=== PATIENT | female | born 1940 | race Caucasian/White ===

== ENCOUNTER → 2019-11-24 09:55 | Outpatient (BNVA) | payer MEDICARE, MEDICAID, SELFPAY | PROVIDERS: PCP Internal Medicine; Visit Provider Anesthesiology | DX: M19.012 Primary osteoarthritis, left shoulder (principal); M19.011 Primary osteoarthritis, right shoulder | CPT/HCPCS: 99213 ==

== ENCOUNTER 2019-12-27 05:30 | Outpatient (REF) | payer MEDICARE, MEDICAID, SELFPAY ==
--- NOTE | 2019-12-27 07:31 | FL_ITS ---
EXAMINATION: XR FLUOROSCOPY WITH IMAGES CLINICAL INFORMATION: Primary osteoarthritis of the left shoulder COMPARISON: 10/18/2019 TECHNIQUE: Fluoroscopy performed by Dr. Del Ruffin. Fluoroscopy time: 0.3 minutes DAP: 0.919 Gycm2 Images: 2 FINDINGS: Radiopaque needles are seen projecting over the glenoid as well as over the humeral neck. Degenerative changes are seen at the glenohumeral joint. FL/FL guidance in treatment room IMPRESSION: Fluoroscopic guidance for shoulder intervention. Please refer to procedural report for further information.
== END 2019-12-27 05:31 | disposition home or self-care (01) ==
LOC: HO.RADIR 05:30
PROVIDERS: Visit Provider Anesthesiology
DX: M19.011 Primary osteoarthritis, right shoulder (principal); M19.012 Primary osteoarthritis, left shoulder
CPT/HCPCS: 64417

== ENCOUNTER → 2020-01-04 12:37 | Outpatient (BNVA) | payer MEDICARE, MEDICAID, SELFPAY | PROVIDERS: PCP Internal Medicine; Visit Provider Nurse Practitioner Family | DX: M19.011 Primary osteoarthritis, right shoulder (principal); M19.012 Primary osteoarthritis, left shoulder; Z98.890 Other specified postprocedural states | CPT/HCPCS: Q3014 ==

== ENCOUNTER 2020-04-19 09:05 | Outpatient (REF) | payer MEDICARE, MEDICAID, SELFPAY ==
[2020-04-19 09:43] LABS: MANUAL DIFF FLAG NO
[2020-04-19 09:47] LABS: Basophils Percent Auto 0.5 % (0-2); Eosinophils Absolute Auto 0.1 X10*3/uL (0.0-0.4); Eosinophils Percent Auto 2.1 % (0-4); Hematocrit 37.3 % (37-47); Hemoglobin 12.1 g/dl (12.0-16.0); Imm Gran Abs Auto 0.02 X10*3/uL (0.00-0.03); Imm Gran Pct Auto 0.4 % (0.0-0.4); Lymphocytes Absolute Auto 1.4 X10*3/uL (1.2-4.9); Lymphocytes Percent Auto 25.2 % (20-40); Mean Corpuscular HGB Conc 32.4 g/dl (31.0-35.0); Mean Corpuscular Hemoglobin 29.9 pg (27.0-33.0); Mean Corpuscular Volume 92.1 fL (80-98); Mean Platelet Volume 12.2 fL (9.4-12.3); Monocytes Absolute Auto 0.5 X10*3/uL (0.1-1.2); Monocytes Percent Auto 8.9 % (2-11); Neutrophils Absolute Auto 3.5 X10*3/uL (2.0-8.3); Neutrophils Percent Auto 62.9 % (45-73); Platelet Count 222 X10*3/uL (160-400); Red Blood Count 4.05 X10*6/uL (4.20-5.50); Red Cell Distribution Width 12.9 % (11.0-16.0); White Blood Count 5.6 X10*3/uL (4.8-10.8)
[2020-04-19 10:13] LABS: Alanine Aminotransferase 17 U/L (0-31); Albumin Level 4.2 g/dL (3.5-5.0); Alkaline Phosphatase 68 U/L (39-117); Anion Gap 14 (12-20); Aspartate Amino Transferase 24 U/L (5-31); Bilirubin Total 0.9 mg/dL (0.0-1.0); Blood Urea Nitrogen 25 mg/dL (9-16); Calcium 9.7 mg/dL (8.4-10.2); Carbon Dioxide 24 mmol/L (22-29); Chloride 108 mmol/L (96-108); Cholesterol 148 mg/dL; Estimated Glomerular Filt Rate 46; Glucose Random 111 mg/dL (60-115); HDL Cholesterol 45 mg/dL; LDL Cholesterol Calculated 75 mg/dl; Potassium 4.9 mmol/L (3.3-5.1); Sodium 141 mmol/L (135-145); Total Protein 6.9 g/dL (6.5-8.0); Triglycerides 140 mg/dL
[2020-04-19 10:33] LABS: Free T4 (Free Thyroxine) 0.96 ng/dL (0.71-1.85); Thyroid Stimulating Hormone 1.03 uIU/mL (0.32-4.0)
== END 2020-04-19 09:06 | disposition home or self-care (01) ==
LOC: HO.LAB 09:05
PROVIDERS: PCP Internal Medicine; Visit Provider Internal Medicine
DX: E78.00 Pure hypercholesterolemia, unspecified (principal); K21.9 Gastro-esophageal reflux disease without esophagitis; I10 Essential (primary) hypertension
CPT/HCPCS: 36415; 80053; 80061; 84439; 84443; 85025

== ENCOUNTER 2020-06-08 09:00 | Outpatient (RCR) | payer MEDICARE, MEDICAID, SELFPAY ==
--- NOTE | 2020-05-18 09:31 | MHC.PT.EP ---
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 Pt CURRENTLY HAS A QUAD CANE AND USES THIS AD INCONSISTENTLY. 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 FUNCTIONALLY, Pt IS INDEP W TRANSFERS/ BED MOB, HER CURRENT FOOTWEAR IS TOO WIDE AND ALLOWS FOR INCR VALGUS AND PRONATION- SHE DEMON RECIP TECHN ASC STAIRS W RAIL AND CANE AND DESCENDS 1 STAIR AT A TIME W RAIL AND CANE. CURRENTLY, NO OBJECTIVE FINDINGS OF SENSORIMOTOR DEFICITS. Pt WOULD BENEFIT FROM PT TO ADDRESS THE ABOVE FINDINGS AND GUIDE Pt W REGAINING FUNCT INDEPENDENCE W REDUCED FEAR OF FALLING. Frequency and Duration: The patient will be seen 2x WK x 5 WKS Short Term Goals: Pt BERNABE IMPROVED TECHN W USE OF QUAD CANE ON LEVEL GROUND AND STAIRS IN 2 WKS Pt PRESENT AND MORE CONSISTENTLY DON HER TIE SHOES FOR IMPROVED STABILITY IN HER FEET AND ANKLES IN 2 WKS Pt DEMON FULL LEFT KNEE EXT IN 2 WKS Mcc Goals: Pt INDEP W HEP AND OBJECTIVE IMPROVED PELVIC SYMM/ REDUCED LLI IN 5 WKS Pt BERNABE IMPROVED ADL/ FUNCT MOB KAYLEY EVIDENT W IMPROVED DGI BY 10 POINTS (07/02 AT EVAL) IN 5 WKS Treatment Plan: Modalities to reduce pain, spasms and effusion. Manual therapy to restore motion and function. Therapeutic exercise to improve strength and flexibility. Neuromuscular re-education for posture and balance. Therapeutic activities to return to functional activities of daily living. Electronically signed by: Jeannie Cifuentes PT Please sign and return to therapist. Thank you for your referral.
--- NOTE | 2020-07-19 10:02 | MHC.PT.DC ---
[facility] [place] Office [place] Office [place] Office [address] Lila Larson [address] [phone] F: [phone] F: [phone] F: [phone] F: [phone] Physical Therapy Discharge Report Diagnosis: UNSTEADINESS ON HER FEET Date of Surgery: Date of Evaluation: 05/18/20 Date of Discharge: 07/19/20 Treatments to Date: 4 Cancellations to Date: 0 No Shows to Date: 0 Discharge Status: Improved Function Independent with HEP Patient Elected to Stop Discharge Summary: AT D/C Pt BETTYON IMPROVED GAIT AND HER FEAR OF FALLING HAS BEEN DECR AND Pt WAS PROGRESSING WITH STATIC AND DYN BALANCE TASKS- Pt PHONED AND D/C HERSELF, NOTING SHE TURNED IN HER BED AND FELT A POP IN HER KNEE/ CALF AND HAS HAD PAIN AND IMPAIRED FUNCT MOB SINCE, SHE NOTED SHE HAS HAD MEDICAL CONSULTS AND FEELS SHE IS BEST TO D/C PT AT THE CURRENT AT EVAL: 80 YO FEMALE REF TO PT FOR UNSTEADINESS/ FEAR OF FALLING- Pt HAS H/O HELGA TKR W MOST RECENT ON THE RIGHT 2 YRS AGO- SHE RESIDES ALONE IN A 1ST FLOOR APT AND 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 Pt CURRENTLY HAS A QUAD CANE AND USES THIS AD INCONSISTENTLY. 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 FUNCTIONALLY, Pt IS INDEP W TRANSFERS/ BED MOB, HER CURRENT FOOTWEAR IS TOO WIDE AND ALLOWS FOR INCR VALGUS AND PRONATION- SHE DEMON RECIP TECHN ASC STAIRS W RAIL AND CANE AND DESCENDS 1 STAIR AT A TIME W RAIL AND CANE. CURRENTLY, NO OBJECTIVE FINDINGS OF SENSORIMOTOR DEFICITS. Pt WOULD BENEFIT FROM PT TO ADDRESS THE ABOVE FINDINGS AND GUIDE Pt W REGAINING FUNCT INDEPENDENCE W REDUCED FEAR OF FALLING. Electronically signed by: Jeannie Cifuentes,PT Please sign and return to therapist. Thank you for your referral.
== END 2020-07-19 10:03 | disposition other institution (70) ==
LOC: HO.PTCHIC 09:00
PROVIDERS: PCP Internal Medicine; Visit Provider Internal Medicine
DX: R26.81 Unsteadiness on feet (principal)
CPT/HCPCS: 97110; 97112; 97116; 97163

== ENCOUNTER 2020-06-12 15:37 | Outpatient (REF) | payer MEDICARE, MEDICAID, SELFPAY ==
--- NOTE | ~2020-06-12 | US_ITS ---
EXAMINATION: US VENOUS ULTRASOUND WITH DOPPLER LOWER EXTREMITY, RIGHT CLINICAL INFORMATION: Pain COMPARISON: Previous exam November 2017 TECHNIQUE: Ultrasound of the deep veins is performed from the hip to the calf with compression sonography and color and pulse Doppler assessment. Spectral analysis with color-flow imaging is performed. FINDINGS: There is normal venous compression and respiratory variation and augmented flow. The visualized common femoral vein, superficial femoral vein, profunda femoral vein, popliteal vein, and the trifurcation region shows no evidence of deep venous thrombosis. There is no popliteal fossa cyst. US/US venous duplex LE RT IMPRESSION: No DVT demonstrated in the right lower extremity.
== END 2020-06-12 15:38 | disposition home or self-care (01) ==
LOC: HO.US 15:37
PROVIDERS: PCP Internal Medicine; Visit Provider Internal Medicine
DX: I82.401 Acute embolism and thrombosis of unspecified deep veins of right lower extremity (principal); M79.89 Other specified soft tissue disorders
CPT/HCPCS: 93971

== ENCOUNTER 2020-07-11 08:15 | Outpatient (REF) | payer MEDICARE, MEDICAID, SELFPAY ==
--- NOTE | ~2020-07-11 | XR_ITS ---
EXAMINATION: XR KNEES, STANDING AP XR KNEE, RIGHT CLINICAL INFORMATION: Right knee pain, M25.561. COMPARISON: Standing AP knees and right knee 10/13/2018 TECHNIQUE: Standing AP view of both knees is performed along with lateral view right knee. FINDINGS: There is been prior bilateral knee arthroplasty. The bilateral hardware is intact. There is no fracture or destructive process or osteolysis. Right knee shows small suprapatellar effusion. There is spurring at origin right patellar tendon and borderline spurring at insertion right quadriceps tendon. XR/XR knee standing BI IMPRESSION: 1. Prior bilateral knee arthroplasty. Hardware intact. No osteolysis. 2. Small right suprapatellar effusion. Spurring at origin right patellar tendon and borderline spurring insertion quadriceps tendon
--- NOTE | ~2020-07-11 | XR_ITS ---
EXAMINATION: XR KNEES, STANDING AP XR KNEE, RIGHT CLINICAL INFORMATION: Right knee pain, M25.561. COMPARISON: Standing AP knees and right knee 10/13/2018 TECHNIQUE: Standing AP view of both knees is performed along with lateral view right knee. FINDINGS: There is been prior bilateral knee arthroplasty. The bilateral hardware is intact. There is no fracture or destructive process or osteolysis. Right knee shows small suprapatellar effusion. There is spurring at origin right patellar tendon and borderline spurring at insertion right quadriceps tendon. XR/XR knee RT 2V IMPRESSION: 1. Prior bilateral knee arthroplasty. Hardware intact. No osteolysis. 2. Small right suprapatellar effusion. Spurring at origin right patellar tendon and borderline spurring insertion quadriceps tendon
== END 2020-07-11 08:16 | disposition home or self-care (01) ==
LOC: HO.HOSX 08:15
PROVIDERS: Visit Provider Orthopaedic Surgery
DX: M79.18 Myalgia, other site (principal); M25.561 Pain in right knee; M25.562 Pain in left knee; Z96.651 Presence of right artificial knee joint
CPT/HCPCS: 73560; 73565; 99212

== ENCOUNTER → 2020-08-02 09:17 | Outpatient (BNVA) | payer MEDICARE, MEDICAID, SELFPAY | PROVIDERS: Visit Provider Internal Medicine Cardiovascular Disease | DX: I25.10 Atherosclerotic heart disease of native coronary artery without angina pectoris (principal); R07.89 Other chest pain; I10 Essential (primary) hypertension | CPT/HCPCS: 93005; 99212 ==

== ENCOUNTER → 2020-08-15 09:04 | Outpatient (REF) | payer MEDICARE, MEDICAID, SELFPAY ==
--- NOTE | ~2020-08-15 | NM_ITS ---
Myocardial perfusion study Indication: Retrosternal chest pressure to evaluate for myocardial ischemia Technique: The patient was brought in for a Lexiscan perfusion study on 08/15/2020. Patient performed low-level exercise and was injected 0.4 mg of Lexiscan intravenously. Within a minute of injection, 30 mCi of sestamibi was given intravenously. Images were obtained using the SPECT gamma camera interlaced with the gating device. Images were obtained in supine position. Resting perfusion study was performed on 08/16/2020. Patient was administered 30 mCi of sestamibi intravenously at rest. Images were then obtained in supine position. Images obtained with and without CT attenuation. Total DLP 170 mGy-cm. Images were processed with the software and compared side to side in short axis, horizontal long axis and vertical long axis views. Findings: The stress perfusion study showed nonattenuated images show large area of moderate intensity reduced uptake in the inferolateral and just inferior wall of the LV myocardium. Remainder of the LV myocardium is normally perfused. Attenuation corrected images show mildly reduced uptake in the apex of the LV myocardium.. The gated study shows normal LV systolic function with calculated LVEF of 71%. LV cavity is normal in size. The gated study shows normal systolic wall thickening and contraction of segments. Resting study shows nonattenuated images show mildly reduced uptake in the basal inferolateral wall of the LV myocardium. Attenuation corrected images show mildly reduced uptake apex of the LV myocardium.. Gating at rest reveals normal systolic wall motion with ejection fraction at 72%. The findings are consistent with there is discrepant findings between nonattenuated attenuated corrected images. Attenuated corrected images appear to be over corrected. There is large area of moderate intensity inferolateral ischemia in the circumflex territory.. NM/NM memo perf SPECT rest & str Impression: 1. Myocardial perfusion imaging study shows complex territory ischemia, large territory of moderate to severely 2. Gated LVEF is 72% 3. Transient ischemic dilatation not present EKG is nondiagnostic for ischemia
--- NOTE | 2020-08-15 09:06 | CA_ITS ---
Acquisition Time: 2020-08-15 09:09:52 Total Exercise Time: 00:02:00 Test Indications: CHEST PAIN Medications: SEE MED LIST Protocol: LEXISCAN Max HR: 099 BPM 71% of Pred: 138 BPM Max BP: 136/074 mmHG Max Work Load: 1.0 METS Pharmacological stress test with Lexiscan injection, while sitting and kicking her legs, without anginal symptoms, with isolated PVCs, with normotensive response to injection, with nondiagnostic EKG for ischemia. In recovery she reported feeling nausea, weak and weird and was treated with Aminophylline 75mg IVP to reverse Lexiscan with resolution of symptoms. Nuclear images pending. Test reviewed with Dr Guerrero. Referred By: Keo Bush Overread By: YOLANDA LEE
== END ==
LOC: HO.CARD 09:04
PROVIDERS: Visit Provider Internal Medicine Cardiovascular Disease
DX: R07.89 Other chest pain (principal)
CPT/HCPCS: 78452; 93017; A9500; J0280; J2785

== ENCOUNTER → 2020-08-23 09:37 | Outpatient (BNVA) | payer MEDICARE, MEDICAID, SELFPAY | PROVIDERS: Referring Provider Internal Medicine; Visit Provider Internal Medicine Cardiovascular Disease | DX: I25.10 Atherosclerotic heart disease of native coronary artery without angina pectoris (principal); I10 Essential (primary) hypertension | CPT/HCPCS: 99212 ==

== ENCOUNTER 2020-08-25 10:19 | Emergency (ER) | payer MEDICARE, MEDICAID, SELFPAY ==
--- NOTE | ~2020-08-25 | US_ITS ---
EXAMINATION: US VENOUS ULTRASOUND WITH DOPPLER LOWER EXTREMITY, RIGHT CLINICAL INFORMATION: Pain and swelling COMPARISON: 06/12/2020 TECHNIQUE: Ultrasound of the deep veins is performed from the hip to the calf with compression sonography and color and pulse Doppler assessment. Spectral analysis with color-flow imaging is performed. FINDINGS: There is normal venous compression and respiratory variation and augmented flow. The visualized common femoral vein, superficial femoral vein, profunda femoral vein, popliteal vein, and the trifurcation region shows no evidence of deep venous thrombosis. There is no significant popliteal fossa cyst. If the patient's symptoms persist, followup ultrasound in 5 days 7 days might be of value to exclude proximal propagation from a non-visualized calf vein. US/US venous duplex LE RT IMPRESSION: No DVT demonstrated in the right lower extremity.
[2020-08-25 10:27] VITALS: BP 133/69; PULSE 67; RESP 16; TEMP 35.9; O2SAT 95; BMI 30.9
--- NOTE | 2020-08-25 10:35 | ED_ITS ---
HPI - Extremity Problem General Chief complaint: Extremity Problem Stated complaint: Right leg pain, Nauseous Time Seen by Provider: 08/25/20 10:32 Source: patient and old records reviewed Mode of arrival: ambulatory Limitations: no limitations History of Present Illness MD Complaint: extremity pain Onset (ago): week(s) (1) Pain Consistency: constant Location: right and lower extremity Quality: constant and other (throbbing) Radiation: none Relieving factors: nothing Exacerbating factors: walking and palpation Associated symptoms: denies other symptoms Context: other (hx of injury in that leg months ago at PT took some medications in the past that alleviates the pain and it went away) Related Data Home Medications Medication Instructions Recorded Confirmed aspirin 81 mg tablet,delayed 81 mg PO DAILY 11/24/19 08/23/20 release atorvastatin 20 mg tablet 20 mg PO DAILY 11/24/19 08/23/20 ascorbate calcium (vitamin C) 500 500 mg PO DAILY 02/01/20 08/23/20 mg tablet cholecalciferol (vitamin D3) 25 25 mcg PO DAILY 02/01/20 08/23/20 mcg (1,000 unit) capsule cyanocobalamin (vitamin B-12) 1,000 mcg PO DAILY 02/01/20 08/23/20 1,000 mcg capsule meclizine 25 mg tablet 25 mg PO DAILY 02/01/20 08/23/20 Previous Rx's Medication Instructions Recorded melatonin 5 mg capsule 5 mg PO .QD #14 cap 02/01/20 metoprolol succinate 50 mg 50 mg PO DAILY #90 tab 02/28/20 tablet,extended release 24 hr hydrochlorothiazide 12.5 mg tablet 12.5 mg PO QAM #90 cap 05/08/20 losartan 50 mg tablet 50 mg PO DAILY #90 cap 06/10/20 isosorbide mononitrate 30 mg 30 mg PO QAM 30 Days #30 tab 08/16/20 tablet,extended release 24 hr diazepam [Valium] 2 mg PO BID PRN #10 tab 08/25/20 Allergies Allergy/AdvReac Type Severity Reaction Status Date / Time rosuvastatin [Crestor] Allergy Unknown unknown Verified 08/25/20 10:27 famotidine [From PEPCID] AdvReac Severe NAUSEA Verified 08/25/20 10:27 oxycodone [From OXYCONTIN] AdvReac Intermediate NAUSEA & Verified 08/25/20 10:27 VOMITING FROM PERCOCET TOO tramadol AdvReac Intermediate could not Verified 08/25/20 10:27 concetrate Review of Systems Review of Systems: Constitutional : No Fever, No Chills ENT/Mouth : No Ear Pain, No Hoarseness, No sore throat Eyes: No Eye Pain, No Swelling, No Redness, No Foreign Body Cardiovascular : No Chest Pain, No SOB Respiratory : No Cough, No Dyspnea Gastrointestinal : No Nausea, No Vomiting, No Diarrhea, No abdominal Pain Genitourinary : No Dysuria, No Hematuria Musculoskeletal : no joint pain, pos Myalgias, No Joint Swelling Skin : No Skin lacerations, No rash Neuro : No Weakness, No Numbness, No Loss of Consciousness, No Dizziness, No Headache Psych : No Anxiety/Panic, No Depression Heme/Lymph: no easy bruising, no Lymphadenopathy Endocrine : No Polyuria, No Polydipsia All other systems reviewed and are negative PMFSH Past Medical History Attestation statement: The following information was validated with the patient. Medical History Anxiety and depression Carotid stenosis Chronic kidney disease (CKD) stage G3b/A1, moderately decreased glomerular filtration rate (GFR) between 30-44 mL/min/1.73 square meter and albuminuria creatinine ratio less than 30 mg/g Coronary artery disease Esophageal dysmotility GERD (gastroesophageal reflux disease) Hypercholesterolemia Hypertension Insomnia Leukopenia Lumbar degenerative disc disease Overweight (BMI 25.0-29.9) Peripheral neuropathy Peripheral vascular disease Pityriasis lichenoides chronica Primary osteoarthritis of both shoulders Spinal stenosis TIA (transient ischemic attack) Vitamin D deficiency Surgical History Basal cell carcinoma (BCC) H/O knee surgery History of appendectomy History of cataract surgery History of cholecystectomy History of tonsillectomy S/P JIMENEZ-BSO Status post phlebectomy Stented coronary artery Social History Social History Alcohol intake: current Alcohol intake frequency: holidays/special occasions only Alcohol type: hard liquor Patient Tobacco Use Status: Never used Tobacco Use of substances other than those prescribed or required for medical reasons: No Advance Directives: Yes Advance Directives Information Provided: Yes Advance Directives on File: No Physical Exam Vital Signs: Vital Signs: Last Vital Signs Temp 96.6 F L 08/25/20 10:27 Pulse 67 08/25/20 10:27 Resp 16 08/25/20 10:27 BP 133/69 08/25/20 10:27 Pulse Ox 95 08/25/20 10:27 Body Mass Index 30.9 Appearance: Alert. Oriented X3. No acute distress. Eyes: Pupils equal, round and reactive to light. ENT: Pharynx normal. Neck: Normal inspection. Neck supple. CVS: Normal heart rate and rhythm. Pulses normal. Respiratory: No respiratory distress. Breath sounds normal. Abdomen: Soft and nontender. Skin: Skin warm and dry. Normal skin color. Normal skin turgor. Extremities: No lower extremity edema. R calf ttp no engorgement of vessels, no swelling, compartments are soft and compressible 2+ PT and DP pulses, no skin changes Neuro: Oriented X 3. No motor deficit. No sensory deficit. Course Course Course Narrative: limited bedside US 11am - full compression of CFV and at junction with SFV as well as popliteal vein and posterior tibial/peroneal to mid calf no clot seen on exam feels better stable for DC MDM - Extremity (Nontraumatic) MDM Narrative Medical decision making narrative: 80 yo female with hx of HTN, HLD, CAD, R TKR remote, hx of DVT remote several years ago, no longer on AC therapy c/o R calf pain no swelling for 1 week worse overnight worse with movements - no CP/SOB, skin changes, has great pulses at this time no signs of ischemia, compartments are soft and compressible, theres no swelling remote hx of DVTs - we do not have US tech available will obtain limited DVT study in ED and ddimer for risk stratification - I suspect more MSK pain in nature, PO medications ordered for muscle cramp at this time Lab Data Result diagrams: 08/25/20 11:16 08/25/20 11:16 Labs: Lab Results 08/25/20 08/25/20 08/25/20 Range/Units 11:15 11:16 11:16 WBC 4.8 (4.8-10.8) X10*3/uL RBC 3.29 L (4.20-5.50) X10*6/uL Hgb 10.1 L (12.0-16.0) g/dl Hct 30.6 L (37-47) % MCV 93.0 (80-98) fL MCH 30.7 (27.0-33.0) pg MCHC 33.0 (31.0-35.0) g/dl RDW 12.7 (11.0-16.0) % Plt Count 182 (160-400) X10*3/uL MPV 12.4 H (9.4-12.3) fL Immature Gran % (Auto) 0.4 (0.0-0.4) % Neut % (Auto) 65.2 (45-73) % Lymph % (Auto) 22.2 (20-40) % Rolette % (Auto) 9.5 (2-11) % Eos % (Auto) 1.9 (0-4) % Baso % (Auto) 0.8 (0-2) % Lymph # (Auto) 1.1 L (1.2-4.9) X10*3/uL Rolette # (Auto) 0.5 (0.1-1.2) X10*3/uL Eos # (Auto) 0.1 (0.0-0.4) X10*3/uL Baso # (Auto) 0.0 (0.0-0.2) X10*3/uL Abs Immat Gran (auto) 0.02 (0.00-0.03) X10*3/uL Absolute Neuts (auto) 3.2 (2.0-8.3) X10*3/uL Absolute Nucleated RBC 0.000 (0.0-0.012) X10*3/uL Nucleated RBC % (auto) 0.0 (0.0-0.2) /100WBC D-Dimer 364 NG/ML Sodium 139 (135-145) mmol/L Potassium 4.2 (3.3-5.1) mmol/L Chloride 109 H (96-108) mmol/L Carbon Dioxide 22 (22-29) mmol/L Anion Gap 12 (12-20) BUN 36 H (9-16) mg/dL Creatinine 1.17 (0.5-1.4) mg/dL Estim Creat Clear Calc 38.3 Estimated GFR 44 Random Glucose 105 (60-115) mg/dL Calcium 8.9 D (8.4-10.2) mg/dL Magnesium 1.9 (1.6-2.6) mg/dL Discharge Plan Discharge Clinical Impression: Acute leg pain Qualifiers: Laterality: right Qualified Code(s): M79.604 - Pain in right leg Patient Disposition: Home, Self-Care Instructions: Leg Cramps (ED) Additional Instructions: return to ED for any worsening symptoms or concerns Prescriptions: New diazepam [Valium] 2 mg tablet 2 mg PO BID PRN (Reason: muscle spasm) Qty: 10 RF: 0 No Action metoprolol succinate 50 mg tablet extended release 24 hr 50 mg PO DAILY Qty: 90 RF: 2 hydrochlorothiazide 12.5 mg tablet 12.5 mg PO QAM Qty: 90 RF: 3 losartan 50 mg tablet 50 mg PO DAILY Qty: 90 RF: 3 isosorbide mononitrate 30 mg tablet extended release 24 hr 30 mg PO QAM 30 Days Qty: 30 RF: 0 meclizine 25 mg tablet 25 mg PO DAILY RF: 0 ascorbate calcium (vitamin C) 500 mg tablet 500 mg PO DAILY RF: 0 cholecalciferol (vitamin D3) 25 mcg (1,000 unit) capsule 25 mcg PO DAILY RF: 0 cyanocobalamin (vitamin B-12) 1,000 mcg capsule 1,000 mcg PO DAILY RF: 0 melatonin 5 mg capsule 5 mg PO .QD Qty: 14 RF: 0 atorvastatin 20 mg tablet 20 mg PO DAILY RF: 0 aspirin 81 mg tablet,delayed release (DR/EC) 81 mg PO DAILY RF: 0 Referrals: Po,Erika Armendariz MD [Primary Care Provider] - 2 days (Thursday if not better)
[2020-08-25] MEDS: diazePAM 5 MG TABLET PO (10:47)
[2020-08-25 11:21] LABS: MANUAL DIFF FLAG NO
[2020-08-25 11:29] LABS: Basophils Percent Auto 0.8 % (0-2); Eosinophils Absolute Auto 0.1 X10*3/uL (0.0-0.4); Eosinophils Percent Auto 1.9 % (0-4); Hematocrit 30.6 % (37-47); Hemoglobin 10.1 g/dl (12.0-16.0); Imm Gran Abs Auto 0.02 X10*3/uL (0.00-0.03); Imm Gran Pct Auto 0.4 % (0.0-0.4); Lymphocytes Absolute Auto 1.1 X10*3/uL (1.2-4.9); Lymphocytes Percent Auto 22.2 % (20-40); Mean Corpuscular Hemoglobin 30.7 pg (27.0-33.0); Mean Platelet Volume 12.4 fL (9.4-12.3); Monocytes Absolute Auto 0.5 X10*3/uL (0.1-1.2); Monocytes Percent Auto 9.5 % (2-11); Neutrophils Absolute Auto 3.2 X10*3/uL (2.0-8.3); Neutrophils Percent Auto 65.2 % (45-73); Platelet Count 182 X10*3/uL (160-400); Red Blood Count 3.29 X10*6/uL (4.20-5.50); Red Cell Distribution Width 12.7 % (11.0-16.0); White Blood Count 4.8 X10*3/uL (4.8-10.8)
[2020-08-25 11:49] LABS: D Dimer 364 NG/ML
[2020-08-25 12:01] LABS: Anion Gap 12 (12-20); Blood Urea Nitrogen 36 mg/dL (9-16); Calcium 8.9 mg/dL (8.4-10.2); Carbon Dioxide 22 mmol/L (22-29); Chloride 109 mmol/L (96-108); Creatinine Clr Calc Pharmacy 38.3; Estimated Glomerular Filt Rate 44; Glucose Random 105 mg/dL (60-115); Magnesium 1.9 mg/dL (1.6-2.6); Potassium 4.2 mmol/L (3.3-5.1); Sodium 139 mmol/L (135-145)
== END 2020-08-25 13:03 | disposition home or self-care (01) ==
PROVIDERS: Physician Assistant; Emergency Provider Emergency Medicine; PCP Internal Medicine
DX: M79.604 Pain in right leg (principal); I12.9 Hypertensive chronic kidney disease with stage 1 through stage 4 chronic kidney disease, or unspecified chronic kidney disease; N18.32 Chronic kidney disease, stage 3b; Z86.718 Personal history of other venous thrombosis and embolism; Z86.73 Personal history of transient ischemic attack (TIA), and cerebral infarction without residual deficits; Z79.82 Long term (current) use of aspirin; Z79.899 Other long term (current) drug therapy
CPT/HCPCS: 36415; 80048; 83735; 85025; 85379; 93971; 99284

== ENCOUNTER 2020-09-27 16:08 | Outpatient (REF) | payer MEDICARE, MEDICAID, SELFPAY ==
[2020-09-27 16:57] LABS: MANUAL DIFF FLAG NO
[2020-09-27 16:58] LABS: Basophils Percent Auto 0.6 % (0-2); Eosinophils Absolute Auto 0.1 X10*3/uL (0.0-0.4); Eosinophils Percent Auto 1.4 % (0-4); Hematocrit 35.8 % (37-47); Hemoglobin 11.7 g/dl (12.0-16.0); Imm Gran Abs Auto 0.01 X10*3/uL (0.00-0.03); Imm Gran Pct Auto 0.2 % (0.0-0.4); Immature Retic Fraction 5.3 % (3.0-15.9); Lymphocytes Absolute Auto 1.6 X10*3/uL (1.2-4.9); Lymphocytes Percent Auto 25.5 % (20-40); Mean Corpuscular HGB Conc 32.7 g/dl (31.0-35.0); Mean Corpuscular Hemoglobin 30.5 pg (27.0-33.0); Mean Corpuscular Volume 93.5 fL (80-98); Mean Platelet Volume 12.5 fL (9.4-12.3); Monocytes Absolute Auto 0.5 X10*3/uL (0.1-1.2); Monocytes Percent Auto 7.5 % (2-11); Neutrophils Absolute Auto 4.1 X10*3/uL (2.0-8.3); Neutrophils Percent Auto 64.8 % (45-73); Platelet Count 222 X10*3/uL (160-400); Red Blood Count 3.83 X10*6/uL (4.20-5.50); Red Cell Distribution Width 12.9 % (11.0-16.0); Retic HGB Equivalent 34.4 pg (30.0-35.0); Reticulocytes Absolute 0.036 X10*6/uL (0.026-0.095); White Blood Count 6.3 X10*3/uL (4.8-10.8)
[2020-09-27 17:42] LABS: Alanine Aminotransferase 16 U/L (0-31); Albumin Level 4.2 g/dL (3.5-5.0); Alkaline Phosphatase 64 U/L (39-117); Anion Gap 13 (12-20); Aspartate Amino Transferase 21 U/L (5-31); Bilirubin Total 0.6 mg/dL (0.0-1.0); Blood Urea Nitrogen 33 mg/dL (9-16); Calcium 9.7 mg/dL (8.4-10.2); Carbon Dioxide 24 mmol/L (22-29); Chloride 108 mmol/L (96-108); Estimated Glomerular Filt Rate 35; Glucose Random 101 mg/dL (60-115); Iron 108 mcg/dL (30-160); Percent Iron Saturation 32 % (15-50); Phosphorus 4.5 mg/dL (2.7-4.5); Potassium 4.9 mmol/L (3.3-5.1); Sodium 140 mmol/L (135-145); Total Iron Binding Capacity 338 mcg/dL (228-428); Total Protein 6.8 g/dL (6.5-8.0); Unsaturated Iron Binding 230 ug/dL
[2020-09-27 18:02] LABS: Ferritin 80 ng/mL (10-250)
[2020-09-27 18:14] LABS: Folate 11.5 ng/mL (> or = 4.0); Vitamin B12 577 pg/mL (200-900)
== END 2020-09-27 16:09 | disposition home or self-care (01) ==
LOC: HO.LAB 16:08
PROVIDERS: PCP Internal Medicine; Visit Provider Internal Medicine
DX: M62.838 Other muscle spasm (principal)
CPT/HCPCS: 36415; 80053; 82607; 82728; 82746; 83540; 83735; 84100; 85025; 85045

== ENCOUNTER 2020-10-04 09:50 | Outpatient (REF) | payer MEDICARE, MEDICAID, SELFPAY ==
[2020-10-04 11:40] LABS: Anion Gap 16 (12-20); Blood Urea Nitrogen 27 mg/dL (9-16); Carbon Dioxide 20 mmol/L (22-29); Chloride 110 mmol/L (96-108); Estimated Glomerular Filt Rate 40; Glucose Random 105 mg/dL (60-115); Potassium 4.6 mmol/L (3.3-5.1); Sodium 141 mmol/L (135-145)
== END 2020-10-04 09:51 | disposition home or self-care (01) ==
LOC: HO.LAB 09:50
PROVIDERS: PCP Internal Medicine; Visit Provider Internal Medicine
DX: I10 Essential (primary) hypertension (principal)
CPT/HCPCS: 36415; 80048

== ENCOUNTER → 2020-10-17 13:32 | Outpatient (BNVA) | payer MEDICARE, MEDICAID, SELFPAY | PROVIDERS: PCP Internal Medicine; Visit Provider Anesthesiology | DX: M19.011 Primary osteoarthritis, right shoulder (principal) | CPT/HCPCS: 99212 ==

== ENCOUNTER → 2020-10-22 10:32 | Outpatient (BNVA) | payer MEDICARE, MEDICAID, SELFPAY | PROVIDERS: PCP Internal Medicine; Referring Provider Internal Medicine; Visit Provider Internal Medicine Cardiovascular Disease | DX: I25.10 Atherosclerotic heart disease of native coronary artery without angina pectoris (principal); R07.89 Other chest pain | CPT/HCPCS: 99212 ==

== ENCOUNTER 2021-04-22 09:12 | Outpatient (REF) | payer MEDICARE, MEDICAID, SELFPAY ==
[2021-04-22 11:40] LABS: MANUAL DIFF FLAG NO
[2021-04-22 11:50] LABS: Basophils Percent Auto 0.5 % (0-2); Eosinophils Absolute Auto 0.1 X10*3/uL (0.0-0.4); Eosinophils Percent Auto 2.1 % (0-4); Hematocrit 36.2 % (37.0-47.0); Hemoglobin 11.7 g/dl (12.0-16.0); Imm Gran Abs Auto 0.02 X10*3/uL (0.00-0.03); Imm Gran Pct Auto 0.3 % (0.0-0.4); Immature Retic Fraction 10.2 % (3.0-15.9); Lymphocytes Absolute Auto 1.1 X10*3/uL (1.2-4.9); Lymphocytes Percent Auto 17.3 % (20-40); Mean Corpuscular HGB Conc 32.3 g/dl (31.0-35.0); Mean Corpuscular Hemoglobin 30.6 pg (27.0-33.0); Mean Corpuscular Volume 94.8 fL (80.0-98.0); Mean Platelet Volume 12.8 fL (9.4-12.3); Monocytes Absolute Auto 0.5 X10*3/uL (0.1-1.2); Monocytes Percent Auto 7.3 % (2-11); Neutrophils Absolute Auto 4.4 x10*3/uL (2.0-8.3); Neutrophils Percent Auto 72.5 % (45-73); Platelet Count 219 X10*3/uL (160-400); Red Blood Count 3.82 X10*6/uL (4.20-5.50); Red Cell Distribution Width 12.7 % (11.0-16.0); Retic HGB Equivalent 33.5 pg (30.0-35.0); Reticulocyte Percent 1.2 % (0.5-1.8); Reticulocytes Absolute 0.045 X10*6/uL (0.026-0.095); White Blood Count 6.1 X10*3/uL (4.8-10.8)
[2021-04-22 12:19] LABS: Alanine Aminotransferase 14 U/L (0-31); Alkaline Phosphatase 73 U/L (39-117); Anion Gap 12 (12-20); Aspartate Amino Transferase 22 U/L (5-31); Bilirubin Total 0.9 mg/dL (0.0-1.0); Blood Urea Nitrogen 26 mg/dL (9-16); Calcium 9.6 mg/dL (8.4-10.2); Carbon Dioxide 23 mmol/L (22-29); Chloride 108 mmol/L (96-108); Cholesterol 136 mg/dL; Estimated Glomerular Filt Rate 48; Glucose Random 107 mg/dL (60-115); HDL Cholesterol 41 mg/dL; Iron 111 mcg/dL (30-160); LDL Cholesterol Calculated 69 mg/dl; Potassium 4.4 mmol/L (3.3-5.1); Sodium 139 mmol/L (135-145); Total Protein 6.7 g/dL (6.5-8.0); Triglycerides 134 mg/dL
[2021-04-22 12:39] LABS: Ferritin 63 ng/mL (10-250); Free T4 (Free Thyroxine) 1.12 ng/dL (0.71-1.85); Thyroid Stimulating Hormone 1.36 uIU/mL (0.32-4.0)
[2021-04-22 12:46] LABS: Folate 16.4 ng/mL (> or = 4.0); Vitamin B12 630 pg/mL (200-900)
[2021-04-22 13:45] LABS: Estimated Average Glucose 111 mg/dL; Hemoglobin A1c % 5.5 %
[2021-04-22 13:52] LABS: Percent Iron Saturation 34 % (15-50); Total Iron Binding Capacity 328 mcg/dL (228-428); Unsaturated Iron Binding 217 ug/dL
== END 2021-04-22 09:13 | disposition home or self-care (01) ==
LOC: HO.HMGCLDS 09:12
PROVIDERS: Visit Provider Internal Medicine
DX: D64.9 Anemia, unspecified (principal); E78.00 Pure hypercholesterolemia, unspecified; I25.10 Atherosclerotic heart disease of native coronary artery without angina pectoris; I10 Essential (primary) hypertension
CPT/HCPCS: 36415; 80053; 80061; 82607; 82728; 82746; 83036; 83540; 84439; 84443; 85025; 85045

== ENCOUNTER → 2021-05-02 10:38 | Outpatient (BNVA) | payer MEDICARE, MEDICAID, SELFPAY | PROVIDERS: PCP Internal Medicine; Referring Provider Internal Medicine; Visit Provider Internal Medicine Cardiovascular Disease | DX: I25.10 Atherosclerotic heart disease of native coronary artery without angina pectoris (principal) | CPT/HCPCS: 93005; 99212 ==

== ENCOUNTER 2021-06-03 11:16 | Emergency (ER) | payer MEDICARE, MEDICAID, SELFPAY ==
--- NOTE | 2021-06-03 | ECG_ITS ---
Test Reason : CHEST PAIN Blood Pressure : / mmHG Vent. Rate : 065 BPM Atrial Rate : 065 BPM P-R Int : 160 ms QRS Dur : 088 ms QT Int : 406 ms P-R-T Axes : 050 001 015 degrees QTc Int : 422 ms Normal sinus rhythm Normal ECG When compared with ECG of 20-JUL-2018 07:21, No significant change was found Referred By: Generic ED Physician Electronically Signed By:NATALIA BETANCOURT
--- NOTE | ~2021-06-03 | XR_ITS ---
EXAMINATION: XR CHEST CLINICAL INFORMATION: Pain COMPARISON: Chest x-ray and CTA chest 09/03/2016 TECHNIQUE: Frontal view of the chest was obtained. FINDINGS: The cardiac silhouette is mildly enlarged. The lungs are hypoinflated. Subtle bibasilar linear opacities are most suggestive of atelectasis. There is no lobar consolidation. No pleural effusion or pneumothorax. Degenerative changes of the spine and shoulders. XR/XR chest 1V IMPRESSION: No acute pulmonary pathology.
[2021-06-03 11:34] VITALS: BP 134/69; PULSE 73; RESP 18; TEMP 36.8; O2SAT 95; BMI 29.9
--- NOTE | 2021-06-03 11:43 | ED_ITS ---
HPI - Chest Pain General Chief Complaint: Chest Pain Stated Complaint: chest pain Time Seen by Provider: 06/03/21 11:43 Source: patient Mode of arrival: ambulatory Limitations: no limitations History of Present Illness MD complaint: chest pain (shoulder pain radiates down into the chest) Pertinent past history: coronary artery disease Onset (ago): day(s) (3) Timing of current episode: constant Prior episodes: Yes Onset: during rest Pain location: other (states her shoulders hurt then it causes spasm in her chest) Pain radiation: other (from shoulders into chest) Severity: moderate Quality: aching Relieving factors: other (lidocaine patches do help, sometimes tylenol) Exacerbating factors: palpation and movement Context: other (this is not related to exertion, no nausea no dyspnea states her shoulders hurt and it is causing her chest to feel tight this is not a new complaint she describes it as a sharp painful spasm) Treatment prior to arrival: other (tylenol/ lidocaine patch) Related Data Home Medications Medication Instructions Recorded Confirmed aspirin 81 mg tablet,delayed 81 mg PO DAILY 11/24/19 05/02/21 release flaxseed oil 1,000 mg capsule 1,000 mg PO DAILY 04/30/21 05/02/21 multivitamin 1 tab PO DAILY 04/30/21 05/02/21 Previous Rx's Medication Instructions Recorded melatonin 5 mg capsule 5 mg PO .QD #14 cap 02/01/20 atorvastatin 20 mg tablet 20 mg PO DAILY 90 Days #90 tab 10/02/20 amlodipine 5 mg tablet 5 mg PO DAILY 90 Days #90 tab 10/19/20 metoprolol succinate 50 mg 50 mg PO DAILY #90 tab 11/10/20 tablet,extended release 24 hr nitroglycerin 0.4 mg sublingual 0.4 mg SUBLINGUAL Q5M PRN #20 tab 05/03/21 tablet losartan 50 mg tablet 50 mg PO DAILY #90 cap 05/31/21 diclofenac sodium 1 % topical gel 2 g TOPICAL QID #100 g 06/03/21 (Voltaren Arthritis Pain) Allergies Allergy/AdvReac Type Severity Reaction Status Date / Time asparagus Allergy Severe Hives Verified 06/03/21 11:33 rosuvastatin [Crestor] Allergy Unknown unknown Verified 06/03/21 11:33 famotidine [From PEPCID] AdvReac Severe NAUSEA Verified 06/03/21 11:33 oxycodone [From OXYCONTIN] AdvReac Intermediate NAUSEA & Verified 06/03/21 11:33 VOMITING FROM PERCOCET TOO tramadol AdvReac Intermediate could not Verified 06/03/21 11:33 concetrate chocolate cover cherries Allergy Severe Anaphylaxis Uncoded 06/03/21 11:33 Review of Systems Review of Systems: Constitutional : No Weight loss, No Fever, No Chills ENT/Mouth : No sore throat, No Rhinorrhea Eyes: No Eye Pain, No Swelling Cardiovascular : pos Chest Pain, no SOB, no Dyspnea on Exertion, No Orthopnea, No Edema, No Palpitations Respiratory : No Cough, No Sputum Gastrointestinal : no Nausea, No Vomiting, No Diarrhea, No abdominal Pain, No Hematochezia, No Melena Genitourinary : No Dysuria, No Urinary Frequency Musculoskeletal : pos joint pain, No Myalgias, No Joint Swelling Skin : No Skin Lesions, No rash Neuro : No Weakness, No Numbness, No Dizziness, No Headache Psych : No Anxiety/Panic, No Depression Heme/Lymph: No Bruising, No Lymphadenopathy Endocrine : No Polyuria, No Polydipsia All other systems reviewed and are negative [facility] Past Medical History Attestation statement: The following information was validated with the patient. 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 Father No problems noted. Social History Social History Housing: Apartment Alcohol intake: current Alcohol intake frequency: holidays/special occasions only Alcohol type: hard liquor Patient Tobacco Use Status: Never used Tobacco e-Cigarette/Vaping Use: Never Used Second Hand Smoke Exposure: No Advance Directives: Yes Advance Directives on File: Yes Advance Directives Date on File: 07/11/20 service: No Current occupational status: retired Physical Exam Vital Signs: Vital Signs: Last Vital Signs Temp 98.3 F 06/03/21 11:34 Pulse 62 06/03/21 12:30 Resp 13 06/03/21 12:30 BP 145/70 H 06/03/21 12:30 Pulse Ox 97 06/03/21 12:30 BMI result Body Mass Index 29.9 Appearance: Alert. Oriented X3. No acute distress. Eyes: Pupils equal, round and reactive to light. ENT: Pharynx normal. Neck: Normal inspection. Neck supple. CVS: Normal heart rate and rhythm. Pulses normal. Respiratory: No respiratory distress. Breath sounds normal. Abdomen: Soft and nontender. Skin: Skin warm and dry. Normal skin color. Normal skin turgor. Extremities: No lower extremity edema. No calf ttp bilateral shoulder ttp hurts to range shoulders - reproduces her pain Neuro: Oriented X 3. No motor deficit. No sensory deficit. Course Course Course Narrative: Cardiology noted from 05/02 Jaylin comes for follow-up.? Her main issue currently is bilateral shoulder discomfort which limits her activity.? However with exertion she denies any chest pain.? 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 This is very atypical and her pain is coming from her s houlders. She notes this is chronic. I suspect MSK pain at this time. Will obtain EKG, CXR, troponin x 1. Offered PO trial of morphine for comfort - has tolerated IV morphine in the past. Lab Data Result diagrams: 06/03/21 12:17 06/03/21 12:17 Labs: Lab Results 06/03/21 06/03/21 06/03/21 Range/Units 12:17 12:17 12:17 WBC 4.4 L (4.8-10.8) X10*3/uL RBC 3.48 L (4.20-5.50) X10*6/uL Hgb 10.7 L (12.0-16.0) g/dl Hct 32.3 L (37.0-47.0) % MCV 92.8 (80.0-98.0) fL MCH 30.7 (27.0-33.0) pg MCHC 33.1 (31.0-35.0) g/dl RDW 12.8 (11.0-16.0) % Plt Count 192 (160-400) X10*3/uL MPV 12.0 (9.4-12.3) fL Immature Gran % (Auto) 0.2 (0.0-0.4) % Neut % (Auto) 61.8 (45-73) % Lymph % (Auto) 25.2 (20-40) % [place] % (Auto) 9.8 (2-11) % Eos % (Auto) 2.3 (0-4) % Baso % (Auto) 0.7 (0-2) % Lymph # (Auto) 1.1 L (1.2-4.9) X10*3/uL [place] # (Auto) 0.4 (0.1-1.2) X10*3/uL Eos # (Auto) 0.1 (0.0-0.4) X10*3/uL Baso # (Auto) 0.0 (0.0-0.2) X10*3/uL Abs Immat Gran (auto) 0.01 (0.00-0.03) X10*3/uL Absolute Neuts (auto) 2.7 (2.0-8.3) x10*3/uL Absolute Nucleated RBC 0.000 (0.0-0.012) X10*3/uL Nucleated RBC % (auto) 0.0 (0.0-0.2) /100WBC Sodium 138 (135-145) mmol/L Potassium 4.8 (3.3-5.1) mmol/L Chloride 109 H (96-108) mmol/L Carbon Dioxide 24 (22-29) mmol/L Anion Gap 10 L (12-20) BUN 26 H (9-16) mg/dL Creatinine 1.05 (0.5-1.4) mg/dL Estim Creat Clear Calc 42.8 Estimated GFR 50 Random Glucose 102 (60-115) mg/dL Calcium 9.4 (8.4-10.2) mg/dL Magnesium 2.0 (1.6-2.6) mg/dL Total Bilirubin 0.7 (0.0-1.0) mg/dL Direct Bilirubin 0.2 (0.0-0.5) mg/dL AST 22 (5-31) U/L ALT 13 (0-31) U/L Alkaline Phosphatase 65 (39-117) U/L Troponin I High Sens 8.7 (<3.5-17.0) ng/L Total Protein 6.2 L (6.5-8.0) g/dL Albumin 3.7 (3.5-5.0) g/dL 06/03/21 Range/Units 14:09 WBC (4.8-10.8) X10*3/uL RBC (4.20-5.50) X10*6/uL Hgb (12.0-16.0) g/dl Hct (37.0-47.0) % MCV (80.0-98.0) fL MCH (27.0-33.0) pg MCHC (31.0-35.0) g/dl RDW (11.0-16.0) % Plt Count (160-400) X10*3/uL MPV (9.4-12.3) fL Immature Gran % (Auto) (0.0-0.4) % Neut % (Auto) (45-73) % Lymph % (Auto) (20-40) % [place] % (Auto) (2-11) % Eos % (Auto) (0-4) % Baso % (Auto) (0-2) % Lymph # (Auto) (1.2-4.9) X10*3/uL [place] # (Auto) (0.1-1.2) X10*3/uL Eos # (Auto) (0.0-0.4) X10*3/uL Baso # (Auto) (0.0-0.2) X10*3/uL Abs Immat Gran (auto) (0.00-0.03) X10*3/uL Absolute Neuts (auto) (2.0-8.3) x10*3/uL Absolute Nucleated RBC (0.0-0.012) X10*3/uL Nucleated RBC % (auto) (0.0-0.2) /100WBC Sodium (135-145) mmol/L Potassium (3.3-5.1) mmol/L Chloride (96-108) mmol/L Carbon Dioxide (22-29) mmol/L Anion Gap (12-20) BUN (9-16) mg/dL Creatinine (0.5-1.4) mg/dL Estim Creat Clear Calc Estimated GFR Random Glucose (60-115) mg/dL Calcium (8.4-10.2) mg/dL Magnesium (1.6-2.6) mg/dL Total Bilirubin (0.0-1.0) mg/dL Direct Bilirubin (0.0-0.5) mg/dL AST (5-31) U/L ALT (0-31) U/L Alkaline Phosphatase (39-117) U/L Troponin I High Sens 9.7 (<3.5-17.0) ng/L Total Protein (6.5-8.0) g/dL Albumin (3.5-5.0) g/dL ECG Data ECG #1: Attestation: I personally reviewed and interpreted this ECG as follows: ECG interpretation date: 06/03/21 ECG interpretation time: 11:44 Interpretation: Rate: 65 Rhythm: NSR [place]: normal Normal P waves. Normal LENNOX. Normal QRS complex. ST T wave : no BONNIE, normal qTC: normal prior studies: no acute ischemia The study has been interpreted contemporaneously by me. . Discharge Plan Discharge Clinical Impression: Chronic pain of both shoulders Patient Disposition: Home, Self-Care Instructions: Arthralgia (ED) Additional Instructions: return to ED for any worsening symptoms or concerns do not mix the gel with lidocaine patches two blood tests for heart were in normal range Prescriptions: New diclofenac sodium [Voltaren Arthritis Pain] 1 % gel 2 g topical QID Qty: 100 0RF Rx Instructions: apply to single elbow, wrist or hand; for hand includes palm/fingers/back of hand No Action atorvastatin 20 mg tablet 20 mg PO DAILY 90 Days Qty: 90 2RF amlodipine 5 mg tablet 5 mg PO DAILY 90 Days Qty: 90 3RF metoprolol succinate 50 mg tablet extended release 24 hr 50 mg PO DAILY Qty: 90 2RF nitroglycerin 0.4 mg tablet, sublingual 0.4 mg sublingual Q5M PRN (Reason: chest pain) Qty: 20 1RF Rx Instructions: do not exceed 3 doses per episode losartan 50 mg tablet 50 mg PO DAILY Qty: 90 3RF melatonin 5 mg capsule 5 mg PO .QD Qty: 14 0RF flaxseed oil 1,000 mg capsule 1,000 mg PO DAILY 0RF Rx Instructions: administer with a meal multivitamin Tablet 1 tab PO DAILY 0RF aspirin 81 mg tablet,delayed release (DR/EC) 81 mg PO DAILY 0RF Referrals: Po,Erika Armendariz MD [Primary Care Provider] - 2 days (if not better)
[2021-06-03 12:25] LABS: MANUAL DIFF FLAG NO
[2021-06-03] MEDS: Acetaminophen 325 MG TABLET PO (12:27)
[2021-06-03 12:30] VITALS: BP 145/70; PULSE 62; RESP 13; O2SAT 97
[2021-06-03 12:32] LABS: Basophils Percent Auto 0.7 % (0-2); Eosinophils Absolute Auto 0.1 X10*3/uL (0.0-0.4); Eosinophils Percent Auto 2.3 % (0-4); Hematocrit 32.3 % (37.0-47.0); Hemoglobin 10.7 g/dl (12.0-16.0); Imm Gran Abs Auto 0.01 X10*3/uL (0.00-0.03); Imm Gran Pct Auto 0.2 % (0.0-0.4); Lymphocytes Absolute Auto 1.1 X10*3/uL (1.2-4.9); Lymphocytes Percent Auto 25.2 % (20-40); Mean Corpuscular HGB Conc 33.1 g/dl (31.0-35.0); Mean Corpuscular Hemoglobin 30.7 pg (27.0-33.0); Mean Corpuscular Volume 92.8 fL (80.0-98.0); Monocytes Absolute Auto 0.4 X10*3/uL (0.1-1.2); Monocytes Percent Auto 9.8 % (2-11); Neutrophils Absolute Auto 2.7 x10*3/uL (2.0-8.3); Neutrophils Percent Auto 61.8 % (45-73); Platelet Count 192 X10*3/uL (160-400); Red Blood Count 3.48 X10*6/uL (4.20-5.50); Red Cell Distribution Width 12.8 % (11.0-16.0); White Blood Count 4.4 X10*3/uL (4.8-10.8)
--- NOTE | 2021-06-03 12:55 | PC.NURSE ---
Pt comes in with complaints of shoulder pain bilateral which radiates into her chest, this is a chronic complaints. Pt is A&Ox4, LCA, SB on montior, +pulses, no pain at this time. Medicated as per MAR orders. Will continue to monitor.
[2021-06-03 13:12] LABS: Alanine Aminotransferase 13 U/L (0-31); Albumin Level 3.7 g/dL (3.5-5.0); Alkaline Phosphatase 65 U/L (39-117); Anion Gap 10 (12-20); Aspartate Amino Transferase 22 U/L (5-31); Bilirubin Direct 0.2 mg/dL (0.0-0.5); Bilirubin Total 0.7 mg/dL (0.0-1.0); Blood Urea Nitrogen 26 mg/dL (9-16); Calcium 9.4 mg/dL (8.4-10.2); Carbon Dioxide 24 mmol/L (22-29); Chloride 109 mmol/L (96-108); Creatinine Clr Calc Pharmacy 42.8; Estimated Glomerular Filt Rate 50; Glucose Random 102 mg/dL (60-115); Potassium 4.8 mmol/L (3.3-5.1); Sodium 138 mmol/L (135-145); Total Protein 6.2 g/dL (6.5-8.0)
[2021-06-03 13:14] LABS: Troponin-I High Sensitivity 8.7 ng/L (<3.5-17.0)
[2021-06-03 14:35] LABS: Troponin-I High Sensitivity 9.7 ng/L (<3.5-17.0)
== END 2021-06-03 15:26 | disposition home or self-care (01) ==
PROVIDERS: Emergency Provider Emergency Medicine; PCP Internal Medicine
DX: M25.512 Pain in left shoulder (principal); M25.511 Pain in right shoulder; R07.89 Other chest pain; I25.10 Atherosclerotic heart disease of native coronary artery without angina pectoris; Z79.899 Other long term (current) drug therapy
CPT/HCPCS: 36415; 71045; 80048; 80076; 83735; 84484; 85025; 93005; 99283; 99285

== ENCOUNTER 2021-06-21 13:00 | Outpatient (RCR) | payer MEDICARE, MEDICAID, SELFPAY ==
--- NOTE | 2021-05-08 16:27 | MHC.PT.EP ---
[facility] [place] Office [place] Office [place] Office [address] Lila Larson [address] [phone] F: [phone] F: [phone] F: [phone] F: [phone] Physical Therapy Plan of Care Date of Evaluation: Date of Surgery: Diagnosis: Primary OA of R shoulder. Assessment: Pt is an 81 y/o female referred to PT for eval and treat of shoulder OA who presents with chronic B shoulder pain L >R resulting in difficulty and inability to reach high shelves and mid level shelves at times as well as dressing pullovers, lifting objects of weight like grocery bags, driving her car, and performing even light HH chores secondary to Dx of OA of the shoulders, significant crepitis with ROM, decreased B shoulder ROM and strength, sedentary lifestyle and pain. Pt is deemed an appropriate candidate to receive skilled PT in order to address her physical limitations to improve her functional ability. Frequency and Duration: The patient will be seen 2 x/ wk x 5 wks. Short Term Goals: initiate HEP. improve baseline pain to < 7/10; initial: 10/10 Electroneurodiagnostic Technologist Goals: I with HEP. Pt will be able to place objects on high shelf with managed Sx. Improve B shoulder flexion MMT to to at least 4/5 and painful; initial 4-/5 B. Pt will be able to lay on her side with < 3/10 pain; initial 7/10. Treatment Plan: Modalities to reduce pain, spasms and effusion. Manual therapy to restore motion and function. Therapeutic exercise to improve strength and flexibility. Neuromuscular re-education for posture and balance. Therapeutic activities to return to functional activities of daily living. Electronically signed by: Luisito Ochoa PT Please sign and return to therapist. Thank you for your referral.
--- NOTE | 2021-06-21 13:43 | MHC.PT.DC ---
[facility] [place] Office [place] [facility] [place] Office [address] [phone] F: [phone] F: [phone] F: [phone] F: [phone] Physical Therapy Discharge Report Diagnosis: Primary OA of R shoulder. Date of Surgery: Date of Evaluation: 05/08/21 Date of Discharge: 06/21/21 Treatments to Date: 9 Cancellations to Date: No Shows to Date: Discharge Status: Independent with HEP Recommend MD Follow-up Discharge Summary: Jaylin has been an active participant in her therapy with good motivation in the clinic though she persists with significant pain and decreased ROM as well as significant crepitis which is painful at times. She is I with a basic home program she is largely comfortable with. Jaylin's SPADI outcome measure has not improved since her eval. Pt is in agreement with DC to home program for gentle ROM and scapular strengthening. Electronically signed by: Luisito Ochoa PT. Please sign and return to therapist. Thank you for your referral.
== END 2021-06-21 13:44 | disposition home or self-care (01) ==
LOC: HO.PTCHIC 13:00
PROVIDERS: PCP Internal Medicine; Visit Provider Internal Medicine
DX: M19.011 Primary osteoarthritis, right shoulder (principal); M19.012 Primary osteoarthritis, left shoulder
CPT/HCPCS: 97110; 97140; 97150; 97162

== ENCOUNTER → 2021-11-05 10:29 | Outpatient (BNVA) | payer MEDICARE, MEDICAID, SELFPAY | PROVIDERS: PCP Internal Medicine; Referring Provider Internal Medicine; Visit Provider Internal Medicine Cardiovascular Disease | DX: I25.10 Atherosclerotic heart disease of native coronary artery without angina pectoris (principal) | CPT/HCPCS: 99212 ==

== ENCOUNTER 2021-12-16 10:44 | Outpatient (REF) | payer MEDICARE, MEDICAID, SELFPAY ==
[2021-12-16 11:00] LABS: MANUAL DIFF FLAG NO
[2021-12-16 11:35] LABS: Basophils Absolute Auto 0.1 X10*3/uL (0.0-0.2); Basophils Percent Auto 0.8 % (0-2); Eosinophils Absolute Auto 0.1 X10*3/uL (0.0-0.4); Eosinophils Percent Auto 2.1 % (0-4); Hematocrit 31.8 % (37.0-47.0); Hemoglobin 10.2 g/dl (12.0-16.0); Imm Gran Abs Auto 0.01 X10*3/uL (0.00-0.03); Imm Gran Pct Auto 0.2 % (0.0-0.4); Immature Retic Fraction 12.2 % (3.0-15.9); Lymphocytes Absolute Auto 1.4 X10*3/uL (1.2-4.9); Lymphocytes Percent Auto 22.4 % (20-40); Mean Corpuscular HGB Conc 32.1 g/dl (31.0-35.0); Mean Corpuscular Hemoglobin 30.5 pg (27.0-33.0); Mean Corpuscular Volume 95.2 fL (80.0-98.0); Mean Platelet Volume 12.4 fL (9.4-12.3); Monocytes Absolute Auto 0.4 X10*3/uL (0.1-1.2); Monocytes Percent Auto 6.9 % (2-11); Neutrophils Absolute Auto 4.1 x10*3/uL (2.0-8.3); Neutrophils Percent Auto 67.6 % (45-73); Platelet Count 205 X10*3/uL (160-400); Red Blood Count 3.34 X10*6/uL (4.20-5.50); Red Cell Distribution Width 13.2 % (11.0-16.0); Retic HGB Equivalent 36.4 pg (30.0-35.0); Reticulocyte Percent 1.6 % (0.5-1.8); Reticulocytes Absolute 0.052 X10*6/uL (0.026-0.095); White Blood Count 6.1 X10*3/uL (4.8-10.8)
[2021-12-16 11:42] LABS: Appearance Urine Clear; Color Urine Yellow; Glucose Urine UA Negative (Negative); Leukocyte Esterase Urine Moderate (2+) (Negative); Nitrite Urine Negative (Negative); UMIC TRIGGER UA YES; Urine Blood Negative (Negative); Urine Ketones Negative (Negative); Urine Protein Negative (Neg-Trace)
[2021-12-16 12:00] LABS: Bacteria Urine None Seen (None Seen); Hyaline Casts Urine 0-2 /LPF (0-2); RBC Urine 0-2 /HPF (0-2); WBC Urine 0-5 /HPF (0-5)
[2021-12-16 12:13] LABS: Iron 85 mcg/dL (30-160); Percent Iron Saturation 26 % (15-50); Total Iron Binding Capacity 330 mcg/dL (228-428); Unsaturated Iron Binding 245 ug/dL
[2021-12-16 12:38] LABS: Ferritin 98 ng/mL (10-250)
[2021-12-16 12:58] LABS: Folate > 20.0 ng/mL (> or = 4.0); Vitamin B12 500 pg/mL (200-900)
== END 2021-12-16 10:45 | disposition home or self-care (01) ==
LOC: HO.LAB 10:44
PROVIDERS: PCP Internal Medicine; Visit Provider Internal Medicine
DX: D64.9 Anemia, unspecified (principal)
CPT/HCPCS: 36415; 81001; 82607; 82728; 82746; 83540; 85025; 85045

== ENCOUNTER 2022-04-29 09:04 | Outpatient (REF) | payer MEDICARE, MEDICAID, SELFPAY ==
[2022-04-29 11:44] LABS: MANUAL DIFF FLAG NO
[2022-04-29 11:59] LABS: Basophils Percent Auto 0.9 % (0-2); Eosinophils Absolute Auto 0.1 X10*3/uL (0.0-0.4); Hemoglobin 10.6 g/dl (12.0-16.0); Imm Gran Abs Auto 0.01 X10*3/uL (0.00-0.03); Imm Gran Pct Auto 0.2 % (0.0-0.4); Immature Retic Fraction 14.3 % (3.0-15.9); Lymphocytes Absolute Auto 1.2 X10*3/uL (1.2-4.9); Lymphocytes Percent Auto 25.3 % (20-40); Mean Corpuscular HGB Conc 33.1 g/dl (31.0-35.0); Mean Corpuscular Hemoglobin 31.7 pg (27.0-33.0); Mean Corpuscular Volume 95.8 fL (80.0-98.0); Mean Platelet Volume 11.9 fL (9.4-12.3); Monocytes Absolute Auto 0.4 X10*3/uL (0.1-1.2); Monocytes Percent Auto 9.4 % (2-11); Neutrophils Absolute Auto 2.9 x10*3/uL (2.0-8.3); Neutrophils Percent Auto 61.2 % (45-73); Platelet Count 245 X10*3/uL (160-400); Red Blood Count 3.34 X10*6/uL (4.20-5.50); Red Cell Distribution Width 13.1 % (11.0-16.0); Retic HGB Equivalent 36.4 pg (30.0-35.0); Reticulocyte Percent 1.9 % (0.5-1.8); Reticulocytes Absolute 0.064 X10*6/uL (0.026-0.095); White Blood Count 4.7 X10*3/uL (4.8-10.8)
[2022-04-29 12:00] LABS: Estimated Average Glucose 111 mg/dL; Hemoglobin A1c % 5.5 %
[2022-04-29 12:37] LABS: Alanine Aminotransferase 15 U/L (0-31); Albumin Level 3.8 g/dL (3.5-5.0); Alkaline Phosphatase 65 U/L (39-117); Anion Gap 16 (12-20); Aspartate Amino Transferase 22 U/L (5-31); Blood Urea Nitrogen 26 mg/dL (9-16); Calcium 9.4 mg/dL (8.4-10.2); Carbon Dioxide 21 mmol/L (22-29); Chloride 109 mmol/L (96-108); Cholesterol 133 mg/dL; Estimated Glomerular Filt Rate 47; Glucose Random 107 mg/dL (60-115); HDL Cholesterol 38 mg/dL; LDL Cholesterol Calculated 73 mg/dl; Potassium 4.6 mmol/L (3.3-5.1); Sodium 141 mmol/L (135-145); Total Protein 6.5 g/dL (6.5-8.0); Triglycerides 114 mg/dL; Unsaturated Iron Binding 174 ug/dL
[2022-04-29 12:46] LABS: Ferritin 114 ng/mL (10-250); Folate 14.9 ng/mL (> or = 4.0); Free T4 (Free Thyroxine) 1.03 ng/dL (0.71-1.85); Thyroid Stimulating Hormone 1.38 uIU/mL (0.32-4.0); Vitamin B12 576 pg/mL (200-900); Vitamin D 25-OH Total 42.9 ng/mL (>30)
[2022-04-29 12:49] LABS: Iron 101 mcg/dL (30-160); Percent Iron Saturation 37 % (15-50); Total Iron Binding Capacity 275 mcg/dL (228-428)
== END 2022-04-29 09:05 | disposition home or self-care (01) ==
LOC: HO.HMGCLDS 09:04
PROVIDERS: PCP Internal Medicine; Visit Provider Internal Medicine
DX: E78.00 Pure hypercholesterolemia, unspecified (principal); D64.9 Anemia, unspecified; R73.01 Impaired fasting glucose; E55.9 Vitamin D deficiency, unspecified; M85.80 Other specified disorders of bone density and structure, unspecified site
CPT/HCPCS: 36415; 80053; 80061; 82306; 82607; 82728; 82746; 83036; 83540; 84439; 84443; 85025; 85045

== ENCOUNTER 2022-05-02 10:24 | Outpatient (REF) | payer MEDICARE, MEDICAID, SELFPAY ==
--- NOTE | ~2022-05-02 | XR_ITS ---
EXAMINATION: XR shoulder LT min 2V, XR shoulder RT min 2V CLINICAL INFORMATION: Reason for Exam M19.019 - Primary osteoarthritis, unspecified shoulder COMPARISON: 02/15/2019, 12/03/2018 TECHNIQUE: 3 views of the bilateral shoulders XR/XR shoulder LT min 2V FINDINGS/IMPRESSION: * Left shoulder: No acute fracture or dislocation redemonstration of elevation of the humeral head relative to the glenoid fossa likely reflecting underlying rotator cuff pathology. Extensive subchondral cystic changes and joint space narrowing with large osteophytosis, progressed from prior study in keeping with moderate osteoarthrosis. Mild acromioclavicular joint arthrosis. * Right shoulder: No acute fracture or dislocation. Elevation of the humeral head relative to glenoid fossa reflects rotator cuff pathology. Interval progression in joint space narrowing and subchondral cystic changes of the glenohumeral joint with large osteophytes in keeping with moderate osteoarthrosis. Moderate acromioclavicular arthrosis.
--- NOTE | ~2022-05-02 | XR_ITS ---
EXAMINATION: XR shoulder LT min 2V, XR shoulder RT min 2V CLINICAL INFORMATION: Reason for Exam M19.019 - Primary osteoarthritis, unspecified shoulder COMPARISON: 02/15/2019, 12/03/2018 TECHNIQUE: 3 views of the bilateral shoulders XR/XR shoulder RT min 2V FINDINGS/IMPRESSION: * Left shoulder: No acute fracture or dislocation redemonstration of elevation of the humeral head relative to the glenoid fossa likely reflecting underlying rotator cuff pathology. Extensive subchondral cystic changes and joint space narrowing with large osteophytosis, progressed from prior study in keeping with moderate osteoarthrosis. Mild acromioclavicular joint arthrosis. * Right shoulder: No acute fracture or dislocation. Elevation of the humeral head relative to glenoid fossa reflects rotator cuff pathology. Interval progression in joint space narrowing and subchondral cystic changes of the glenohumeral joint with large osteophytes in keeping with moderate osteoarthrosis. Moderate acromioclavicular arthrosis.
== END 2022-05-02 10:25 | disposition home or self-care (01) ==
LOC: HO.XRAY 10:24
PROVIDERS: PCP Internal Medicine; Visit Provider Internal Medicine
DX: M19.011 Primary osteoarthritis, right shoulder (principal); M19.012 Primary osteoarthritis, left shoulder
CPT/HCPCS: 73030

== ENCOUNTER → 2022-05-08 10:24 | Outpatient (BNVA) | payer MEDICARE, MEDICAID, SELFPAY | PROVIDERS: PCP Internal Medicine; Referring Provider Internal Medicine; Visit Provider Internal Medicine Cardiovascular Disease | DX: I25.10 Atherosclerotic heart disease of native coronary artery without angina pectoris (principal); I10 Essential (primary) hypertension; Z95.5 Presence of coronary angioplasty implant and graft | CPT/HCPCS: 93005; 99212 ==

== ENCOUNTER → 2022-05-09 10:32 | Outpatient (REF) | payer MEDICARE, MEDICAID, SELFPAY ==
--- NOTE | 2022-05-09 10:35 | CA_ITS ---
Transthoracic Echocardiogram Patient (Last, First, Middle): Jaylin Palma M Gender: Female Date of : 1940 Age: 82 Procedure Date: 05/09/2022 Procedure Type: Transthoracic Echocardiogram Location: OP Height: 165.1 cm Weight: 81.65 kg BSA: 1.89 m2 Heart Rate: bpm BP: 122 / 60 mmHg [employer]: Referring MD: Keo Bush MD Symptoms: I25.10 - Atherosclerotic heart disease of [place] coronary artery without... Study Quality: Fair ECG Rhythm: Sinus Conclusions: - The left ventricular systolic function is normal. The calculated ejection fraction is 64% by biplane method. - Evidence suggests grade II (moderate) diastolic dysfunction. - The left atrium is severely dilated. - No obvious valvular pathology seen on this study. Findings Left Ventricle Normal left ventricular cavity size. There is mildly increased left ventricular wall thickness. The left ventricular systolic function is normal. The calculated ejection fraction is 64% by biplane method. There is no evidence of regional wall motion abnormalities. E/E prime ratio is >15, consistent with elevated filling pressures. Evidence suggests grade II (moderate) diastolic dysfunction. LV peak GLS -17.6%. Right Ventricle Normal right ventricular cavity size and systolic function. Atria The left atrium is severely dilated. The right atrium is normal in size. Aortic Valve There is a normal trileaflet aortic valve. There is no aortic valve stenosis. There is no aortic valve regurgitation. Mitral Valve The mitral valve appears normal. There is mild mitral valve regurgitation. There is no mitral valve stenosis. Pulmonic Valve The pulmonic valve is likely normal. Tricuspid Valve There is mild tricuspid valve regurgitation. There is no evidence of pulmonary hypertension. Great Vessels The asc aorta is normal in size. Venous The inferior vena cava is normal in size and collapses greater than 50% with inspiration. Pericardium/Pleural There is no evidence of pericardial effusion. Prior Study Comparison Changes noted compared to prior study dated: 12/17/2016. Progression of diastolic dysfunction; increase in atrial size. Recommendations, Care & Conclusions No obvious valvular pathology seen on this study. Measurements 2D Linear Measurements IVSd: 1.25 0.6-0.9/0.6-1.0 cm LVIDd: 4.64 3.9-5.3/4.2-5.9 cm LVIDd Index: 2.46 2.4-3.2/2.2-3.1 cm/m2 LVIDs: 3.01 2.0-3.6 cm LVPWd: 1.25 0.7-1.1 cm Ao Root: 3.20 2.1-3.5 cm LA Diam: 4.20 2.7-3.8/3.0-4.0 cm LAIDs Index: 2.22 1.5-2.3 cm/m2 LV Mass: 274.66 67-162/88-224 g LV Mass Index: 145.32 43-95/49-115 g/m2 LVOT Diam: 2.00 3.0+(-)1.3 cm 2D Systolic Function EF 4C: 68.30 >55% EF 2C: 58.10 >55% EF BiP: 63.60 >55% Mitral Valve MV Pk E: 0.76 MV PK A: 0.80 MV Decel Time: 207.00 E/A: 0.90 E'Lateral: 8.05 E'Medial: 3.48 E/E' Med: 21.80 E/E' Lat: 9.40 PHT: 61.00 MVA PHT: 3.61 Decel Lares: 3.67 Aortic Valve AoV Pk Abdiaziz: 1.52 AoV Mn Abdiaziz: 0.89 AoV VTI: 0.32 AoV Pk Grad: 9.00 Aov Mn Grad: 4.00 LISA Cont.VTI: 1.88 LVOT LVOT Pk Abdiaziz: 0.84 LVOT Mn Abdiaziz: 0.49 LVOT VTI: 0.19 LVOT Pk Grad: 3.00 LVOT Mn Grad: 1.00 LVOT Diam: 2.00 LVOT Area: 3.14 Diastolic Function MV Pk E: 0.76 MV Pk A: 0.80 E/A: 0.90 E'Medial: 3.48 E/E' Med: 21.80 E' Laterial: 8.05 E/E' Lat: 9.40 Right Ventricle TAPSE (mm): 23.00 TVS' Abdiaziz: 17.00 Tricuspid Valve TR Pk Abdiaziz: 2.45 TR Pk Grad: 24.00 RA Press: 3.00 RVSP: 27.00 Great Vessels Aorta Ao Root-2D: 3.20 2.0-3.7 cm Ao Asc: 3.70 2.1-3.4 cm Pulmonary Valve PV Pk Abdiaziz: 1.08 Peak PV Grad: 5.00 Updated in Other Vendor System with Status of Final Jim Guerrero MD electronically signed on 05/10/2022 12:35:49 PM with status of Final
== END ==
LOC: HO.CARD 10:32
PROVIDERS: Visit Provider Internal Medicine Cardiovascular Disease
DX: I25.10 Atherosclerotic heart disease of native coronary artery without angina pectoris (principal)
CPT/HCPCS: 93306; 93356

== ENCOUNTER 2022-05-16 10:25 | Outpatient (REF) | payer MEDICARE, MEDICAID, SELFPAY ==
--- NOTE | ~2022-05-16 | MM_ITS ---
EXAMINATION: BONE DENSITOMETRY CLINICAL INDICATION: Osteoporosis. COMPARISON: Previous BD dated 08/25/2019 and baseline BD dated 08/26/2007. TECHNIQUE: Using a [employer] DXA System (software version: 13.1) manufactured by [employer], dual-energy x-ray absorptiometry was performed of the lumbar spine and left hip. The images are of good technical quality. Summary results are attached. FINDINGS: AP SPINE L1-L4: Current: BMD 1.175 g/cm2, Z-score 1.3, T-score 0.0, normal, 3.3% increase from previous, 0.9% increase from baseline (<5% change is not significant). Prior: BMD 1.137 g/cm2. Baseline: BMD 1.165 g/cm2. LEFT FEMUR, NECK: Current: BMD 0.916 g/cm2, Z-score 1.1, T-score -0.9, normal. Prior: BMD 0.889 g/cm2. Baseline: BMD 1.051 g/cm2. LEFT FEMUR, TOTAL: Current: BMD 0.842 g/cm2, Z-score 0.5, T-score -1.3, osteopenia, 1.9% increase from previous, 17.0% decrease from baseline (<5% change is not significant). Prior: BMD 0.826 g/cm2. Baseline: BMD 1.015 g/cm2. IDENTIFIED RISK FACTORS: Menopause, height loss, hysterectomy, bilateral oophorectomy, osteoporosis. HISTORY OF FRACTURE: None listed. MEDICATIONS: Multivitamin, vitamin D. MM/XR DEXA axial skeleton IMPRESSION: 1. DIAGNOSIS: Osteopenia based on the lowest T-score value of -1.3 in the total femur applying World Health Organization criteria. 2. 10-YEAR FRACTURE RISK PREDICTION, FRAX: Major osteoporotic fracture (clinical spine, forearm, hip or shoulder) 10.8%. Hip fracture 2.3%. 3. Treatment Recommendations: NOF guidelines recommend consideration for treatment in postmenopausal women and men age 50 and older presenting with the following: -A hip or vertebral (clinical or morphometric) fracture. -T-score less than or equal to -2.5 at the femoral neck or spine after appropriate evaluation to exclude secondary causes. -Low bone mass at the hip or spine and a 10-year fracture probability by FRAX of greater than or equal to 3% for hip fracture or greater than or equal to 20% for major osteoporotic fracture based on the [place] adapted WHO algorithm. 4. Other Recommendations: All treatment decisions require clinical judgment and consideration of individual patient factors, including patient preferences, comorbidities, previous drug use, risk factors not captured in the FRAX model (e.g. frailty, falls, vitamin D deficiency, increased bone turnover, interval significant decline in bone density) and possible under or overestimation of fracture risk by FRAX. Additional medical evaluation for secondary cause of low bone mineral density may be appropriate. FUTURE SCAN RECOMMENDATION: People with diagnosed cases of osteoporosis or at high risk for fracture should have regular bone mineral density tests. For patients eligible for Medicare, routine testing is allowed once every 2 years. The testing frequency can be increased to one year for patients who have rapidly progressing disease, those who are receiving or discontinuing medical therapy to restore bone mass, or have additional risk factors.
== END 2022-05-16 10:26 | disposition home or self-care (01) ==
LOC: HO.MAMMO 10:25
PROVIDERS: PCP Internal Medicine; Visit Provider Internal Medicine
DX: M81.0 Age-related osteoporosis without current pathological fracture (principal); M85.80 Other specified disorders of bone density and structure, unspecified site
CPT/HCPCS: 77080

== ENCOUNTER → 2022-05-19 10:18 | Outpatient (BNVA) | payer MEDICARE, MEDICAID, SELFPAY | PROVIDERS: PCP Internal Medicine; Visit Provider Orthopaedic Surgery | DX: M19.011 Primary osteoarthritis, right shoulder (principal); M19.012 Primary osteoarthritis, left shoulder | CPT/HCPCS: 20610; 99212; J1100 ==

== ENCOUNTER 2022-06-05 09:53 | Observation (INO) | payer MEDICARE, MEDICAID, SELFPAY ==
[2022-06-05] VITALS (8 sets, daily range): BP systolic 93–128; BP diastolic 48–65; PULSE 57–99; RESP 15–18; TEMP 36.6–37.7; O2SAT 95–98
--- NOTE | ~2022-06-05 | CT_ITS ---
EXAMINATION: CT PELVIS WITHOUT CONTRAST CLINICAL INFORMATION: Acute pelvic pain. COMPARISON: None available. TECHNIQUE: Noncontrast multidetector CT imaging examination of the pelvis is performed. Axial images and multiplanar reformatted images are reviewed. This CT examination was performed using dose optimization techniques as appropriate, variously including the following: *Automated exposure control *Adjustment of mA and/or kV according to patient size (this includes techniques or standardized protocols for targeted exams where dose is matched to indication/reason for exam; i.e. extremities or head) *Use of iterative reconstruction technique DLP: 471 mGy-cm FINDINGS: Bones are diffusely osteopenic. Severe facet osteoarthritis, grade 1 anterolisthesis and spinal canal stenosis at L3-L4 and L4-L5. There is partial osseous fusion between vertebral bodies at L5-S1. Small osteophytes and degenerative subarticular sclerosis at sacroiliac joints. Pelvic bones are intact and have normal alignment. At the degenerated pubic symphysis, there is subarticular sclerosis, subarticular cystic change and osteophytosis. No evidence of acetabular or proximal femoral injury. Mild osteoarthrosis of the hips. No hip joint effusion or pericapsular fluid collection. No iliopsoas or trochanteric bursitis. No dilated loops of bowel within the visualized lower abdomen and pelvis. Multiple diverticula of the colon without evidence of diverticulitis. No focal bowel wall thickening, mesenteric fat stranding or free air. Simple cysts of both kidneys are partially included in the [id number]. No renal imaging follow-up is recommended for simple cysts. Urinary bladder is unremarkable. Hysterectomy. No adnexal mass or pelvic free fluid. No lymphadenopathy. Atherosclerotic calcification of the abdominal aorta and iliac arteries without aneurysm. No hematoma. Nonspecific edema of subcutaneous tissues tissue of the perineum, including right labia majora. No evidence of any soft tissue gas or organized fluid collection on these noncontrast images. CT/CT pelvis wo IV con IMPRESSION: * No acute osseous injury in the pelvis or hips. * Nonspecific edema of subcutaneous tissues tissue of the perineum, including right labia majora. No soft tissue gas or organized fluid collection. Query if there is any clinical suspicion for cellulitis in the perineum. * Colonic diverticulosis without diverticulitis. * Severe facet osteoarthritis, grade 1 anterolisthesis and spinal canal stenosis at L3-L4 and L4-L5.
--- NOTE | 2022-06-05 10:41 | ED_ITS ---
HPI - General Adult General Chief complaint: Wound/Laceration Stated complaint: body pain Time Seen by Provider: 06/05/22 10:36 Source: patient Mode of arrival: ambulatory Limitations: no limitations History of Present Illness HPI narrative: 82-year-old female presents with pain in the pelvic/vaginal/rectal area. Symptoms started about 3-4 days ago. She felt like there was a boil. Ultimately what ever is there ruptured. She has had significant brownish discharge ever since. The pain is moderate to severe. Worse with movement and palpation. The pain does not radiate. Located in the above-mentioned area. Pain is described as sharp and burning in nature. She denies any chills but has had some subjective fevers and sweats. She denies any nausea vomiting. No urinary complaints. Related Data Home Medications Medication Instructions Recorded Confirmed aspirin 81 mg tablet,delayed 81 mg PO DAILY 11/24/19 05/08/22 release flaxseed oil 1,000 mg capsule 1,000 mg PO DAILY 04/30/21 05/08/22 multivitamin 1 tab PO DAILY 04/30/21 05/08/22 Previous Rx's Medication Instructions Recorded melatonin 5 mg capsule 5 mg PO .QD #14 caps 02/01/20 losartan 50 mg tablet 50 mg PO DAILY #90 caps 05/31/21 atorvastatin 20 mg tablet 20 mg PO DAILY 90 days #90 tabs 06/27/21 amlodipine 5 mg tablet 5 mg PO DAILY 90 days #90 tabs 09/23/21 Rollator #1 ea 02/06/22 Shower chair w/back rest #1 ea 02/06/22 metoprolol succinate 50 mg 50 mg PO DAILY #90 tabs 04/11/22 tablet,extended release 24 hr meclizine 12.5 mg tablet 12.5 mg PO TID PRN dizziness #30 05/02/22 tabs nitroglycerin 0.4 mg sublingual 0.4 mg sublingual Q5M PRN chest 05/02/22 tablet pain #20 tabs Allergies Allergy/AdvReac Type Severity Reaction Status Date / Time asparagus Allergy Severe Hives Verified 06/05/22 10:01 rosuvastatin [Crestor] Allergy Unknown unknown Verified 06/05/22 10:01 famotidine [From PEPCID] AdvReac Severe NAUSEA Verified 06/05/22 10:01 oxycodone [From OXYCONTIN] AdvReac Intermediate NAUSEA & Verified 06/05/22 10:01 VOMITING FROM PERCOCET TOO tramadol AdvReac Intermediate could not Verified 06/05/22 10:01 concetrate chocolate cover cherries Allergy Severe Anaphylaxis Uncoded 06/05/22 10:01 [facility] Past Medical History Medical History Angina pectoris Carotid stenosis Chronic kidney disease (CKD) stage G3b/A1, moderately decreased glomerular filtration rate (GFR) between 30-44 mL/min/1.73 square meter and albuminuria creatinine ratio less than 30 mg/g Coronary artery disease Esophageal dysmotility Gait instability GERD (gastroesophageal reflux disease) Hypercholesterolemia Hypertension Insomnia Leukopenia Lumbar degenerative disc disease Muscle spasm of right leg Obesity Overweight (BMI 25.0-29.9) Peripheral neuropathy Peripheral vascular disease 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 Father No problems noted. Social History Social History Housing: Apartment Alcohol intake: current Alcohol intake frequency: a few times a week Alcohol type: hard liquor Patient Tobacco Use Status: Never used Tobacco Smoked in Last 30 Days: No e-Cigarette/Vaping Use: Never Used Second Hand Smoke Exposure: No Use of substances other than those prescribed or required for medical reasons: No Advance Directives: Yes Advance Directives on File: Yes Advance Directives Date on File: 07/11/20 service: No Current occupational status: retired Cognitive needs: No Hearing needs: No Vision needs: No Physical Exam ED Vital Signs: Vital Signs - 24 hr 06/05/22 10:02 06/05/22 10:52 06/05/22 11:41 Temperature 99.4 F 99.8 F Pulse Rate 71 57 Respiratory Rate 15 18 16 Blood Pressure 128/65 113/52 L Pulse Oximetry 96 96 Oxygen Delivery Method Room Air Room Air 06/05/22 14:14 Temperature 99.0 F Pulse Rate 57 Respiratory Rate 17 Blood Pressure 102/48 L Pulse Oximetry 95 Oxygen Delivery Method Room Air BMI result Body Mass Index 30.0 GEN: Well developed, no acute distress, alert, oriented HEENT: Normocephalic, atraumatic, normal external ears, nose appears normal, no oropharyngeal edema or exudates Eyes: Normal to appearance Neck: Supple, no lymphadenopathy Respiratory: Talks in complete sentences, no respiratory distress, clear to auscultation bilaterally Cardiovascular: Regular rate and rhythm, no murmurs rubs or gallops Abdomen: Soft, nontender, nondistended, no guarding, no rebound : right labia indurated tender to palpation, no significant erythema Back: No CVA tenderness Extremities: No clubbing cyanosis or edema Neurologic: No focal neurologic deficits, cranial nerves 2-12 intact, strength is 5/5 bilaterally Skin: No rash Course Course Course Narrative: 82-year-old female presents with pelvic pain. Pain started over the last couple days. Pain is severe. Is constant worse with walking. Patient reports drainage from the area. Exam revealed an indurated right labia and perineal area. Patient is not diabetic. She has no white count, no fever but does have a slight left shift. She does have increasing renal insufficiency but not requiring dialysis. She is anemic which is slightly worse than usual. A CT scan was obtained revealing an inflammatory process in the pelvic area. I believe this represents a an acute infectious process. Blood cultures and a lactic acid are going to be drawn at this time. I will order Zosyn. Surgery has been contacted to do an evaluation and assist with management. Reevaluation(s) Reevaluation #1: patient is aware of all results and understands the reasoning for admission Time: 15:48 Medications Administered Generic Name Dose Route Start Last Admin Trade Name Freq PRN Reason Stop Dose Admin Sodium Chloride 1,000 mls @ 200 mls/hr 06/05/22 14:45 06/05/22 14:48 Ns IVCONT 06/05/22 19:44 200 mls/hr .Q5H TREY Administration Discontinued Medications Generic Name Dose Route Start Last Admin Trade Name Freq PRN Reason Stop Dose Admin Piperacillin Sod/Tazobactam 50 mls @ 100 mls/hr 06/05/22 14:13 06/05/22 14:40 Sod 3.375 gm/ Sodium Chloride IV 06/05/22 14:42 100 mls/hr ONCE ONE Administration Morphine Sulfate 4 mg 06/05/22 11:09 06/05/22 11:41 Morphine Sulfate 4 Mg/Ml Cartridge IVPUSH 06/05/22 11:10 4 mg ONCE ONE Administration Protocol Ondansetron HCl 4 mg 06/05/22 11:10 06/05/22 11:41 Ondansetron Hcl 4 Mg/2 Ml Vial IVPUSH 06/05/22 11:11 4 mg ONCE ONE Administration Medical Decision Making Medical Decision Making [facility] Narrative: 82-year-old female presents with pelvic pain. Examination revealed an indurated right labia and perineal area. There is no erythematous changes. This could be concerning for a minus changes or abscess that might require drainage. Will obtain a CT scan to further evaluate. Distally, will order routine laboratory analysis. Should any signs, symptoms or concerns about infection occur, we will start antibiotics. Will provide patient with analgesia as well. Differential Diagnosis Differential Diagnoses: The differential diagnosis associated with the presentation includes (Abscess, phlegmon, necrotizing fasciitis, Callie's gangrene) Pelvic infection Admission/Observation Consideration of admission/observation: Escalation of care including admission/observation considered Consult Healthcare Provider Management of the patient was discussed with: Hospitalist and Image Editor (Dr. Chan, surgery) Lab Data [facility] Lab Attestation statement: I reviewed the patient's lab results. 06/05/22 11:29 06/05/22 11:29 Labs: Lab Results 06/05/22 06/05/22 06/05/22 Range/Units 11:29 11:29 11:29 WBC 6.5 (4.8-10.8) X10*3/uL RBC 2.65 L D (4.20-5.50) X10*6/uL Hgb 8.4 L D (12.0-16.0) g/dl Hct 25.1 L D (37.0-47.0) % MCV 94.7 (80.0-98.0) fL MCH 31.7 (27.0-33.0) pg MCHC 33.5 (31.0-35.0) g/dl RDW 12.8 (11.0-16.0) % Plt Count 218 (160-400) X10*3/uL MPV 12.0 (9.4-12.3) fL Immature Gran % (Auto) 0.3 (0.0-0.4) % Neut % (Auto) 77.9 H (45-73) % Lymph % (Auto) 10.7 L (20-40) % [place] % (Auto) 9.7 (2-11) % Eos % (Auto) 1.1 (0-4) % Baso % (Auto) 0.3 (0-2) % Lymph # (Auto) 0.7 L (1.2-4.9) X10*3/uL [place] # (Auto) 0.6 (0.1-1.2) X10*3/uL Eos # (Auto) 0.1 (0.0-0.4) X10*3/uL Baso # (Auto) 0.0 (0.0-0.2) X10*3/uL Abs Immat Gran (auto) 0.02 (0.00-0.03) X10*3/uL Absolute Neuts (auto) 5.0 (2.0-8.3) x10*3/uL Absolute Nucleated RBC 0.000 (0.0-0.012) X10*3/uL Nucleated RBC % (auto) 0.0 (0.0-0.2) /100WBC Sodium 136 (135-145) mmol/L Potassium 4.2 (3.3-5.1) mmol/L Chloride 105 (96-108) mmol/L Carbon Dioxide 21 L (22-29) mmol/L Anion Gap 14 (12-20) BUN 41 H (9-16) mg/dL Creatinine 1.66 H (0.5-1.4) mg/dL Estim Creat Clear Calc 25.7 Estimated GFR 29 Random Glucose 109 (60-115) mg/dL Lactic Acid 1.1 (0.5-2.0) mmol/L Calcium 8.7 D (8.4-10.2) mg/dL 06/05/ Range/Units 14:27 WBC (4.8-10.8) X10*3/uL RBC (4.20-5.50) X10*6/uL Hgb (12.0-16.0) g/dl Hct (37.0-47.0) % MCV (80.0-98.0) fL MCH (27.0-33.0) pg MCHC (31.0-35.0) g/dl RDW (11.0-16.0) % Plt Count (160-400) X10*3/uL MPV (9.4-12.3) fL Immature Gran % (Auto) (0.0-0.4) % Neut % (Auto) (45-73) % Lymph % (Auto) (20-40) % [place] % (Auto) (2-11) % Eos % (Auto) (0-4) % Baso % (Auto) (0-2) % Lymph # (Auto) (1.2-4.9) X10*3/uL [place] # (Auto) (0.1-1.2) X10*3/uL Eos # (Auto) (0.0-0.4) X10*3/uL Baso # (Auto) (0.0-0.2) X10*3/uL Abs Immat Gran (auto) (0.00-0.03) X10*3/uL Absolute Neuts (auto) (2.0-8.3) x10*3/uL Absolute Nucleated RBC (0.0-0.012) X10*3/uL Nucleated RBC % (auto) (0.0-0.2) /100WBC Sodium (135-145) mmol/L Potassium (3.3-5.1) mmol/L Chloride (96-108) mmol/L Carbon Dioxide (22-29) mmol/L Anion Gap (12-20) BUN (9-16) mg/dL Creatinine (0.5-1.4) mg/dL Estim Creat Clear Calc Estimated GFR Random Glucose (60-115) mg/dL Lactic Acid 0.8 (0.5-2.0) mmol/L Calcium (8.4-10.2) mg/dL Independent Interpretation I performed an independent interpretation of an: CT Scan (Abscess versus early phlegmonous changes in the pelvic area) Radiology Impression Discussion of test interpretation with radiology: I have reviewed the radio logist's reading. ( CT/CT pelvis wo IV con IMPRESSION: * No acute osseous injury in the pelvis or hips. * Nonspecific edema of subcutaneous tissues tissue of the perineum, including right labia majora. No soft tissue gas or organized fluid collection. Query if there is any clinical suspicion for ce) Prescription Management I considered prescription management with: Pain Medication and Antibiotic Critical Care Time Critical Care Time Critical Care Time: Yes Total Critical Care Time: 37 Attestation: Critical care time the amount of approximately 37 minutes spent with bedside assessment, evaluation of medical data, consultation with other providers, documentation for potentially severe illness with significant morbidity. Discharge Plan Discharge Clinical Impression: Anemia, Acute on chronic renal insufficiency Patient Disposition: Admitted As Inpatient
[2022-06-05] MEDS: Morphine Sulfate 4 MG/ML CARTRIDGE IVPUSH (11:41)
[2022-06-05] MEDS: ondansetron HCL 4 MG/2 ML VIAL IVPUSH (11:41)
[2022-06-05 11:46] LABS: MANUAL DIFF FLAG NO
--- NOTE | 2022-06-05 11:47 | PC.NURSE ---
pt a&ox3, vss, reporting 10/10 lower pain/pelvic pain, 20G IV placed left ac, medicated per APR, pt resting quietly, pending CT scan. no new orders at this time.
[2022-06-05 11:54] LABS: Basophils Percent Auto 0.3 % (0-2); Eosinophils Absolute Auto 0.1 X10*3/uL (0.0-0.4); Eosinophils Percent Auto 1.1 % (0-4); Hematocrit 25.1 % (37.0-47.0); Hemoglobin 8.4 g/dl (12.0-16.0); Imm Gran Abs Auto 0.02 X10*3/uL (0.00-0.03); Imm Gran Pct Auto 0.3 % (0.0-0.4); Lymphocytes Absolute Auto 0.7 X10*3/uL (1.2-4.9); Lymphocytes Percent Auto 10.7 % (20-40); Mean Corpuscular HGB Conc 33.5 g/dl (31.0-35.0); Mean Corpuscular Hemoglobin 31.7 pg (27.0-33.0); Mean Corpuscular Volume 94.7 fL (80.0-98.0); Monocytes Absolute Auto 0.6 X10*3/uL (0.1-1.2); Monocytes Percent Auto 9.7 % (2-11); Neutrophils Percent Auto 77.9 % (45-73); Platelet Count 218 X10*3/uL (160-400); Red Blood Count 2.65 X10*6/uL (4.20-5.50); Red Cell Distribution Width 12.8 % (11.0-16.0); White Blood Count 6.5 X10*3/uL (4.8-10.8)
[2022-06-05 12:03] LABS: Lactic Acid 1.1 mmol/L (0.5-2.0)
[2022-06-05 12:04] LABS: Anion Gap 14 (12-20); Blood Urea Nitrogen 41 mg/dL (9-16); Calcium 8.7 mg/dL (8.4-10.2); Carbon Dioxide 21 mmol/L (22-29); Chloride 105 mmol/L (96-108); Creatinine Clr Calc Pharmacy 25.7; Estimated Glomerular Filt Rate 29; Glucose Random 109 mg/dL (60-115); Potassium 4.2 mmol/L (3.3-5.1); Sodium 136 mmol/L (135-145)
--- NOTE | 2022-06-05 12:16 | PC.NURSE ---
pt reports that the morphine made her feel good, but hasn't helped with her pain, reporting 9/10 pain, provider notified.
[2022-06-05] MEDS: Piperacillin Sodium/Tazobactam 3.375 GM in 0.9 % Sodium Chloride 50 ML IV (14:40)
[2022-06-05] MEDS: 0.9 % Sodium Chloride 1,000 ML 200 ML IVCONT (14:48)
[2022-06-05 14:49] LABS: Lactic Acid 0.8 mmol/L (0.5-2.0)
--- NOTE | 2022-06-05 14:52 | PC.NURSE ---
pt medicated per MAR, 1L NS running @ 200ml/hr.
--- NOTE | 2022-06-05 15:47 | P.HPHOSP_ITS ---
History of Present Illness Date of Service: 06/05/22 Attending physician on admission: Nicolas Jacobo Chief Complaint: right vaginal pain 82-year-old female patient with past medical history significant for hypertension, hypercholesterolemia, coronary artery disease, chronic kidney disease stage 3, peripheral vascular disease, presented to [facility] due to symptoms of right groin pain with radiation towards rectum ,symptoms started 3-4 days ago she felt unwell on Thursday feeling feverish, Thursday she felt that something popped open in the right groin and she notice drainage mostly bloody and brown colored with foul order, she continued to have drainage for 2 days with persistent pain decreased by mouth intake, with no nausea, no vomiting, no diarrhea no prior history of abscess or boils no history of diabetes mellitus denies trauma, denies headache, dizziness, in the emergency room patient noted to have low-grade fever of 99, normal WBC count , CT pelvis showed no acute osseous injury, nonspecific edema of subcutaneous tissue of the perineum including right labia majora no soft tissue gas or organized fluid collection noted, no diverticulitis, creatinine of 1.66, hematocrit of 25.1 with a baseline creatinine of 32 last checked on 04/29/2022, in the ER patient treated with IV fluids IV Zosyn and now being admitted to [facility] due to intractable pain acute on chronic kidney disease and abscess of right labia with persistent drainage. Review of Systems Review of Systems: General no headache ,no dizziness, + fever and chills. CVS no chest pain, no palpitation. Respiratory no cough, no sob. Gastrointestinal no nausea ,no vomiting, no abdominal pain No urgency no frequency skin no rash [facility] Medical History Angina pectoris Carotid stenosis Chronic kidney disease (CKD) stage G3b/A1, moderately decreased glomerular filtration rate (GFR) between 30-44 mL/min/1.73 square meter and albuminuria creatinine ratio less than 30 mg/g Coronary artery disease Esophageal dysmotility Gait instability GERD (gastroesophageal reflux disease) Hypercholesterolemia Hypertension Insomnia Leukopenia Lumbar degenerative disc disease Muscle spasm of right leg Obesity Overweight (BMI 25.0-29.9) Peripheral neuropathy Peripheral vascular disease 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 Father No problems noted. Surgical History Basal cell carcinoma (BCC) H/O knee surgery History of appendectomy History of cataract surgery History of cholecystectomy History of tonsillectomy S/P JIMENEZ-BSO Status post phlebectomy Stented coronary artery Social History Housing: Apartment Alcohol intake: current Alcohol intake frequency: a few times a week Alcohol type: hard liquor Patient Tobacco Use Status: Never used Tobacco Smoked in Last 30 Days: No e-Cigarette/Vaping Use: Never Used Second Hand Smoke Exposure: No Use of substances other than those prescribed or required for medical reasons: No Advance Directives: Yes Advance Directives on File: Yes Advance Directives Date on File: 07/11/20 service: No Current occupational status: retired Cognitive needs: No Hearing needs: No Vision needs: No Meds Allergies Allergy/AdvReac Type Severity Reaction Status Date / Time asparagus Allergy Severe Hives Verified 06/05/22 10:01 rosuvastatin [Crestor] Allergy Unknown unknown Verified 06/05/22 10:01 famotidine [From PEPCID] AdvReac Severe NAUSEA Verified 06/05/22 10:01 oxycodone [From OXYCONTIN] AdvReac Intermediate NAUSEA & Verified 06/05/22 10:01 VOMITING FROM PERCOCET TOO tramadol AdvReac Intermediate could not Verified 06/05/22 10:01 concetrate chocolate cover cherries Allergy Severe Anaphylaxis Uncoded 06/05/22 10:01 Active Medications: Current Medications Acetaminophen (Acetaminophen 325 Mg Tablet) 650 mg PO Q6H PRN PRN Reason: Fever Enoxaparin Sodium (Enoxaparin Sodium 40 Mg/0.4 Ml Syringe) 40 mg SUBCUT Q24H TREY Sodium Chloride (Ns) 1,000 mls @ 200 mls/hr IVCONT .Q5H TREY Stop: 06/05/22 19:44 Last Admin: 06/05/22 14:48 Dose: 200 mls/hr Dextrose/Sodium Chloride (D5ns) 1,000 mls @ 100 mls/hr IVCONT .Q10H TREY Piperacillin Sod/Tazobactam (Sod 3.375 gm/ Sodium Chloride) 50 mls @ 100 mls/hr IV Q8H [facility] Morphine Sulfate (Morphine Sulfate 4 Mg/Ml Cartridge) 3 mg IVPUSH Q4H PRN; Protocol PRN Reason: Pain, Severe (Pain Scale 7-10) Ondansetron HCl (Ondansetron Hcl 4 Mg/2 Ml Vial) 4 mg IVPUSH Q8H PRN PRN Reason: Nausea Oxycodone HCl (Oxycodone Hcl Immed Release 5 Mg Tablet) 5 mg PO Q6H PRN PRN Reason: Pain, Moderate (Pain Scale 4-6 Pharmacy Consult (Consult Rx Perform Med Rec) 1 each MISCELLANE ONCE PRN PRN Reason: Consult order Sodium Chloride (0.9 % Sodium Chloride Flush 3 Ml Syringe) 3 ml IVFLUSH QSHIFT [facility] Home Medications Medication Instructions Recorded Confirmed Last Taken Type aspirin 81 mg tablet,delayed 81 mg PO DAILY 11/24/19 06/05/22 Unknown History release flaxseed oil 1,000 mg capsule 1,000 mg PO DAILY 04/30/21 06/05/22 Unknown History Physical Exam Vital Signs and Narrative: Vital Signs: Last Vital Signs Temp 99.0 F 06/05/22 14:14 Pulse 57 06/05/22 14:14 Resp 17 06/05/22 14:14 BP 102/48 L 06/05/22 14:14 Pulse Ox 95 06/05/22 14:14 O2 Del Method Room Air 06/05/22 14:14 BMI result Body Mass Index 30.0 Const: Other: General awake alert x3, in no acute distress. Neck supple ,no JVD. CVS regular rate rhythm, Respiratory lungs clear to auscultation, no respiratory distress, no wheeze, no rhonchi. Gastrointestinal abdomen soft, nontender, bowel sounds audible, no guarding , no rigidity. Extremities no edema. Neuro nonfocal ,moving all 4 extremity, speech clear. Skin no rash/pallor psych appropriate affect pelvic examination right labia majora , induration, tenderness, mild hyperemia extending posteriorly ,with small opening with purulent drainage./ normal left labia Results Labs 06/05/22 11:29 06/05/22 11:29 Labs: Laboratory Results - last 24 hr 0406/05/22 06/05/22 11:29 11:29 11:29 MCV 94.7 MCH 31.7 MCHC 33.5 RDW 12.8 Plt Count 218 MPV 12.0 Immature Gran % (Auto) 0.3 Neut % (Auto) 77.9 H Lymph % (Auto) 10.7 L [place] % (Auto) 9.7 Eos % (Auto) 1.1 Baso % (Auto) 0.3 Lymph # (Auto) 0.7 L [place] # (Auto) 0.6 Eos # (Auto) 0.1 Baso # (Auto) 0.0 Abs Immat Gran (auto) 0.02 Absolute Neuts (auto) 5.0 Absolute Nucleated RBC 0.000 Nucleated RBC % (auto) 0.0 Anion Gap 14 Estim Creat Clear Calc 25.7 Estimated GFR 29 Random Glucose 109 Lactic Acid 1.1 Calcium 8.7 D 06/05/22 14:27 MCV MCH MCHC RDW Plt Count MPV Immature Gran % (Auto) Neut % (Auto) Lymph % (Auto) [place] % (Auto) Eos % (Auto) Baso % (Auto) Lymph # (Auto) [place] # (Auto) Eos # (Auto) Baso # (Auto) Abs Immat Gran (auto) Absolute Neuts (auto) Absolute Nucleated RBC Nucleated RBC % (auto) Anion Gap Estim Creat Clear Calc Estimated GFR Random Glucose Lactic Acid 0.8 Calcium Imaging Radiologist's Impressions: Impressions Pelvis CT 06/05/22 12:41 IMPRESSION: * No acute osseous injury in the pelvis or hips. * Nonspecific edema of subcutaneous tissues tissue of the perineum, including right labia majora. No soft tissue gas or organized fluid collection. Query if there is any clinical suspicion for cellulitis in the perineum. * Colonic diverticulosis without diverticulitis. * Severe facet osteoarthritis, grade 1 anterolisthesis and spinal canal stenosis at L3-L4 and L4-L5. Assessment and Plan (1) Acute on chronic renal insufficiency: Status: Acute (2) Acute abscess: Status: Acute Plan 82-year-old female with multiple medical problems including history of coronary artery disease, hypertension, hyperlipidemia, peripheral vascular disease presented to [facility] with acute onset of right vaginal discomfort and drainage noted to have right labial abscess will be admitted for pain management and possible surgical intervention. right labial abscess/ cellulitis noted to have purulent drainage, induration extending posteriorly question require further I&D will place on IV Zosyn started 06/05, follow blood cultures obtain surgical consult. intractable groin pain due to above will treat with IV morphine and oxycodone although patient has side effects to oxycodone with nausea, vomiting follow closely. acute on chronic kidney disease stage 3 pre renal with decreased by mouth intake treat with IV fluids, avoid nephrotoxins hold losartan, follow labs coronary artery disease will resume home home medications beta-blockers, aspirin, statins and nitro hypertension soft blood pressures on multiple antihypertensives, continue beta- blockers and Norvasc hold losartan follow blood pressure. code status full code DVT prophylaxis with Lovenox admitted under observation Time Spent With Patient Time: Total time managing care of this patient today ____ minutes. Quality Stroke Does the patient have a stroke diagnosis?: No VTE Prior VTE?: No VTE Risk Level:: Medical - moderate - high VTE Device Contraindication: Treatment Not Indicated VTE Drug Contraindication: N/A - Med Ordered
--- NOTE | 2022-06-05 15:55 | PHA.MEDREC ---
Pharmacy Consult ? Medication Reconciliation Pharmacy has completed the medication reconciliation. Patient had a list with her
--- NOTE | 2022-06-05 16:21 | PC.NURSE ---
pt given ham sandwich w tabby chanda, ok to eat pending surgical consult per Dr Jacobo.
--- NOTE | 2022-06-05 16:48 | PM.CNGS ---
History of Present Illness Consult details Consult date: 06/05/22 Narrative: 82-year-old female referred to me for a right labial abscess. The patient lives alone and says that starting 2 days ago, she has noticed this pain on the area of the right labia majora. He says that this drained spontaneously at that time with note of some thick brownish fluid consistent with pus. She says that there had been some swelling on this area with pain that seemed to radiate to the right perineum near the anus. She says that this had been periodically draining for the past 2 days. She thought that the pain would proved because of the spontaneous drainage but says she was brought to the ER this morning because of the persistent pain. She also had fallen at home yesterday and the paramedics and actually came to bring her to the ER as well but she had refused. She denies any head injury. She denies any GI complaints. Review of Systems Constitutional: Constitutional: Denies chills and Denies fever(s) Cardiovascular: Cardiovascular: Denies chest pain, Denies dyspnea and Reports dyspnea on exertion Respiratory: Respiratory: Denies cough, Denies dyspnea and Reports dyspnea on exertion Gastrointestinal: Gastrointestinal: Denies hematochezia and Denies change in bowel habits Genitourinary: Genitourinary: Denies hematuria Musculoskeletal: Musculoskeletal: Reports back pain, Reports arthralgias and Denies limited range of motion Neurologic: Denies focal weakness and Denies convulsions Psychiatric: Psychiatric: Denies depression and Denies mood swings [facility] Past Medical History Medical History (Updated 06/05/22 @ 16:59 by Chuck Chan MD) Abscess of right genital labia Angina pectoris Carotid stenosis Chronic kidney disease (CKD) stage G3b/A1, moderately decreased glomerular filtration rate (GFR) between 30-44 mL/min/1.73 square meter and albuminuria creatinine ratio less than 30 mg/g Coronary artery disease Esophageal dysmotility Gait instability GERD (gastroesophageal reflux disease) Hypercholesterolemia Hypertension Insomnia Leukopenia Lumbar degenerative disc disease Muscle spasm of right leg Obesity Overweight (BMI 25.0-29.9) Peripheral neuropathy Peripheral vascular disease 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 Father No problems noted. Surgical History Surgical History Basal cell carcinoma (BCC) H/O knee surgery History of appendectomy History of cataract surgery History of cholecystectomy History of tonsillectomy S/P JIMENEZ-BSO Status post phlebectomy Stented coronary artery Social History Social History Housing: Apartment Alcohol intake: current Alcohol intake frequency: a few times a week Alcohol type: hard liquor Patient Tobacco Use Status: Never used Tobacco e-Cigarette/Vaping Use: Never Used Second Hand Smoke Exposure: No Advance Directives Date on File: 07/11/20 service: No Current occupational status: retired Cognitive needs: No Hearing needs: No Vision needs: No Meds Allergies Allergy/AdvReac Type Severity Reaction Status Date / Time asparagus Allergy Severe Hives Verified 06/05/22 10:01 rosuvastatin [Crestor] Allergy Unknown unknown Verified 06/05/22 10:01 famotidine [From PEPCID] AdvReac Severe NAUSEA Verified 06/05/22 10:01 oxycodone [From OXYCONTIN] AdvReac Intermediate NAUSEA & Verified 06/05/22 10:01 VOMITING FROM PERCOCET TOO tramadol AdvReac Intermediate could not Verified 06/05/22 10:01 concetrate chocolate cover cherries Allergy Severe Anaphylaxis Uncoded 06/05/22 10:01 Active Medications: Current Medications Acetaminophen (Acetaminophen 325 Mg Tablet) 650 mg PO Q6H PRN PRN Reason: Fever Amlodipine Besylate (Amlodipine Besylate 5 Mg Tablet) 5 mg PO DAILY [facility]; Protocol Aspirin (Aspirin Enteric Coated 81 Mg Tablet.Dr) 81 mg PO DAILY [facility] Atorvastatin Calcium (Atorvastatin Calcium 20 Mg Tablet) 20 mg PO DAILY [facility] Enoxaparin Sodium (Enoxaparin Sodium 30 Mg/0.3 Ml Syringe) 30 mg SUBCUT Q24H [facility] Sodium Chloride (Ns) 1,000 mls @ 200 mls/hr IVCONT .Q5H [facility] Stop: 06/05/22 19:44 Last Admin: 06/05/22 14:48 Dose: 200 mls/hr Dextrose/Sodium Chloride (D5ns) 1,000 mls @ 100 mls/hr IVCONT .Q10H [facility] Piperacillin Sod/Tazobactam (Sod 2.25 gm/ Sodium Chloride) 50 mls @ 100 mls/hr IV Q6H [facility] Meclizine HCl (Meclizine Hcl 12.5 Mg Tablet) 12.5 mg PO TID PRN PRN Reason: dizziness Metoprolol Succinate (Metoprolol Succinate Er 50 Mg Tab.Er.24h) 50 mg PO DAILY [facility]; Protocol Morphine Sulfate (Morphine Sulfate 4 Mg/Ml Cartridge) 3 mg IVPUSH Q4H PRN; Protocol PRN Reason: Pain, Severe (Pain Scale 7-10) Nitroglycerin (Nitroglycerin 0.4 Mg Tab.Subl) 0.4 mg SUBLINGUAL Q5M PRN PRN Reason: chest pain Ondansetron HCl (Ondansetron Hcl 4 Mg/2 Ml Vial) 4 mg IVPUSH Q8H PRN PRN Reason: Nausea Oxycodone HCl (Oxycodone Hcl Immed Release 5 Mg Tablet) 5 mg PO Q6H PRN PRN Reason: Pain, Moderate (Pain Scale 4-6 Pharmacy Consult (Consult Rx Perform Med Rec) 1 each MISCELLANE ONCE PRN PRN Reason: Consult order Sodium Chloride (0.9 % Sodium Chloride Flush 3 Ml Syringe) 3 ml IVFLUSH QSHIFT [facility] Home Medications Medication Instructions Recorded Confirmed Last Taken Type aspirin 81 mg tablet,delayed 81 mg PO DAILY 11/24/19 06/05/22 Unknown History release flaxseed oil 1,000 mg capsule 1,000 mg PO DAILY 04/30/21 06/05/22 Unknown History Physical Exam Vital Signs: Vital Signs: Last Vital Signs Temp 99.0 F 06/05/22 14:14 Pulse 57 06/05/22 14:14 Resp 17 06/05/22 14:14 BP 102/48 L 06/05/22 14:14 Pulse Ox 95 06/05/22 14:14 O2 Del Method Room Air 06/05/22 14:14 BMI result Body Mass Index 30.0 Const: General: comfortable and no acute distress Orientation/consciousness: patient oriented x3 Neck: Neck: Yes no lymphadenopathy Resp: Auscultation: clear to auscultation bilaterally Cardio: Rhythm: regular rhythm GI: Palpation (GI): Soft to palpation, nontender and no guarding : Other: On the right labia majora is note of a spontaneously draining sinus, mild induration, that seems to extend to the perineal area on the right side towards the anus, no obvious fluctuance, no cellulitis; when squeeze, this sinus drains some purulent yellowish fluid Neuro: General: patient oriented x3 Results Labs 06/05/22 11:29 06/05/22 11:29 Labs: Abnormal lab results 06/05/22 06/05/22 Range/Units 11: 11:29 RBC 2.65 L D (4.20-5.50) X10*6/uL Hgb 8.4 L D (12.0-16.0) g/dl Hct 25.1 L D (37.0-47.0) % Neut % (Auto) 77.9 H (45-73) % Lymph % (Auto) 10.7 L (20-40) % Lymph # (Auto) 0.7 L (1.2-4.9) X10*3/uL Carbon Dioxide 21 L (22-29) mmol/L BUN 41 H (9-16) mg/dL Creatinine 1.66 H (0.5-1.4) mg/dL Short CBC 06/05/22 Range/Units 11: WBC 6.5 (4.8-10.8) X10*3/uL Hgb 8.4 L D (12.0-16.0) g/dl Hct 25.1 L D (37.0-47.0) % Plt Count 218 (160-400) X10*3/uL BMP 06/05/22 11:29 Sodium 136 Potassium 4.2 Chloride 105 Carbon Dioxide 21 L BUN 41 H Creatinine 1.66 H Calcium 8.7 D All other labs normal. Laboratory Results WBC 6.5 X10*3/uL (4.8-10.8) 06/05/22 11:29 RBC 2.65 X10*6/uL (4.20-5.50) L D 06/05/22 11:29 Hgb 8.4 g/dl (12.0-16.0) L D 06/05/22 11:29 Hct 25.1 % (37.0-47.0) L D 06/05/22 11:29 MCV 94.7 fL (80.0-98.0) 06/05/22 11:29 MCH 31.7 pg (27.0-33.0) 06/05/22 11: MCHC 33.5 g/dl (31.0-35.0) 06/05/22 11: RDW 12.8 % (11.0-16.0) 06/05/22 11: Plt Count 218 X10*3/uL (160-400) 06/05/22 11: MPV 12.0 fL (9.4-12.3) 06/05/22 11: Immature Gran % (Auto) 0.3 % (0.0-0.4) 06/05/22 11: Neut % (Auto) 77.9 % (45-73) H 06/05/22 11: Lymph % (Auto) 10.7 % (20-40) L 06/05/22 11: [place] % (Auto) 9.7 % (2-11) 06/05/22 11: Eos % (Auto) 1.1 % (0-4) 06/05/22 11: Baso % (Auto) 0.3 % (0-2) 06/05/22 11: Lymph # (Auto) 0.7 X10*3/uL (1.2-4.9) L 06/05/22 11: [place] # (Auto) 0.6 X10*3/uL (0.1-1.2) 06/05/22 11: Eos # (Auto) 0.1 X10*3/uL (0.0-0.4) 06/05/22 11: Baso # (Auto) 0.0 X10*3/uL (0.0-0.2) 06/05/22 11: Abs Immat Gran (auto) 0.02 X10*3/uL (0.00-0.03) 06/05/22 11: Absolute Neuts (auto) 5.0 x10*3/uL (2.0-8.3) 06/05/22 11: Absolute Nucleated RBC 0.000 X10*3/uL (0.0-0.012) 06/05/22 11: Nucleated RBC % (auto) 0.0 /100WBC (0.0-0.2) 06/05/22 11:29 Sodium 136 mmol/L (135-145) 06/05/22 11:29 Potassium 4.2 mmol/L (3.3-5.1) 06/05/22 11:29 Chloride 105 mmol/L (96-108) 06/05/22 11:29 Carbon Dioxide 21 mmol/L (22-29) L 06/05/22 11:29 Anion Gap 14 (12-20) 06/05/22 11:29 BUN 41 mg/dL (9-16) H 06/05/22 11:29 Creatinine 1.66 mg/dL (0.5-1.4) H 06/05/22 11:29 Estim Creat Clear Calc 25.7 06/05/22 11:29 Estimated GFR 29 06/05/22 11:29 Random Glucose 109 mg/dL (60-115) 06/05/22 11:29 Lactic Acid 0.8 mmol/L (0.5-2.0) 06/05/22 14:27 Calcium 8.7 mg/dL (8.4-10.2) D 06/05/22 11:[address] 06/05/22 12:41 IMPRESSION: * No acute osseous injury in the pelvis or hips. * Nonspecific edema of subcutaneous tissues tissue of the perineum, including right labia majora. No soft tissue gas or organized fluid collection. Query if there is any clinical suspicion for cellulitis in the perineum. * Colonic diverticulosis without diverticulitis. * Severe facet osteoarthritis, grade 1 anterolisthesis and spinal canal stenosis at L3-L4 and L4-L5. Assessment and Plan (1) Abscess of right genital labia: Status: Acute This is spontaneously draining already. There is no associated cellulitis. There is no obvious fluctuance. I have reviewed her CAT scan and there was no fluid collection seen in the area. There is note of some subcutaneous edema. I agree with antibiotic treatment for now. I told the patient that I will follow her while she is in the hospital. I will re-evaluate her tomorrow and see if she will from any I&D. She is hemodynamically stable. She understands the plan. Time Spent With Patient Time: Total time managing care of this patient today ____ minutes. Procedures Date of Service Date of Service: 06/05/22
[2022-06-05] MEDS: Dextrose 5 % and 0.9 % NaCl 1,000 ML 100 ML IVCONT (18:18)
[2022-06-05] MEDS: Acetaminophen 325 MG TABLET 650 MG PO (18:23)
[2022-06-05] MEDS: Enoxaparin Sodium 30 MG/0.3 ML SYRINGE SUBCUT (18:25)
[2022-06-05] MEDS: Morphine Sulfate 4 MG/ML CARTRIDGE 3 MG IVPUSH ×2 (18:27→23:19)
[2022-06-05 18:50] LABS: Appearance Urine Turbid; Color Urine Yellow; Glucose Urine UA Negative (Negative); Leukocyte Esterase Urine Large (3+) (Negative); Nitrite Urine Negative (Negative); UMIC TRIGGER UACC YES; Urine Blood Moderate (2+) (Negative); Urine Ketones Trace mg/dL (Negative); Urine Protein 30 (1+) mg/dL (Neg-Trace)
[2022-06-05 18:59] LABS: Bacteria Urine 2+ (None Seen); Hyaline Casts Urine 0-2 /LPF (0-2); RBC Urine >20 /HPF (0-2); Squamous Epithelial Cell Urine >20 /HPF (0-2); UACC Culture Trigger YES; WBC Urine >50 /HPF (0-5)
--- NOTE | 2022-06-05 20:47 | PC.NURSE ---
MINERVA Gilmore informed this RN that patient's blood pressure was low. This RN spencer texted MD Coleman at 2046, no answer at this time
--- NOTE | 2022-06-05 20:49 | MHC.EDTECH ---
THIS PCT ASSUMED CARE OF PT AT 1915 ,PT IN BED ,VITALS SIGN TAKEN I OFFER PT FOOD ,PT SAID SHE LIKE ONLY ICE ,FRESH ICE GIVEN ,TISSUE BOX AND SMALL GARBAGE BAG .
[2022-06-05] MEDS: 0.9 % Sodium Chloride 1,000 ML 999 ML IV ×2 (20:53→22:43)
[2022-06-05] MEDS: Piperacillin Sodium/Tazobactam 2.25 GM in 0.9 % Sodium Chloride 50 ML IV (20:53)
--- NOTE | 2022-06-05 22:28 | PC.NURSE ---
after one liter of normal saline, pts blood pressure remains low, MD Coleman aware, order for one more liter of fluids put in
[2022-06-06] VITALS (8 sets, daily range): BP systolic 103–129; BP diastolic 46–89; PULSE 80–90; RESP 16–20; TEMP 36.2–37.3; O2SAT 92–99
[2022-06-06] MEDS: Piperacillin Sodium/Tazobactam 2.25 GM in 0.9 % Sodium Chloride 50 ML IV ×2 (02:32→09:23)
[2022-06-06] MEDS: Dextrose 5 % and 0.9 % NaCl 1,000 ML 100 ML IVCONT ×2 (02:38→12:05)
--- NOTE | 2022-06-06 03:04 | PC.NURSE ---
pt resting comfortably on bed at this time, reporting that pain is slowly increasing again. this RN informed patient she could get her morphine at about 0320. Pt agreeable to plan
[2022-06-06] MEDS: Morphine Sulfate 4 MG/ML CARTRIDGE 3 MG IVPUSH ×2 (03:33→09:18)
--- NOTE | 2022-06-06 06:34 | PC.NURSE ---
pts blood pressure starting to trend down again,latest 104/47. [place] texted MD Coleman who stated it was okay. No new orders at this time, continue plan of care to admit to [facility] / [facility] still at this time
--- NOTE | 2022-06-06 08:20 | PM.PNGS ---
Subjective Subjective Date of Service: 06/06/22 Interval history: complains of cramping all over she says that the right labial area feels much better with less pain no fever Physical Exam Vital Signs: Vital Signs: Last Vital Signs Temp 98.2 F 06/06/22 07:04 Pulse 86 06/06/22 07:04 Resp 16 06/06/22 07:04 BP 104/46 L 06/06/22 07:04 Pulse Ox 94 06/06/22 07:04 O2 Del Method Room Air 06/06/22 07:04 BMI result Body Mass Index 30.0 Const: General: no acute distress Orientation/consciousness: patient oriented x3 Resp: Effort & Inspection: normal respiratory effort Cardio: Rate: regular rate GI: Palpation (GI): Soft to palpation, not firm and nontender : Other: right labia majora - swelling is much improved, cellulitis, perineal swelling also much improved, significant tenderness at this time Neuro: General: patient oriented x3 Objective Data Active Medications Acetaminophen (Acetaminophen 325 Mg Tablet) 650 mg PO Q6H PRN PRN Reason: Fever Last Admin: 06/05/22 18:23 Dose: 650 mg Documented By: CORINE Aspirin (Aspirin Enteric Coated 81 Mg Tablet.) 81 mg PO DAILY [facility] Atorvastatin Calcium (Atorvastatin Calcium 20 Mg Tablet) 20 mg PO DAILY [facility] Enoxaparin Sodium (Enoxaparin Sodium 30 Mg/0.3 Ml Syringe) 30 mg SUBCUT Q24H [facility] Last Admin: 06/05/22 18:25 Dose: 30 mg Documented By: CORINE Dextrose/Sodium Chloride (D5ns) 1,000 mls @ 100 mls/hr IVCONT .Q10H [facility] Last Admin: 06/06/22 02:38 Dose: 100 mls/hr Documented By: SILVER Piperacillin Sod/Tazobactam (Sod 2.25 gm/ Sodium Chloride) 50 mls @ 100 mls/hr IV Q6H [facility] Last Infusion: 06/06/22 03:02 Dose: 0 mls/hr Documented By: SILVER Meclizine HCl (Meclizine Hcl 12.5 Mg Tablet) 12.5 mg PO TID PRN PRN Reason: dizziness Metoprolol Succinate (Metoprolol Succinate Er 50 Mg Tab.Er.24h) 50 mg PO DAILY [facility]; Protocol Morphine Sulfate (Morphine Sulfate 4 Mg/Ml Cartridge) 3 mg IVPUSH Q4H PRN; Protocol PRN Reason: Pain, Severe (Pain Scale 7-10) Last Admin: 06/06/22 03:33 Dose: 3 mg Documented By: SILVER Nitroglycerin (Nitroglycerin 0.4 Mg Tab.Subl) 0.4 mg SUBLINGUAL Q5M PRN PRN Reason: chest pain Ondansetron HCl (Ondansetron Hcl 4 Mg/2 Ml Vial) 4 mg IVPUSH Q8H PRN PRN Reason: Nausea Oxycodone HCl (Oxycodone Hcl Immed Release 5 Mg Tablet) 5 mg PO Q6H PRN PRN Reason: Pain, Moderate (Pain Scale 4-6 Pharmacy Consult (Consult Rx Perform Med Rec) 1 each MISCELLANE ONCE PRN PRN Reason: Consult order Sodium Chloride (0.9 % Sodium Chloride Flush 3 Ml Syringe) 3 ml IVFLUSH QSHIFT [facility] Last Admin: 06/05/22 22:27 Dose: Not Given Documented By: SILVER Non-Admin Reason: IV Running Labs 06/05/22 11:29 06/05/22 11:29 Labs: Laboratory Results - last 24 hr 06/05/22 06/05/22 06/05/22 11:29 11:29 11:29 MCV 94.7 MCH 31.7 MCHC 33.5 RDW 12.8 Plt Count 218 MPV 12.0 Immature Gran % (Auto) 0.3 Neut % (Auto) 77.9 H Lymph % (Auto) 10.7 L [place] % (Auto) 9.7 Eos % (Auto) 1.1 Baso % (Auto) 0.3 Lymph # (Auto) 0.7 L [place] # (Auto) 0.6 Eos # (Auto) 0.1 Baso # (Auto) 0.0 Abs Immat Gran (auto) 0.02 Absolute Neuts (auto) 5.0 Absolute Nucleated RBC 0.000 Nucleated RBC % (auto) 0.0 Anion Gap 14 Estim Creat Clear Calc 25.7 Estimated GFR 29 Random Glucose 109 Lactic Acid 1.1 Calcium 8.7 D Urine Color Urine Appearance Urine pH Ur Specific [place] Urine Protein Urine Glucose (UA) Urine Ketones Urine Blood Urine Nitrite Ur Leukocyte Esterase Urine RBC Urine WBC Ur Squamous Epith Cells Urine Bacteria Hyaline Casts 06/05/22 06/05/22 14:27 18:24 MCV MCH MCHC RDW Plt Count MPV Immature Gran % (Auto) Neut % (Auto) Lymph % (Auto) [place] % (Auto) Eos % (Auto) Baso % (Auto) Lymph # (Auto) [place] # (Auto) Eos # (Auto) Baso # (Auto) Abs Immat Gran (auto) Absolute Neuts (auto) Absolute Nucleated RBC Nucleated RBC % (auto) Anion Gap Estim Creat Clear Calc Estimated GFR Random Glucose Lactic Acid 0.8 Calcium Urine Color Yellow Urine Appearance Turbid Urine pH 5.0 Ur Specific [place] 1.020 Urine Protein 30 (1+) H Urine Glucose (UA) Negative Urine Ketones Trace Urine Blood Moderate (2+) H Urine Nitrite Negative Ur Leukocyte Esterase Large (3+) H Urine RBC >20 H Urine WBC >50 H Ur Squamous Epith Cells >20 Urine Bacteria 2+ Hyaline Casts 0-2 Procedures Date of Service Date of Service: 06/06/22 Progress Note: A&P Assessment and plan (1) Abscess of right genital labia: Status: Acute Assessment and Plan: this had spontaneously drained no cellulitis no fluctuance no fever pain has improved significantly no I&D planned therefore continue antibiotics Time Spent With Patient Time: Total time managing care of this patient today ____ minutes. Quality Stroke Does the patient have a stroke diagnosis?: No VTE Prior VTE?: No VTE Risk Level:: Medical - moderate - high VTE Device Contraindication: Treatment Not Indicated VTE Drug Contraindication: N/A - Med Ordered
[2022-06-06] MEDS: Metoprolol Succinate ER 50 MG TAB.ER.24H PO (08:53)
[2022-06-06] MEDS: Atorvastatin Calcium 20 MG TABLET PO (08:53)
[2022-06-06] MEDS: Aspirin Enteric Coated 81 MG TABLET.DR PO (08:53)
[2022-06-06] MEDS: 0.9 % Sodium Chloride Flush 3 ML SYRINGE IVFLUSH ×2 (09:22→15:55)
--- NOTE | 2022-06-06 10:55 | PC.NURSE ---
Patient medicated for pain. Tearful at times. VSS, resting at present.
[2022-06-06 12:39] LABS: Hematocrit 26.6 % (37.0-47.0); Hemoglobin 8.7 g/dl (12.0-16.0)
[2022-06-06 12:55] LABS: Anion Gap 9 (12-20); Blood Urea Nitrogen 29 mg/dL (9-16); Calcium 7.9 mg/dL (8.4-10.2); Carbon Dioxide 21 mmol/L (22-29); Chloride 111 mmol/L (96-108); Creatinine Clr Calc Pharmacy 36.1; Estimated Glomerular Filt Rate 44; Glucose Random 108 mg/dL (60-115); Sodium 137 mmol/L (135-145)
--- NOTE | 2022-06-06 12:55 | MHC.CM.PN ---
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
--- NOTE | 2022-06-06 13:52 | P.DS_ITS ---
DS: Providers Provider Date of Service: 06/06/22 Date of admission: 06/05/22 15:37 Primary care physician: Erika Jordan MD Consults: 06/05/22 15:44 Consult to General Surgery Routine Consulting Provider: Chuck Chan Reason for consultation: rt labial abscess Has provider been notified: No DS: Diagnosis Discharge Diagnosis (1) Abscess of right genital labia: Status: Acute DS: Summary Hospital Course Hospital Course: History of presenting illness: Date of Service: 06/05/22 Attending physician on admission: Nicolas Jacobo Chief Complaint:? right vaginal pain ?82-year-old female patient with past medical history significant for hypertension, hypercholesterolemia, coronary artery disease, chronic kidney disease stage 3, peripheral vascular disease, presented to [facility] due to symptoms of right groin pain with radiation towards rectum ,symptoms started 3-4 days ago she felt unwell on Thursday feeling feverish, Thursday she felt that something popped open in the right groin and she notice drainage mostly bloody and brown colored with foul order, she continued to have drainage for 2 days? with persistent pain decreased by mouth intake, with no nausea, no vomiting, no diarrhea no prior history of abscess or boils no history of diabetes mellitus denies trauma, denies headache, dizziness, in the emergency room patient noted to have low-grade fever of 99, normal WBC count , CT pelvis showed no acute osseous injury, nonspecific edema of subcutaneous tissue of the perineum including right labia majora no soft tissue gas or organized fluid collection noted, no diverticulitis, creatinine of 1.66, hematocrit of 25.1 with a baseline creatinine of 32 last checked on 04/29/2022, in the ER patient treated with IV fluids IV Zosyn and now being admitted to [facility] due to intractable pain acute on chronic kidney disease and abscess of right labia with persistent drainage. Hospital course 82-year-old female with multiple medical problems including history of coronary artery disease, hypertension, hyperlipidemia, peripheral vascular disease presented to [facility] with acute onset of right vaginal discomfort and drainage noted to have right labial abscess and admitted for pain management and possible surgical intervention. ?right labial abscess/ cellulitis? , patient responded rapidly to IV antibiotic, was evaluated by General surgery, no further I&D required noted to have significant improvement in redness and pain therefore being discharged home on Augmentin twice daily for 5 more days recommend to rinse perineum with lukewarm water and use Tylenol for pain . ?intractable groin pain due to above improve significantly since abscess drained spontaneously recommend to use Tylenol . ?acute on chronic kidney disease stage 3 ? pre renal with decreased by mouth intake treated with IV fluids creatinine returned to baseline recommend to hold losartan since noted to have soft blood pressures . ?coronary artery disease continue home medications beta-blockers, aspirin, statins and nitro. ?hypertension soft blood pressures on multiple antihypertensives, continue beta- blockers and Norvasc hold losartan follow blood pressure. Time Spent with Patient Time attestation: Total time managing care of this patient today ____ minutes. Discharge coordination time: Greater than 30 minutes Quality: Safe Use of Opioids Does Pt have an Active Cancer Diagnosis on the Problem List?: No Quality: Stroke Does the patient have a stroke diagnosis?: No Physical Exam Vital Signs: Vital Signs: Last Vital Signs Temp 99.2 F 06/06/22 12:00 Pulse 80 06/06/22 12:00 Resp 20 06/06/22 12:00 BP 111/62 06/06/22 12:00 Pulse Ox 93 06/06/22 12:00 O2 Del Method Room Air 06/06/22 12:00 BMI result Body Mass Index 30.0 Const: Other: General ? awake al ert x3, in no acut e distress.? Neck supple ,no JVD. CV S? regular rate rh ythm, Respiratory lungs clear to aus cultation, no resp iratory distress, no wheeze, no rhon chi. Gastrointesti nal abdomen soft, nontender, bowel s ounds audible, no guarding , no rigi dity. Extremities no edema. Neuro no nfocal ,moving all 4 extremity, spee ch clear. Skin no rash/pallor psych appropriate affect pelvic examinatio n right labia sonal ra tenderness and redness significan tly improved, no f urther drainage no catracho DS: Data Data Completed and Pending Labs on day of discharge: Laboratory Results - last 24 hr 06/05/22 06/05/22 06/06/22 14:27 18:24 12:22 Hgb 8.7 L Hct 26.6 L Sodium Potassium Chloride Carbon Dioxide Anion Gap BUN Creatinine Estim Creat Clear Calc Estimated GFR Random Glucose Lactic Acid 0.8 Calcium Urine Color Yellow Urine Appearance Turbid Urine pH 5.0 Ur Specific [place] 1.020 Urine Protein 30 (1+) H Urine Glucose (UA) Negative Urine Ketones Trace Urine Blood Moderate (2+) H Urine Nitrite Negative Ur Leukocyte Esterase Large (3+) H Urine RBC >20 H Urine WBC >50 H Ur Squamous Epith Cells >20 Urine Bacteria 2+ Hyaline Casts 0-2 06/06/22 12:22 Hgb Hct Sodium 137 Potassium 4.0 Chloride 111 H Carbon Dioxide 21 L Anion Gap 9 L BUN 29 H Creatinine 1.18 Estim Creat Clear Calc 36.1 Estimated GFR 44 Random Glucose 108 Lactic Acid Calcium 7.9 L D Urine Color Urine Appearance Urine pH Ur Specific [place] Urine Protein Urine Glucose (UA) Urine Ketones Urine Blood Urine Nitrite Ur Leukocyte Esterase Urine RBC Urine WBC Ur Squamous Epith Cells Urine Bacteria Hyaline Casts Preliminary micro results at discharge 06/05/22 19:05 Urine Culture - Preliminary Urine clean catch - Urine reyes top No growth to date. Discharge Plan Discharge Anticipated Discharge Date/Time: 06/06/22 13:22 Patient Disposition: Home, Self-Care Discharge Diagnosis: Right labial abscess Referrals: Po,Erika Armendariz MD [Primary Care Provider] - 1 Week Discharge Medications: New amoxicillin-pot clavulanate [Augmentin] 500-125 mg tablet 1 tab PO BID Qty: 10 0RF Continued atorvastatin 20 mg tablet 20 mg PO DAILY 90 Days Qty: 90 2RF amlodipine 5 mg tablet 5 mg PO DAILY 90 Days Qty: 90 3RF (DME) Rollator See Rx Instructions .Route .MEDSUPPLY Qty: 1 0RF Rx Instructions: As directed ([facility] Shower chair w/back rest See Rx Instructions .Route .MEDSUPPLY Qty: 1 0RF Rx Instructions: As directed metoprolol succinate 50 mg tablet extended release 24 hr 50 mg PO DAILY Qty: 90 2RF flaxseed oil 1,000 mg capsule 1,000 mg PO DAILY Rx Instructions: administer with a meal meclizine 12.5 mg tablet 12.5 mg PO TID PRN (Reason: dizziness) Qty: 30 0RF nitroglycerin 0.4 mg tablet, sublingual 0.4 mg sublingual Q5M PRN (Reason: chest pain) Qty: 20 1RF Rx Instructions: do not exceed 3 doses per episode aspirin 81 mg tablet,delayed release (/EC) 81 mg PO DAILY Discontinued losartan 50 mg tablet 50 mg PO DAILY Qty: 90 3RF Discharge Orders: Discharge Order (Routine); Ordered 06/06/22 Ordered By: Nicolas Jacobo Diet: Low fat, low cholesterol Activity on Discharge: As tolerated Stand Alone Forms: Patient Portal Discharge page Care Plan Goals: Take Augmentin 1 tablet twice daily as prescribed, wash perineal area with lukewarm water , keep area clean and dry , take Tylenol for pain Soft blood pressures noted therefore hold losartan, and follow blood pressures Health Concerns: Follow-up with primary care physician monitor blood pressures Plan of Treatment: Outpatient follow-up with primary care physician Assessment: As above
--- NOTE | 2022-06-06 13:59 | MHC.CM.PN ---
IMM 06/06/22 Patient is [place] with resumption of [employer] [facility]. Family will provide transportation home.
[2022-06-06] MEDS: Amoxicillin/Potassium Clav 500 MG TABLET PO (14:33)
== END 2022-06-06 18:22 | disposition home or self-care (01) ==
LOC: HO.ED 14:37 → HO.EDOVER 15:45 → HO.S3 06-06 09:44
PROVIDERS: Admitting Provider Hospitalist; Emergency Provider Emergency Medicine; PCP Internal Medicine; Visit Provider Hospitalist
DX: N76.4 Abscess of vulva (principal); R10.2 Pelvic and perineal pain; I12.9 Hypertensive chronic kidney disease with stage 1 through stage 4 chronic kidney disease, or unspecified chronic kidney disease; N18.30 Chronic kidney disease, stage 3 unspecified; N17.9 Acute kidney failure, unspecified; D63.1 Anemia in chronic kidney disease; R06.00 Dyspnea, unspecified; E78.00 Pure hypercholesterolemia, unspecified; Z79.899 Other long term (current) drug therapy; Z79.02 Long term (current) use of antithrombotics/antiplatelets
CPT/HCPCS: 36415; 72192; 80048; 81001; 83605; 85014; 85018; 85025; 87040; 87086; 96361; 96365; 96366; 96367; 96372; 96375; 96376; 99221; 99285; J1650; J2270; J2405; J2543

== ENCOUNTER 2022-06-18 06:54 | Emergency (ER) | payer MEDICARE, MEDICAID, SELFPAY ==
--- NOTE | 2022-06-18 | ECG_ITS ---
Test Reason : dizziness Blood Pressure : / mmHG Vent. Rate : 086 BPM Atrial Rate : 000 BPM P-R Int : 000 ms QRS Dur : 090 ms QT Int : 394 ms P-R-T Axes : 000 040 -06 degrees QTc Int : 471 ms Atrial fibrillation Abnormal ECG When compared with ECG of 03-JUN-2021 11:35, Atrial fibrillation has replaced Sinus rhythm Referred By: Generic ED Physician Electronically Signed By:NATALIA BETANCOURT
[2022-06-18 06:59] VITALS: BP 151/71; PULSE 109; RESP 18; TEMP 36.6; O2SAT 97; BMI 30.7
--- NOTE | 2022-06-18 07:32 | ED_ITS ---
HPI - General Adult General Chief complaint: Dizziness Stated complaint: High Blood Pressure Time Seen by Provider: 06/18/22 07:32 Source: patient Mode of arrival: ambulatory Limitations: no limitations History of Present Illness HPI narrative: Patient is an 82 year old assigned female at with a history of HTN and recent hospitalization for a vaginal abscess presenting to the emergency department today with headache and elevated blood pressure. Patient states that her blood pressures have been high since she was discharged from here and told to hold her Losartan. Patient states that she is having associated headaches. Patient denies any dizziness, lightheadedness, abdominal pain, nausea, vomiting, fever, chills, blurry vision, double vision, loss of vision, chest pain, difficulty breathing, shortness of breath, back pain, night sweats, pain with urination, increased urinary frequency, increased urinary urgency, blood in her urine or stool, syncope or a near syncopal episode, recent trauma or falls, bowel incontinence, bladder incontinence, bowel retention, bladder retention, or any other complaints at this time. Onset (ago): day(s) Location: head Severity: mild Severity scale (1-10): 2 Quality: aching and dull Pain Consistency: constant Relieving factors: none Exacerbating factors: none Associated symptoms: denies other symptoms Treatments prior to arrival: none Related Data Home Medications Medication Instructions Recorded Confirmed flaxseed oil 1,000 mg capsule 1,000 mg PO DAILY 04/30/21 06/05/22 Previous Rx's Medication Instructions Recorded atorvastatin 20 mg tablet 20 mg PO DAILY 90 days #90 tabs 06/27/21 amlodipine 5 mg tablet 5 mg PO DAILY 90 days #90 tabs 09/23/21 Rollator #1 ea 02/06/22 Shower chair w/back rest #1 ea 02/06/22 metoprolol succinate 50 mg 50 mg PO DAILY #90 tabs 04/11/22 tablet,extended release 24 hr meclizine 12.5 mg tablet 12.5 mg PO TID PRN dizziness #30 05/02/22 tabs nitroglycerin 0.4 mg sublingual 0.4 mg sublingual Q5M PRN chest 05/02/22 tablet pain #20 tabs doxycycline hyclate 100 mg tablet 100 mg PO BID #14 tabs 06/13/22 apixaban 5 mg tablet (Eliquis) 5 mg PO BID #60 tabs 06/18/22 Allergies Allergy/AdvReac Type Severity Reaction Status Date / Time asparagus Allergy Severe Hives Verified 06/18/22 06:59 rosuvastatin [Crestor] Allergy Unknown unknown Verified 06/18/22 06:59 famotidine [From PEPCID] AdvReac Severe NAUSEA Verified 06/18/22 06:59 oxycodone [From OXYCONTIN] AdvReac Intermediate NAUSEA & Verified 06/18/22 06:59 VOMITING FROM PERCOCET TOO tramadol AdvReac Intermediate could not Verified 06/18/22 06:59 concetrate chocolate cover cherries Allergy Severe Anaphylaxis Uncoded 06/18/22 06:59 Review of Systems Constitutional: Constitutional: Reports no additional constitutional complaints, Denies chills, Denies fever(s), Reports headache(s) and Denies night sweats Eyes: Eyes: Reports no additional eye complaints, Denies blurry vision, Denies change in vision, Denies diplopia, Denies eye discharge, Denies loss of vision and Denies eye pain ENT: Denies dizziness and Reports headache(s) Cardiovascular: Cardiovascular: Reports no additional cardiovascular complaints, Denies chest pain, Denies lightheadedness, Denies Loss of Consciousness and Denies dyspnea Respiratory: Respiratory: Reports no additional respiratory complaints and Denies dyspnea Gastrointestinal: Gastrointestinal: Reports no additional gastrointestinal complaints, Denies abdominal pain, Denies melena, Denies hematochezia, Denies change in bowel habits and Denies change in stool character Genitourinary: Genitourinary: Denies hematuria, Denies urinary frequency, Denies dysuria, Denies urinary incontinence, Denies urinary hesitancy and Denies urinary urgency Musculoskeletal: Musculoskeletal: Reports no additional musculoskeletal complaints, Denies numbness and Denies tingling Neurologic: Denies dizziness, Reports headache(s), Denies loss of vision, Denies numbness and Denies tingling Psychiatric: Psychiatric: Reports no additional psychiatric complaints Endocrine: Endocrine: Reports no additional endocrine complaints Hematologic/Lymphatic: Hematologic/Lymphatic: Reports no additional hematologic/lymphatic complaints Allergic/Immunologic: Allergic/Immunologic: Reports no additional allergic/immunologic complaints PMFSH Past Medical History Attestation statement: The following information was validated with the patient. Source: old records reviewed and nursing notes reviewed Medical History Abscess of right genital labia Anemia Angina pectoris Carotid stenosis Chronic kidney disease (CKD) stage G3b/A1, moderately decreased glomerular filtration rate (GFR) between 30-44 mL/min/1.73 square meter and albuminuria creatinine ratio less than 30 mg/g Coronary artery disease Esophageal dysmotility Gait instability GERD (gastroesophageal reflux disease) Hypercholesterolemia Hypertension Insomnia Leukopenia Lumbar degenerative disc disease Muscle spasm of right leg Obesity Overweight (BMI 25.0-29.9) Peripheral neuropathy Peripheral vascular disease 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 Father No problems noted. Social History Social History Housing: Apartment Alcohol intake: current Alcohol intake frequency: holidays/special occasions only Alcohol type: hard liquor Patient Tobacco Use Status: Never used Tobacco e-Cigarette/Vaping Use: Never Used Second Hand Smoke Exposure: No Advance Directives Date on File: 07/11/20 service: No Current occupational status: retired Cognitive needs: No Hearing needs: No Vision needs: No Physical Exam ED Vital Signs: Vital Signs - 24 hr 06/18/22 06:59 06/18/22 08:46 06/18/22 10:00 Temperature 97.9 F 98.2 F 98.2 F Pulse Rate 109 H 84 88 Respiratory Rate 18 16 16 Blood Pressure 151/71 H 139/77 141/72 H Pulse Oximetry 97 96 97 Oxygen Delivery Method Room Air Room Air Room Air BMI result Body Mass Index 30.7 Const General: cooperative, no acute distress, alert and awake Nutritional Appearance: well nourished Orientation/consciousness: patient oriented x3 Limitations: no limitations HENMT Head: Yes normal to inspection and Yes atraumatic Ears: hearing grossly normal bilaterally and external ears normal General nose exam: Normal external nose present, no nasal discharge noted and no epistaxis Face and sinus: Yes normal facial exam, No abrasion and No laceration Mouth: Normal oral and palatal mucosa present, no drooling and no muffled voice Eyes General: appearance normal, both eyes and all related structures Periorbital: periorbital findings normal Eyelids: Yes eyelids normal Conjunctivae: conjunctivae normal Pupils: Equal, round and reactive pupils present EOM: EOMs intact bilaterally Neck Neck: Yes normal visual inspection, Yes full ROM and Yes no lymphadenopathy Chest Chest palpation & inspection: normal inspection of the chest Resp Effort & Inspection: normal respiratory effort and able to speak in complete sentences Auscultation: clear to auscultation bilaterally Cardio Rate: regular rate Rhythm: abnormal rhythm irregularly irregular GI Inspection: Yes normal to inspection Palpation (GI): Soft to palpation, not firm, nontender, no guarding and not rigid Neuro General: patient oriented x3 and moves all extremities Cranial nerves: Yes Equal, round and reactive pupils present Cognition (Neuro): normal cognition Motor exam (neuro): 5/5 motor strength present throughout Sensory Exam: Normal double simultaneous stimulation for sensation Coordination: plaizc-sh-sler test normal Extrem General: Yes normal to inspection, Yes full ROM and Yes capillary refill normal Psych Appearance: grossly normal Mental Status: mental status grossly normal Affect: normal affect Attitude: cooperative Thought process: Normal thought process present Thought content: Normal thought content present Insight: Good insight present (Psych) Medical Decision Making Medical Decision Making MDM Narrative: Patient is an 82 year old assigned female at with a history of HTN and recent medical admission for a vaginal abscess presenting to the emergency department today with a headache. Patient's physical exam was unremarkable. Patient's blood work was unremarkable. Patient's EKG showed atrial fibrillation which seems to be new for the patient. Patient's clinical presentation is consistent with hypertension with an incidental atrial fib finding. I spoke to the application support consultant electronics design engineer who recommended the patient be started on Eliquis, stop her aspirin, and follow up out patient. I explained my physical exam findings as well as all test results to the patient. I answered all questions asked by the patient. I stressed the importance of the patient taking her medication as prescribed, including resuming her previously prescribed Losartan and currently prescribed antibiotics. I stressed the importance of the patient following up with her primary care provider. I stressed the importance of the patient returning to the emergency department immediately if her symptoms were to worsen or if she were to develop any dizziness, shortness of breath, difficulty breathing, chest pain, blurry vision, loss of vision, nausea, vomiting, abdominal pain, fever, chills, back pain, or any other complaints. Patient verbalized agreement and understanding with this treatment plan and discharge. Differential Diagnosis Differential Diagnoses: The differential diagnosis associated with the presentation includes elevated blood pressure, atrial fibrillation Consult Healthcare Provider Management of the patient was discussed with: Ways Operator (spoke to the application support consultant as written in the MDM portion of this chart) Lab Data [facility] Lab Attestation statement: I reviewed the patient's lab results. 06/18/22 08:11 06/18/22 08:11 Labs: Lab Results 06/18/22 06/18/22 Range/Units 08:11 08:11 WBC 5.4 (4.8-10.8) X10*3/uL RBC 3.23 L D (4.20-5.50) X10*6/uL Hgb 10.0 L (12.0-16.0) g/dl Hct 31.0 L (37.0-47.0) % MCV 96.0 (80.0-98.0) fL MCH 31.0 (27.0-33.0) pg MCHC 32.3 (31.0-35.0) g/dl RDW 13.5 (11.0-16.0) % Plt Count 265 (160-400) X10*3/uL MPV 10.4 (9.4-12.3) fL Immature Gran % (Auto) 0.4 (0.0-0.4) % Neut % (Auto) 66.6 (45-73) % Lymph % (Auto) 21.3 (20-40) % [place] % (Auto) 9.2 (2-11) % Eos % (Auto) 1.9 (0-4) % Baso % (Auto) 0.6 (0-2) % Lymph # (Auto) 1.1 L (1.2-4.9) X10*3/uL [place] # (Auto) 0.5 (0.1-1.2) X10*3/uL Eos # (Auto) 0.1 (0.0-0.4) X10*3/uL Baso # (Auto) 0.0 (0.0-0.2) X10*3/uL Abs Immat Gran (auto) 0.02 (0.00-0.03) X10*3/uL Absolute Neuts (auto) 3.6 (2.0-8.3) x10*3/uL Absolute Nucleated RBC 0.000 (0.0-0.012) X10*3/uL Nucleated RBC % (auto) 0.0 (0.0-0.2) /100WBC Sodium 142 (135-145) mmol/L Potassium 4.3 (3.3-5.1) mmol/L Chloride 112 H (96-108) mmol/L Carbon Dioxide 24 (22-29) mmol/L Anion Gap 10 L (12-20) BUN 33 H (9-16) mg/dL Creatinine 1.07 (0.5-1.4) mg/dL Estim Creat Clear Calc 40.3 Estimated GFR 49 Random Glucose 102 (60-115) mg/dL Calcium 9.2 D (8.4-10.2) mg/dL Independent Interpretation I performed an independent interpretation of an: EKG Interpretation: Vent. Rate: 086 BPM ? ? Atrial Rate: 000 BPM P-R Int: 000 ms? QRS Dur: 090 ms QT Int: 394 ms ? ? ? P-R-T Axes: 000 040 -06 degrees QTc Int: 471 ms ? Atrial fibrillation Abnormal ECG When compared with ECG of 03-JUN-2021 11:35, Atrial fibrillation has replaced Sinus rhythm QT has lengthened DD/ [id number] Critical Care Time Critical Care Time Critical Care Time: Yes Total Critical Care Time: 30 Attestation: I spent 30 minutes of Critical Care Time with this patient. This does not include time spent on separately reported billable procedures. Discharge Plan Discharge Clinical Impression: Hypertension, Atrial fibrillation Patient Disposition: Home, Self-Care Instructions: A-fib (Atrial Fibrillation) (DC), Hypertension (ED), Blood Thinners (ED) Additional Instructions: STOP your Aspirin. Resume your previously prescribed losartan, begin your eliquis, and finish your antibiotics. Follow up with your primary care provider. Return to the emergency department immediately if your symptoms worsen or if you develop any dizziness, shortness of breath, difficulty breathing, chest pain, blurry vision, loss of vision, nausea, vomiting, abdominal pain, fever, chills, back pain, or any other complaints. Prescriptions: New Eliquis 5 mg tablet 5 mg PO BID Qty: 60 0RF Discontinued aspirin 81 mg tablet,delayed release (DR/EC) 81 mg PO DAILY No Action atorvastatin 20 mg tablet 20 mg PO DAILY 90 Days Qty: 90 2RF amlodipine 5 mg tablet 5 mg PO DAILY 90 Days Qty: 90 3RF (DME) Rollator See Rx Instructions .Route .MEDSUPPLY Qty: 1 0RF Rx Instructions: As directed (DME) Shower chair w/back rest See Rx Instructions .Route .MEDSUPPLY Qty: 1 0RF Rx Instructions: As directed metoprolol succinate 50 mg tablet extended release 24 hr 50 mg PO DAILY Qty: 90 2RF doxycycline hyclate 100 mg tablet 100 mg PO BID Qty: 14 0RF flaxseed oil 1,000 mg capsule 1,000 mg PO DAILY Rx Instructions: administer with a meal meclizine 12.5 mg tablet 12.5 mg PO TID PRN (Reason: dizziness) Qty: 30 0RF nitroglycerin 0.4 mg tablet, sublingual 0.4 mg sublingual Q5M PRN (Reason: chest pain) Qty: 20 1RF Rx Instructions: do not exceed 3 doses per episode Referrals: Erika Jordan MD [Primary Care Provider] - [facility] [place] [facility] [Provider Group] Interventions: ED Discharge Assessment Last Done: 06/18/22 10:34 Discharge Date/Time: 06/18/22 10:35 Print Language: Japanese
[2022-06-18 08:14] LABS: MANUAL DIFF FLAG NO
[2022-06-18 08:17] LABS: Basophils Percent Auto 0.6 % (0-2); Eosinophils Absolute Auto 0.1 X10*3/uL (0.0-0.4); Eosinophils Percent Auto 1.9 % (0-4); Imm Gran Abs Auto 0.02 X10*3/uL (0.00-0.03); Imm Gran Pct Auto 0.4 % (0.0-0.4); Lymphocytes Absolute Auto 1.1 X10*3/uL (1.2-4.9); Lymphocytes Percent Auto 21.3 % (20-40); Mean Corpuscular HGB Conc 32.3 g/dl (31.0-35.0); Mean Platelet Volume 10.4 fL (9.4-12.3); Monocytes Absolute Auto 0.5 X10*3/uL (0.1-1.2); Monocytes Percent Auto 9.2 % (2-11); Neutrophils Absolute Auto 3.6 x10*3/uL (2.0-8.3); Neutrophils Percent Auto 66.6 % (45-73); Platelet Count 265 X10*3/uL (160-400); Red Blood Count 3.23 X10*6/uL (4.20-5.50); Red Cell Distribution Width 13.5 % (11.0-16.0); White Blood Count 5.4 X10*3/uL (4.8-10.8)
[2022-06-18 08:35] LABS: Anion Gap 10 (12-20); Blood Urea Nitrogen 33 mg/dL (9-16); Calcium 9.2 mg/dL (8.4-10.2); Carbon Dioxide 24 mmol/L (22-29); Chloride 112 mmol/L (96-108); Creatinine Clr Calc Pharmacy 40.3; Estimated Glomerular Filt Rate 49; Glucose Random 102 mg/dL (60-115); Potassium 4.3 mmol/L (3.3-5.1); Sodium 142 mmol/L (135-145)
[2022-06-18 08:46] VITALS: BP 139/77; PULSE 84; RESP 16; TEMP 36.8; O2SAT 96
--- NOTE | 2022-06-18 08:48 | PC.NURSE ---
patient a&ox3, ekg performed, cardiac cath tech applied, vitals currently stable, pt stated her provider took her off one of her BP medications and since her BP has been elevated, pt stated she was lightheaded this morning, neuro intact- pt speaking in full sentences, labs drawn, pt currently complaining of headache she states she gets when her BP is elevated, will continue to monitor.
[2022-06-18 10:00] VITALS: BP 141/72; PULSE 88; RESP 16; TEMP 36.8; O2SAT 97
--- NOTE | 2022-06-18 10:33 | PC.NURSE ---
daughter called, tech dressing patient and pt will wait in wr for her arrival, pt understands she is now in afib- starting new medication/thinner this was also discussed with daughter, both are aware to follow up with her provider.
== END 2022-06-18 10:35 | disposition home or self-care (01) ==
PROVIDERS: Emergency Provider Emergency Medicine Emergency Medical Services; PCP Internal Medicine
DX: I10 Essential (primary) hypertension (principal); I48.91 Unspecified atrial fibrillation; E78.00 Pure hypercholesterolemia, unspecified; Z79.02 Long term (current) use of antithrombotics/antiplatelets; Z79.899 Other long term (current) drug therapy; Z79.01 Long term (current) use of anticoagulants
CPT/HCPCS: 36415; 80048; 85025; 93005; 99283; 99285

== ENCOUNTER 2022-07-02 09:16 | Inpatient (IN) | payer MEDICARE, MEDICAID, SELFPAY ==
[2022-07-02] VITALS (8 sets, daily range): BP systolic 94–141; BP diastolic 44–91; PULSE 82–103; RESP 14–20; TEMP 36.5–36.8; O2SAT 96–98; BMI 31.3
--- NOTE | ~2022-07-02 | XR_ITS ---
EXAMINATION: XR CHEST CLINICAL INFORMATION: SOB COMPARISON: None available. TECHNIQUE: 2 views of the chest were obtained. FINDINGS: No significant abnormality is noted involving the heart, lungs, mediastinum, bony thorax or soft tissues. XR/XR chest 2V IMPRESSION: Unremarkable chest examination.
--- NOTE | 2022-07-02 09:46 | ECG_ITS ---
Test Reason : SOB Blood Pressure : / mmHG Vent. Rate : 111 BPM Atrial Rate : 000 BPM P-R Int : 000 ms QRS Dur : 084 ms QT Int : 340 ms P-R-T Axes : 000 -01 015 degrees QTc Int : 462 ms Atrial fibrillation with rapid ventricular response Inferior infarct , age undetermined Possible Anterior infarct , age undetermined Abnormal ECG When compared with ECG of 18-JUN-2022 07:48, No significant change was found Referred By: Generic ED Physician Electronically Signed By:NATALIA BETANCOURT
[2022-07-02 10:29] LABS: MANUAL DIFF FLAG NO
[2022-07-02 10:31] LABS: Basophils Percent Auto 0.8 % (0-2); Eosinophils Absolute Auto 0.1 X10*3/uL (0.0-0.4); Hematocrit 31.2 % (37.0-47.0); Hemoglobin 10.2 g/dl (12.0-16.0); Imm Gran Abs Auto 0.02 X10*3/uL (0.00-0.03); Imm Gran Pct Auto 0.4 % (0.0-0.4); Lymphocytes Absolute Auto 1.3 X10*3/uL (1.2-4.9); Lymphocytes Percent Auto 25.6 % (20-40); Mean Corpuscular HGB Conc 32.7 g/dl (31.0-35.0); Mean Corpuscular Hemoglobin 31.4 pg (27.0-33.0); Mean Platelet Volume 12.2 fL (9.4-12.3); Monocytes Absolute Auto 0.7 X10*3/uL (0.1-1.2); Monocytes Percent Auto 12.8 % (2-11); Neutrophils Percent Auto 58.4 % (45-73); Platelet Count 151 X10*3/uL (160-400); Red Blood Count 3.25 X10*6/uL (4.20-5.50); Red Cell Distribution Width 14.3 % (11.0-16.0); White Blood Count 5.1 X10*3/uL (4.8-10.8)
--- NOTE | 2022-07-02 10:36 | ED.GENADULT ---
HPI - General Adult General Chief complaint: Upper Respiratory Symptoms Stated complaint: SOB Diff Breathing Time Seen by Provider: 07/02/22 10:35 Source: patient, family, RN notes reviewed and old records reviewed Mode of arrival: ambulatory Limitations: no limitations History of Present Illness HPI narrative: Patient is an 82-year-old female with history of newly diagnosed atrial fibrillation, high cholesterol, PVD, GERD, HTN, CAD presenting with dyspnea worse with exertion for the past several days. She also reports a cough which is occasionally productive of clear sputum. She denies any fevers. She does endorse some nausea but denies any abdominal pain, vomiting, diarrhea, or constipation. Patient states that she was grocery shopping the other day and was okay while in the store but became dyspneic walking to the car in the parking lot. She also reports difficulty carrying her groceries into her house. She denies any pain with deep inspiration. She denies any chest pain. She has not tried any [id number] medications for her symptoms. She denies any calf pain or lower extremity edema. MD complaint: Dyspnea Onset (ago): day(s) Location: chest Radiation: non-radiation Relieving factors: rest Exacerbating factors: movement Associated symptoms: nausea/vomiting Treatments prior to arrival: none Related Data Home Medications Medication Instructions Recorded Confirmed losartan 50 mg tablet 50 mg PO DAILY 07/02/22 07/02/22 multivitamin 1 tab PO DAILY 07/02/22 07/02/22 rivaroxaban 20 mg tablet (Xarelto) 20 mg PO DAILY@1700 07/02/22 07/02/22 Previous Rx's Medication Instructions Recorded atorvastatin 20 mg tablet 20 mg PO DAILY 90 days #90 tabs 06/27/21 amlodipine 5 mg tablet 5 mg PO DAILY 90 days #90 tabs 09/23/21 Rollator #1 ea 02/06/22 Shower chair w/back rest #1 ea 02/06/22 metoprolol succinate 50 mg 50 mg PO DAILY #90 tabs 04/11/22 tablet,extended release 24 hr meclizine 12.5 mg tablet 12.5 mg PO TID PRN dizziness #30 05/02/22 tabs nitroglycerin 0.4 mg sublingual 0.4 mg sublingual Q5M PRN chest 05/02/22 tablet pain #20 tabs Allergies Allergy/AdvReac Type Severity Reaction Status Date / Time asparagus Allergy Severe Hives Verified 07/02/22 09:44 rosuvastatin [Crestor] Allergy Unknown unknown Verified 07/02/22 09:44 famotidine [From PEPCID] AdvReac Severe NAUSEA Verified 07/02/22 09:44 oxycodone [From OXYCONTIN] AdvReac Intermediate NAUSEA & Verified 07/02/22 09:44 VOMITING FROM PERCOCET TOO tramadol AdvReac Intermediate could not Verified 07/02/22 09:44 concetrate chocolate cover cherries Allergy Severe Anaphylaxis Uncoded 07/02/22 09:44 Review of Systems Review of Systems: As per HPI. Yes all other systems are reviewed and are negative Constitutional: Constitutional: Reports as per HPI [facility] Past Medical History Medical History Abscess of right genital labia Anemia Angina pectoris Atrial fibrillation Carotid stenosis Chronic kidney disease (CKD) stage G3b/A1, moderately decreased glomerular filtration rate (GFR) between 30-44 mL/min/1.73 square meter and albuminuria creatinine ratio less than 30 mg/g Coronary artery disease Esophageal dysmotility Gait instability GERD (gastroesophageal reflux disease) Hypercholesterolemia Hypertension Insomnia Leukopenia Lumbar degenerative disc disease Muscle spasm of right leg Obesity Overweight (BMI 25.0-29.9) Peripheral neuropathy Peripheral vascular disease 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 Father No problems noted. Social History Social History Housing: Apartment Alcohol intake: current Alcohol intake frequency: does not drink Alcohol type: hard liquor Patient Tobacco Use Status: Never used Tobacco Smoked in Last 30 Days: No e-Cigarette/Vaping Use: Never Used Second Hand Smoke Exposure: No Use of substances other than those prescribed or required for medical reasons: No Advance Directives: No Advance Directives Information Provided: Yes Advance Directives Date on File: 07/11/20 service: No Current occupational status: retired Cognitive needs: Yes (walker ) Hearing needs: No Vision needs: No Physical Exam ED Vital Signs: Vital Signs - 24 hr 07/02/22 09:44 07/02/22 10:33 07/02/22 10:42 Temperature 98 F 98.2 F Pulse Rate 95 93 Respiratory Rate 18 14 Blood Pressure 141/91 H 110/75 Pulse Oximetry 96 98 97 Oxygen Delivery Method Room Air Room Air BMI result Body Mass Index 30.0 Const General: cooperative, healthy appearing and no acute distress Orientation/consciousness: oriented to person, oriented to place, oriented to time and patient oriented x3 Limitations: no limitations HENMT Head: Yes normocephalic and Yes atraumatic Ears: external ears normal General nose exam: Normal external nose present Face and sinus: Yes face symmetric Mouth: oropharynx normal and moist mucous membranes Throat: Yes uvula midline Eyes Pupils: Equal, round and reactive pupils present Neck Neck: Yes normal visual inspection and Yes supple Resp Effort & Inspection: normal respiratory effort, able to speak in complete sentences and Actively coughing Quality: productive Auscultation: clear to auscultation bilaterally Cardio Rate: tachycardic Rhythm: abnormal rhythm irregularly irregular Heart sounds: S1 normal heart sound present and S2 normal heart sound present Peripheral pulses: Peripheral pulses 2+ throughout GI Palpation (GI): Soft to palpation and nontender Auscultation: normoactive bowel sounds General: Yes no CVA tenderness Back/Spine/Pelvis Back: no CVA tenderness Skin General skin exam: elasticity normal and turgor normal Neuro General: oriented to person, oriented to place, oriented to time, patient oriented x3, moves all extremities, no focal motor deficits and CN's II-XI intact bilaterally Cranial nerves: Yes Equal, round and reactive pupils present Cognition (Neuro): normal cognition Extrem General: Yes full ROM, Yes no pedal edema and Yes no calf tenderness Psych Mental Status: mental status grossly normal Affect: normal affect Thought process: Normal thought process present Course Course Course Narrative: 11:50 Patient became dyspneic and heart rate increased to 140s with ambulation, maintained oxygen saturation at 98% on room air. Will order 5 mg IV Lopressor for rate control. 12:37 FINDINGS: No significant abnormality is noted involving the heart, lungs, mediastinum, bony thorax or soft tissues. XR/XR chest 2V IMPRESSION: Unremarkable chest examination. Patient still tachycardic despite metoprolol, will reach out to cardiology for recommendations 12:50 Dr. Guerrero recommends admission for medication adjustment. Repeat BP 132/69, will give one additional dose of Lopressor. [place] text sent to Dr. Yost for admission request. Medications Administered Generic Name Dose Route Start Last Admin Trade Name Freq PRN Reason Stop Dose Admin Diltiazem HCl 30 mg 07/02/22 13:45 07/02/22 14:05 Diltiazem Hcl 30 Mg Tablet PO Not Given QID TREY Protocol Discontinued Medications Generic Name Dose Route Start Last Admin Trade Name Freq PRN Reason Stop Dose Admin Metoprolol Tartrate 5 mg 07/02/22 11:50 07/02/22 13:13 Metoprolol Tartrate 5 Mg/5 Ml Vial IVPUSH 07/02/22 11:51 5 mg ONCE ONE Administration Metoprolol Tartrate 5 mg 07/02/22 12:52 07/02/22 13:02 Metoprolol Tartrate 5 Mg/5 Ml Vial IVPUSH 07/02/22 12:53 5 mg ONCE ONE Administration Ondansetron HCl 4 mg 07/02/22 11:19 07/02/22 13:02 Ondansetron Odt 4 Mg Tab.Rapdis TRANSLINGU 07/02/22 11:20 4 mg ONCE ONE Administration Medical Decision Making Medical Decision Making [facility] Narrative: Patient is an 82-year-old female with history of newly diagnosed atrial fibrillation, high cholesterol, PVD, GERD, HTN, CAD presenting with dyspnea worse with exertion for the past several days. On exam patient is awake, A+Ox3, in no acute distress, able to speak easily in full sentences, lungs CTA throughout, EKG shows afib with RVR. Feel that given reported history and physical exam findings patient's symptoms are likely secondary to her afib. Also concern for PNA, ACS, CHF exacerbation, pericardial effusion, metabolic abnormality. Presentation not consistent with PE (low risk [place]), pneumothorax. Plan: labs including troponin and BNP, CXR, Covid test Please refer to course for remaining clinical decision making. Differential Diagnosis Differential Diagnoses: The differential diagnosis associated with the presentation includes As above. Admission/Observation Consideration of admission/observation: Escalation of care including admission/observation considered Lab Data MDM Lab Attestation statement: I reviewed the patient's lab results. 07/02/22 10:25 07/02/22 10:25 Labs: Lab Results 07/02/22 07/02/22 07/02/22 Range/Units 10:24 10:24 10:24 WBC (4.8-10.8) X10*3/uL RBC (4.20-5.50) X10*6/uL Hgb (12.0-16.0) g/dl Hct (37.0-47.0) % MCV (80.0-98.0) fL MCH (27.0-33.0) pg MCHC (31.0-35.0) g/dl RDW (11.0-16.0) % Plt Count (160-400) X10*3/uL MPV (9.4-12.3) fL Immature Gran % (Auto) (0.0-0.4) % Neut % (Auto) (45-73) % Lymph % (Auto) (20-40) % [place] % (Auto) (2-11) % Eos % (Auto) (0-4) % Baso % (Auto) (0-2) % Lymph # (Auto) (1.2-4.9) X10*3/uL [place] # (Auto) (0.1-1.2) X10*3/uL Eos # (Auto) (0.0-0.4) X10*3/uL Baso # (Auto) (0.0-0.2) X10*3/uL Abs Immat Gran (auto) (0.00-0.03) X10*3/uL Absolute Neuts (auto) (2.0-8.3) x10*3/uL Absolute Nucleated RBC (0.0-0.012) X10*3/uL Nucleated RBC % (auto) (0.0-0.2) /100WBC PT (10.0-13.1) SEC INR (0.9-1.1) Sodium (135-145) mmol/L Potassium (3.3-5.1) mmol/L Chloride (96-108) mmol/L Carbon Dioxide (22-29) mmol/L Anion Gap (12-20) BUN (9-16) mg/dL Creatinine (0.5-1.4) mg/dL Estim Creat Clear Calc Estimated GFR Random Glucose (60-115) mg/dL Calcium (8.4-10.2) mg/dL Magnesium (1.6-2.6) mg/dL Troponin I High Sens 7.5 (<3.5-17.0) ng/L B-Natriuretic Peptide 198 H (<100) pg/mL TSH (0.32-4.0) uIU/mL COVID-19 (ISABEL) Negative (Negative) COVID-19 Clin Com See Note 07/02/22 07/02/22 07/02/22 Range/Units 10:25 10:25 10:25 WBC 5.1 (4.8-10.8) X10*3/uL RBC 3.25 L (4.20-5.50) X10*6/uL Hgb 10.2 L (12.0-16.0) g/dl Hct 31.2 L (37.0-47.0) % MCV 96.0 (80.0-98.0) fL MCH 31.4 (27.0-33.0) pg MCHC 32.7 (31.0-35.0) g/dl RDW 14.3 (11.0-16.0) % Plt Count 151 L D (160-400) X10*3/uL MPV 12.2 (9.4-12.3) fL Immature Gran % (Auto) 0.4 (0.0-0.4) % Neut % (Auto) 58.4 (45-73) % Lymph % (Auto) 25.6 (20-40) % [place] % (Auto) 12.8 H (2-11) % Eos % (Auto) 2.0 (0-4) % Baso % (Auto) 0.8 (0-2) % Lymph # (Auto) 1.3 (1.2-4.9) X10*3/uL [place] # (Auto) 0.7 (0.1-1.2) X10*3/uL Eos # (Auto) 0.1 (0.0-0.4) X10*3/uL Baso # (Auto) 0.0 (0.0-0.2) X10*3/uL Abs Immat Gran (auto) 0.02 (0.00-0.03) X10*3/uL Absolute Neuts (auto) 3.0 (2.0-8.3) x10*3/uL Absolute Nucleated RBC 0.000 (0.0-0.012) X10*3/uL Nucleated RBC % (auto) 0.0 (0.0-0.2) /100WBC PT 20.2 H (10.0-13.1) SEC INR 1.7 H (0.9-1.1) Sodium 140 (135-145) mmol/L Potassium 4.7 (3.3-5.1) mmol/L Chloride 109 H (96-108) mmol/L Carbon Dioxide 20 L (22-29) mmol/L Anion Gap 16 (12-20) BUN 28 H (9-16) mg/dL Creatinine 1.34 (0.5-1.4) mg/dL Estim Creat Clear Calc 31.8 Estimated GFR 38 Random Glucose 119 H (60-115) mg/dL Calcium 9.1 (8.4-10.2) mg/dL Magnesium 1.9 (1.6-2.6) mg/dL Troponin I High Sens (<3.5-17.0) ng/L B-Natriuretic Peptide (<100) pg/mL TSH 1.09 (0.32-4.0) uIU/mL COVID-19 (ISABEL) (Negative) COVID-19 Clin Com Independent Interpretation I performed an independent interpretation of an: EKG and Plain X-Ray Interpretation: EKG: Atrial fibrillation with RVR, rate 111bpm, normal QT interval, no evidence of STEMI; I independently reviewed the x-ray and agree with the radiologist's interpretation. Radiology Impression Discussion of test interpretation with radiology: I have reviewed the radiologist's reading. Radiologist Impression: FINDINGS: No significant abnormality is noted involving the heart, lungs, mediastinum, bony thorax or soft tissues. XR/XR chest 2V IMPRESSION: Unremarkable chest examination. Independent Historian Clinical information obtained from an independent historian. History obtained from or confirmed by: Other (children) External Record Review External record reviewed: Inpatient record, Office record and Outpatient record Critical Care Time Critical Care Time Critical Care Time: Yes Total Critical Care Time: 35 Attestation: I have personally provided critical care time exclusive of time spent on separately billable procedures. Time includes review of lab data, radiology results, discussion with consultants, and monitoring for potential decompensation. Intervention performed as documented. Discharge Plan Discharge Clinical Impression: Atrial fibrillation with RVR Patient Disposition: Admitted As Inpatient
[2022-07-02 10:40] LABS: INTERNATIONAL NORM RATIO 1.7 (0.9-1.1); Prothrombin Time 20.2 SEC (10.0-13.1)
[2022-07-02 10:46] LABS: COVID-19 Test Negative (Negative); IDNOW Serial# BCCEAD1C
[2022-07-02 10:55] LABS: B Type Natriuretic Peptide 198 pg/mL (<100)
[2022-07-02 10:57] LABS: Troponin-I High Sensitivity 7.5 ng/L (<3.5-17.0)
[2022-07-02 11:00] LABS: Anion Gap 16 (12-20); Blood Urea Nitrogen 28 mg/dL (9-16); Calcium 9.1 mg/dL (8.4-10.2); Carbon Dioxide 20 mmol/L (22-29); Chloride 109 mmol/L (96-108); Creatinine Clr Calc Pharmacy 31.8; Estimated Glomerular Filt Rate 38; Glucose Random 119 mg/dL (60-115); Potassium 4.7 mmol/L (3.3-5.1); Sodium 140 mmol/L (135-145)
[2022-07-02] MEDS: Ondansetron ODT 4 MG TAB.RAPDIS TRANSLINGU (13:02)
[2022-07-02] MEDS: Metoprolol Tartrate 5 MG/5 ML VIAL IVPUSH ×2 (13:02→13:13)
--- NOTE | 2022-07-02 13:45 | P.HPHOSP_ITS ---
History of Present Illness Date of Service: 07/02/22 Attending physician on admission: [facility] Chief Complaint: scott, weakness 82-year-old female patient with past medical history significant for hypertension, hypercholesterolemia, coronary artery disease, chronic kidney disease stage 3, peripheral vascular disease, and atrial fibrillation anticoagulated with xarelto presented to the ED for evaluation of dyspnea on exertion worse for the past several days which is limiting her normal activity. She feels this is due to the xarelto she was recently prescribed in place of eliquis. There has also been palpitations and mild nausea. No lightheadedness, sob at rest, orthopnea, PND, vomiting, or chest pain. No weight gain or edema. On arrival HR ranging 80-110. However, with ambulation tachycardic to 140. Given IV push metoprolol 5 mg x 2 with improvement in rate to 91, but soft blood pressures to 94/44. No leukocytosis. Stable normocytic anemia. Renal function normal, electrolytes without significant abnormality. BNP 198, trop 7.5. CXR unremarkable. EKG showing afib with rvr, rate 111 no BONNIE or depression. Review of Systems Review of Systems: General: No fevers, malaise, unintentional weight loss HEENT: No blurred vision, diplopia. No sore throat, nasal congestion, rhinorrhea , sinus pain, ear pain Cardiovascular: No chest pain, palpitations, or leg edema Respiratory: +scott, No orthopnea, PND, shortness of breath at rest, wheezing, cough GI: +nausea. No abdominal pain, vomiting, diarrhea, constipation, melena, hematochezia : No dysuria, hematuria, increased urinary frequency, decreased urinary output MSK: No myalgia, back pain Neuro: No headaches, weakness, paresthesias Skin: No rashes or lesions [facility] Medical History Abscess of right genital labia Anemia Angina pectoris Atrial fibrillation Carotid stenosis Chronic kidney disease (CKD) stage G3b/A1, moderately decreased glomerular filtration rate (GFR) between 30-44 mL/min/1.73 square meter and albuminuria creatinine ratio less than 30 mg/g Coronary artery disease Esophageal dysmotility Gait instability GERD (gastroesophageal reflux disease) Hypercholesterolemia Hypertension Insomnia Leukopenia Lumbar degenerative disc disease Muscle spasm of right leg Obesity Overweight (BMI 25.0-29.9) Peripheral neuropathy Peripheral vascular disease 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 Father No problems noted. Surgical History Basal cell carcinoma (BCC) H/O knee surgery History of appendectomy History of cataract surgery History of cholecystectomy History of tonsillectomy S/P JIMENEZ-BSO Status post phlebectomy Stented coronary artery Social History Household Members: None Housing: Apartment Do you presently have visiting nurse or other home services: Yes Alcohol intake: current Alcohol intake frequency: does not drink Alcohol type: hard liquor Patient Tobacco Use Status: Never used Tobacco Smoked in Last 30 Days: No e-Cigarette/Vaping Use: Never Used Second Hand Smoke Exposure: No Use of substances other than those prescribed or required for medical reasons: No Currently Displaying Signs/Symptoms of Drug Intoxication Withdrawal: No Advance Directives: No Advance Directives Information Provided: Yes Advance Directives Date on File: 07/11/20 Recently lost weight without trying: Yes How much weight loss: 2-13 pounds Eating poorly because of decreased appetite: Yes Nutrition screen score: 4 Patient : No service: No Current occupational status: retired Cognitive needs: Yes (walker ) Hearing needs: No Vision needs: No Meds Allergies Allergy/AdvReac Type Severity Reaction Status Date / Time asparagus Allergy Severe Hives Verified 07/02/22 09:44 rosuvastatin [Crestor] Allergy Unknown unknown Verified 07/02/22 09:44 famotidine [From PEPCID] AdvReac Severe NAUSEA Verified 07/02/22 09:44 oxycodone [From OXYCONTIN] AdvReac Intermediate NAUSEA & Verified 07/02/22 09:44 VOMITING FROM PERCOCET TOO tramadol AdvReac Intermediate could not Verified 07/02/22 09:44 concetrate chocolate cover cherries Allergy Severe Anaphylaxis Uncoded 07/02/22 09:44 Active Medications: Current Medications Acetaminophen (Acetaminophen 325 Mg Tablet) 650 mg PO Q6H PRN PRN Reason: Pain, Mild (Pain Scale 1-3) Diltiazem HCl (Diltiazem Hcl 30 Mg Tablet) 30 mg PO QID [facility]; Protocol Docusate Sodium (Docusate Sodium 100 Mg Capsule) 100 mg PO DAILY PRN PRN Reason: Constipation Ondansetron HCl (Ondansetron Hcl 4 Mg/2 Ml Vial) 4 mg IVPUSH Q8H PRN PRN Reason: Nausea and Vomiting Pharmacy Consult (Consult Rx Perform Med Rec) 1 each MISCELLANE ONCE PRN PRN Reason: Consult order Sodium Chloride (0.9 % Sodium Chloride Flush 3 Ml Syringe) 3 ml IVFLUSH QSHIFT [facility] Home Medications Medication Instructions Recorded Confirmed Last Taken Type losartan 50 mg tablet 50 mg PO DAILY 07/02/22 07/02/22 07/01/22 History multivitamin 1 tab PO DAILY 07/02/22 07/02/22 07/01/22 History rivaroxaban 20 mg tablet (Xarelto) 20 mg PO DAILY@1700 07/02/22 07/02/22 07/01/22 History Physical Exam Vital Signs and Narrative: Vital Signs: Last Vital Signs Temp 98.2 F 07/02/22 10:42 Pulse 93 07/02/22 10:42 Resp 14 07/02/22 10:42 BP 110/75 07/02/22 10:42 Pulse Ox 97 07/02/22 10:42 O2 Del Method Room Air 07/02/22 10:42 BMI result Body Mass Index 30.0 Constitutional - Awake and Alert, No apparent distress Eyes - PERRLA, EOMI Cardiovascular - S1S2, irregularly irregular, regular rate, No edema Respiratory - Normal lung expansion, Normal respiratory effort, No respiratory distress, CTA bilaterally Gastrointestinal - NT / ND; +BS; No rebound or guarding Extremities - no calf tenderness bilaterally, no swelling Skin - Warm/Dry Neurological - Alert & oriented x3, CN II-XII in tact, 5/5 strength BUE and BLE Psychological - Appropriate affect Results Labs 07/02/22 10:25 07/02/22 10:25 Labs: Laboratory Results - last 24 hr 07/02/22 07/02/22 07/02/22 10:24 10:24 10:24 MCV MCH MCHC RDW Plt Count MPV Immature Gran % (Auto) Neut % (Auto) Lymph % (Auto) Page % (Auto) Eos % (Auto) Baso % (Auto) Lymph # (Auto) Page # (Auto) Eos # (Auto) Baso # (Auto) Abs Immat Gran (auto) Absolute Neuts (auto) Absolute Nucleated RBC Nucleated RBC % (auto) PT INR Anion Gap Estim Creat Clear Calc Estimated GFR Random Glucose Calcium Troponin I High Sens 7.5 B-Natriuretic Peptide 198 H COVID-19 (ISABEL) Negative COVID-19 Clin Com See Note 07/02/22 07/02/22 07/02/22 10:25 10:25 10:25 MCV 96.0 MCH 31.4 MCHC 32.7 RDW 14.3 Plt Count 151 L D MPV 12.2 Immature Gran % (Auto) 0.4 Neut % (Auto) 58.4 Lymph % (Auto) 25.6 Page % (Auto) 12.8 H Eos % (Auto) 2.0 Baso % (Auto) 0.8 Lymph # (Auto) 1.3 Page # (Auto) 0.7 Eos # (Auto) 0.1 Baso # (Auto) 0.0 Abs Immat Gran (auto) 0.02 Absolute Neuts (auto) 3.0 Absolute Nucleated RBC 0.000 Nucleated RBC % (auto) 0.0 PT 20.2 H INR 1.7 H Anion Gap 16 Estim Creat Clear Calc 31.8 Estimated GFR 38 Random Glucose 119 H Calcium 9.1 Troponin I High Sens B-Natriuretic Peptide COVID-19 (ISABEL) COVID-19 Clin Com Imaging Radiologist's Impressions: Impressions Chest X-Ray 07/02/22 11:06 IMPRESSION: Unremarkable chest examination. Assessment and Plan (1) Atrial fibrillation with RVR: Status: Acute Plan 82-year-old female patient with past medical history significant for hypertension, hypercholesterolemia, coronary artery disease, chronic kidney disease stage 3, peripheral vascular disease, and atrial fibrillation anticoagulated with xarelto admitted for atrial fibrillation with RVR. #Persistent atrial fibrillation- with RVR -HR varying 90-110 after 2 pushes IV metoprolol 5mg -Initiate diltiazem 30mg QID. Continue toprol 50mg -Continue xarelto -Last echo 05/09- normal LV systolic function with grade 2 diastolic dysfunction and severe dilatation of the left atrium. EF 64%. -TSH and mag pending -Cardiac diet -appreciate cardiology input -monitor on telemetry #Grade 2 diastolic dysfunction -no evidence of acute chf exacerbation #HTN- bp soft -hold losartan and amlodipine, continue metoprolol #CAd -no anginal chest pain -continue xarelto, bb, statin #CKD stage 3 -renal function baseline DVT prophylaxis- on xaretlo DNR/DNI Pt requires inpt stay at least 2 midnights for management of afib with rvr requiring medication adjustment and close monitoring with expert consultation Time Spent With Patient Time: Total time managing care of this patient today ____ minutes. Quality Stroke Does the patient have a stroke diagnosis?: No VTE Prior VTE?: No VTE Risk Level:: Medical - moderate - high VTE Device Contraindication: Treatment Not Indicated VTE Drug Contraindication: N/A - Med Ordered
--- NOTE | 2022-07-02 13:57 | PHA.MEDREC ---
Pharmacy Consult ? Medication Reconciliation Pharmacy has completed the medication reconciliation. Pt able to confirm medications, noted she was recently switched to xarelto from eliquis because it made her feel awful
[2022-07-02 14:30] LABS: Magnesium 1.9 mg/dL (1.6-2.6)
[2022-07-02 14:45] LABS: Thyroid Stimulating Hormone 1.09 uIU/mL (0.32-4.0)
--- NOTE | 2022-07-02 15:37 | MHC.EDTECH ---
THIS PCT ASSUMED CARE OF PT AT 1500 ,VITALS SIGN TAKEN ,PT WAS WEAVER DOBBY LOOM INTO HOSPITAL ATTIRE ,PT WAS REPOSITION AND BOOSTED UP IN BED .
[2022-07-02] MEDS: Rivaroxaban 20 MG TABLET PO (17:54)
[2022-07-02] MEDS: dilTIAZem HCL 30 MG TABLET PO (20:09)
[2022-07-02] MEDS: Acetaminophen 325 MG TABLET 650 MG PO (20:09)
[2022-07-02] MEDS: 0.9 % Sodium Chloride Flush 3 ML SYRINGE IVFLUSH (20:10)
[2022-07-03] VITALS (7 sets, daily range): BP systolic 107–132; BP diastolic 50–65; PULSE 67–96; RESP 16–20; TEMP 36.4–36.8; O2SAT 94–98
[2022-07-03 06:09] LABS: Basophils Percent Auto 0.5 % (0-2); Eosinophils Absolute Auto 0.1 X10*3/uL (0.0-0.4); Eosinophils Percent Auto 3.6 % (0-4); Imm Gran Abs Auto 0.01 X10*3/uL (0.00-0.03); Imm Gran Pct Auto 0.3 % (0.0-0.4); Lymphocytes Absolute Auto 1.4 X10*3/uL (1.2-4.9); Lymphocytes Percent Auto 35.3 % (20-40); MANUAL DIFF FLAG SCAN; Mean Corpuscular HGB Conc 32.1 g/dl (31.0-35.0); Mean Corpuscular Hemoglobin 30.8 pg (27.0-33.0); Mean Corpuscular Volume 95.9 fL (80.0-98.0); Mean Platelet Volume 12.3 fL (9.4-12.3); Monocytes Absolute Auto 0.7 X10*3/uL (0.1-1.2); Monocytes Percent Auto 18.9 % (2-11); Neutrophils Absolute Auto 1.6 x10*3/uL (2.0-8.3); Neutrophils Percent Auto 41.4 % (45-73); Platelet Count 129 X10*3/uL (160-400); Red Blood Count 2.92 X10*6/uL (4.20-5.50); Red Cell Distribution Width 14.4 % (11.0-16.0); SCAN SMEAR FLAG 1; White Blood Count 3.9 X10*3/uL (4.8-10.8)
[2022-07-03 06:27] LABS: SLIDE REVIEW VERIFIED
[2022-07-03 06:44] LABS: Anion Gap 11 (12-20); Blood Urea Nitrogen 26 mg/dL (9-16); Calcium 8.6 mg/dL (8.4-10.2); Carbon Dioxide 22 mmol/L (22-29); Chloride 111 mmol/L (96-108); Creatinine Clr Calc Pharmacy 35.1; Estimated Glomerular Filt Rate 41; Glucose Random 99 mg/dL (60-115); Potassium 4.4 mmol/L (3.3-5.1); Sodium 140 mmol/L (135-145)
--- NOTE | 2022-07-03 08:22 | MHC.CM.PN ---
CM met with Patient at bedside and addressed IMM with her, providing her with the original and placing a copy on the chart. Patient lives alone in an apartment and she uses a walker to assist with mobility. Home /resume [facility] is the goal and CM has initiated and will follow for dc planning. Patient's HCP is her Daughter Kristie and PCP is Dr. Erika Jordan.
[2022-07-03] MEDS: Multivitamin TABLET 1 TAB PO (08:42)
[2022-07-03] MEDS: Acetaminophen 325 MG TABLET 650 MG PO ×2 (08:42→19:59)
[2022-07-03] MEDS: Atorvastatin Calcium 20 MG TABLET PO (08:42)
[2022-07-03] MEDS: Metoprolol Succinate ER 50 MG TAB.ER.24H PO (08:43)
[2022-07-03] MEDS: dilTIAZem HCL 30 MG TABLET PO (08:43)
[2022-07-03] MEDS: 0.9 % Sodium Chloride Flush 3 ML SYRINGE IVFLUSH ×3 (08:45→19:59)
--- NOTE | 2022-07-03 09:32 | P.PNIM_ITS ---
Subjective Subjective Date of Service: 07/03/22 Interval History: f/u on afib with rvr, scott HR remains uncontrolled, feels sob with activity Physical Exam Vital Signs: Vital Signs: Last Vital Signs Temp 97.6 F 07/03/22 07:13 Pulse 96 07/03/22 07:13 Resp 20 07/03/22 07:13 BP 132/65 07/03/22 07:13 Pulse Ox 94 07/03/22 07:13 O2 Del Method Room Air 07/03/22 07:13 BMI result Body Mass Index 31.3 Const: Other: General: AO X 3, no acute distress Resp: CTA bilateral CVS: S1,S2, joey iregu GI: +BS, NT, no distention Skin: No rash Neuro: motor grossly intact Psych: appropriate affect Objective Data Active Medications Acetaminophen (Acetaminophen 325 Mg Tablet) 650 mg PO Q6H PRN PRN Reason: Pain, Mild (Pain Scale 1-3) Last Admin: 07/03/22 08:42 Dose: 650 mg Documented By: RHONDA Atorvastatin Calcium (Atorvastatin Calcium 20 Mg Tablet) 20 mg PO DAILY [facility] Last Admin: 07/03/22 08:42 Dose: 20 mg Documented By: RHONDA Diltiazem HCl (Diltiazem Hcl 30 Mg Tablet) 30 mg PO QID [facility]; Protocol Last Admin: 07/03/22 08:43 Dose: 30 mg Documented By: RHONDA Docusate Sodium (Docusate Sodium 100 Mg Capsule) 100 mg PO DAILY PRN PRN Reason: Constipation Meclizine HCl (Meclizine Hcl 12.5 Mg Tablet) 12.5 mg PO TID PRN PRN Reason: dizziness Metoprolol Succinate (Metoprolol Succinate Er 50 Mg Tab.Er.24h) 50 mg PO DAILY [facility]; Protocol Last Admin: 07/03/22 08:43 Dose: 50 mg Documented By: RHONDA Multivitamins/Vitamin C (Multivitamin Tablet) 1 tab PO DAILY [facility] Last Admin: 07/03/22 08:42 Dose: 1 tab Documented By: RHONDA Nitroglycerin (Nitroglycerin 0.4 Mg Tab.Subl) 0.4 mg SUBLINGUAL Q5M PRN PRN Reason: chest pain Ondansetron HCl (Ondansetron Hcl 4 Mg/2 Ml Vial) 4 mg IVPUSH Q8H PRN PRN Reason: Nausea and Vomiting Pharmacy Consult (Consult Rx Perform Med Rec) 1 each MISCELLANE ONCE PRN PRN Reason: Consult order Rivaroxaban (Rivaroxaban 15 Mg Tablet) 15 mg PO DAILY@1700 [facility] Sodium Chloride (0.9 % Sodium Chloride Flush 3 Ml Syringe) 3 ml IVFLUSH QSHIFT [facility] Last Admin: 07/03/22 08:45 Dose: 3 ml Documented By: RHONDA Labs 07/03/22 05:38 07/03/22 05:38 Labs: Laboratory Results - last 24 hr 07/02/22 07/02/22 07/02/22 10:24 10:24 10:24 MCV MCH MCHC RDW Plt Count MPV Immature Gran % (Auto) Neut % (Auto) Lymph % (Auto) Door % (Auto) Eos % (Auto) Baso % (Auto) Lymph # (Auto) [place] # (Auto) Eos # (Auto) Baso # (Auto) Abs Immat Gran (auto) Absolute Neuts (auto) Absolute Nucleated RBC Nucleated RBC % (auto) Smear Tech's Comments PT INR Anion Gap Estim Creat Clear Calc Estimated GFR Random Glucose Calcium Magnesium Troponin I High Sens 7.5 B-Natriuretic Peptide 198 H TSH COVID-19 ([facility]) Negative COVID-19 Clin Com See Note 07/02/22 07/02/22 07/02/22 10:25 10:25 10:25 MCV 96.0 MCH 31.4 MCHC 32.7 RDW 14.3 Plt Count 151 L D MPV 12.2 Immature Gran % (Auto) 0.4 Neut % (Auto) 58.4 Lymph % (Auto) 25.6 Door % (Auto) 12.8 H Eos % (Auto) 2.0 Baso % (Auto) 0.8 Lymph # (Auto) 1.3 [place] # (Auto) 0.7 Eos # (Auto) 0.1 Baso # (Auto) 0.0 Abs Immat Gran (auto) 0.02 Absolute Neuts (auto) 3.0 Absolute Nucleated RBC 0.000 Nucleated RBC % (auto) 0.0 Smear Tech's Comments PT 20.2 H INR 1.7 H Anion Gap 16 Estim Creat Clear Calc 31.8 Estimated GFR 38 Random Glucose 119 H Calcium 9.1 Magnesium 1.9 Troponin I High Sens B-Natriuretic Peptide TSH 1.09 COVID-19 ([facility]) COVID-19 Clin Com 07/03/22 07/03/22 05:38 05:38 MCV 95.9 MCH 30.8 MCHC 32.1 RDW 14.4 Plt Count 129 L MPV 12.3 Immature Gran % (Auto) 0.3 Neut % (Auto) 41.4 L Lymph % (Auto) 35.3 Door % (Auto) 18.9 H Eos % (Auto) 3.6 Baso % (Auto) 0.5 Lymph # (Auto) 1.4 Door # (Auto) 0.7 Eos # (Auto) 0.1 Baso # (Auto) 0.0 Abs Immat Gran (auto) 0.01 Absolute Neuts (auto) 1.6 L Absolute Nucleated RBC 0.000 Nucleated RBC % (auto) 0.0 Smear Tech's Comments VERIFIED PT INR Anion Gap 11 L Estim Creat Clear Calc 35.1 Estimated GFR 41 Random Glucose 99 Calcium 8.6 Magnesium Troponin I High Sens B-Natriuretic Peptide TSH COVID-19 ([facility]) COVID-19 Clin Com Assessment and Plan (1) Atrial fibrillation with RVR: Status: Acute Plan 82-year-old female patient with past medical history significant for hypertension, hypercholesterolemia, coronary artery disease, chronic kidney disease stage 3, peripheral vascular disease, and atrial fibrillation anticoagu lated with xarelto admitted for atrial fibrillation with RVR. #Persistent atrial fibrillation- with RVR -rate not yet not well controlled -Increase diltiazem to 60mg QID. Continue toprol 50mg -Continue xarelto at 15 renally adjusted -Last echo 05/09- normal LV systolic function with grade 2 diastolic dysfunction and severe dilatation of the left atrium. EF 64%. -appreciate cardiology input -monitor on telemetry #Grade 2 diastolic dysfunction -no evidence of acute chf exacerbation #HTN- bp soft -hold losartan and amlodipine, continue metoprolol #CAd -no anginal chest pain -continue xarelto, bb, statin #CKD stage 3 -renal function baseline DVT prophylaxis- on xaretlo DNR/DNI Need for inapatient: management of afib with rvr requiring medication adjustment and close monitoring with expert consultation Time Spent With Patient Time: Total time managing care of this patient today ____ minutes. Quality Stroke Does the patient have a stroke diagnosis?: No VTE Prior VTE?: No VTE Risk Level:: Medical - moderate - high VTE Device Contraindication: Treatment Not Indicated VTE Drug Contraindication: N/A - Med Ordered
--- NOTE | 2022-07-03 10:37 | PM.CNCAR ---
History of Present Illness History of Present Illness Date of Service: 07/03/22 Chief complaint: AFIB W RVR Narrative: This is a cardiology consultation regarding atrial fibrillation with rapid rate. Patient generally sees Dr. Bush. Last appointment was in April of this year. It seems that she has a history of circumflex stenting. However, a subsequent stress test had apparently shown ischemia in that region but decision to treat medically based on lack of any angina. She states that recently started noticing some she shortness of breath type symptoms. Even walking short distances make her short of breath. She has also been diagnosed with atrial fibrillation which is a relatively new finding. She is on beta-blockers at home. Also on Xarelto. No other complaints like angina. She does feel some heart fluttering but not too much. When she presented to the emergency room yesterday, was in atrial fibrillation with slightly increased rate. Review of Systems Review of Systems: Yes all other systems are reviewed and are negative Constitutional: Constitutional: Reports as per HPI and Reports no additional constitutional complaints Eyes: Eyes: Reports as per HPI and Denies no additional eye complaints ENT: Denies system reviewed and no additional complaints, except as documented and Reports as per HPI Cardiovascular: Cardiovascular: Reports as per HPI, Reports no additional cardiovascular complaints, Denies acrocyanosis, Denies cool extremities, Denies chest pain, Denies leg edema, Denies lightheadedness, Reports palpitations and Reports dyspnea Respiratory: Respiratory: Reports as per HPI, Denies no additional respiratory complaints and Reports dyspnea Gastrointestinal: Gastrointestinal: Reports as per HPI and Denies no additional gastrointestinal complaints Genitourinary: Genitourinary: Reports as per HPI Musculoskeletal: Musculoskeletal: Reports no additional musculoskeletal complaints and Reports as per HPI Integumentary/Breasts: Skin/Breast: Reports system reviewed and no additional complaints, except as docu Neurologic: Reports system reviewed and no additional complaints, except as documented and Reports as per HPI Psychiatric: Psychiatric: Reports no additional psychiatric complaints and Reports as per HPI Endocrine: Endocrine: Reports no additional endocrine complaints, Reports as per HPI and Reports palpitations Hematologic/Lymphatic: Hematologic/Lymphatic: Reports no additional hematologic/lymphatic complaints and Reports as per HPI Allergic/Immunologic: Allergic/Immunologic: Reports no additional allergic/immunologic complaints and Reports as per HPI [facility] Past Medical History Medical History Abscess of right genital labia Anemia Angina pectoris Atrial fibrillation Carotid stenosis Chronic kidney disease (CKD) stage G3b/A1, moderately decreased glomerular filtration rate (GFR) between 30-44 mL/min/1.73 square meter and albuminuria creatinine ratio less than 30 mg/g Coronary artery disease Esophageal dysmotility Gait instability GERD (gastroesophageal reflux disease) Hypercholesterolemia Hypertension Insomnia Leukopenia Lumbar degenerative disc disease Muscle spasm of right leg Obesity Overweight (BMI 25.0-29.9) Peripheral neuropathy Peripheral vascular disease 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 Father No problems noted. Surgical History Surgical History Basal cell carcinoma (BCC) H/O knee surgery History of appendectomy History of cataract surgery History of cholecystectomy History of tonsillectomy S/P JIMENEZ-BSO Status post phlebectomy Stented coronary artery Social History Social History Household Members: None Housing: Apartment Do you presently have visiting nurse or other home services: Yes Alcohol intake: current Alcohol intake frequency: does not drink Alcohol type: hard liquor Patient Tobacco Use Status: Never used Tobacco Smoked in Last 30 Days: No e-Cigarette/Vaping Use: Never Used Second Hand Smoke Exposure: No Use of substances other than those prescribed or required for medical reasons: No Currently Displaying Signs/Symptoms of Drug Intoxication Withdrawal: No Advance Directives: No Advance Directives Information Provided: Yes Advance Directives Date on File: 07/11/20 Recently lost weight without trying: Yes How much weight loss: 2-13 pounds Eating poorly because of decreased appetite: Yes Nutrition screen score: 4 Patient : No service: No Current occupational status: retired Cognitive needs: Yes (walker ) Hearing needs: No Vision needs: No Meds Allergies Allergy/AdvReac Type Severity Reaction Status Date / Time asparagus Allergy Severe Hives Verified 07/02/22 09:44 rosuvastatin [Crestor] Allergy Unknown unknown Verified 07/02/22 09:44 famotidine [From PEPCID] AdvReac Severe NAUSEA Verified 07/02/22 09:44 oxycodone [From OXYCONTIN] AdvReac Intermediate NAUSEA & Verified 07/02/22 09:44 VOMITING FROM PERCOCET TOO tramadol AdvReac Intermediate could not Verified 07/02/22 09:44 concetrate chocolate cover cherries Allergy Severe Anaphylaxis Uncoded 07/02/22 09:44 Active Medications: Current Medications Acetaminophen (Acetaminophen 325 Mg Tablet) 650 mg PO Q6H PRN PRN Reason: Pain, Mild (Pain Scale 1-3) Last Admin: 07/03/22 08:42 Dose: 650 mg Atorvastatin Calcium (Atorvastatin Calcium 20 Mg Tablet) 20 mg PO DAILY [facility] Last Admin: 07/03/22 08:42 Dose: 20 mg Diltiazem HCl (Diltiazem Hcl 60 Mg Tablet) 60 mg PO QID [facility]; Protocol Docusate Sodium (Docusate Sodium 100 Mg Capsule) 100 mg PO DAILY PRN PRN Reason: Constipation Meclizine HCl (Meclizine Hcl 12.5 Mg Tablet) 12.5 mg PO TID PRN PRN Reason: dizziness Metoprolol Succinate (Metoprolol Succinate Er 50 Mg Tab.Er.24h) 50 mg PO DAILY [facility]; Protocol Last Admin: 07/03/22 08:43 Dose: 50 mg Multivitamins/Vitamin C (Multivitamin Tablet) 1 tab PO DAILY [facility] Last Admin: 07/03/22 08:42 Dose: 1 tab Nitroglycerin (Nitroglycerin 0.4 Mg Tab.Subl) 0.4 mg SUBLINGUAL Q5M PRN PRN Reason: chest pain Ondansetron HCl (Ondansetron Hcl 4 Mg/2 Ml Vial) 4 mg IVPUSH Q8H PRN PRN Reason: Nausea and Vomiting Pharmacy Consult (Consult Rx Perform Med Rec) 1 each MISCELLANE ONCE PRN PRN Reason: Consult order Rivaroxaban (Rivaroxaban 15 Mg Tablet) 15 mg PO DAILY@1700 [facility] Sodium Chloride (0.9 % Sodium Chloride Flush 3 Ml Syringe) 3 ml IVFLUSH QSHIFT [facility] Last Admin: 07/03/22 08:45 Dose: 3 ml Home Medications Medication Instructions Recorded Confirmed Last Taken Type losartan 50 mg tablet 50 mg PO DAILY 07/02/22 07/02/22 07/01/22 History multivitamin 1 tab PO DAILY 0507/02/22 07/01/22 History rivaroxaban 20 mg tablet (Xarelto) 20 mg PO DAILY@1700 07/02/22 07/02/22 07/01/22 History Physical Exam Vital Signs: Vital Signs: Last Vital Signs Temp 97.6 F 07/03/22 07:13 Pulse 96 07/03/22 07:13 Resp 20 07/03/22 07:13 BP 132/65 07/03/22 07:13 Pulse Ox 94 07/03/22 07:13 O2 Del Method Room Air 07/03/22 07:13 BMI result Body Mass Index 31.3 Const: General: comfortable and no acute distress Orientation/consciousness: patient oriented x3 HEENT: Other: Unremarkable Head: Yes normal to inspection Neck: Neck: Yes normal visual inspection Chest: Chest palpation & inspection: normal inspection of the chest Resp: Auscultation: clear to auscultation bilaterally Cardio: Palpation: normal PMI Heart sounds: S1 normal heart sound present, S2 normal heart sound present, no gallops, no murmurs and no rubs GI: Palpation (GI): Soft to palpation Back/Spine/Pelvis: Other: unremarkable Skin: General skin exam: no rashes or lesions noted Neuro: General: patient oriented x3 Extrem: General: Yes normal to inspection Psych: Mental Status: mental status grossly normal Objective Labs and Meds 07/03/22 05:38 07/03/22 05:38 Lab results: Laboratory Results - last 24 hr 07/02/22 07/02/22 07/02/22 10:24 10:24 10:24 WBC RBC Hgb Hct MCV MCH MCHC RDW Plt Count MPV Immature Gran % (Auto) Neut % (Auto) Lymph % (Auto) [place] % (Auto) Eos % (Auto) Baso % (Auto) Lymph # (Auto) [place] # (Auto) Eos # (Auto) Baso # (Auto) Abs Immat Gran (auto) Absolute Neuts (auto) Absolute Nucleated RBC Nucleated RBC % (auto) Smear Tech's Comments PT INR Sodium Potassium Chloride Carbon Dioxide Anion Gap BUN Creatinine Estim Creat Clear Calc Estimated GFR Random Glucose Calcium Magnesium Troponin I High Sens 7.5 B-Natriuretic Peptide 198 H TSH COVID-19 ([facility]) Negative COVID-19 Clin Com See Note 07/02/22 07/02/22 07/03/22 10:25 10:25 05:38 WBC 3.9 L RBC 2.92 L Hgb 9.0 L Hct 28.0 L MCV 95.9 MCH 30.8 MCHC 32.1 RDW 14.4 Plt Count 129 L MPV 12.3 Immature Gran % (Auto) 0.3 Neut % (Auto) 41.4 L Lymph % (Auto) 35.3 [place] % (Auto) 18.9 H Eos % (Auto) 3.6 Baso % (Auto) 0.5 Lymph # (Auto) 1.4 [place] # (Auto) 0.7 Eos # (Auto) 0.1 Baso # (Auto) 0.0 Abs Immat Gran (auto) 0.01 Absolute Neuts (auto) 1.6 L Absolute Nucleated RBC 0.000 Nucleated RBC % (auto) 0.0 Smear Tech's Comments VERIFIED PT 20.2 H INR 1.7 H Sodium 140 Potassium 4.7 Chloride 109 H Carbon Dioxide 20 L Anion Gap 16 BUN 28 H Creatinine 1.34 Estim Creat Clear Calc 31.8 Estimated GFR 38 Random Glucose 119 H Calcium 9.1 Magnesium 1.9 Troponin I High Sens B-Natriuretic Peptide TSH 1.09 COVID-19 ([facility]) COVID-19 [facility] Com 07/03/22 05:38 WBC RBC Hgb Hct MCV MCH MCHC RDW Plt Count MPV Immature Gran % (Auto) Neut % (Auto) Lymph % (Auto) [place] % (Auto) Eos % (Auto) Baso % (Auto) Lymph # (Auto) [place] # (Auto) Eos # (Auto) Baso # (Auto) Abs Immat Gran (auto) Absolute Neuts (auto) Absolute Nucleated RBC Nucleated RBC % (auto) Smear Tech's Comments PT INR Sodium 140 Potassium 4.4 Chloride 111 H Carbon Dioxide 22 Anion Gap 11 L BUN 26 H Creatinine 1.24 Estim Creat Clear Calc 35.1 Estimated GFR 41 Random Glucose 99 Calcium 8.6 Magnesium Troponin I High Sens B-Natriuretic Peptide TSH COVID-19 ([facility]) COVID-19 Clin Com ECG Interpretation: EKG with atrial fibrillation rate of 111/Min. Cannot exclude old anterior infarct but could be from body habitus. Cannot exclude old inferior infarct. Imaging Radiologist's impression: Impressions Chest X-Ray 07/02/22 11:06 IMPRESSION: Unremarkable chest examination. Assessment and Plan (1) Atrial fibrillation with RVR: Status: Acute (2) Coronary artery disease: Qualifiers: Coronary Disease-Associated Artery/Lesion type: [place] artery [place] vs. transplanted heart: [place] heart Associated angina: without angina Qualified Code(s): I25.10 - Atherosclerotic heart disease of [place] coronary artery without angina pectoris Status: Acute Plan High sensitive troponin 7.5. Cardiac BNP is 198. No previous values. Echocardiogram from April shows LVEF of 64%. Moderate diastolic dysfunction. Severely dilated left atrium. No significant valvular issues. Overall, history of coronary disease, diastolic dysfunction, recently diagnosed atrial fibrillation and slightly rapid rate. On telemetry heart rate is about 105-110/Min. Not too fast but more than ideal. She is on beta-blockers only at home. We can stop the amlodipine and started on some diltiazem. If this does not help, probably small dose of digoxin but she does have renal dysfunction as well. Otherwise, continue anticoagulation. If persistent symptoms and can be controlled, then could consider cardioversion but with last left atrial size would be difficult to maintain sinus. d/w . Time Spent With Patient Time: Total time managing care of this patient today 75 minutes. This includes time spent in review of chart, laboratory data, imaging studies, review of telemetry, counseling patient, discussion with hospitalist, RN, documentation, coordination of care. Procedures Date of Service Date of Service: 07/03/22
[2022-07-03] MEDS: dilTIAZem HCL 60 MG TABLET PO ×3 (13:39→19:59)
[2022-07-03] MEDS: Rivaroxaban 15 MG TABLET PO (17:07)
[2022-07-04 03:51] VITALS: BP 107/54; PULSE 76; RESP 18; TEMP 36.3; O2SAT 95
[2022-07-04 07:24] VITALS: BP 123/61; PULSE 72; RESP 20; TEMP 36.5; O2SAT 94
[2022-07-04] MEDS: Metoprolol Succinate ER 50 MG TAB.ER.24H PO (08:53)
[2022-07-04] MEDS: dilTIAZem HCL 60 MG TABLET PO (08:53)
[2022-07-04] MEDS: Docusate Sodium 100 MG CAPSULE PO (08:53)
[2022-07-04] MEDS: Atorvastatin Calcium 20 MG TABLET PO (08:53)
[2022-07-04] MEDS: Multivitamin TABLET 1 TAB PO (08:53)
[2022-07-04] MEDS: 0.9 % Sodium Chloride Flush 3 ML SYRINGE IVFLUSH (08:54)
--- NOTE | 2022-07-04 09:02 | P.PNIM_ITS ---
Subjective Subjective Date of Service: 07/04/22 Interval History: f/u on afib with rvr, scott HR remains uncontrolled, feels sob with activity Physical Exam Vital Signs: Vital Signs: Last Vital Signs Temp 97.7 F 07/04/22 07:24 Pulse 72 07/04/22 07:24 Resp 20 07/04/22 07:24 BP 123/61 07/04/22 07:24 Pulse Ox 94 07/04/22 07:24 O2 Del Method Room Air 07/04/22 07:24 BMI result Body Mass Index 31.3 Const: Other: General: AO X 3, no acute distress Resp: CTA bilateral CVS: S1,S2, ojey iregu GI: +BS, NT, no distention Skin: No rash Neuro: motor grossly intact Psych: appropriate affect Objective Data Active Medications Acetaminophen (Acetaminophen 325 Mg Tablet) 650 mg PO Q6H PRN PRN Reason: Pain, Mild (Pain Scale 1-3) Last Admin: 07/03/22 19:59 Dose: 650 mg Documented By: GABO Atorvastatin Calcium (Atorvastatin Calcium 20 Mg Tablet) 20 mg PO DAILY [facility] Last Admin: 07/03/22 08:42 Dose: 20 mg Documented By: RHONDA Docusate Sodium (Docusate Sodium 100 Mg Capsule) 100 mg PO DAILY PRN PRN Reason: Constipation Meclizine HCl (Meclizine Hcl 12.5 Mg Tablet) 12.5 mg PO TID PRN PRN Reason: dizziness Metoprolol Succinate (Metoprolol Succinate Er 50 Mg Tab.Er.24h) 50 mg PO DAILY [facility]; Protocol Last Admin: 07/03/22 08:43 Dose: 50 mg Documented By: RHONDA Multivitamins/Vitamin C (Multivitamin Tablet) 1 tab PO DAILY [facility] Last Admin: 07/03/22 08:42 Dose: 1 tab Documented By: RHONDA Nitroglycerin (Nitroglycerin 0.4 Mg Tab.Subl) 0.4 mg SUBLINGUAL Q5M PRN PRN Reason: chest pain Ondansetron HCl (Ondansetron Hcl 4 Mg/2 Ml Vial) 4 mg IVPUSH Q8H PRN PRN Reason: Nausea and Vomiting Pharmacy Consult (Consult Rx Perform Med Rec) 1 each MISCELLANE ONCE PRN PRN Reason: Consult order Rivaroxaban (Rivaroxaban 15 Mg Tablet) 15 mg PO DAILY@1700 [facility] Last Admin: 07/03/22 17:07 Dose: 15 mg Documented By: RHONDA Sodium Chloride (0.9 % Sodium Chloride Flush 3 Ml Syringe) 3 ml IVFLUSH QSHIFT [facility] Last Admin: 07/03/22 19:59 Dose: 3 ml Documented By: GABO Labs 07/03/22 05:38 07/03/22 05:38 Assessment and Plan (1) Atrial fibrillation with RVR: Status: Acute Plan 82-year-old female patient with past medical history significant for hypertension, hypercholesterolemia, coronary artery disease, chronic kidney disease stage 3, peripheral vascular disease, and atrial fibrillation anticoagul ated with xarelto admitted for atrial fibrillation with RVR. #Persistent atrial fibrillation- with RVR -rate is now controlled -Change cardizem to long acting dilt 240/daily, norvsasc stopped. Continue toprol 50mg -Continue xarelto at 15 renally adjusted -Last echo 05/09- normal LV systolic function with grade 2 diastolic dysfunction and severe dilatation of the left atrium. EF 64%. -management discussed with cardiology -monitor on telemetry #Grade 2 diastolic dysfunction -no evidence of acute chf exacerbation #HTN- -holding losartan and amlodipine, continue metoprolol. Resume Losartan at discharge #CAD -no anginal chest pain -continue xarelto, bb, statin #CKD stage 3 -renal function baseline DVT prophylaxis- on xaretlo DNR/DNI Need for inapatient: management of afib with rvr requiring medication adjustment and close monitoring with expert consultation PT eval for safe discharge Time Spent With Patient Time: Total time managing care of this patient today ____ minutes. Quality Stroke Does the patient have a stroke diagnosis?: No VTE Prior VTE?: No VTE Risk Level:: Medical - moderate - high VTE Device Contraindication: Treatment Not Indicated VTE Drug Contraindication: N/A - Med Ordered
--- NOTE | 2022-07-04 09:27 | P.PNCA_ITS ---
Subjective Subjective Date of Service: 07/04/22 Interval history: Seems to be generally doing okay. Has not done much in terms of moving. Review of Systems Review of Systems Yes all other systems are reviewed and are negative Constitutional: Reports as per HPI and Reports no additional constitutional complaints Eyes: Reports as per HPI and Denies no additional eye complaints Denies system reviewed and no additional complaints, except as documented and Reports as per HPI Cardiovascular: Reports as per HPI, Reports no additional cardiovascular compl aints, Denies acrocyanosis, Denies cool extremities, Denies chest pain, Denies leg edema, Denies lightheadedness, Denies palpitations and Denies dyspnea Respiratory: Reports as per HPI, Denies no additional respiratory complaints and Denies dyspnea Gastrointestinal: Reports as per HPI and Denies no additional gastrointestinal complaints Genitourinary: Reports as per HPI Musculoskeletal: Reports no additional musculoskeletal complaints and Reports as per HPI Skin/Breast: Reports system reviewed and no additional complaints, except as docu Reports system reviewed and no additional complaints, except as documented and Reports as per HPI Psychiatric: Reports no additional psychiatric complaints and Reports as per HPI Endocrine: Reports no additional endocrine complaints, Reports as per HPI and Denies palpitations Hematologic/Lymphatic: Reports no additional hematologic/lymphatic complaints and Reports as per HPI Allergic/Immunologic: Reports no additional allergic/immunologic complaints and Reports as per HPI Physical Exam Vital Signs: Last Vital Signs Temp 97.7 F 07/04/22 07:24 Pulse 72 07/04/22 07:24 Resp 20 07/04/22 07:24 BP 123/61 07/04/22 07:24 Pulse Ox 94 07/04/22 07:24 O2 Del Method Room Air 07/04/22 07:24 BMI result Body Mass Index 31.3 Const General: comfortable and no acute distress Orientation/consciousness: patient oriented x3 HEENT Other: Unremarkable Head: Yes normal to inspection Neck Neck: Yes normal visual inspection Chest Chest palpation & inspection: normal inspection of the chest Resp Auscultation: clear to auscultation bilaterally Cardio Palpation: normal PMI Heart sounds: S1 normal heart sound present, S2 normal heart sound present, no gallops, no murmurs and no rubs GI Palpation (GI): Soft to palpation Back/Spine/Pelvis Other: unremarkable Skin General skin exam: no rashes or lesions noted Neuro General: patient oriented x3 Extrem General: Yes normal to inspection Psych Mental Status: mental status grossly normal Objective Labs and Meds 07/03/22 05:38 07/03/22 05:38 Progress Note: A&P Assessment and plan (1) Atrial fibrillation with RVR: Status: Acute (2) Coronary artery disease: Status: Acute Plan High sensitive troponin 7.5. Cardiac BNP is 198. No previous values. Echocardiogram from April shows LVEF of 64%. Moderate diastolic dysfunction. Severely dilated left atrium. No significant valvular issues. Overall, history of coronary disease, diastolic dysfunction, recently diagnosed atrial fibrillation and slightly rapid rate; shortness of breath. On telemetry, in atrial fibrillation. Ventricular rate is about 70/Min. Seems well controlled. Currently on Toprol-XL 50 mg daily. She also got diltiazem 60 mg x 4 yesterday but I do not see it in the list today. This may be continued. Anticoagulation. Discharge planning. Follow-up in clinic. If she still feels short of breath even after good rate control, then can consider cardioversion but with significant left atrial enlargement, will be difficult to keep in sinus. d/w . Time Spent With Patient Time: Total time managing care of this patient today 45 minutes. This includes time spent in review of chart, laboratory data, imaging studies, review of telemetry, counseling patient, discussion with hospitalist, RN, documentation, coordination of care. Progress Note: Quality Stroke Does the patient have a stroke diagnosis?: No Procedures Date of Service Date of Service: 07/04/22
[2022-07-04 10:53] VITALS: BP 123/61; PULSE 72; O2SAT 94
[2022-07-04] MEDS: dilTIAZem HCL CD 180 MG CAP.ER.24H PO (10:57)
[2022-07-04 11:01] VITALS: BP 114/59; PULSE 78; RESP 20; TEMP 36.4; O2SAT 96
--- NOTE | 2022-07-04 11:14 | MHC.CM.PN ---
Patient has been medically cleared for dc to home today with [facility]. A referral was made to [facility], who is aware of today's dc. Last IMM addressed yesterday.
--- NOTE | 2022-07-04 11:15 | P.F2F_ITS ---
Service Date Service Date: 07/04/22 Encounter Date of encounter: 07/04/22 Reasons for Services Signs and symptoms assessed: Afib with RVR, shortness of breath with activity Reason for long-term: CV/CP assess and/or care and medication management Homebound: Leaving the home is medically contraindicated at this time without the asist of a device and/or another person due th the listed conditions above and below. Reason homebound: shortness of breath with minimal effort Homebound supporting statement: homebound due shortness of breath in context of afib and history of heart failure and worse with minimal activity and therefore needs the assistance of another person Certification: Based on the above findings, I certify that this patient is confined to the home and needs intermittent long-term care, physical therapy and/or speech therapy, or continues to need occupational therapy. The patient is under my care, and I have initiated the establishment of the plan of care. The patient will be followed by a physician who will periodically review the plan of care. Time Spent With Patient Time: Total time managing care of this patient today ____ minutes.
--- NOTE | 2022-07-23 11:10 | P.DS_ITS ---
DS: Providers Provider Date of Service: 07/04/22 Date of admission: 07/02/22 13:34 Primary care physician: Erika Jordan MD Consults: 07/02/22 13:38 Consult to Cardiology [place]ine Consulting [place] [facility] [place] [facility] Reason for consultation: afrib rvr DS: Diagnosis Discharge Diagnosis (1) Atrial fibrillation with RVR: Status: Resolved (2) Coronary artery disease: Status: Acute DS: Summary Hospital Course Hospital Course: Chief Complaint: scott, weakness 82-year-old female patient with past medical history significant for hypertension, hypercholesterolemia, coronary artery disease, chronic kidney disease stage 3, peripheral vascular disease, and atrial fibrillation anticoagulated with xarelto presented to the ED for evaluation of dyspnea on exertion worse for the past several days which is limiting her normal activity. She feels this is due to the xarelto she was recently prescribed in place of eliquis. There has also been palpitations and mild nausea. No lightheadedness, sob at rest, orthopnea, PND, vomiting, or chest pain. No weight gain or edema. On arrival HR ranging 80-110. However, with ambulation tachycardic to 140. Given IV push metoprolol 5 mg x 2 with improvement in rate to 91, but soft blood pressures to 94/44. No leukocytosis. Stable normocytic anemia. Renal function normal, electrolytes without significant abnormality. BNP 198, trop 7.5. CXR unremarkable. EKG showing afib with rvr, rate 111 no BONNIE or depression. Hospital course: He presented with shortness of breath, espicially with exertion and was found to be in AFIB with RVR, iititially required iv metoprolol for control and then was changed to oral cardizem which has been adjusted to 240 mg daily and norvasc stoped. To continue Toprolol as well at 50 mg daily. To continue Xarelto for anticoagulation. #Grade 2 diastolic dysfunction -no evidence of acute chf exacerbation #HTN- resume losartan and metoprolol. Norvasc stopped and replaced with cardizem as above #CAD -no anginal chest pain -continue xarelto, bb, statin #CKD stage 3 -renal function baseline Final diagnosies: Permanent AFIB with RVR chronic diastolic heart failure CAD HTN CKD 3 Time Spent with Patient Time attestation: Total time managing care of this patient today ____ minutes. Discharge coordination time: Greater than 30 minutes Quality: Safe Use of Opioids Does Pt have an Active Cancer Diagnosis on the Problem List?: No Quality: Stroke Does the patient have a stroke diagnosis?: No Physical Exam Vital Signs: Vital Signs: Last Vital Signs Temp 97.5 F 07/04/22 11:01 Pulse 78 07/04/22 11:01 Resp 20 07/04/22 11:01 BP 114/59 L 07/04/22 11:01 Pulse Ox 96 07/04/22 11:01 O2 Del Method Room Air 07/04/22 11:01 BMI result Body Mass Index 31.3 Discharge Plan Discharge Anticipated Discharge Date/Time: 07/04/22 10:33 Patient Disposition: Home Health Service Discharge Diagnosis: AFIB with RVR Referrals: Darlyn LANGFORD [Outside] - 1 Week Po,Erika Armendariz MD [Primary Care Provider] - 1 Week Discharge Medications: Continued atorvastatin 20 mg tablet 20 mg PO DAILY 90 Days Qty: 90 2RF (DME) Rollator See Rx Instructions .Route .MEDSUPPLY Qty: 1 0RF Rx Instructions: As directed (DME) Shower chair w/back rest See Rx Instructions .Route .MEDSUPPLY Qty: 1 0RF Rx Instructions: As directed multivitamin Tablet 1 tab PO DAILY meclizine 12.5 mg tablet 12.5 mg PO TID PRN (Reason: dizziness) Qty: 30 0RF nitroglycerin 0.4 mg tablet, sublingual 0.4 mg sublingual Q5M PRN (Reason: chest pain) Qty: 20 1RF Rx Instructions: do not exceed 3 doses per episode Discontinued amlodipine 5 mg tablet 5 mg PO DAILY 90 Days Qty: 90 3RF losartan 50 mg tablet 50 mg PO DAILY Xarelto 20 mg tablet 20 mg PO DAILY@1700 Rx Instructions: must administer with evening meal No Action Xarelto 20 mg tablet 20 mg PO QPM metoprolol succinate 50 mg tablet extended release 24 hr 50 mg PO BID 90 Days Qty: 180 1RF Discharge Orders: Discharge Order (Routine); Ordered 07/04/22 Ordered By: Minh Kenney Diet: Advance to usual diet Activity on Discharge: As tolerated Stand Alone Forms: Patient Portal Discharge page Care Plan Goals: Better control of atrial fibrilation Health Concerns: Atrial fibrilation with rapid ventricular response Plan of Treatment: Stop taking Norvasc and instead take cardizem 240 mg once daily continue taking Xarelto, the dose has been changed from 20 mg to 15 mg daily based on Stop taking Losartan due to you blood pressure being on the low side continue taking metoprolol as before Follow up with your heart doctor in a week to 10 days and follow up with your heart doctor, the office will make arragement for you Visiting nurse will come and check up on you at home and review your medications and vitals Assessment: See above Discharge Date/Time: 07/04/22 14:13
== END 2022-07-04 14:13 | disposition home health service (06) | DRG 309 ==
LOC: HO.ED 13:33 → HO.EDOVER 13:41 → HO.IMC 17:14
PROVIDERS: Admitting Provider Physician Assistant; Emergency Provider Emergency Medicine Emergency Medical Services; PCP Internal Medicine; Visit Provider Internal Medicine
DX: I48.19 Other persistent atrial fibrillation (principal); I13.0 Hypertensive heart and chronic kidney disease with heart failure and stage 1 through stage 4 chronic kidney disease, or unspecified chronic kidney disease; I50.32 Chronic diastolic (congestive) heart failure; Z66 Do not resuscitate; N18.30 Chronic kidney disease, stage 3 unspecified; I25.10 Atherosclerotic heart disease of native coronary artery without angina pectoris; Z20.822 Contact with and (suspected) exposure to COVID-19; E78.00 Pure hypercholesterolemia, unspecified; Z95.1 Presence of aortocoronary bypass graft; Z79.899 Other long term (current) drug therapy
CPT/HCPCS: 36415; 71046; 80048; 83735; 83880; 84443; 84484; 85025; 85610; 87635; 93005; 97162; 99285

== ENCOUNTER → 2022-07-15 14:13 | Outpatient (BNVA) | payer MEDICARE, MEDICAID, SELFPAY | PROVIDERS: PCP Internal Medicine; Referring Provider Internal Medicine; Visit Provider Nurse Practitioner Family | DX: I48.91 Unspecified atrial fibrillation (principal); I25.10 Atherosclerotic heart disease of native coronary artery without angina pectoris; I10 Essential (primary) hypertension | CPT/HCPCS: 93005; 99212 ==

== ENCOUNTER 2022-07-18 11:08 | Outpatient (REF) | payer MEDICARE, MEDICAID, SELFPAY ==
[2022-07-18 13:45] LABS: MANUAL DIFF FLAG NO
[2022-07-18 13:55] LABS: Basophils Percent Auto 0.7 % (0-2); Eosinophils Absolute Auto 0.1 X10*3/uL (0.0-0.4); Eosinophils Percent Auto 1.7 % (0-4); Hemoglobin 10.7 g/dl (12.0-16.0); Imm Gran Abs Auto 0.03 X10*3/uL (0.00-0.03); Imm Gran Pct Auto 0.5 % (0.0-0.4); Immature Retic Fraction 14.6 % (3.0-15.9); Lymphocytes Absolute Auto 1.6 X10*3/uL (1.2-4.9); Lymphocytes Percent Auto 27.5 % (20-40); Mean Corpuscular HGB Conc 32.4 g/dl (31.0-35.0); Mean Corpuscular Hemoglobin 31.3 pg (27.0-33.0); Mean Corpuscular Volume 96.5 fL (80.0-98.0); Mean Platelet Volume 12.2 fL (9.4-12.3); Monocytes Absolute Auto 0.4 X10*3/uL (0.1-1.2); Monocytes Percent Auto 7.2 % (2-11); Neutrophils Absolute Auto 3.7 x10*3/uL (2.0-8.3); Neutrophils Percent Auto 62.4 % (45-73); Platelet Count 296 X10*3/uL (160-400); Red Blood Count 3.42 X10*6/uL (4.20-5.50); Red Cell Distribution Width 14.6 % (11.0-16.0); Retic HGB Equivalent 35.3 pg (30.0-35.0); Reticulocyte Percent 2.5 % (0.5-1.8); Reticulocytes Absolute 0.085 X10*6/uL (0.026-0.095); White Blood Count 5.9 X10*3/uL (4.8-10.8)
[2022-07-18 14:48] LABS: Alanine Aminotransferase 11 U/L (0-31); Albumin Level 3.8 g/dL (3.5-5.0); Alkaline Phosphatase 68 U/L (39-117); Anion Gap 15 (12-20); Aspartate Amino Transferase 21 U/L (5-31); Bilirubin Total 1.1 mg/dL (0.0-1.0); Blood Urea Nitrogen 22 mg/dL (9-16); Calcium 9.5 mg/dL (8.4-10.2); Carbon Dioxide 21 mmol/L (22-29); Chloride 109 mmol/L (96-108); Estimated Glomerular Filt Rate 49; Glucose Random 109 mg/dL (60-115); Iron 70 mcg/dL (30-160); Magnesium 1.9 mg/dL (1.6-2.6); Percent Iron Saturation 25 % (15-50); Potassium 4.6 mmol/L (3.3-5.1); Sodium 140 mmol/L (135-145); Total Iron Binding Capacity 275 mcg/dL (228-428); Total Protein 6.6 g/dL (6.5-8.0); Unsaturated Iron Binding 205 ug/dL
[2022-07-18 15:18] LABS: Ferritin 121 ng/mL (10-250); Folate 13.7 ng/mL (> or = 4.0); Thyroid Stimulating Hormone 0.97 uIU/mL (0.32-4.0); Vitamin B12 610 pg/mL (200-900)
== END 2022-07-18 11:09 | disposition home or self-care (01) ==
LOC: HO.HMGCLDS 11:08
PROVIDERS: PCP Internal Medicine; Visit Provider Internal Medicine
DX: I48.91 Unspecified atrial fibrillation (principal)
CPT/HCPCS: 36415; 80053; 82607; 82728; 82746; 83540; 83735; 84443; 85025; 85045

== ENCOUNTER 2022-07-23 11:27 | Day surgery (SDC) | payer MEDICARE, MEDICAID, SELFPAY ==
[2022-07-21 14:37] VITALS: BMI 30.9
--- NOTE | 2022-07-22 09:03 | P.CONAN_ITS ---
Documented by User: Mara Staley NP 07/22/22 09:06 HPI - Anesthesia Eval Consult details Narrative: 82yo F for Cardioversion Xarelto for afib PMFSH Active Problems Active Problems: All Active Problems (Updated 07/15/22 @ 16:59 by Lynn Salgado, REGIONAL AGRONOMIST-C) Medicare annual wellness visit, initial (Acute) Constipation (Acute) History of total right knee replacement (TKR) (Acute) Obesity (BMI 30-39.9) (Acute) Generalized anxiety disorder (Acute) Bilateral hand numbness (Acute) Impaired fasting blood sugar (Acute) Encounter for subsequent annual wellness visit (AWV) in Medicare patient (Acute) Glenohumeral arthritis (Acute) Osteopenia (Acute) Bilateral shoulder pain (Acute) Osteoarthritis of shoulders, bilateral (Acute) Coronary artery disease (Acute) Atrial fibrillation (Acute) Hypercholesterolemia (Acute) Peripheral vascular disease (Acute) Lumbar degenerative disc disease (Acute) GERD (gastroesophageal reflux disease) (Acute) Hypertension (Acute) Primary osteoarthritis of both shoulders (Acute) Past Medical History Medical History (Updated 07/15/22 @ 16:59 by Lynn Salgado, REGIONAL AGRONOMIST-C) Abscess of right genital labia Anemia Angina pectoris Atrial fibrillation Carotid stenosis Chronic kidney disease (CKD) stage G3b/A1, moderately decreased glomerular filtration rate (GFR) between 30-44 mL/min/1.73 square meter and albuminuria creatinine ratio less than 30 mg/g Coronary artery disease Esophageal dysmotility Gait instability GERD (gastroesophageal reflux disease) Hypercholesterolemia Hypertension Insomnia Leukopenia Lumbar degenerative disc disease Muscle spasm of right leg Obesity Overweight (BMI 25.0-29.9) Peripheral neuropathy Peripheral vascular disease 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 Father No problems noted. Surgical History Surgical History (Updated 07/21/22 @ 14:35 by Isis Tilley RN) Basal cell carcinoma (BCC) H/O colonoscopy History of appendectomy History of cataract surgery History of cholecystectomy History of esophagogastroduodenoscopy (EGD) History of tonsillectomy Hx of arthroscopic knee surgery Hx of total knee arthroplasty S/P JIMENEZ-BSO Status post phlebectomy Stented coronary artery Social History Social History Household Members: None Housing: Apartment Do you presently have visiting nurse or other home services: Yes Alcohol intake: current Alcohol intake frequency: does not drink Alcohol type: hard liquor Patient Tobacco Use Status: Never used Tobacco e-Cigarette/Vaping Use: Never Used Second Hand Smoke Exposure: No Use of substances other than those prescribed or required for medical reasons: No Are you DNR?: No Advance Directives: No Advance Directives Information Provided: Yes Advance Directives Date on File: 07/11/20 service: No Current occupational status: retired Cognitive needs: Yes (walker ) Hearing needs: No Vision needs: No Meds Allergies Allergy/AdvReac Type Severity Reaction Status Date / Time asparagus Allergy Severe Hives Verified 07/15/22 14:41 rosuvastatin [Crestor] Allergy Unknown unknown Verified 07/15/22 14:41 famotidine [From PEPCID] AdvReac Severe NAUSEA Verified 07/15/22 14:41 oxycodone [From OXYCONTIN] AdvReac Intermediate NAUSEA & Verified 07/15/22 14:41 VOMITING FROM PERCOCET TOO tramadol AdvReac Intermediate could not Verified 07/15/22 14:41 concetrate chocolate cover cherries Allergy Severe Anaphylaxis Uncoded 07/15/22 14:41 Home Medications Medication Instructions Recorded Confirmed Last Taken Type multivitamin 1 tab PO DAILY 07/02/22 07/21/22 07/01/22 History rivaroxaban 20 mg tablet (Xarelto) 20 mg PO QPM 07/15/22 07/15/22 07/22/22 History Exam Exam Date and Time: July 22, 2022 09 Height,Weight and Vital Signs: Height 5 ft 4 in Weight 81.647 kg Pertinent Lab Results Pertinent Lab Results: Laboratory Tests 07/18/22 07/18/22 11:13 11:13 WBC 5.9 Hgb 10.7 L Hct 33.0 L Plt Count 296 D Sodium 140 Potassium 4.6 Chloride 109 H Carbon Dioxide 21 L BUN 22 H Creatinine 1.06 Narrative Narrative: EKG 07/2022 atrial fibrillation, no acute ST or T-wave abnormalities, rate 98, QTC 446 millisecond ECHO 04/2022 Conclusions: - The left ventricular systolic function is normal.? The ? calculated ejection fraction is 64% by biplane method. ? - Evidence suggests grade II (moderate) diastolic dysfunction. ? - The left atrium is severely dilated. ? - No obvious valvular pathology seen on this study.? ? ? Assessment and Plan Assessment Anesthesia Assessment: Chart Reviewed Documented by User: Jaz Collins MD 07/23/22 13:32 PMF Past Medical History Medical History (Updated 07/15/22 @ 16:59 by Lynn Salgado, REGIONAL AGRONOMIST-C) Abscess of right genital labia Anemia Angina pectoris Atrial fibrillation Carotid stenosis Chronic kidney disease (CKD) stage G3b/A1, moderately decreased glomerular filtration rate (GFR) between 30-44 mL/min/1.73 square meter and albuminuria creatinine ratio less than 30 mg/g Coronary artery disease Esophageal dysmotility Gait instability GERD (gastroesophageal reflux disease) Hypercholesterolemia Hypertension Insomnia Leukopenia Lumbar degenerative disc disease Muscle spasm of right leg Obesity Overweight (BMI 25.0-29.9) Peripheral neuropathy Peripheral vascular disease 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 Father No problems noted. Family history of problems with anesthesia: No Surgical History Surgical History (Updated 07/21/22 @ 14:35 by Isis Tilley RN) Basal cell carcinoma (BCC) H/O colonoscopy History of appendectomy History of cataract surgery History of cholecystectomy History of esophagogastroduodenoscopy (EGD) History of tonsillectomy Hx of arthroscopic knee surgery Hx of total knee arthroplasty S/P JIMENEZ-BSO Status post phlebectomy Stented coronary artery History of Problems with Anesthesia: No Social History Social History Household Members: None Housing: Apartment Do you presently have visiting nurse or other home services: Yes Alcohol intake: current Alcohol intake frequency: does not drink Alcohol type: hard liquor Patient Tobacco Use Status: Never used Tobacco e-Cigarette/Vaping Use: Never Used Second Hand Smoke Exposure: No Use of substances other than those prescribed or required for medical reasons: No Are you DNR?: No Advance Directives: No Advance Directives Information Provided: Yes Advance Directives Date on File: 07/11/20 service: No Current occupational status: retired Cognitive needs: Yes (walker ) Hearing needs: No Vision needs: No Meds Allergies Allergy/AdvReac Type Severity Reaction Status Date / Time asparagus Allergy Severe Hives Verified 07/15/22 14:41 rosuvastatin [Crestor] Allergy Unknown unknown Verified 07/15/22 14:41 famotidine [From PEPCID] AdvReac Severe NAUSEA Verified 07/15/22 14:41 oxycodone [From OXYCONTIN] AdvReac Intermediate NAUSEA & Verified 07/15/22 14:41 VOMITING FROM PERCOCET TOO tramadol AdvReac Intermediate could not Verified 07/15/22 14:41 concetrate chocolate cover cherries Allergy Severe Anaphylaxis Uncoded 07/15/22 14:41 Home Medications Medication Instructions Recorded Confirmed Last Taken Type multivitamin 1 tab PO DAILY 07/02/22 07/21/22 07/01/22 History rivaroxaban 20 mg tablet (Xarelto) 20 mg PO QPM 07/15/22 07/15/22 07/22/22 History Exam Airway Mallampati Class: II TM Dist: >3cm Neck ROM: Full Heart: rrr Lungs: cta Assessment and Plan Assessment Anesthesia Assessment: Anesthesia Plan Discussed and Chart Reviewed Final Anesthetic Review Family History of Problems with Anesthesia: No History of Problems with Anesthesia: No NPO: Yes ASA Class: III Final Preanesthetic Review: No Changes in Pt Med Stat, Meds/Allgs Chart Reviewed and Consent Obtained/Reviewed Patient Risk: Low Procedure Risk: Low Anesthetic Plan Anesthetic Plan: MAC: Disposition: Standard PACU
[2022-07-23 12:22] VITALS: BP 136/75; PULSE 97; RESP 20; TEMP 36.3; O2SAT 98
[2022-07-23] MEDS: Lactated Ringers 1,000 ML 50 ML IVCONT (12:43)
--- NOTE | 2022-07-23 13:09 | MHC.SHP ---
Pre-Procedural Eval Section A Date of Service: 07/23/22 The patient is an INPATIENT: No Changes since office visit: Yes Changes in Medication and Yes Patient answered all questions; No Cold of Flu in the past 2 weeks and No New Medical Problems The History & Physical has been completed within 30 days and I have reviewed it.: Yes Section B Chief Complaint: afib Allergies: Allergies Allergy/AdvReac Type Severity Reaction Status Date / Time asparagus Allergy Severe Hives Verified 07/15/22 14:41 rosuvastatin [Crestor] Allergy Unknown unknown Verified 07/15/22 14:41 famotidine [From PEPCID] AdvReac Severe NAUSEA Verified 07/15/22 14:41 oxycodone [From OXYCONTIN] AdvReac Intermediate NAUSEA & Verified 07/15/22 14:41 VOMITING FROM PERCOCET TOO tramadol AdvReac Intermediate could not Verified 07/15/22 14:41 concetrate chocolate cover cherries Allergy Severe Anaphylaxis Uncoded 07/15/22 14:41 Plan I have reviewed the history and physical and performed a pertinent physical examination on my patient. No changes have occurred unless specified. Time Spent With Patient Time: Total time managing care of this patient today ____ minutes.
--- NOTE | 2022-07-23 13:48 | ECG_ITS ---
Test Reason : post op Blood Pressure : / mmHG Vent. Rate : 061 BPM Atrial Rate : 061 BPM P-R Int : 152 ms QRS Dur : 084 ms QT Int : 426 ms P-R-T Axes : 050 022 022 degrees QTc Int : 428 ms Sinus rhythm with Premature supraventricular complexes Otherwise normal ECG When compared with ECG of 02-JUL-2022 10:06, Sinus rhythm has replaced Atrial fibrillation Vent. rate has decreased BY 50 BPM Referred By: Keo Bush Electronically Signed By:KEO BUSH MD
--- NOTE | 2022-07-23 13:48 | HO.CARDIVERS ---
Cardioversion Procedure Note Cardioversion Date of Procedure: Today Ordering Provider: Lynn Salgado Performing Provider: Myself Indication for Procedure: Persistent symptomatic atrial fibrillation Pre-Op Diagnosis: Same Post-Op Diagnosis: Sinus rhythm Performed with Transesophageal Echo: No History: See the last office note Consent: Verbal and Written consent was obtained from the patient before starting and after confirming oral anticoagulation use. The patient was made aware of the risk of synchronized cardioversion including benefits and alternatives Procedure: After consent obtained, cardioversion pads were attached in AP configuration and the patient was sedated by the anesthesia team. Once adequate sedation achieved, patient was delivered 200 joules of biphasic synchronized energy in anteroposterior configuration. Complications: None Impression: Successful conversion to sinus rhythm Recommendations: 1. 12 lead EKG 2. Continue metoprolol and Xarelto 3. Follow up in the office after Holter monitor
[2022-07-23 13:50] VITALS: BP 110/60; PULSE 56; TEMP 36.7; O2SAT 98
[2022-07-23 14:05] VITALS: BP 126/69; PULSE 59; RESP 18; TEMP 36.1; O2SAT 97
== END 2022-07-23 14:39 | disposition home or self-care (01) ==
PROVIDERS: PCP Internal Medicine; Visit Provider Internal Medicine Cardiovascular Disease
PROC: 5A2204Z Restoration of Cardiac Rhythm, Single (ICD-10-PCS; principal; 2022-07-23 13:30)
DX: I48.19 Other persistent atrial fibrillation (principal); I12.9 Hypertensive chronic kidney disease with stage 1 through stage 4 chronic kidney disease, or unspecified chronic kidney disease; N18.32 Chronic kidney disease, stage 3b; E78.00 Pure hypercholesterolemia, unspecified; I25.10 Atherosclerotic heart disease of native coronary artery without angina pectoris; R73.01 Impaired fasting glucose; Z79.01 Long term (current) use of anticoagulants; Z79.899 Other long term (current) drug therapy; Z88.8 Allergy status to other drugs, medicaments and biological substances
CPT/HCPCS: 92960; 93005; J2370

== ENCOUNTER → 2022-08-01 08:13 | Outpatient (REF) | payer MEDICARE, MEDICAID, SELFPAY ==
--- NOTE | 2022-08-01 08:24 | HM_ITS ---
* Total monitoring time 3 days. * Underlying rhythm is sinus with an average rate of 55/Min. Range 41 to 103/Min. * Rare supraventricular ectopy with the low burden. Brief runs noted. Could be atrial fibrillation runs. * Rare ventricular ectopy. Low burden. * No significant pauses or AV blocks. * No patient markers or events in diary. MTDD
== END ==
LOC: HO.CARD 08:13
PROVIDERS: PCP Internal Medicine; Visit Provider Internal Medicine Cardiovascular Disease
DX: I48.91 Unspecified atrial fibrillation (principal)
CPT/HCPCS: 93242

== ENCOUNTER 2022-09-09 08:59 | Outpatient (AMB) | payer MEDICARE, MEDICAID, SELFPAY ==
[2022-09-09 09:20] VITALS: BP 152/74; PULSE 72; BMI 31.0
--- NOTE | 2022-09-09 09:20 | MHC.OFFVIS ---
Intake Vital Signs 09/09/22 09:20 Height 5 ft 4 in Weight 180 lb 12.465 oz BMI 31.0 BP 152/74 H Pulse 72 Pulse Source Pulse Oximeter Intake Visit Reasons: Follow up post cardioversion and holter monitor Intake Note: follow up post cardioversion and holter monitor Grievance Coordinator Required: No Allergies asparagus Allergy (Severe, Verified 09/09/22 09:25) Hives rosuvastatin [Crestor] Allergy (Unknown, Verified 09/09/22 09:25) unknown famotidine [From PEPCID] Adverse Reaction (Severe, Verified 09/09/22 09:25) NAUSEA oxycodone [From OXYCONTIN] Adverse Reaction (Intermediate, Verified 09/09/22 09:25) NAUSEA & VOMITING FROM PERCOCET TOO tramadol Adverse Reaction (Intermediate, Verified 09/09/22 09:25) could not concetrate chocolate cover cherries Allergy (Severe, Uncoded 08/06/22 10:03) Anaphylaxis Medication List - Last Reconciled 09/09/22 by ERIKA BurroughsC atorvastatin 20 mg PO DAILY 90 days lisinopril 5 mg PO DAILY meclizine 12.5 mg PO TID PRN metoprolol succinate ER 50 mg PO BID 90 days multivitamin 1 tab PO DAILY nitroglycerin 0.4 mg sublingual Q5M PRN rivaroxaban (Xarelto) 15 mg PO DAILY [Rollator As directed] [Shower chair w/back rest As directed] HPI Follow up post cardioversion and holter monitor HPI Details Jaylin is an 82-year-old female with past medical history of hypertension, hyperlipidemia, coronary artery disease with circumflex stent, new or atrial fibrillation and underwent scheduled cardioversion on 07/23/2022 and now presents for follow-up. . Today she reports that she has not been feeling heart palpitations. She describes having an episode of chest, shoulder, arm discomfort yesterday after lifting a heavy box of soda. She describes having severe shoulder arthritis. She has nitroglycerin but did not feel that she needed it. She has no chest discomfort today. She does not typically get chest discomfort at rest or with activity. She has chronic shoulder and arm discomfort. No shortness of breath, dizziness, presyncope, syncope, PND, orthopnea or edema. She has issues with nausea, no vomiting which she feels is from her orthopedic pain. Taking meds as directed. No bleeding issues reported. [facility] Medical History Abscess of right genital labia Anemia Angina pectoris Atrial fibrillation Carotid stenosis Chronic kidney disease (CKD) stage G3b/A1, moderately decreased glomerular filtration rate (GFR) between 30-44 mL/min/1.73 square meter and albuminuria creatinine ratio less than 30 mg/g Coronary artery disease Esophageal dysmotility Gait instability GERD (gastroesophageal reflux disease) Hypercholesterolemia Hypertension Insomnia Leukopenia Lumbar degenerative disc disease Muscle spasm of right leg Obesity Overweight (BMI 25.0-29.9) Peripheral neuropathy Peripheral vascular disease 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 Father No problems noted. Social History Household Members: None Housing: Apartment Do you presently have visiting nurse or other home services: Yes Alcohol intake: current Alcohol intake frequency: does not drink Alcohol type: hard liquor Patient Tobacco Use Status: Never used Tobacco e-Cigarette/Vaping Use: Never Used Second Hand Smoke Exposure: No Advance Directives Date on File: 07/11/20 service: No Current occupational status: retired Cognitive needs: Yes (walker ) Hearing needs: No Vision needs: No Review of Systems Const Details: Bilateral shoulder and arm arthritis All systems reviewed & are unremarkable except as noted in HPI and below ENT Reports dizziness Card Reports chest pain (Yesterday in her arms and shoulders and chest after lifting box), Denies chest pain at rest, Denies chest pain with activity, Denies rapid heart rate, Denies pedal edema, Denies edema, Denies leg edema, Denies lightheadedness, Denies palpitations, Denies dyspnea, Denies dyspnea on exertion and Denies orthopnea Resp Denies cough, Denies dyspnea and Denies dyspnea on exertion GI Denies hematochezia and Denies change in stool character Musc Denies abnormal gait, Reports limited range of motion, Reports muscle cramps, Denies muscle weakness, Denies numbness, Denies radiating pain into limb, Denies stiffness and Denies tingling Neuro Denies abnormal gait, Reports dizziness, Denies numbness and Denies tingling Endo Denies palpitations Physical Exam Vital Signs: Last Vital Signs Pulse 72 09/09/22 09:20 BMI result Body Mass Index 31.0 Const General: cooperative, healthy appearing, comfortable and no acute distress Orientation/consciousness: patient oriented x3 Neck Neck: Yes normal visual inspection Resp Effort & Inspection: normal respiratory effort Auscultation: clear to auscultation bilaterally, no crackles, no rales, no rhonchi and no wheezes Cardio Jugular venous distension: no JVD Rate: regular rate Rhythm: regular rhythm Heart sounds: S1 normal heart sound present, S2 normal heart sound present, no murmurs and no rubs Neuro General: patient oriented x3 Extrem General: Yes normal to inspection Psych Appearance: grossly normal Mental Status: mental status grossly normal Speech and movement: Normal speech and movement present Assessment & Plan Assessment & Plan (1) Atrial fibrillation: Comment: Cardioversion July 2022 Code(s): I48.91 - Unspecified atrial fibrillation Plan: New onset atrial fibrillation noted at ER visit on 06/18/2022. Symptom of shortness of breath and blood pressure elevated that day. EKG confirmed AFib, heart rate 86. She was started on Xarelto at that time. She had been on metoprolol XL 50 mg daily which was continued. She then had recurrent ER visit on 07/02/2022 with shortness of breath with walking. Heart rate up to the 140s and was treated with IV Lopressor. She was started on diltiazem in addition to her metoprolol for heart rate control. An echocardiogram done 05/09/2022 shows EF 64%, grade 2 diastolic dysfunction, left atrium severely dilated. On follow-up visit she reported nausea, vomiting, dizziness after starting diltiazem. It was discontinued and metoprolol dose was increased. She was set up for a cardioversion which she underwent on 07/23/2022 with successful conversion back to sinus rhythm. Holter monitor done 08/01/2022 for 3 days shows sinus rhythm with average heart rate 55, heart rate range 41 to 103, low burden of SVT, no AFib. Pulse is very regular on examination today. No concern for AFib at present. Continue Xarelto uninterrupted. Is did to call if she has recurrent issues with heart palpitations, shortness of breath. Cardiology follow-up 3 months, sooner if needed (2) Coronary artery disease: Comment: [place] in 1981, stent placement 2012 Code(s): I25.10 - Atherosclerotic heart disease of [place] coronary artery without angina pectoris Qualifiers: Coronary Disease-Associated Artery/Lesion type: [place] artery [place] vs. transplanted heart: [place] heart Associated angina: without angina Qualified Code(s): I25.10 - Atherosclerotic heart disease of [place] coronary artery without angina pectoris Plan: History of CAD, remote left circumflex stent. She reports having an episode yesterday where she lifted a box of sodas and developed pain across her chest shoulders and arms. She describes having severe arthritis in her shoulders and does not typically do lifting. She normally does not get any chest discomfort. She has no discomfort today. She does light physical activity normally. She does have nitroglycerin available but tells me that it is outdated. Will send a refill. Spent time reviewing signs and symptoms of angina. If she has any recurrent chest discomfort then will likely need a stress test for further evaluation. She is not interested in having a stress test at this time as she believes that her discomfort was directly related to the lifting only and not her heart. Will continue med management for stable CAD. She is no longer on aspirin as she is on Xarelto. Continue atorvastatin and metoprolol. (3) Hypertension: Code(s): I10 - Essential (primary) hypertension Plan: Blood pressure mildly elevated today. She tells me that she has had medication adjustments recently and her blood pressure has been more elevated. She is missing 1 of her medications as she threw it out and is not able to get a refill from the pharmacy for a few more weeks. She is temporarily on lisinopril. Her blood pressure is being followed closely by her PCP. She has follow-up with him in the near future. Will allow her to continue on current med management, follow with PCP. [place] blood pressure goal less than 130/85. Medications: Discontinued rivaroxaban must administer with evening meal 20 mg PO DAILY 30 tabs 3RF I48.91 - Unspecified atrial fibrillation Coding Level of Care Code Est Pt Level 4 (30970) Diagnoses Atrial fibrillation I48.91 Coronary artery disease I25.10 Coronary Disease-Associated Artery/Lesion type: [place] artery [place] vs. transplanted heart: [place] heart Associated angina: without angina Hypertension I10 Time Spent (min) 26 Comment Chart review, documentation, interview, assessment
== END 2022-09-09 09:53 | disposition home or self-care (01) ==
PROVIDERS: PCP Internal Medicine; Visit Provider Nurse Practitioner Family
DX: I48.91 Unspecified atrial fibrillation (principal); I25.10 Atherosclerotic heart disease of native coronary artery without angina pectoris; I10 Essential (primary) hypertension
CPT/HCPCS: 99214

== ENCOUNTER → 2022-09-09 08:59 | Outpatient (BNVA) | payer MEDICARE, MEDICAID, SELFPAY | PROVIDERS: PCP Internal Medicine; Visit Provider Nurse Practitioner Family | DX: I48.91 Unspecified atrial fibrillation (principal); I25.10 Atherosclerotic heart disease of native coronary artery without angina pectoris; I10 Essential (primary) hypertension | CPT/HCPCS: 99212 ==

== ENCOUNTER 2022-10-20 13:01 | Outpatient (AMB) | payer MEDICARE, MEDICAID, SELFPAY ==
[2022-10-20 13:03] VITALS: BP 162/92; PULSE 72; O2SAT 97; BMI 31.4
--- NOTE | 2022-10-20 13:03 | A.OFFPC_ITS ---
Vital Signs 10/20/22 13:03 Height 5 ft 4 in Weight 183 lb BMI 31.4 BP 162/92 H Blood Pressure Location Lt brachial Position Sitting Pulse 72 Pulse Source Pulse Oximeter Pulse Oximetry (%) 97 Oxygen Delivery Method Room Air Intake Visit Reasons: Hypertension Allergies asparagus Allergy (Severe, Verified 10/20/22 13:04) Hives rosuvastatin [Crestor] Allergy (Unknown, Verified 10/20/22 13:04) unknown famotidine [From PEPCID] Adverse Reaction (Severe, Verified 10/20/22 13:04) NAUSEA oxycodone [From OXYCONTIN] Adverse Reaction (Intermediate, Verified 10/20/22 13:04) NAUSEA & VOMITING FROM PERCOCET TOO tramadol Adverse Reaction (Intermediate, Verified 10/20/22 13:04) could not concetrate chocolate cover cherries Allergy (Severe, Uncoded 10/20/22 13:04) Anaphylaxis Medication List - Last Reconciled 10/20/22 by Erika Jordan MD atorvastatin 20 mg PO DAILY 90 days lidocaine 4% (Salonpas (lidocaine)) 1 patch topical BID PRN lisinopril 10 mg PO DAILY meclizine 12.5 mg PO TID PRN metoprolol succinate ER 50 mg PO BID 90 days multivitamin 1 tab PO DAILY nitroglycerin 0.4 mg sublingual Q5M PRN rivaroxaban (Xarelto) 15 mg PO DAILY [Rollator As directed] [Shower chair w/back rest As directed] Tobacco use date assessed: 06/23/22 Fall risk assessment: No Falls in past year Last assessed Fall Risk: 10/20/22 Dental Screening Dental Screen Date: 10/20/22 Did you have a dental visit in the last 12 months?: No Did you have a dental problem in the last 6 months where you did not have access to dental care?: No Was dental information given to patient?: No HPI Hypertension HPI Details 82-year-old obese female with atrial fib rillation(cardioversion July 2022) hypercholesterolemia coronary artery disease impaired glucose tolerance gel as anxiety disorder hypertension last seen in July 2022 patient is here for follow-up. Patient has followed up with Cardiology September 2022 continue anticoagulation.complains of bilateral shoulder pain - xray shwing OA - has seen ortho and advised surgery but patient decline. BP high but states pain the problem with tramadol as well as narcotics. [facility] Medical History Abscess of right genital labia Anemia Angina pectoris Atrial fibrillation Carotid stenosis Chronic kidney disease (CKD) stage G3b/A1, moderately decreased glomerular filtration rate (GFR) between 30-44 mL/min/1.73 square meter and albuminuria creatinine ratio less than 30 mg/g Coronary artery disease Esophageal dysmotility Gait instability GERD (gastroesophageal reflux disease) Hypercholesterolemia Hypertension Insomnia Leukopenia Lumbar degenerative disc disease Muscle spasm of right leg Obesity Overweight (BMI 25.0-29.9) Peripheral neuropathy Peripheral vascular disease 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 Father No problems noted. Social History Household Members: None Housing: Apartment Do you presently have visiting nurse or other home services: Yes Alcohol intake: current Alcohol intake frequency: does not drink Alcohol type: hard liquor Patient Tobacco Use Status: Never used Tobacco e-Cigarette/Vaping Use: Never Used Second Hand Smoke Exposure: No Advance Directives Date on File: 07/11/20 service: No Current occupational status: retired Cognitive needs: Yes (walker ) Hearing needs: No Vision needs: No Questionnaire PHQ-9 Over the last 2 weeks, how often have you been bothered by any of the following problems? 1. Little interest or pleasure in doing things: not at all 2. Feeling down, depressed, or hopeless: not at all 3. Trouble falling or staying asleep, or sleeping too much: not at all 4. Feeling tired or having little energy: not at all 5. Poor appetite or overeating: not at all 6. Feeling bad about yourself - or that you are a failure or have let yourself or your family down: not at all 7. Trouble concentrating on things, such as reading the newspaper or watching television: not at all 8. Moving or speaking so slowly that other people could have noticed. Or the opposite - being so fidgety or restless that you have been moving around a lot more than usual: not at all 9. Thoughts that you would be better off or of hurting yourself in some way: not at all Total score: 0 Depression Screening Interpretation: Negative Source: Developed by Drs. Reinier Bernard, Kelly Wiggins, Sy Adames and colleagues, with an educational jody from [employer]. Thrive Questionnaire Date Thrive assessed: 08/06/22 AUDIT C Alcohol Use Questionnaire (AUDIT-C) 1. How often do you have a drink containing alcohol?: Monthly or less Total Score: 1 JEANMARIE-7 AMB Questionnaire JEANMARIE-7 Date JEANMARIE - 7 assessed: 06/23/22 Source: Developed by Drs. Reinier Bernard, Kelly Wiggins, Sy Adames and colleagues, with an educational jody from [employer]. Physical exam (Primary Care) Vital Signs: Last Vital Signs Pulse 72 10/20/22 13:03 BP 162/92 H 10/20/22 13:03 Pulse Ox 97 10/20/22 13:03 Oxygen Delivery Method Room Air 10/20/22 13:03 BMI result Body Mass Index 31.4 Tobacco/Smoking Status: Tobacco use Status Tobacco use date assessed 06/23/22 10/20/22 13:15 Patient Tobacco Use Status Never used Tobacco 10/20/22 13:15 e-Cigarette/Vaping Use Never Used 10/20/22 13:15 PHQ-9: PHQ-9 Score PHQ-9: Total score 0 10/20/22 13:15 Depression Screening Interpretation: Negative Thrive Assessment: Date of Thrive Assessment Date Thrive assessed 08/06/22 10/20/22 13:15 Const General: alert; No acute distress Eyes Conjunctivae: conjunctivae normal Resp Auscultation: clear to auscultation bilaterally Cardio Rate: regular rate Rhythm: regular rhythm GI Inspection: Yes normal to inspection Extrem General: Yes normal to inspection and No edema Assessment and Plan Assessment & Plan (1) Obesity (BMI 30-39.9): Code(s): E66.9 - Obesity, unspecified Plan: Diet and exercise (2) Coronary artery disease: Comment: [place] in 1981, stent placement 2012 Code(s): I25.10 - Atherosclerotic heart disease of [place] coronary artery without angina pectoris Qualifiers: Coronary Disease-Associated Artery/Lesion type: [place] artery [place] vs. transplanted heart: [place] heart Associated angina: without angina Qualified Code(s): I25.10 - Atherosclerotic heart disease of [place] coronary artery without angina pectoris Plan: Control the cholesterol, weight, blood pressure (3) Atrial fibrillation: Comment: Cardioversion July 2022 Code(s): I48.91 - Unspecified atrial fibrillation Plan: After cardioversion, Holter has been normal sinus. Continue with anticoagulation (4) Hypercholesterolemia: Code(s): E78.00 - Pure hypercholesterolemia, unspecified Plan: Avoid fried foods, chicken skin, eggs, butter margarine, pastries and meat. Be it pork or beef they have a lot of cholesterol LDL goal of less than 70 and triglyceride of less than 150. Patient is on atorvastatin 20 mg once a day last blood work was April 2022 (5) Hypertension: Code(s): I10 - Essential (primary) hypertension Plan: Continue with blood pressure medication. Decrease salt intake and exercise patient on lisinopril 5 mg once a day metoprolol 50 mg twice a day (6) GERD (gastroesophageal reflux disease): Code(s): K21.9 - Gastro-esophageal reflux disease without esophagitis Plan: Avoid the foods that causes that usually spicy foods, tomato products, juices, coffee, soda and foods that your sensitive to. After eating do not lie down, allow 3-4 hours before in lie down. And keep the head of bed above 30 degrees to avoid the acid from going up. (7) Bilateral shoulder pain: Comment: April 2022 Left shoulder: No acute fracture or dislocation redemonstration of elevation of the humeral head relative to the glenoid fossa likely reflecting underlying rotator cuff pathology. Extensive subchondral cystic changes and joint space narrowing with large osteophytosis, progressed from prior study in keeping with moderate osteoarthrosis. Mild acromioclavicular joint arthrosis. * Right shoulder: No acute fracture or dislocation. Elevation of the humeral head relative to glenoid fossa reflects rotator cuff pathology. Interval progression in joint space narrowing and subchondral cystic changes of the glenohumeral joint with large osteophytes in keeping with moderate osteoarthrosis. Moderate acromioclavicular arthrosis. Code(s): M25.511 - Pain in right shoulder; M25.512 - Pain in left shoulder Medications: New lidocaine 4% (Salonpas (lidocaine)) 1 patch topical BID PRN 60 ea 0RF pain M19.011 - Primary osteoarthritis, right shoulder, M19.012 - Primary osteoarthritis, left shoulder Changed From lisinopril 5 mg PO DAILY 30 tabs 2RF I10 - Essential (primary) hypertension To lisinopril 10 mg PO DAILY 90 tabs 2RF I10 - Essential (primary) hypertension Refilled meclizine 12.5 mg PO TID PRN 30 tabs 0RF dizziness Coding Level of Care Code Est Pt Level 4 (03562) Diagnoses Obesity (BMI 30-39.9) E66.9 Coronary artery disease involving [place] coronary artery of [place] heart without angina pectoris I25.10 Coronary Disease-Associated Artery/Lesion type: [place] artery [place] vs. transplanted heart: [place] heart Associated angina: without angina Atrial fibrillation I48.91 Hypercholesterolemia E78.00 Essential hypertension I10 GERD (gastroesophageal reflux disease) K21.9 Bilateral shoulder pain M25.511; M25.512
== END 2022-10-20 13:40 | disposition home or self-care (01) ==
PROVIDERS: PCP Internal Medicine; Visit Provider Internal Medicine
DX: I48.91 Unspecified atrial fibrillation (principal); I10 Essential (primary) hypertension; K21.9 Gastro-esophageal reflux disease without esophagitis; Z68.31 Body mass index [BMI] 31.0-31.9, adult; E66.9 Obesity, unspecified; E78.00 Pure hypercholesterolemia, unspecified; I25.10 Atherosclerotic heart disease of native coronary artery without angina pectoris; M25.511 Pain in right shoulder; M25.512 Pain in left shoulder
CPT/HCPCS: 99214

== ENCOUNTER 2022-12-16 12:28 | Outpatient (AMB) | payer MEDICARE, MEDICAID, SELFPAY ==
--- NOTE | 2022-12-16 12:40 | A.OFFVIS_ITS ---
Intake Vital Signs 12/16/22 12:43 Height 5 ft 4 in Weight 183 lb BMI 31.4 BP 164/78 H Blood Pressure Location Lt brachial Position Sitting Pulse 58 Intake Visit Reasons: 3 mth f/up Intake Note: 3 month follow up [place] Required: No Accompanied by: Self / Same As Patient Allergies asparagus Allergy (Severe, Verified 12/16/22 12:43) Hives rosuvastatin [Crestor] Allergy (Unknown, Verified 12/16/22 12:43) unknown famotidine [From PEPCID] Adverse Reaction (Severe, Verified 12/16/22 12:43) NAUSEA oxycodone [From OXYCONTIN] Adverse Reaction (Intermediate, Verified 12/16/22 12:43) NAUSEA & VOMITING FROM PERCOCET TOO tramadol Adverse Reaction (Intermediate, Verified 12/16/22 12:43) could not concetrate chocolate cover cherries Allergy (Severe, Uncoded 12/16/22 12:43) Anaphylaxis Medication List - Last Reconciled 12/16/22 by Keo Bush MD atorvastatin 20 mg PO DAILY 90 days lidocaine 4% (Salonpas (lidocaine)) 1 patch topical BID PRN lisinopril 10 mg PO DAILY meclizine 12.5 mg PO TID PRN metoprolol succinate ER 50 mg PO BID 90 days multivitamin 1 tab PO DAILY nitroglycerin 0.4 mg sublingual Q5M PRN rivaroxaban (Xarelto) 15 mg PO DAILY [Rollator As directed] [Shower chair w/back rest As directed] HPI HPI Comments History of Present Illness Details Jaylin comes for follow-up. She complains of fatigue. She denies any prolonged palpitations irregular heartbeat. No heart failure symptoms. She says she is almost constant pain due to her shoulder issues. Her blood pressure also has remained elevated. She is very confused about her medications. Her written medication list does not correlated with the pharmacy list. We updated list in the chart. She does eat salt with food. She denies any exertional chest pain. No lightheadedness, syncope. [facility] Medical History (Updated 12/16/22 @ 13:03 by Keo Bush MD) Atrial fibrillation Abscess of right genital labia Obesity Anemia Muscle spasm of right leg Angina pectoris Overweight (BMI 25.0-29.9) Right leg swelling Gait instability Vitamin D deficiency TIA (transient ischemic attack) Chronic kidney disease (CKD) stage G3b/A1, moderately decreased glomerular filtration rate (GFR) between 30-44 mL/min/1.73 square meter and albuminuria creatinine ratio less than 30 mg/g Spinal stenosis Leukopenia Hypercholesterolemia Insomnia Peripheral vascular disease Peripheral neuropathy Esophageal dysmotility Carotid stenosis Pityriasis lichenoides chronica Lumbar degenerative disc disease GERD (gastroesophageal reflux disease) Hypertension Coronary artery disease Primary osteoarthritis of both shoulders Surgical History History of esophagogastroduodenoscopy (EGD) H/O colonoscopy Hx of total knee arthroplasty Hx of arthroscopic knee surgery Stented coronary artery Status post phlebectomy History of cataract surgery Basal cell carcinoma (BCC) History of tonsillectomy S/P JIMENEZ-BSO History of appendectomy History of cholecystectomy Family History Mother No problems noted. Father No problems noted. Social History Household Members: None Housing: Apartment Do you presently have visiting nurse or other home services: Yes Alcohol intake: current Alcohol intake frequency: does not drink Alcohol type: hard liquor Patient Tobacco Use Status: Never used Tobacco e-Cigarette/Vaping Use: Never Used Second Hand Smoke Exposure: No Advance Directives Date on File: 07/11/20 service: No Current occupational status: retired Cognitive needs: Yes (walker ) Hearing needs: No Vision needs: No Review of Systems Const Denies weakness ENT Denies dizziness Card Denies chest pain, Denies chest pain with activity, Denies syncope, Denies rapid heart rate, Denies pedal edema, Denies edema, Denies leg edema, Denies lightheadedness, Denies palpitations, Denies dyspnea, Denies dyspnea on exertion and Denies orthopnea Resp Denies cough, Denies dyspnea and Denies dyspnea on exertion GI Denies hematochezia and Denies change in stool character Musc Denies abnormal gait, Denies muscle cramps, Denies muscle weakness, Denies numbness, Denies radiating pain into limb and Denies tingling Neuro Denies abnormal gait, Denies dizziness, Denies syncope, Denies numbness, Denies tingling and Denies weakness Endo Denies palpitations Physical Exam Vital Signs: Last Vital Signs Pulse 58 12/16/22 12:43 BP 164/78 H 12/16/22 12:43 BMI result Body Mass Index 31.4 Const General: cooperative, healthy appearing, comfortable and no acute distress Orientation/consciousness: patient oriented x3 Neck Neck: Yes normal visual inspection Resp Effort & Inspection: normal respiratory effort Auscultation: clear to auscultation bilaterally, no crackles, no rales, no rhonchi and no wheezes Cardio Jugular venous distension: no JVD Rate: regular rate Rhythm: regular rhythm Heart sounds: S1 normal heart sound present, S2 normal heart sound present, no murmurs and no rubs Neuro General: patient oriented x3 Extrem General: Yes normal to inspection Psych Appearance: grossly normal Mental Status: mental status grossly normal Speech and movement: Normal speech and movement present Assessment & Plan Assessment & Plan (1) Paroxysmal atrial fibrillation: Code(s): I48.0 - Paroxysmal atrial fibrillation Plan: Symptomatic paroxysmal atrial fibrillation status post cardioversion in July. She has significant left atrial enlargement which makes her prone to get recurrent atrial fibrillation. Although she has had no recurrence. No need for antiarrhythmic drug therapy at this point time. Avoidance of stimulants was discussed continue metoprolol therapy. Continue full oral anticoagulation, currently on Xarelto 20 mg daily. Quarterly renal function test should be performed. Will check CBC given her symptoms of fatigue. (2) Coronary artery disease: Comment: [place] in 1981, stent placement 2012 Code(s): I25.10 - Atherosclerotic heart disease of [place] coronary artery without angina pectoris Qualifiers: Coronary Disease-Associated Artery/Lesion type: [place] artery [place] vs. transplanted heart: [place] heart Associated angina: without angina Qualified Code(s): I25.10 - Atherosclerotic heart disease of [place] coronary artery without angina pectoris Plan: CAD status post circumflex stent placement. Continue medical therapy. Currently on full oral anticoagulation Xarelto and with therefore avoid aspirin therapy. Blood pressure is not optimized, see below. Continue statin therapy with target goal LDL closer to 60 mg/dL. Advised to call with any new anginal sounding chest discomfort. (3) Hypertension: Code(s): I10 - Essential (primary) hypertension Plan: Hypertension which is currently not well optimized will discontinue lisinopril and start on losartan 50 mg b.i.d.. Advised to monitor blood pressure at home and maintain a log. Goal blood pressure less than 140/80. Low-salt diet was discussed. Stress mitigation strategies were discussed. Will follow up in the clinic in 6 months time, sooner p.r.n.. Thank you for allowing me to partake in her care Orders: Orders Complete Blood Count no Diff Today I48.91 - Unspecified atrial fibrillation Basic Metabolic Panel Today I48.91 - Unspecified atrial fibrillation Medications: New losartan 50 mg PO BID 60 tabs 5RF Discontinued lisinopril Discontinued Reason: Doctor's Order 10 mg PO DAILY 90 tabs 2RF I10 - Essential (primary) hypertension Coding Level of Care Code Est Pt Level 4 (28728) Diagnoses Paroxysmal atrial fibrillation I48.0 Coronary artery disease involving [place] coronary artery of [place] heart without angina pectoris I25.10 Coronary Disease-Associated Artery/Lesion type: [place] artery [place] vs. transplanted heart: [place] heart Associated angina: without angina Essential hypertension I10
[2022-12-16 12:43] VITALS: BP 164/78; PULSE 58; BMI 31.4
== END 2022-12-16 13:01 | disposition home or self-care (01) ==
PROVIDERS: PCP Internal Medicine; Visit Provider Internal Medicine Cardiovascular Disease
DX: I48.0 Paroxysmal atrial fibrillation (principal); I25.10 Atherosclerotic heart disease of native coronary artery without angina pectoris; I10 Essential (primary) hypertension
CPT/HCPCS: 99214

== ENCOUNTER 2022-12-16 12:28 | Outpatient (REF) | payer MEDICARE, MEDICAID, SELFPAY ==
[2022-12-16 13:55] LABS: Hematocrit 29.3 % (37.0-47.0); Hemoglobin 9.6 g/dl (12.0-16.0); Mean Corpuscular HGB Conc 32.8 g/dl (31.0-35.0); Mean Corpuscular Hemoglobin 31.4 pg (27.0-33.0); Mean Corpuscular Volume 95.8 fL (80.0-98.0); Mean Platelet Volume 11.7 fL (9.4-12.3); Platelet Count 184 X10*3/uL (160-400); Red Blood Count 3.06 X10*6/uL (4.20-5.50); Red Cell Distribution Width 13.2 % (11.0-16.0); White Blood Count 5.8 X10*3/uL (4.8-10.8)
[2022-12-16 14:30] LABS: Anion Gap 12 (12-20); Blood Urea Nitrogen 26 mg/dL (9-16); Calcium 9.4 mg/dL (8.4-10.2); Carbon Dioxide 24 mmol/L (22-29); Chloride 110 mmol/L (96-108); Estimated Glomerular Filt Rate 44; Glucose Random 100 mg/dL (60-115); Potassium 5.2 mmol/L (3.3-5.1); Sodium 141 mmol/L (135-145)
== END 2022-12-16 12:29 | disposition home or self-care (01) ==
LOC: HO.LAB 12:28
PROVIDERS: PCP Internal Medicine; Visit Provider Internal Medicine Cardiovascular Disease
DX: I48.91 Unspecified atrial fibrillation (principal); I25.10 Atherosclerotic heart disease of native coronary artery without angina pectoris; I10 Essential (primary) hypertension; Z79.899 Other long term (current) drug therapy
CPT/HCPCS: 36415; 80048; 85027; 99212

== ENCOUNTER 2022-12-23 11:37 | Outpatient (REF) | payer MEDICARE, MEDICAID, SELFPAY ==
[2022-12-23 14:12] LABS: Anion Gap 12 (12-20); Blood Urea Nitrogen 29 mg/dL (9-16); Calcium 9.3 mg/dL (8.4-10.2); Carbon Dioxide 24 mmol/L (22-29); Chloride 106 mmol/L (96-108); Estimated Glomerular Filt Rate 45; Glucose Random 110 mg/dL (60-115); Potassium 4.8 mmol/L (3.3-5.1); Sodium 137 mmol/L (135-145)
== END 2022-12-23 11:38 | disposition home or self-care (01) ==
LOC: HO.HMGCLDS 11:37
PROVIDERS: PCP Internal Medicine; Visit Provider Internal Medicine Cardiovascular Disease
DX: I25.10 Atherosclerotic heart disease of native coronary artery without angina pectoris (principal)
CPT/HCPCS: 36415; 80048

== ENCOUNTER 2023-02-11 09:31 | Outpatient (AMB) | payer MEDICARE, MEDICAID, SELFPAY ==
[2023-02-11 09:34] VITALS: BP 128/70; PULSE 67; O2SAT 98; BMI 31.4
--- NOTE | 2023-02-11 09:34 | MHC.PC.OV ---
Vital Signs 02/11/23 09:34 Height 5 ft 4 in Weight 183 lb BMI 31.4 BP 128/70 Blood Pressure Location Lt brachial Position Sitting Pulse 67 Pulse Source Pulse Oximeter Pulse Oximetry (%) 98 Oxygen Delivery Method Room Air Intake Visit Reasons: 3 month f/u Allergies asparagus Allergy (Severe, Verified 02/11/23 09:35) Hives rosuvastatin [Crestor] Allergy (Unknown, Verified 02/11/23 09:35) unknown famotidine [From PEPCID] Adverse Reaction (Severe, Verified 02/11/23 09:35) NAUSEA oxycodone [From OXYCONTIN] Adverse Reaction (Intermediate, Verified 02/11/23 09:35) NAUSEA & VOMITING FROM PERCOCET TOO tramadol Adverse Reaction (Intermediate, Verified 02/11/23 09:35) could not concetrate chocolate cover cherries Allergy (Severe, Uncoded 02/11/23 09:35) Anaphylaxis Medication List - Last Reconciled 02/11/23 by Erika Jordan MD atorvastatin 20 mg PO DAILY 90 days lidocaine 4% (Salonpas (lidocaine)) 1 patch topical BID PRN losartan 50 mg PO BID meclizine 12.5 mg PO TID PRN metoprolol succinate ER 50 mg PO BID multivitamin 1 tab PO DAILY nitroglycerin 0.4 mg sublingual Q5M PRN rivaroxaban (Xarelto) 15 mg PO DAILY [Rollator As directed] [Shower chair w/back rest As directed] Tobacco use date assessed: 02/11/23 Fall risk assessment: No Falls in past year Last assessed Fall Risk: 02/11/23 HPI 3 month f/u HPI Details 82-year-old obese female with coronary artery disease atrial fibrillation hypercholesterolemia hypertension GERD last seen in October 2022. Patient is here for follow-up. Review of the notes has followed up with Cardiology December atrial fibrillation status post conversion July has significant left atrial enlargement on anticoagulation with Xarelto quarterly renal function test. Target LDL 60 mg/dL discontinued lisinopril and started on losartan 50 mg twice a day. Blood work December showing anemia [facility] Medical History (Updated 02/11/23 @ 10:11 by Erika Jordan MD) Anemia Atrial fibrillation Abscess of right genital labia Obesity Muscle spasm of right leg Angina pectoris Overweight (BMI 25.0-29.9) Right leg swelling Gait instability Vitamin D deficiency TIA (transient ischemic attack) Chronic kidney disease (CKD) stage G3b/A1, moderately decreased glomerular filtration rate (GFR) between 30-44 mL/min/1.73 square meter and albuminuria creatinine ratio less than 30 mg/g Spinal stenosis Leukopenia Hypercholesterolemia Insomnia Peripheral vascular disease Peripheral neuropathy Esophageal dysmotility Carotid stenosis Pityriasis lichenoides chronica Lumbar degenerative disc disease GERD (gastroesophageal reflux disease) Hypertension Coronary artery disease Primary osteoarthritis of both shoulders Surgical History History of esophagogastroduodenoscopy (EGD) H/O colonoscopy Hx of total knee arthroplasty Hx of arthroscopic knee surgery Stented coronary artery Status post phlebectomy History of cataract surgery Basal cell carcinoma (BCC) History of tonsillectomy S/P JIMENEZ-BSO History of appendectomy History of cholecystectomy Family History Mother No problems noted. Father No problems noted. Social History Household Members: None Housing: Apartment Do you presently have visiting nurse or other home services: Yes Alcohol intake: current Alcohol intake frequency: does not drink Alcohol type: hard liquor Patient Tobacco Use Status: Never used Tobacco e-Cigarette/Vaping Use: Never Used Second Hand Smoke Exposure: No Advance Directives Date on File: 07/11/20 service: No Current occupational status: retired Cognitive needs: Yes (walker ) Hearing needs: No Vision needs: No Questionnaire PHQ-9 Over the last 2 weeks, how often have you been bothered by any of the following problems? 1. Little interest or pleasure in doing things: not at all 2. Feeling down, depressed, or hopeless: not at all 3. Trouble falling or staying asleep, or sleeping too much: not at all 4. Feeling tired or having little energy: not at all 5. Poor appetite or overeating: not at all 6. Feeling bad about yourself - or that you are a failure or have let yourself or your family down: not at all 7. Trouble concentrating on things, such as reading the newspaper or watching television: not at all 8. Moving or speaking so slowly that other people could have noticed. Or the opposite - being so fidgety or restless that you have been moving around a lot more than usual: not at all 9. Thoughts that you would be better off or of hurting yourself in some way: not at all Total score: 0 Depression Screening Interpretation: Negative Depression Screening Done: Yes Source: Developed by Drs. Reinier Bernard, Kelly Wiggins, Sy Adames and colleagues, with an educational jody from [employer]. Thrive Questionnaire Date Thrive assessed: 08/06/22 I am a: Patient What is your living situation today?: I have a steady place to live Within the past 12 months, did the food you bought not last and you didn't have the money to get more?: Never true Within the past 12 months, did you worry whether your food would run out before you got money to buy more?: Never true Do you have trouble paying for medicines?: No Do you have trouble getting transportation to medical appointments?: No Do you have trouble paying your heating and electricity bill?: No Do you have trouble taking care of your child, family member or friend?: No Do you have trouble with day-to-day activities such as bathing, preparing meals, shopping, managing finances, etc.?: No Are you currently unemployed and looking for a job?: No Are you interested in more education?: No AUDIT C Alcohol Use Questionnaire (AUDIT-C) 1. How often do you have a drink containing alcohol?: Monthly or less 3. How often do you have six or more drinks on one occasion?: Never Total Score: 1 JEANMARIE-7 AMB Questionnaire JEANMARIE-7 Date JEANMARIE - 7 assessed: 02/11/23 Feeling nervous, anxious, or on edge: 0 = Not at all Not being able to stop or control worryin = Not at all Worrying too much about different things: 0 = Not at all Trouble relaxin = Not at all Being so restless that it is hard to sit still: 0 = Not at all Becoming easily annoyed or irritable: 0 = Not at all Feeling afraid as if something awful might happen: 0 = Not at all Total JAENMARIE-7 score (0-4 normal; 5-9 mild; 10-14 moderate; 15-21 severe): 0 Source: Developed by Drs. Reinier Bernard, Kelly Wiggins, Sy Adames and colleagues, with an educational jody from [employer]. Physical exam (Primary Care) Vital Signs: Last Vital Signs Pulse 67 02/11/23 09:34 BP 128/70 02/11/23 09:34 Pulse Ox 98 02/11/23 09:34 Oxygen Delivery Method Room Air 02/11/23 09:34 BMI result Body Mass Index 31.4 Tobacco/Smoking Status: Tobacco use Status Tobacco use date assessed 02/11/23 02/11/23 09:36 Patient Tobacco Use Status Never used Tobacco 02/11/23 09:36 e-Cigarette/Vaping Use Never Used 02/11/23 09:36 PHQ-9: PHQ-9 Score PHQ-9: Total score 0 02/11/23 09:36 Depression Screening Interpretation: Negative Thrive Assessment: Date of Thrive Assessment Date Thrive assessed 08/06/22 02/11/23 09:36 Const General: alert; No acute distress Eyes Conjunctivae: conjunctivae normal Resp Auscultation: clear to auscultation bilaterally Cardio Rate: regular rate Rhythm: regular rhythm GI Inspection: Yes normal to inspection Extrem General: Yes normal to inspection and No edema Assessment and Plan Assessment & Plan (1) Paroxysmal atrial fibrillation: Code(s): I48.0 - Paroxysmal atrial fibrillation Plan: Continue with anticoagulation with Xarelto and quarterly renal function test (2) Coronary artery disease: Comment: [place] in 1981, stent placement 2012 Code(s): I25.10 - Atherosclerotic heart disease of [place] coronary artery without angina pectoris Qualifiers: Coronary Disease-Associated Artery/Lesion type: [place] artery [place] vs. transplanted heart: [place] heart Associated angina: without angina Qualified Code(s): I25.10 - Atherosclerotic heart disease of [place] coronary artery without angina pectoris Plan: Control the cholesterol, weight, blood pressure, continue with anticoagulation (3) Hypercholesterolemia: Code(s): E78.00 - Pure hypercholesterolemia, unspecified Plan: Avoid fried foods, chicken skin, eggs, butter margarine, pastries and meat. Be it pork or beef they have a lot of cholesterol LDL goal of less than 60 and triglyceride of less than 150 patient on atorvastatin 20 mg once a day (4) Hypertension: Code(s): I10 - Essential (primary) hypertension Plan: Continue with blood pressure medication. Decrease salt intake and exercise . Cardiology changed to losartan 50 mg twice a day metoprolol 50 mg twice a day (5) GERD (gastroesophageal reflux disease): Code(s): K21.9 - Gastro-esophageal reflux disease without esophagitis Plan: Avoid the foods that causes that usually spicy foods, tomato products, juices, coffee, soda and foods that your sensitive to. After eating do not lie down, allow 3-4 hours before in lie down. And keep the head of bed above 30 degrees to avoid the acid from going up. (6) Primary osteoarthritis of both shoulders: Comment: X-ray 2019 severe arthritis Code(s): M19.011 - Primary osteoarthritis, right shoulder; M19.012 - Primary osteoarthritis, left shoulder Plan: Keep active (7) Generalized anxiety disorder: Code(s): F41.1 - Generalized anxiety disorder (8) Anemia: Code(s): D64.9 - Anemia, unspecified Orders: Orders Free T4 (Free Thyroxine) Today I10 - Essential (primary) hypertension Thyroid Stimulating Hormone Today I10 - Essential (primary) hypertension Ferritin Today I10 - Essential (primary) hypertension IRON PROFILE Today D64.9 - Anemia, unspecified Reticulocyte Count Today D64.9 - Anemia, unspecified Complete Blood Count Auto Diff Today I10 - Essential (primary) hypertension Comprehensive Met. Panel Today I10 - Essential (primary) hypertension Vitamin B12 and Folate Today E78.00 - Pure hypercholesterolemia, unspecified Vitamin D 25-OH Total Today E78.00 - Pure hypercholesterolemia, unspecified Hemoglobin A1c Today R73.01 - Impaired fasting glucose Referrals Orthopedics Referral M19.011 - Primary osteoarthritis, right shoulder, M19.012 - Primary osteoarthritis, left shoulder Medications: Refilled meclizine 12.5 mg PO TID PRN 30 tabs 0RF dizziness D64.9 - Anemia, unspecified Coding Level of Care Code Est Pt Level 4 (84084) Diagnoses Paroxysmal atrial fibrillation I48.0 Coronary artery disease involving [place] coronary artery of [place] heart without angina pectoris I25.10 Coronary Disease-Associated Artery/Lesion type: [place] artery [place] vs. transplanted heart: [place] heart Associated angina: without angina Hypercholesterolemia E78.00 Essential hypertension I10 GERD (gastroesophageal reflux disease) K21.9 Primary osteoarthritis of both shoulders M19.011; M19.012 Generalized anxiety disorder F41.1 Anemia D64.9
== END 2023-02-11 10:22 | disposition home or self-care (01) ==
PROVIDERS: PCP Internal Medicine; Visit Provider Internal Medicine
DX: I48.0 Paroxysmal atrial fibrillation (principal); I25.10 Atherosclerotic heart disease of native coronary artery without angina pectoris; E78.00 Pure hypercholesterolemia, unspecified; I10 Essential (primary) hypertension; K21.9 Gastro-esophageal reflux disease without esophagitis; M19.011 Primary osteoarthritis, right shoulder; M19.012 Primary osteoarthritis, left shoulder; F41.1 Generalized anxiety disorder; D64.9 Anemia, unspecified
CPT/HCPCS: 99214

== ENCOUNTER 2023-02-23 14:27 | Emergency (ER) | payer MEDICARE, MEDICAID, SELFPAY ==
--- NOTE | ~2023-02-23 | CT_ITS ---
EXAMINATION: CT HEAD WITHOUT CONTRAST CT CERVICAL SPINE WITHOUT CONTRAST CLINICAL INFORMATION: Fall. COMPARISON: Brain MRI from 03/27/2018. TECHNIQUE: Contiguous axial imaging was performed from the skull base to vertex without intravenous administration of contrast. Contiguous axial imaging was performed from the upper chest through the skull base without intravenous administration of contrast. Coronal and sagittal reformats were obtained at the acquisition workstation. This CT examination was performed using dose optimization techniques as appropriate, variously including the following: *Automated exposure control. *Adjustment of mA and/or kV according to patient size (this includes techniques or standardized protocols for targeted exams where dose is matched to indication/reason for exam; i.e. extremities or head). *Use of iterative reconstruction technique. DLP: 1004 mGy-cm FINDINGS: Head: There is no evidence of acute intracranial hemorrhage or edematous territorial infarction. Chronic lacunar infarct in the right thalamus. No new loss of reyes-white matter differentiation. A few foci of hypoattenuation in the periventricular and deep white matter are consistent with mild microangiopathy. Proportional prominence of the ventricles and sulcal spaces without evidence of obstructive hydrocephalus. Moderate expansion of the sella turcica with flattening of the pituitary gland. No abnormal mass effect or midline shift. No extra-axial fluid collections. Small to moderate subgaleal hematoma along the right posterior vertex, measuring up to 0.6 cm in depth. No associated acute osseous abnormalities. Mild mucosal thickening of the paranasal sinuses. The mastoid air cells and middle ear cavities are clear. Moderate degenerative arthropathy of the temporomandibular joints. Cervical Spine: The atlantooccipital and atlantoaxial articulations remain well aligned. Moderate degenerative arthropathy of the atlantodental articulation. Straightening of the normal cervical lordosis. Mild degenerative retrolisthesis of C5 on C6. Otherwise, there is anatomic alignment of the vertebral bodies and posterior elements. No evidence of acute fracture or subluxation. The vertebral body heights are maintained. Advanced degenerative disc disease at C5-C6. Moderate degenerative disc disease at C3-C4. Facet and uncovertebral joint arthropathy leads to osseous encroachment on the neural foramina from C3-C6. There is no prevertebral soft tissue swelling. Mildly heterogeneous thyroid gland. There is a 2.2 cm hypoattenuating nodule in the right thyroid lobe. The remaining cervical soft tissues are within normal limits. The lung apices demonstrate no abnormalities. CT/CT cervical spine wo IV con IMPRESSION: 1. No evidence of acute intracranial hemorrhage or edematous territorial infarction. Mild underlying microangiopathy and generalized cerebral volume loss. 2. No evidence of acute fracture or traumatic subluxation of the cervical spine. Moderate multilevel degenerative spondyloarthropathy of the cervical spine. 3. Small to moderate right posterior scalp hematoma. No associated osseous abnormalities. 4. There is a 2.2 cm nodule in the right thyroid lobe. Recommend further characterization with thyroid ultrasound.
--- NOTE | ~2023-02-23 | XR_ITS ---
EXAMINATION: XR CHEST CLINICAL INFORMATION: Cough COMPARISON: Previous chest x-ray June 2022 TECHNIQUE: Frontal view of the chest was obtained. FINDINGS: The cardiac silhouette is slightly enlarged but stable. The lungs are clear. No pleural effusion or pneumothorax. Degenerative changes of the shoulders and thoracic spine. XR/XR chest 1V IMPRESSION: No evidence for acute disease in the chest.
[2023-02-23 14:42] VITALS: BP 122/70; PULSE 61; O2SAT 95
[2023-02-23 14:48] VITALS: BP 154/66; PULSE 73; RESP 18; TEMP 37.7; O2SAT 97; BMI 30.6
--- NOTE | 2023-02-23 16:15 | ECG_ITS ---
Test Reason : FALL Blood Pressure : / mmHG Vent. Rate : 073 BPM Atrial Rate : 073 BPM P-R Int : 158 ms QRS Dur : 090 ms QT Int : 392 ms P-R-T Axes : 052 044 021 degrees QTc Int : 431 ms Normal sinus rhythm Normal ECG When compared with ECG of 23-JUL-2022 13:53, No significant changes seen Referred By: Collins Almazan Electronically Signed By:NATALIA BETANCOURT
--- NOTE | 2023-02-23 16:24 | ED.GENADULT ---
HPI - General Adult General Chief complaint: Fall Stated complaint: FALL W/HS +THINNERS Time Seen by Provider: 02/23/23 16:05 Source: patient, RN notes reviewed and old records reviewed Mode of arrival: EMS Limitations: other (Hard C-collar) History of Present Illness HPI narrative: 82-year-old female with past medical history significant for atrial fibrillation on Xarelto, hyperlipidemia, hypertension, osteopenia, coronary artery disease, GERD presents for evaluation after a fall Patient reports a nonsyncopal fall between 10-11 this morning. She states that she was reaching in her Fridge when she fell over onto her right side She believes that she struck her head but denies any loss of consciousness She complains of neck pain and pain to her right arm Patient reports her life Alert did not work and ?I was on the ground for least an hour. ? Patient was brought to the ER shortly before 3:00 p.m. Related Data Home Medications Medication Instructions Recorded Confirmed multivitamin 1 tab PO DAILY 07/02/22 02/23/23 melatonin 5 mg tablet 5 mg PO BEDTIME PRN Sleep 02/23/23 02/23/23 Previous Rx's Medication Instructions Recorded Rollator #1 ea 02/06/22 Shower chair w/back rest #1 ea 02/06/22 nitroglycerin 0.4 mg sublingual 0.4 mg sublingual Q5M PRN chest 05/02/22 tablet pain #20 tabs rivaroxaban 15 mg tablet (Xarelto) 15 mg PO DAILY #90 tabs 07/29/22 atorvastatin 20 mg tablet 20 mg PO DAILY 90 days #90 tabs 08/25/22 lidocaine 4 % topical patch 1 patch topical BID PRN pain #60 ea 10/20/22 (Salonpas (lidocaine)) losartan 50 mg tablet 50 mg PO BID #60 tabs 12/16/22 metoprolol succinate 50 mg 50 mg PO BID #180 tabs 02/03/23 tablet,extended release 24 hr Allergies Allergy/AdvReac Type Severity Reaction Status Date / Time asparagus Allergy Severe Hives Verified 02/11/23 09:35 rosuvastatin [Crestor] Allergy Unknown unknown Verified 02/11/23 09:35 famotidine [From PEPCID] AdvReac Severe NAUSEA Verified 02/11/23 09:35 oxycodone [From OXYCONTIN] AdvReac Intermediate NAUSEA & Verified 02/11/23 09:35 VOMITING FROM PERCOCET TOO tramadol AdvReac Intermediate could not Verified 02/11/23 09:35 concetrate chocolate cover cherries Allergy Severe Anaphylaxis Uncoded 02/11/23 09:35 Review of Systems Constitutional: Constitutional: Denies body ache(s), Denies chills, Denies fever(s) and Reports headache(s) Eyes: Eyes: Denies blurry vision ENT: Reports headache(s), Reports neck pain and Denies sore throat Cardiovascular: Cardiovascular: Denies chest pain and Denies dyspnea Respiratory: Respiratory: Reports cough and Denies dyspnea Gastrointestinal: Gastrointestinal: Denies abdominal pain, Reports diarrhea, Denies nausea and Denies vomiting Musculoskeletal: Musculoskeletal: Reports arthralgias (Right side of the body) and Reports neck pain Integumentary/Breasts: Skin/Breast: Denies rash Neurologic: Reports headache(s) PMFSH Past Medical History Onset Date is defined in the Problem List Problems that require an onset date and time if occurred within 24 hrs of arrival to the ED Aortic Dissection and Rupture; Neurologic impairment; Cardiopulmonary Arrest; Endotracheal Intubation; Insertion or Replacement of Mechanical Circulatory Assist Device Medical History (Updated 02/23/23 @ 19:19 by Collins Almazan) Anemia Atrial fibrillation Abscess of right genital labia Obesity Muscle spasm of right leg Angina pectoris Overweight (BMI 25.0-29.9) Right leg swelling Gait instability Vitamin D deficiency TIA (transient ischemic attack) Chronic kidney disease (CKD) stage G3b/A1, moderately decreased glomerular filtration rate (GFR) between 30-44 mL/min/1.73 square meter and albuminuria creatinine ratio less than 30 mg/g Spinal stenosis Leukopenia Hypercholesterolemia Insomnia Peripheral vascular disease Peripheral neuropathy Esophageal dysmotility Carotid stenosis Pityriasis lichenoides chronica Lumbar degenerative disc disease GERD (gastroesophageal reflux disease) Hypertension Coronary artery disease Primary osteoarthritis of both shoulders Surgical History History of esophagogastroduodenoscopy (EGD) H/O colonoscopy Hx of total knee arthroplasty Hx of arthroscopic knee surgery Stented coronary artery Status post phlebectomy History of cataract surgery Basal cell carcinoma (BCC) History of tonsillectomy S/P [id number] History of appendectomy History of cholecystectomy Family History Family History Mother No problems noted. Father No problems noted. Social History Social History Household Members: None Housing: Apartment Do you presently have visiting nurse or other home services: Yes Alcohol intake: never Patient Tobacco Use Status: Never used Tobacco e-Cigarette/Vaping Use: Never Used Second Hand Smoke Exposure: No Advance Directives Date on File: 07/11/20 service: No Current occupational status: retired Cognitive needs: Yes (walker ) Hearing needs: No Vision needs: No Physical Exam ED Vital Signs: Vital Signs - 24 hr 02/23/23 14:48 02/23/23 20:11 02/23/23 23:41 Temperature 100 F 99.9 F 98.9 F Pulse Rate 73 71 70 Respiratory Rate 18 18 16 Blood Pressure 154/66 H 119/42 L 125/45 L Pulse Oximetry 97 97 96 Oxygen Delivery Method Room Air Room Air Room Air 02/24/23 02:20 02/24/23 05:52 02/24/23 08:14 Temperature 98.7 F 98.3 F Pulse Rate 62 60 62 Respiratory Rate 16 16 16 Blood Pressure 143/38 H 126/64 125/64 Pulse Oximetry 96 95 95 Oxygen Delivery Method Room Air Room Air Room Air 02/24/23 08:28 02/24/23 09:19 Temperature Pulse Rate 66 66 Respiratory Rate 16 Blood Pressure 139/71 139/71 Pulse Oximetry Oxygen Delivery Method BMI result Body Mass Index 30.6 Const General: healthy appearing, comfortable, no acute distress, alert and awake Nutritional Appearance: well nourished Orientation/consciousness: patient oriented x3 HENMT Head: Yes normocephalic and Yes atraumatic Eyes Eyelids: Yes eyelids normal Conjunctivae: conjunctivae normal Sclerae: sclerae normal Corneas: corneas normal Pupils: Equal, round and reactive pupils present EOM: EOMs intact bilaterally Resp Effort & Inspection: normal respiratory effort, able to speak in complete sentences and not labored GI Inspection: No distended Palpation (GI): Soft to palpation, not firm, nontender, no guarding and not rigid Back/Spine/Pelvis Cervical Spine: collar present Skin General skin exam: elasticity normal Neuro General: patient oriented x3 Cranial nerves: Yes Equal, round and reactive pupils present and Yes Bilaterally intact EOM present Cognition (Neuro): normal cognition Extrem Other: Moving all extremities well without any obvious deformities Course Reevaluation(s) Reevaluation #1: Patient's workup is largely unremarkable, she ruled out for rhabdomyolysis or CPK was within normal limits. She did test positive for COVID-19. Given that she fell and lives alone was unable to get herself up, she will be a case management hold overnight to be seen by physical therapy and consideration for sniff placement. I feel it is too risky is discharge patient back home at this time Time: 19:18 Reevaluation #2: Patient was seen by case management and discussed with the family. Tentative plan for home physical therapy services per patient and her daughter. The patient will slowly to see Physical therapy to see if she qualifies for these recommendations. Time: 23:28 Reevaluation #3: 02/24/2023 0945 -- Physician observation continues. Patient being followed by case management. 02/24/2023 1350 -- Patient cleared for discharge home with VNA. Medications Administered Generic Name Dose Route Start Last Admin Trade Name Freq PRN Reason Stop Dose Admin Atorvastatin Calcium 20 mg 02/24/23 09:00 02/24/23 09:16 Atorvastatin Calcium 20 Mg Tablet PO 20 mg DAILY TREY Administration Losartan Potassium 50 mg 02/24/23 09:00 02/24/23 09:16 Losartan Potassium 50 Mg Tablet PO 50 mg BID TREY Administration Protocol Metoprolol Succinate 50 mg 02/24/23 09:00 02/24/23 09:17 Metoprolol Succinate Er 50 Mg Tab.Er.24h PO 50 mg BID TREY Administration Protocol Multivitamins/Vitamin C 1 tab 02/24/23 09:00 02/24/23 09:16 Multivitamin Tablet PO 1 tab DAILY TREY Administration Rivaroxaban 15 mg 02/24/23 09:00 02/24/23 10:11 Rivaroxaban 15 Mg Tablet PO 15 mg DAILY TREY Administration Discontinued Medications Generic Name Dose Route Start Last Admin Trade Name Freq PRN Reason Stop Dose Admin Melatonin 6 mg 02/23/23 20:41 02/23/23 21:38 Melatonin 3 Mg Tablet PO 02/23/23 20:42 6 mg ONCE ONE Administration Medical Decision Making Medical Decision Making MDM Narrative: 82-year-old female with history of atrial fibrillation on Xarelto presents for evaluation after a fall. She believes she struck her head and was on the ground for at least 1 hour. Given this we will check basic labs and CPK. We had a CT scan of the brain as she reports her head and is on anticoagulation. Will get a cervical spine CT as remains in a hard collar. Patient has no obvious injuries on exam. Workup pending Differential Diagnosis Differential Diagnoses: The differential diagnosis associated with the presentation includes Mechanical fall Concussion Contusion Intracranial hemorrhage Cervical fracture Rhabdomyolysis Lab Data 02/23/23 17:08 02/23/23 17:08 Labs: Lab Results 02/23/23 02/23/23 Range/Units 17:08 17:09 WBC 4.6 L (4.8-10.8) X10*3/uL RBC 2.48 L (4.20-5.50) X10*6/uL Hgb 7.8 L (12.0-16.0) g/dl Hct 23.8 L (37.0-47.0) % MCV 96.0 (80.0-98.0) fL MCH 31.5 (27.0-33.0) pg MCHC 32.8 (31.0-35.0) g/dl RDW 15.1 (11.0-16.0) % Plt Count 108 L D (160-400) X10*3/uL MPV 11.2 (9.4-12.3) fL Immature Gran % (Auto) 0.2 (0.0-0.4) % Neut % (Auto) 75.2 H (45-73) % Lymph % (Auto) 13.5 L (20-40) % Dickens % (Auto) 10.7 (2-11) % Eos % (Auto) 0.0 (0-4) % Baso % (Auto) 0.4 (0-2) % Lymph # (Auto) 0.6 L (1.2-4.9) X10*3/uL Dickens # (Auto) 0.5 (0.1-1.2) X10*3/uL Eos # (Auto) 0.0 (0.0-0.4) X10*3/uL Baso # (Auto) 0.0 (0.0-0.2) X10*3/uL Abs Immat Gran (auto) 0.01 (0.00-0.03) X10*3/uL Absolute Neuts (auto) 3.5 (2.0-8.3) x10*3/uL Absolute Nucleated RBC 0.000 (0.0-0.012) X10*3/uL Nucleated RBC % (auto) 0.0 (0.0-0.2) /100WBC Sodium 138 (135-145) mmol/L Potassium 4.6 (3.3-5.1) mmol/L Chloride 108 (96-108) mmol/L Carbon Dioxide 20 L (22-29) mmol/L Anion Gap 15 (12-20) BUN 23 H (9-16) mg/dL Creatinine 1.37 (0.5-1.4) mg/dL Estim Creat Clear Calc 31.4 Estimated GFR 37 Random Glucose 112 (60-115) mg/dL Calcium 9.0 (8.4-10.2) mg/dL Total Creatine Kinase 129 (26-140) U/L COVID-19 (ISABEL) Positive A (Negative) COVID-19 Clin Com See Note Influenza Type A (JAIRON) Negative (Negative) Influenza Type B (JAIRON) Negative (Negative) Influenza A & B Note See Note Discharge Plan Discharge Clinical Impression: Accident due to mechanical fall without injury, COVID-19 Patient Disposition: Home, Self-Care Instructions: COVID-19 (Coronavirus Disease 2019) (ED) Additional Instructions: You tested positive for COVID-19 The rest of your workup is largely reassuring and unremarkable This may have led to increased weakness resulting in your fall You have several medication reactions with Paxlovid antiviral treatment and therefore this was not prescribed It is recommended that you go home with home physical therapy services Return for any new or worsening symptoms Prescriptions: No Action (DME) Rollator See Rx Instructions .Route .MEDSUPPLY Qty: 1 0RF Rx Instructions: As directed (DME) Shower chair w/back rest See Rx Instructions .Route .MEDSUPPLY Qty: 1 0RF Rx Instructions: As directed Xarelto 15 mg tablet 15 mg PO DAILY Qty: 90 3RF Rx Instructions: must administer with evening meal atorvastatin 20 mg tablet 20 mg PO DAILY 90 Days Qty: 90 2RF metoprolol succinate 50 mg tablet extended release 24 hr 50 mg PO BID Qty: 180 3RF multivitamin Tablet 1 tab PO DAILY melatonin 5 mg Tablet 5 mg PO BEDTIME PRN (Reason: Sleep) nitroglycerin 0.4 mg tablet, sublingual 0.4 mg sublingual Q5M PRN (Reason: chest pain) Qty: 20 1RF Rx Instructions: do not exceed 3 doses per episode lidocaine [Salonpas (lidocaine)] 4 % adhesive patch,medicated 1 patch topical BID PRN (Reason: pain) Qty: 60 0RF losartan 50 mg tablet 50 mg PO BID Qty: 60 5RF Referrals: Darlyn GRANDEA [Outside]
[2023-02-23 17:18] LABS: MANUAL DIFF FLAG NO
[2023-02-23 17:19] LABS: Basophils Percent Auto 0.4 % (0-2); Hematocrit 23.8 % (37.0-47.0); Hemoglobin 7.8 g/dl (12.0-16.0); Imm Gran Abs Auto 0.01 X10*3/uL (0.00-0.03); Imm Gran Pct Auto 0.2 % (0.0-0.4); Lymphocytes Absolute Auto 0.6 X10*3/uL (1.2-4.9); Lymphocytes Percent Auto 13.5 % (20-40); Mean Corpuscular HGB Conc 32.8 g/dl (31.0-35.0); Mean Corpuscular Hemoglobin 31.5 pg (27.0-33.0); Mean Platelet Volume 11.2 fL (9.4-12.3); Monocytes Absolute Auto 0.5 X10*3/uL (0.1-1.2); Monocytes Percent Auto 10.7 % (2-11); Neutrophils Absolute Auto 3.5 x10*3/uL (2.0-8.3); Neutrophils Percent Auto 75.2 % (45-73); Platelet Count 108 X10*3/uL (160-400); Red Blood Count 2.48 X10*6/uL (4.20-5.50); Red Cell Distribution Width 15.1 % (11.0-16.0); White Blood Count 4.6 X10*3/uL (4.8-10.8)
[2023-02-23 17:29] LABS: COVID-19 Test Positive (Negative); IDNOW Serial# 08D9AD1C
[2023-02-23 17:34] LABS: Anion Gap 15 (12-20); Blood Urea Nitrogen 23 mg/dL (9-16); Carbon Dioxide 20 mmol/L (22-29); Chloride 108 mmol/L (96-108); Creatinine Clr Calc Pharmacy 31.4; Estimated Glomerular Filt Rate 37; Glucose Random 112 mg/dL (60-115); Potassium 4.6 mmol/L (3.3-5.1); Sodium 138 mmol/L (135-145)
[2023-02-23 17:52] LABS: IDNOW Serial# 9DB6401D; Influenza A Negative (Negative); Influenza B2 Negative (Negative)
[2023-02-23 20:11] VITALS: BP 119/42; PULSE 71; RESP 18; TEMP 37.7; O2SAT 97
--- NOTE | 2023-02-23 20:46 | MHC.CM.ED ---
Addendum entered by Mansi Alberts 02/23/23 20:52: Pt had [facility] after last admission. Original Note: CM met with patient at the request of Roman SMITH. Pt is A&O x3. Lives alone in elderly housing. Still drives. Uses a walker and a cane. Active with [facility]. 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 Gets christian brown bad monthly. HCP/daughter Kristie Palma ([phone]). HCP not on file. Was hospitalized in June of last year for a-fib and was discharged with [facility]. Pt took a fall backwards today while reaching into her refrigerator. C/O body aches. Work up essentially negative. PT pending. Pt would rather have [facility], and not go to [facility]. Pt has Medicare/Medicaid, so would only qualify for assisted care. No referrals placed at this time pending PT evaluation. CM will follow for discharge planning.
--- NOTE | 2023-02-23 21:13 | PHA.MEDREC ---
Pharmacy Consult ? Medication Reconciliation Pharmacy has completed the medication reconciliation. Confirmed medication with patient. Pt had a written medication list that matched up to pharmacy claim history. Kiah Steiner CPhT
[2023-02-23] MEDS: Melatonin 3 MG TABLET 6 MG PO (21:38)
[2023-02-23 23:41] VITALS: BP 125/45; PULSE 70; RESP 16; TEMP 37.2; O2SAT 96
--- NOTE | 2023-02-23 23:51 | PC.NURSE ---
This RN took over pt care @ 2340 Pt resting in bed comfortably, no signs of distress. Plan of care ongoing.
[2023-02-24 02:20] VITALS: BP 143/38; PULSE 62; RESP 16; TEMP 37.1; O2SAT 96
--- NOTE | 2023-02-24 04:39 | PC.NURSE ---
Original purewick placed by tech came out of place and pt urinated in bed, unable to collect sample. Pt advised UA required. New purewick placed. Plan of care ongoing.
--- NOTE | 2023-02-24 04:41 | MHC.EDTECH ---
placed purewick at 7pm patient toss and turned in the bed and move the purewick that was put on her and wasn't able to get the urine
[2023-02-24 05:52] VITALS: BP 126/64; PULSE 60; RESP 16; TEMP 36.8; O2SAT 95
--- NOTE | 2023-02-24 06:37 | PC.NURSE ---
This RN spoke with pt regarding urine. Pt states I don't have to go Plan of care ongoing.
[2023-02-24 08:14] VITALS: BP 125/64; PULSE 62; RESP 16; O2SAT 95
[2023-02-24 08:28] VITALS: BP 139/71; PULSE 66
[2023-02-24] MEDS: Atorvastatin Calcium 20 MG TABLET PO (09:16)
[2023-02-24] MEDS: Multivitamin TABLET 1 TAB PO (09:16)
[2023-02-24] MEDS: Losartan Potassium 50 MG TABLET PO (09:16)
[2023-02-24] MEDS: Metoprolol Succinate ER 50 MG TAB.ER.24H PO (09:17)
[2023-02-24 09:19] VITALS: BP 139/71; PULSE 66; RESP 16
[2023-02-24] MEDS: Rivaroxaban 15 MG TABLET PO (10:11)
--- NOTE | 2023-02-24 10:19 | PC.NURSE ---
assumed care of pt at 0700. pt a&o x4, pleasant, calm, and cooperative. pt reporting 10/10 pain all over . pt medicated per apr and met with PT this AM. pt back in bed, watching tv. pt sts she did not eat much of breakfast due to not feeling so well. call conklin within pt reach. plan of care ongoing.
--- NOTE | 2023-02-24 11:38 | PC.NURSE ---
Assumed care of patient at 1100, patient resting comfortably on stretcher, offers no complaints to this RN, provided with warm blanket. respirations even and unlabored, skin pwd, no apparent distress
--- NOTE | 2023-02-24 14:01 | MHC.CM.ED ---
Patient remains in ER. Physical therapy eval completed. Home with services is recommended. Referral made to [facility] because patient has been active with them in the past. Met with patient in regards to discharge planning. Patient agreeable to going home with [facility]NA. Patient was hoping to d/c home tomorrow 02/25 due to the weather. T/W explained that would not be feasible. Patient agreeable to going home with [facility] via BLS. Spoke with patient's daughter, Kristie, via telephone at [phone]. Kristie agreeable to d/c plan. Kristie asked about treatment for Covid. T/W explained Covid was incidental finding and patient is not exhibiting any Covid symptoms at this time, so medication would not be appropriate at this time. Devin MILTON booked for 430pm. Patient, Wanda Flowers RN and Trina SMITH aware. Continue to monitor for d/c needs.
[2023-02-24 14:17] VITALS: PULSE 62; RESP 16; O2SAT 97
--- NOTE | 2023-02-24 14:20 | PC.NURSE ---
Pt ate 50% of lunch, ambulated up to commode with minimal assistance from this RN. Offers no complaints, RR even and unlabored, aware of plan of care for d/c at 1630
== END 2023-02-24 17:50 | disposition home or self-care (01) ==
PROVIDERS: Physician Assistant; Emergency Provider Emergency Medicine; PCP Internal Medicine
DX: S09.90XA Unspecified injury of head, initial encounter (principal); U07.1 COVID-19; R51.9 Headache, unspecified; M54.2 Cervicalgia; R05.9 Cough, unspecified; W01.10XA Fall on same level from slipping, tripping and stumbling with subsequent striking against unspecified object, initial encounter; Y93.9 Activity, unspecified; Y92.000 Kitchen of unspecified non-institutional (private) residence as the place of occurrence of the external cause; Y99.9 Unspecified external cause status; Z79.899 Other long term (current) drug therapy
CPT/HCPCS: 70450; 71045; 72125; 80048; 82550; 85025; 87502; 87635; 93005; 97161; 99285

== ENCOUNTER → 2023-02-23 16:15 | Outpatient (BNV) | payer MEDICARE, MEDICAID, SELFPAY | PROVIDERS: Emergency Provider Emergency Medicine; PCP Internal Medicine; Visit Provider Internal Medicine | DX: R51.9 Headache, unspecified (principal); W19.XXXA Unspecified fall, initial encounter | CPT/HCPCS: 93010 ==

== ENCOUNTER 2023-03-18 08:44 | Outpatient (AMB) | payer MEDICARE, MEDICAID, SELFPAY ==
--- NOTE | 2023-03-18 08:48 | MHC.PC.OV ---
Vital Signs 03/18/23 08:52 Height 5 ft 4 in Weight 81.193 kg BMI 30.7 BP 138/80 Blood Pressure Location Lt brachial Position Sitting Pulse 78 Pulse Source Pulse Oximeter Pulse Oximetry (%) 98 Oxygen Delivery Method Room Air Intake Visit Reasons: C - Fall, COVID + Intake Note: Patient here HDF from [facility] for fall, covid Plant Reliability Engineer Required: No Accompanied by: Self / Same As Patient Allergies asparagus Allergy (Severe, Verified 03/18/23 08:54) Hives rosuvastatin [Crestor] Allergy (Unknown, Verified 03/18/23 08:54) unknown famotidine [From PEPCID] Adverse Reaction (Severe, Verified 03/18/23 08:54) NAUSEA oxycodone [From OXYCONTIN] Adverse Reaction (Intermediate, Verified 03/18/23 08:54) NAUSEA & VOMITING FROM PERCOCET TOO tramadol Adverse Reaction (Intermediate, Verified 03/18/23 08:54) could not concetrate chocolate cover cherries Allergy (Severe, Uncoded 02/11/23 09:35) Anaphylaxis Medication List - Last Reconciled 03/18/23 by LUIS Bo atorvastatin 20 mg PO DAILY 90 days losartan 50 mg PO BID meclizine 12.5 mg PO TID melatonin 5 mg PO BEDTIME PRN metoprolol succinate ER 50 mg PO BID multivitamin 1 tab PO DAILY nitroglycerin 0.4 mg sublingual Q5M PRN rivaroxaban (Xarelto) 15 mg PO DAILY [Rollator As directed] [Shower chair w/back rest As directed] Tobacco use date assessed: 02/11/23 Fall risk assessment: 1 Fall in past year Last assessed Fall Risk: 03/18/23 Dental Screening Dental Screen Date: 03/18/23 Did you have a dental visit in the last 12 months?: Yes Did you have a dental problem in the last 6 months where you did not have access to dental care?: No Was dental information given to patient?: Patient has dentist HPI HPI Comments History of Present Illness Details 82-year-old female with history of hyperlipidemia, atrial fibrillation anticoagulated with Xarelto, hypertension, osteopenia, coronary artery disease presents to the office for post ER follow-up. She presented to [facility] ED on 02/23 after sustaining a nonsyncopal fall that morning. She had been reaching into her Fridge when she fell onto her right side. She did strike her head but without any loss of consciousness. She was complaining of pain in the right-side of the neck radiating to the right arm. Her Life Alert button did not work and she was on the ground for at least an hour and was brought to the ED via EMS. She denies any lightheadedness but states she had lost her balance. No shortness of breath, chest pain, palpitations, vision changes. She states she has experienced lightheaded in the past related to caffeine but switch to decaf coffee without further issue. While in the ED, head CT negative for any acute intracranial abnormality. Cervical spine CT negative for any osseous abnormality including acute fracture, subluxation, or dislocation. Urinalysis unremarkable. She did test positive for COVID-19 with normal CPK. She was asymptomatic as far as her COVID-19. She boarded in the ED with case management after observation was discharged home with physical therapy through [facility]. She states that she has been doing well with rehabilitation through PT/OT and has also had a nurse in the house and will be discharging Thursday from their service. Denies any further falls, lightheadedness. She does ambulate with a walker at all times. Her Life Alert button has been replaced. She also has a design draftsman at home as well as her brother who checks in on her on a daily basis. She does feel safe at home. [facility] Medical History Anemia Atrial fibrillation Abscess of right genital labia Obesity Muscle spasm of right leg Angina pectoris Overweight (BMI 25.0-29.9) Right leg swelling Gait instability Vitamin D deficiency TIA (transient ischemic attack) Chronic kidney disease (CKD) stage G3b/A1, moderately decreased glomerular filtration rate (GFR) between 30-44 mL/min/1.73 square meter and albuminuria creatinine ratio less than 30 mg/g Spinal stenosis Leukopenia Hypercholesterolemia Insomnia Peripheral vascular disease Peripheral neuropathy Esophageal dysmotility Carotid stenosis Pityriasis lichenoides chronica Lumbar degenerative disc disease GERD (gastroesophageal reflux disease) Hypertension Coronary artery disease Primary osteoarthritis of both shoulders Surgical History History of esophagogastroduodenoscopy (EGD) H/O colonoscopy Hx of total knee arthroplasty Hx of arthroscopic knee surgery Stented coronary artery Status post phlebectomy History of cataract surgery Basal cell carcinoma (BCC) History of tonsillectomy S/P JIMENEZ-BSO History of appendectomy History of cholecystectomy Family History Mother No problems noted. Father No problems noted. Social History Household Members: None Housing: Apartment Do you presently have visiting nurse or other home services: Yes Alcohol intake: never Patient Tobacco Use Status: Never used Tobacco e-Cigarette/Vaping Use: Never Used Second Hand Smoke Exposure: No Advance Directives Date on File: 07/11/20 service: No Current occupational status: retired Cognitive needs: Yes (walker ) Hearing needs: No Vision needs: No Questionnaire PHQ-9 Over the last 2 weeks, how often have you been bothered by any of the following problems? 1. Little interest or pleasure in doing things: not at all 2. Feeling down, depressed, or hopeless: several days 3. Trouble falling or staying asleep, or sleeping too much: several days 4. Feeling tired or having little energy: several days 5. Poor appetite or overeating: not at all 6. Feeling bad about yourself - or that you are a failure or have let yourself or your family down: not at all 7. Trouble concentrating on things, such as reading the newspaper or watching television: not at all 8. Moving or speaking so slowly that other people could have noticed. Or the opposite - being so fidgety or restless that you have been moving around a lot more than usual: not at all 9. Thoughts that you would be better off or of hurting yourself in some way: not at all Total score: 3 Source: Developed by Drs. Reinier Bernard, Kelly Wiggins, Sy Adames and colleagues, with an educational jody from [employer]. Thrive Questionnaire Date Thrive assessed: 03/18/23 I am a: Patient What is your living situation today?: I have a steady place to live Within the past 12 months, did the food you bought not last and you didn't have the money to get more?: Never true Within the past 12 months, did you worry whether your food would run out before you got money to buy more?: Never true Do you have trouble paying for medicines?: No Do you have trouble getting transportation to medical appointments?: No Do you have trouble paying your heating and electricity bill?: No Do you have trouble taking care of your child, family member or friend?: No Do you have trouble with day-to-day activities such as bathing, preparing meals, shopping, managing finances, etc.?: No Are you currently unemployed and looking for a job?: No Are you interested in more education?: No Please select the resources that you would like help with: None Currently or been in a relationship where the following occur: no concerns reported THRIVE Score: 0 AUDIT C Alcohol Use Questionnaire (AUDIT-C) 1. How often do you have a drink containing alcohol?: Never Total Score: 0 JEANMARIE-7 AMB Questionnaire JEANMARIE-7 Date JEANMARIE - 7 assessed: 03/18/23 Feeling nervous, anxious, or on edge: 1 = Several days Not being able to stop or control worryin = Not at all Worrying too much about different things: 0 = Not at all Trouble relaxin = Not at all Being so restless that it is hard to sit still: 0 = Not at all Becoming easily annoyed or irritable: 0 = Not at all Feeling afraid as if something awful might happen: 0 = Not at all Total JEANMARIE-7 score (0-4 normal; 5-9 mild; 10-14 moderate; 15-21 severe): 1 Source: Developed by Drs. Reinier Bernard, Kelly Wiggins, Sy Adames and colleagues, with an educational jody from [employer]. Review of Systems Const All systems reviewed & are unremarkable except as noted in HPI and below Physical exam (Primary Care) Vital Signs: Last Vital Signs Pulse 78 03/18/23 08:52 BP 138/80 03/18/23 08:52 Pulse Ox 98 03/18/23 08:52 Oxygen Delivery Method Room Air 03/18/23 08:52 BMI result Body Mass Index 30.7 Tobacco/Smoking Status: Tobacco use Status Tobacco use date assessed 02/11/23 03/18/23 08:50 Patient Tobacco Use Status Never used Tobacco 03/18/23 08:50 e-Cigarette/Vaping Use Never Used 03/18/23 08:50 PHQ-9: PHQ-9 Score PHQ-9: Total score 3 03/18/23 09:12 Thrive Assessment: Date of Thrive Assessment Date Thrive assessed 03/18/23 03/18/23 08:59 Currently or been in a relationship where the following occur: no concerns reported Const Other: Constitutional - Awake and Alert, No apparent distress Eyes - PERRLA, EOMI Cardiovascular - S1S2, RRR, No edema Respiratory - Normal lung expansion, Normal respiratory effort, No respiratory distress, CTA bilaterally Extremities - no calf tenderness bilaterally, no swelling Skin - Warm/Dry Neurological - Alert & oriented x3, CN II-XII in tact Psychological - Appropriate affect Assessment and Plan Assessment & Plan (1) COVID-19: Code(s): U07.1 - COVID-19 Plan: Remains asymptomatic. Pt denies any prodrome leading up to fall, likely mechanical rather than related to COVID-19. Ambulating well with walker without any recurrent falls. COntinue with strict walker usage and continue working with PT/OT. Utilize lifealert for any future falls. FOllow up with pcp (2) Anemia: Code(s): D64.9 - Anemia, unspecified Plan: Has chronic normocytic anemia. Less likely to be related to fall, but should recheck cbc given AC status. CBC Orders: Orders Complete Blood Count Auto Diff 03/18/23 D64.9 - Anemia, unspecified Coding Level of Care Code Est Pt Level 4 (75599) Diagnoses COVID-19 U07.1 Anemia D64.9
[2023-03-18 08:52] VITALS: BP 138/80; PULSE 78; O2SAT 98; BMI 30.7
== END 2023-03-18 09:31 | disposition home or self-care (01) ==
PROVIDERS: PCP Internal Medicine; Visit Provider Physician Assistant
DX: U07.1 COVID-19 (principal); D64.9 Anemia, unspecified
CPT/HCPCS: 99214

== ENCOUNTER 2023-04-17 12:49 | Outpatient (REF) | payer MEDICARE, MEDICAID, SELFPAY ==
[2023-04-17 17:04] LABS: MANUAL DIFF FLAG NO
[2023-04-17 17:08] LABS: Basophils Absolute Auto 0.1 X10*3/uL (0.0-0.2); Eosinophils Absolute Auto 0.2 X10*3/uL (0.0-0.4); Eosinophils Percent Auto 2.7 % (0-4); Hematocrit 34.4 % (37.0-47.0); Hemoglobin 11.3 g/dl (12.0-16.0); Imm Gran Abs Auto 0.02 X10*3/uL (0.00-0.03); Imm Gran Pct Auto 0.3 % (0.0-0.4); Immature Retic Fraction 8.8 % (3.0-15.9); Lymphocytes Absolute Auto 1.9 X10*3/uL (1.2-4.9); Lymphocytes Percent Auto 29.8 % (20-40); Mean Corpuscular HGB Conc 32.8 g/dl (31.0-35.0); Mean Corpuscular Hemoglobin 31.8 pg (27.0-33.0); Mean Corpuscular Volume 96.9 fL (80.0-98.0); Mean Platelet Volume 12.8 fL (9.4-12.3); Monocytes Absolute Auto 0.5 X10*3/uL (0.1-1.2); Monocytes Percent Auto 7.5 % (2-11); Neutrophils Absolute Auto 3.7 x10*3/uL (2.0-8.3); Neutrophils Percent Auto 58.7 % (45-73); Platelet Count 245 X10*3/uL (160-400); Red Blood Count 3.55 X10*6/uL (4.20-5.50); Red Cell Distribution Width 13.4 % (11.0-16.0); Retic HGB Equivalent 33.5 pg (30.0-35.0); Reticulocyte Percent 1.4 % (0.5-1.8); Reticulocytes Absolute 0.049 X10*6/uL (0.026-0.095); White Blood Count 6.3 X10*3/uL (4.8-10.8)
[2023-04-17 17:28] LABS: Alanine Aminotransferase 12 U/L (0-31); Albumin Level 4.1 g/dL (3.5-5.0); Alkaline Phosphatase 73 U/L (39-117); Anion Gap 13 (12-20); Aspartate Amino Transferase 22 U/L (5-31); Blood Urea Nitrogen 28 mg/dL (9-16); Calcium 9.9 mg/dL (8.4-10.2); Carbon Dioxide 20 mmol/L (22-29); Chloride 110 mmol/L (96-108); Estimated Glomerular Filt Rate 41; Glucose Random 108 mg/dL (60-115); Iron 72 mcg/dL (30-160); Percent Iron Saturation 24 % (15-50); Potassium 5.1 mmol/L (3.3-5.1); Sodium 138 mmol/L (135-145); Total Iron Binding Capacity 297 mcg/dL (228-428); Total Protein 7.5 g/dL (6.5-8.0); Unsaturated Iron Binding 225 ug/dL
[2023-04-17 17:38] LABS: Estimated Average Glucose 97 mg/dL
[2023-04-17 17:44] LABS: Ferritin 86 ng/mL (10-250); Free T4 (Free Thyroxine) 1.04 ng/dL (0.71-1.85); Thyroid Stimulating Hormone 1.64 uIU/mL (0.32-4.0); Vitamin D 25-OH Total 26.6 ng/mL (>30)
[2023-04-17 17:57] LABS: Folate 7.1 ng/mL (> or = 4.0); Vitamin B12 421 pg/mL (200-900)
== END 2023-04-17 12:50 | disposition home or self-care (01) ==
LOC: HO.HMGCLDS 12:49
PROVIDERS: PCP Internal Medicine; Referring Provider Physician Assistant; Visit Provider Internal Medicine
DX: I10 Essential (primary) hypertension (principal); D64.9 Anemia, unspecified; E78.00 Pure hypercholesterolemia, unspecified; R73.01 Impaired fasting glucose
CPT/HCPCS: 36415; 80053; 82306; 82607; 82728; 82746; 83036; 83540; 84439; 84443; 85025; 85045

== ENCOUNTER 2023-05-07 12:02 | Outpatient (AMB) | payer MEDICARE, MEDICAID, SELFPAY ==
[2023-05-07 12:33] VITALS: BP 142/86; PULSE 88; O2SAT 98; BMI 31.1
--- NOTE | 2023-05-07 12:33 | MHC.PC.OV ---
Vital Signs 05/07/23 12:33 Height 5 ft 4 in Weight 181 lb BMI 31.1 BP 142/86 H Blood Pressure Location Lt brachial Position Sitting Pulse 88 Pulse Source Pulse Oximeter Pulse Oximetry (%) 98 Oxygen Delivery Method Room Air Intake Visit Reasons: Boil draining Quality Assurance Coach Required: No Allergies asparagus Allergy (Severe, Verified 05/07/23 12:37) Hives rosuvastatin [Crestor] Allergy (Unknown, Verified 05/07/23 12:37) unknown famotidine [From PEPCID] Adverse Reaction (Severe, Verified 05/07/23 12:37) NAUSEA oxycodone [From OXYCONTIN] Adverse Reaction (Intermediate, Verified 05/07/23 12:37) NAUSEA & VOMITING FROM PERCOCET TOO tramadol Adverse Reaction (Intermediate, Verified 05/07/23 12:37) could not concetrate chocolate cover cherries Allergy (Severe, Uncoded 05/07/23 12:37) Anaphylaxis Medication List - Last Reconciled 05/07/23 by Erika Jordan, amoxicillin-pot clavulanate 875-125 mg 1 tab PO BID atorvastatin 20 mg PO DAILY 90 days clotrimazole 1% 1 appl topical BID 4 weeks Lactobacillus rhamnosus GG (Culturelle) 1 cap PO BID losartan 50 mg PO BID meclizine 12.5 mg PO TID melatonin 5 mg PO BEDTIME PRN metoprolol succinate ER 50 mg PO BID multivitamin 1 tab PO DAILY nitroglycerin 0.4 mg sublingual Q5M PRN rivaroxaban (Xarelto) 15 mg PO DAILY [Rollator As directed] [Shower chair w/back rest As directed] Tobacco use date assessed: 05/07/23 Fall risk assessment: 1 Fall in past year Last assessed Fall Risk: 05/07/23 Dental Screening Dental Screen Date: 05/07/23 HPI Boil draining HPI Details 83-year-old obese female with atrial fibrillation coronary artery disease hypertension hypercholesterolemia GERD and generalized anxiety disorder last seen in February 2023. Patient is here for follow-up. Review of the notes was seen by the nurse practitioner in March had a fall in February 23 no loss of consciousness complains of pain on the right side of the neck radiating to right arm noted positive for COVID-19 had physical therapy. Patient called yesterday having a boil. [facility] Medical History Anemia Atrial fibrillation Abscess of right genital labia Obesity Muscle spasm of right leg Angina pectoris Overweight (BMI 25.0-29.9) Right leg swelling Gait instability Vitamin D deficiency TIA (transient ischemic attack) Chronic kidney disease (CKD) stage G3b/A1, moderately decreased glomerular filtration rate (GFR) between 30-44 mL/min/1.73 square meter and albuminuria creatinine ratio less than 30 mg/g Spinal stenosis Leukopenia Hypercholesterolemia Insomnia Peripheral vascular disease Peripheral neuropathy Esophageal dysmotility Carotid stenosis Pityriasis lichenoides chronica Lumbar degenerative disc disease GERD (gastroesophageal reflux disease) Hypertension Coronary artery disease Primary osteoarthritis of both shoulders Surgical History History of esophagogastroduodenoscopy (EGD) H/O colonoscopy Hx of total knee arthroplasty Hx of arthroscopic knee surgery Stented coronary artery Status post phlebectomy History of cataract surgery Basal cell carcinoma (BCC) History of tonsillectomy S/P JIMENEZ-BSO History of appendectomy History of cholecystectomy Family History Mother No problems noted. Father No problems noted. Social History Household Members: None Housing: Apartment Do you presently have visiting nurse or other home services: Yes Alcohol intake: never Patient Tobacco Use Status: Never used Tobacco e-Cigarette/Vaping Use: Never Used Second Hand Smoke Exposure: No Advance Directives Date on File: 07/11/20 service: No Current occupational status: retired Cognitive needs: Yes (walker ) Hearing needs: No Vision needs: No Questionnaire Thrive Questionnaire Date Thrive assessed: 03/18/23 AUDIT C Alcohol Use Questionnaire (AUDIT-C) 1. How often do you have a drink containing alcohol?: Never Total Score: 0 JEANMARIE-7 AMB Questionnaire JEANMARIE-7 Date JEANMARIE - 7 assessed: 03/18/23 Source: Developed by Drs. Reinier Bernard, Kelly Wiggins, Sy Adames and colleagues, with an educational jody from [employer]. Physical exam (Primary Care) Vital Signs: Oxygen Delivery Method Room Air 05/07/23 12:33 BMI result Body Mass Index 31.1 Tobacco/Smoking Status: Tobacco use Status Tobacco use date assessed 05/07/23 05/07/23 12:39 Patient Tobacco Use Status Never used Tobacco 05/07/23 12:39 e-Cigarette/Vaping Use Never Used 05/07/23 12:39 Thrive Assessment: Date of Thrive Assessment Date Thrive assessed 03/18/23 05/07/23 12:39 Other: Vaginal exam with the medical program specialist Roberta shows right labia majora with 5 mm opening with discharge Assessment and Plan Assessment & Plan (1) Anemia: Code(s): D64.9 - Anemia, unspecified (2) Paroxysmal atrial fibrillation: Code(s): I48.0 - Paroxysmal atrial fibrillation (3) Abscess of vagina: Code(s): N76.0 - Acute vaginitis Plan: antibiotic sent , will refer to gynecology (4) Tinea cruris: Code(s): B35.6 - Tinea cruris (5) Hypertension: Code(s): I10 - Essential (primary) hypertension Orders: Referrals PROCESS MECHANIC Referral N76.0 - Acute vaginitis Medications: New amoxicillin-pot clavulanate 875-125 mg 1 tab PO BID 14 tabs 0RF N76.0 - Acute vaginitis clotrimazole 1% 1 appl topical BID 4 weeks 45 grams 0RF B35.6 - Tinea cruris Lactobacillus rhamnosus GG (Culturelle) 1 cap PO BID 20 caps 0RF N76.0 - Acute vaginitis Refilled losartan 50 mg PO BID 180 tabs 3RF I10 - Essential (primary) hypertension Coding Level of Care Code Est Pt Level 4 (99791) Diagnoses Anemia D64.9 Paroxysmal atrial fibrillation I48.0 Abscess of vagina N76.0 Tinea cruris B35.6 Essential hypertension I10
== END 2023-05-07 15:02 | disposition home or self-care (01) ==
PROVIDERS: PCP Internal Medicine; Visit Provider Internal Medicine
DX: D64.9 Anemia, unspecified (principal); I48.0 Paroxysmal atrial fibrillation; N76.0 Acute vaginitis; B35.6 Tinea cruris; I10 Essential (primary) hypertension
CPT/HCPCS: 99214

== ENCOUNTER 2023-05-18 15:12 | Outpatient (AMB) | payer MEDICARE, MEDICAID, SELFPAY ==
[2023-05-18 15:19] VITALS: BP 130/78; BMI 30.9
--- NOTE | 2023-05-18 15:19 | MHC.OFFVIS ---
Intake Vital Signs 05/18/23 15:19 Height 5 ft 4 in Weight 180 lb BMI 30.9 BP 130/78 Intake Visit Reasons: acute vaginitis Territory Sales Manager Medical Required: No Information Interpreted: non-clinical & clinical Storage Manager: Storage Manager Present (Cheryl) Allergies asparagus Allergy (Severe, Verified 05/18/23 15:21) Hives rosuvastatin [Crestor] Allergy (Unknown, Verified 05/18/23 15:21) unknown famotidine [From PEPCID] Adverse Reaction (Severe, Verified 05/18/23 15:21) NAUSEA oxycodone [From OXYCONTIN] Adverse Reaction (Intermediate, Verified 05/18/23 15:21) NAUSEA & VOMITING FROM PERCOCET TOO tramadol Adverse Reaction (Intermediate, Verified 05/18/23 15:21) could not concetrate chocolate cover cherries Allergy (Severe, Uncoded 05/18/23 15:21) Anaphylaxis Is last menstrual period known: No Post menopausal: Yes Patient : No HPI HPI Comments History of Present Illness Details Presenting with few days' history of vulvar lump that drained since then feeling better with no other complaints PFSH Medical History Anemia Atrial fibrillation Abscess of right genital labia Obesity Muscle spasm of right leg Angina pectoris Overweight (BMI 25.0-29.9) Right leg swelling Gait instability Vitamin D deficiency TIA (transient ischemic attack) Chronic kidney disease (CKD) stage G3b/A1, moderately decreased glomerular filtration rate (GFR) between 30-44 mL/min/1.73 square meter and albuminuria creatinine ratio less than 30 mg/g Spinal stenosis Leukopenia Hypercholesterolemia Insomnia Peripheral vascular disease Peripheral neuropathy Esophageal dysmotility Carotid stenosis Pityriasis lichenoides chronica Lumbar degenerative disc disease GERD (gastroesophageal reflux disease) Hypertension Coronary artery disease Primary osteoarthritis of both shoulders Surgical History History of esophagogastroduodenoscopy (EGD) H/O colonoscopy Hx of total knee arthroplasty Hx of arthroscopic knee surgery Stented coronary artery Status post phlebectomy History of cataract surgery Basal cell carcinoma (BCC) History of tonsillectomy S/P JIMENEZ-BSO History of appendectomy History of cholecystectomy Family History Mother No problems noted. Father No problems noted. Social History Household Members: None Housing: Apartment Do you presently have visiting nurse or other home services: Yes Alcohol intake: never Patient Tobacco Use Status: Never used Tobacco e-Cigarette/Vaping Use: Never Used Second Hand Smoke Exposure: No Advance Directives Date on File: 07/11/20 Patient : No service: No Current occupational status: retired Cognitive needs: Yes (walker ) Hearing needs: No Vision needs: No Female Reproductive History Menstrual Age of Menarche: 7 control method: none Total pregnancies: 1 Full term: 1 Number of Living Children: 1 Date of last pap smear: 09/24/01 (negative) History of abnormal pap smear: No Date of Mammogram: 01/18/13 Date of last Bone Density Screenin05/16/22 Review of Systems Const All systems reviewed & are unremarkable except as noted in HPI and below Physical Exam Vital Signs: Last Vital Signs BP 130/78 05/18/23 15:19 BMI result Body Mass Index 30.9 General: Yes no CVA tenderness External Female Exam: normal external appearance, normal appearance of the urethra and other (Bilateral 2 sebaceous cysts) Speculum Exam - Vagina: normal appearance of the vagina, no lesions and no masses Speculum Exam - Cervix: Cervix absent Bimanual exam- vagina & uterus: uterus absent Back/Spine/Pelvis Back: no CVA tenderness Assessment & Plan Assessment & Plan (1) Sebaceous cyst: Code(s): L72.3 - Sebaceous cyst Plan: Discussed with the patient the finding on pelvic exam showing no evidence of abscess, or lumps, only bilateral small sebaceous cysts with no evidence of infection, no indication for intervention. In all questions answered, the patient verbalized understanding Coding Level of Care Code Est Pt Level 3 (44132) Diagnoses Sebaceous cyst L72.3
== END 2023-05-18 15:49 | disposition home or self-care (01) ==
LOC: HO.HWS 15:12
PROVIDERS: PCP Internal Medicine; Visit Provider Obstetrics & Gynecology
DX: L72.3 Sebaceous cyst (principal)
CPT/HCPCS: 99213

== ENCOUNTER → 2023-05-18 15:12 | Outpatient (BNVA) | payer MEDICARE, MEDICAID, SELFPAY | PROVIDERS: PCP Internal Medicine; Visit Provider Obstetrics & Gynecology | DX: L72.3 Sebaceous cyst (principal) | CPT/HCPCS: 99212 ==

== ENCOUNTER 2023-05-21 09:45 | Outpatient (AMB) | payer MEDICARE, MEDICAID, SELFPAY ==
[2023-05-21 09:53] VITALS: BP 138/80; PULSE 73; O2SAT 97; BMI 30.7
--- NOTE | 2023-05-21 09:53 | MHC.PC.OV ---
Vital Signs 05/21/23 09:53 Height 5 ft 4 in Weight 179 lb BMI 30.7 BP 138/80 Blood Pressure Location Lt brachial Position Sitting Pulse 73 Pulse Source Pulse Oximeter Pulse Oximetry (%) 97 Oxygen Delivery Method Room Air Intake Visit Reasons: shoulder pain , CAD Allergies asparagus Allergy (Severe, Verified 05/21/23 09:53) Hives rosuvastatin [Crestor] Allergy (Unknown, Verified 05/21/23 09:53) unknown famotidine [From PEPCID] Adverse Reaction (Severe, Verified 05/21/23 09:53) NAUSEA oxycodone [From OXYCONTIN] Adverse Reaction (Intermediate, Verified 05/21/23 09:53) NAUSEA & VOMITING FROM PERCOCET TOO tramadol Adverse Reaction (Intermediate, Verified 05/21/23 09:53) could not concetrate chocolate cover cherries Allergy (Severe, Uncoded 05/21/23 09:53) Anaphylaxis Tobacco use date assessed: 05/07/23 Fall risk assessment: 1 Fall in past year Last assessed Fall Risk: 05/21/23 Dental Screening Dental Screen Date: 05/21/23 Did you have a dental visit in the last 12 months?: Yes Did you have a dental problem in the last 6 months where you did not have access to dental care?: No Was dental information given to patient?: Patient has dentist HPI shoulder pain , CAD HPI Details 83-year-old obese female with anemia atrial fibrillation hypertension GERD lumbar degenerative disc disease hypercholesterolemia coronary artery disease generalized anxiety disorder coming in for follow-up. Last seen in 05/07/2023 having vaginal infection. Patient was referred to gynecology and an antibiotic was prescribed. Patient did see the gynecology and only have seen sebaceous cyst which were not enlarged and so no procedures was done. April blood work showing anemia for the last cholesterol was tested in April 2022. The surprised as I examined the patient having irregular rate the blood work and discussed that I think she has atrial fibrillation still patient does have a follow-up with cardiology next month. [facility] Medical History (Updated 05/21/23 @ 10:07 by Erika Jordan MD) Medicare annual wellness visit, initial Abscess of vagina Anemia Atrial fibrillation Abscess of right genital labia Obesity Muscle spasm of right leg Angina pectoris Overweight (BMI 25.0-29.9) Right leg swelling Gait instability Vitamin D deficiency TIA (transient ischemic attack) Chronic kidney disease (CKD) stage G3b/A1, moderately decreased glomerular filtration rate (GFR) between 30-44 mL/min/1.73 square meter and albuminuria creatinine ratio less than 30 mg/g Spinal stenosis Leukopenia Hypercholesterolemia Insomnia Peripheral vascular disease Peripheral neuropathy Esophageal dysmotility Carotid stenosis Pityriasis lichenoides chronica Lumbar degenerative disc disease GERD (gastroesophageal reflux disease) Hypertension Coronary artery disease Primary osteoarthritis of both shoulders Surgical History History of esophagogastroduodenoscopy (EGD) H/O colonoscopy Hx of total knee arthroplasty Hx of arthroscopic knee surgery Stented coronary artery Status post phlebectomy History of cataract surgery Basal cell carcinoma (BCC) History of tonsillectomy S/P JIMENEZ-BSO History of appendectomy History of cholecystectomy Family History Mother No problems noted. Father No problems noted. Social History Household Members: None Housing: Apartment Do you presently have visiting nurse or other home services: Yes Alcohol intake: never Patient Tobacco Use Status: Never used Tobacco e-Cigarette/Vaping Use: Never Used Second Hand Smoke Exposure: No Advance Directives Date on File: 07/11/20 service: No Current occupational status: retired Cognitive needs: Yes (walker ) Hearing needs: No Vision needs: No Female Reproductive History Menstrual Age of Menarche: 7 Questionnaire Thrive Questionnaire Date Thrive assessed: 05/21/23 I am a: Patient What is your living situation today?: I have a steady place to live Within the past 12 months, did the food you bought not last and you didn't have the money to get more?: Never true Within the past 12 months, did you worry whether your food would run out before you got money to buy more?: Never true Do you have trouble paying for medicines?: No Do you have trouble getting transportation to medical appointments?: No Do you have trouble paying your heating and electricity bill?: No Do you have trouble taking care of your child, family member or friend?: No Do you have trouble with day-to-day activities such as bathing, preparing meals, shopping, managing finances, etc.?: No Are you currently unemployed and looking for a job?: No Are you interested in more education?: No Currently or been in a relationship where the following occur: no concerns reported THRIVE Score: 0 AUDIT C Alcohol Use Questionnaire (AUDIT-C) 1. How often do you have a drink containing alcohol?: Never Total Score: 0 JEANMARIE-7 AMB Questionnaire JEANMARIE-7 Date JEANMARIE - 7 assessed: 05/21/23 Feeling nervous, anxious, or on edge: 0 = Not at all Not being able to stop or control worryin = Not at all Worrying too much about different things: 0 = Not at all Trouble relaxin = Not at all Being so restless that it is hard to sit still: 0 = Not at all Becoming easily annoyed or irritable: 0 = Not at all Feeling afraid as if something awful might happen: 0 = Not at all Total JEANMARIE-7 score (0-4 normal; 5-9 mild; 10-14 moderate; 15-21 severe): 0 Source: Developed by Drs. Reinier Bernard, Kelly Wiggins, Sy Adames and colleagues, with an educational jody from [employer]. Physical exam (Primary Care) Vital Signs: Last Vital Signs Pulse 73 05/21/23 09:53 BP 138/80 05/21/23 09:53 Pulse Ox 97 05/21/23 09:53 Oxygen Delivery Method Room Air 05/21/23 09:53 BMI result Body Mass Index 30.7 Tobacco/Smoking Status: Tobacco use Status Tobacco use date assessed 05/07/23 05/21/23 09:54 Patient Tobacco Use Status Never used Tobacco 05/21/23 09:54 e-Cigarette/Vaping Use Never Used 05/21/23 09:54 Thrive Assessment: Date of Thrive Assessment Date Thrive assessed 05/21/23 05/21/23 09:54 Currently or been in a relationship where the following occur: no concerns reported Const General: alert; No acute distress Eyes Conjunctivae: conjunctivae normal Resp Auscultation: clear to auscultation bilaterally Cardio Rate: regular rate Rhythm: regular rhythm GI Inspection: Yes normal to inspection Extrem General: Yes normal to inspection and No edema Assessment and Plan Assessment & Plan (1) Sebaceous cyst: Comment: Vaginal April 2023 Code(s): L72.3 - Sebaceous cyst Plan: Patient has seen Gynecology and conservative management (2) Anemia: Code(s): D64.9 - Anemia, unspecified Plan: Blood work April 2023 and improving (3) Paroxysmal atrial fibrillation: Code(s): I48.0 - Paroxysmal atrial fibrillation Plan: Continue with anticoagulation with Xarelto (4) Obesity (BMI 30-39.9): Code(s): E66.9 - Obesity, unspecified Plan: Diet and exercise (5) Coronary artery disease: Comment: [place] in 1981, stent placement 2012 Code(s): I25.10 - Atherosclerotic heart disease of [place] coronary artery without angina pectoris Qualifiers: Coronary Disease-Associated Artery/Lesion type: [place] artery [place] vs. transplanted heart: [place] heart Associated angina: without angina Qualified Code(s): I25.10 - Atherosclerotic heart disease of [place] coronary artery without angina pectoris Plan: Control the cholesterol, weight, blood pressure (6) Hypercholesterolemia: Code(s): E78.00 - Pure hypercholesterolemia, unspecified Plan: Avoid fried foods, chicken skin, eggs, butter margarine, pastries and meat. Be it pork or beef they have a lot of cholesterol will request for new blood work presently on atorvastatin 20 mg once a day (7) Hypertension: Code(s): I10 - Essential (primary) hypertension Plan: Continue with blood pressure medication. Decrease salt intake and exercise on losartan 50 mg twice a day metoprolol 50 mg twice a day (8) GERD (gastroesophageal reflux disease): Code(s): K21.9 - Gastro-esophageal reflux disease without esophagitis Plan: Avoid the foods that causes that usually spicy foods, tomato products, juices, coffee, soda and foods that your sensitive to. After eating do not lie down, allow 3-4 hours before in lie down. And keep the head of bed above 30 degrees to avoid the acid from going up. (9) Impaired fasting blood sugar: Code(s): R73.01 - Impaired fasting glucose Plan: Decrease the amount of carbohydrate intake, pasta, bread, rice and potatoes are all sugar and that is aside from all the sweet stuff, remember that fruits are good but they are Sweet also. (10) Generalized anxiety disorder: Code(s): F41.1 - Generalized anxiety disorder Plan: Stable Orders: Orders Comprehensive Met. Panel Today R73.01 - Impaired fasting glucose Complete Blood Count Auto Diff Today E78.00 - Pure hypercholesterolemia, unspecified Thyroid Stimulating Hormone Today E78.00 - Pure hypercholesterolemia, unspecified Ferritin Today E78.00 - Pure hypercholesterolemia, unspecified IRON PROFILE Today E78.00 - Pure hypercholesterolemia, unspecified Reticulocyte Count Today E78.00 - Pure hypercholesterolemia, unspecified Hemoglobin A1c Today R73.01 - Impaired fasting glucose Lipid Panel Today E78.00 - Pure hypercholesterolemia, unspecified Free T4 (Free Thyroxine) Today E78.00 - Pure hypercholesterolemia, unspecified Vitamin B12 and Folate Today E78.00 - Pure hypercholesterolemia, unspecified Vitamin D 25-OH Total Today E78.00 - Pure hypercholesterolemia, unspecified B Type Natriuretic Peptide Today I48.0 - Paroxysmal atrial fibrillation Coding Level of Care Code Est Pt Level 4 (98223) Diagnoses Sebaceous cyst L72.3 Anemia D64.9 Paroxysmal atrial fibrillation I48.0 Obesity (BMI 30-39.9) E66.9 Coronary artery disease involving [place] coronary artery of [place] heart without angina pectoris I25.10 Coronary Disease-Associated Artery/Lesion type: [place] artery [place] vs. transplanted heart: [place] heart Associated angina: without angina Hypercholesterolemia E78.00 Essential hypertension I10 GERD (gastroesophageal reflux disease) K21.9 Impaired fasting blood sugar R73.01 Generalized anxiety disorder F41.1
== END 2023-05-21 10:24 | disposition home or self-care (01) ==
PROVIDERS: PCP Internal Medicine; Visit Provider Internal Medicine
DX: I48.0 Paroxysmal atrial fibrillation (principal); D64.9 Anemia, unspecified; L72.3 Sebaceous cyst; I25.10 Atherosclerotic heart disease of native coronary artery without angina pectoris; E78.00 Pure hypercholesterolemia, unspecified; I10 Essential (primary) hypertension; K21.9 Gastro-esophageal reflux disease without esophagitis; R73.01 Impaired fasting glucose; F41.1 Generalized anxiety disorder
CPT/HCPCS: 99214

== ENCOUNTER → 2023-05-29 09:32 | Outpatient (REF) | payer MEDICARE, MEDICAID, SELFPAY ==
--- NOTE | 2023-05-29 09:35 | HM_ITS ---
Conclusion: 1. Patient was monitored for total period of 5 days and 21 hours 2. Baseline was atrial fibrillation with average heart of 91 beats per minute, borderline controlled. 3. No significant pauses noted 4. Frequent PVCs noted with total burden of 7.7% with no significant ventricular tachyarrhythmias 5. No patient reported events MTDD
== END ==
LOC: HO.CARD 09:32
PROVIDERS: PCP Internal Medicine; Visit Provider Internal Medicine Cardiovascular Disease
DX: I48.0 Paroxysmal atrial fibrillation (principal)
CPT/HCPCS: 93242

== ENCOUNTER → 2023-05-29 09:35 | Outpatient (BNV) | payer MEDICARE, MEDICAID, SELFPAY | PROVIDERS: PCP Internal Medicine; Visit Provider Internal Medicine Cardiovascular Disease | DX: I48.91 Unspecified atrial fibrillation (principal); I49.1 Atrial premature depolarization | CPT/HCPCS: 93244 ==

== ENCOUNTER 2023-06-18 10:47 | Outpatient (AMB) | payer MEDICARE, MEDICAID, SELFPAY ==
[2023-06-18 11:18] VITALS: BP 110/58; PULSE 101; BMI 28.4
--- NOTE | 2023-06-18 11:18 | MHC.OFFVIS ---
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: No Allergies asparagus Allergy (Severe, Verified 05/21/23 09:53) Hives rosuvastatin [Crestor] Allergy (Unknown, Verified 05/21/23 09:53) unknown famotidine [From PEPCID] Adverse Reaction (Severe, Verified 05/21/23 09:53) NAUSEA oxycodone [From OXYCONTIN] Adverse Reaction (Intermediate, Verified 05/21/23 09:53) NAUSEA & VOMITING FROM PERCOCET TOO tramadol Adverse Reaction (Intermediate, Verified 05/21/23 09:53) could not concetrate chocolate cover cherries Allergy (Severe, Uncoded 05/21/23 09:53) Anaphylaxis Medication List - Last Reconciled 06/18/23 by Keo Bush MD atorvastatin 20 mg PO DAILY 90 days Lactobacillus rhamnosus GG (Culturelle) 1 cap PO BID losartan 50 mg PO BID meclizine 12.5 mg PO TID melatonin 5 mg PO BEDTIME PRN metoprolol succinate ER 50 mg PO BID multivitamin 1 tab PO DAILY nitroglycerin 0.4 mg sublingual Q5M PRN rivaroxaban (Xarelto) 15 mg PO DAILY [Rollator As directed] [Shower chair w/back rest As directed] HPI Comments Details: Jaylin comes for an urgent follow-up visit as she has been getting more and more short of breath and was noted to have irregular heartbeat that your office visit recently. Patient says over the last many months she initially started getting short of breath thought this was due to her age. Subsequently her shortness of breath is got a lot worse. She only can walk few steps and gets short of breath. She is very disappointed about this. She denies any clear orthopnea, PND or significant leg edema. Denies any chest pain. Denies any palpitations. Holter monitor shows persistent atrial fibrillation with heart rate of about 91 beats per minute borderline controlled with frequent PVCs. She has been taking all her medications. Has been taking oral anticoagulation religiously. Denies any lightheadedness, syncope. Denies any exertional chest pain. [facility] Medical History Medicare annual wellness visit, initial Abscess of vagina Anemia Atrial fibrillation Abscess of right genital labia Obesity Muscle spasm of right leg Angina pectoris Overweight (BMI 25.0-29.9) Right leg swelling Gait instability Vitamin D deficiency TIA (transient ischemic attack) Chronic kidney disease (CKD) stage G3b/A1, moderately decreased glomerular filtration rate (GFR) between 30-44 mL/min/1.73 square meter and albuminuria creatinine ratio less than 30 mg/g Spinal stenosis Leukopenia Hypercholesterolemia Insomnia Peripheral vascular disease Peripheral neuropathy Esophageal dysmotility Carotid stenosis Pityriasis lichenoides chronica Lumbar degenerative disc disease GERD (gastroesophageal reflux disease) Hypertension Coronary artery disease Primary osteoarthritis of both shoulders Surgical History History of esophagogastroduodenoscopy (EGD) H/O colonoscopy Hx of total knee arthroplasty Hx of arthroscopic knee surgery Stented coronary artery Status post phlebectomy History of cataract surgery Basal cell carcinoma (BCC) History of tonsillectomy S/P JIMENEZ-BSO History of appendectomy History of cholecystectomy Family History Mother No problems noted. Father No problems noted. Social History Household Members: None Housing: Apartment Do you presently have visiting nurse or other home services: Yes Alcohol intake: never Patient Tobacco Use Status: Never used Tobacco e-Cigarette/Vaping Use: Never Used Second Hand Smoke Exposure: No Advance Directives Date on File: 07/11/20 service: No Current occupational status: retired Cognitive needs: Yes (walker ) Hearing needs: No Vision needs: No Female Reproductive History Menstrual Age of Menarche: 7 Review of Systems Const Denies chills, Denies fatigue, Denies fever(s), Denies frequent falls, Denies weakness, Denies weight gain and Denies weight loss ENT Denies dizziness Card Denies chest pain, Denies leg edema, Denies lightheadedness, Denies palpitations, Denies dyspnea, Denies dyspnea on exertion, Denies orthopnea and Denies other (loss of consciousness) Resp Denies cough, Denies dyspnea and Denies dyspnea on exertion GI Denies hematochezia and Denies change in stool character Musc Denies abnormal gait, Denies muscle weakness, Denies numbness, Denies radiating pain into limb and Denies tingling Neuro Denies abnormal gait, Denies dizziness, Denies frequent falls, Denies numbness, Denies tingling and Denies weakness Endo Denies fatigue and Denies palpitations Physical Exam Vital Signs: Last Vital Signs Pulse 101 H 06/18/23 11:18 BP 110/58 L 06/18/23 11:18 BMI result Body Mass Index 28.4 Const General: cooperative, healthy appearing, comfortable and no acute distress Orientation/consciousness: patient oriented x3 Neck Neck: Yes normal visual inspection Resp Effort & Inspection: normal respiratory effort Auscultation: clear to auscultation bilaterally, no crackles, no rales, no rhonchi and no wheezes Cardio Jugular venous distension: no JVD Rhythm: abnormal rhythm irregularly irregular Heart sounds: S1 normal heart sound present, S2 normal heart sound present, no murmurs and no rubs Neuro General: patient oriented x3 Extrem General: Yes normal to inspection Psych Appearance: grossly normal Mental Status: mental status grossly normal Speech and movement: Normal speech and movement present Assessment & Plan Assessment & Plan (1) Persistent atrial fibrillation: Code(s): I48.19 - Other persistent atrial fibrillation Category: Medical Plan: Patient with persistent atrial fibrillation with adequate rate control and despite that she is having significant symptoms of heart failure. Clinically does appear to be in heart failure. Will check BNP to see if she would benefit from diuretic therapy. For now I think she needs rhythm control approach as she has done well with rhythm control approach in the past. She has significant left atrial enlargement and will require antiarrhythmic drug support. This was discussed with her. Will start on amiodarone loading 400 mg b.i.d. for 2 weeks followed by 200 mg daily and reduce metoprolol to 25 mg b.i.d.. Advised her to start this therapy today. Will schedule her for cardioversion in 2 weeks time. Discussed the need, benefits, alternatives 2nd opinion to cardioversion. She understands agrees. Continue uninterrupted Xarelto therapy. Advise check for chest x-ray, TSH, liver panel as well as BNP today. She understands and agrees. (2) Coronary artery disease: Comment: [place] in 1982, stent placement 2012 Code(s): I25.10 - Atherosclerotic heart disease of [place] coronary artery without angina pectoris Category: Medical Qualifiers: Coronary Disease-Associated Artery/Lesion type: [place] artery [place] vs. transplanted heart: [place] heart Associated angina: without angina Qualified Code(s): I25.10 - Atherosclerotic heart disease of [place] coronary artery without angina pectoris Plan: CAD with remote stenting to the circumflex artery with no current symptoms suggestive of angina. Advised to continue aggressive medical therapy. Currently on full oral anticoagulation therefore avoid aspirin therapy. Continue statin therapy target goal LDL less than 70 mg/dL. Blood pressure is currently well optimized. Will follow up in the clinic in 6 weeks time, sooner p.r.n.. Thank you for allowing me to partake in her care Orders: Orders Basic Metabolic Panel Today I48.19 - Other persistent atrial fibrillation B Type Natriuretic Peptide Today I48.19 - Other persistent atrial fibrillation TSH reflex Free T4 Today I48.19 - Other persistent atrial fibrillation XR chest 2V Today I48.19 - Other persistent atrial fibrillation Liver Panel Today I48.19 - Other persistent atrial fibrillation Medications: New amiodarone 400 mg PO BID 14 days 28 tabs 0RF Changed From metoprolol succinate ER 50 mg PO BID 180 tabs 3RF I10 - Essential (primary) hypertension To metoprolol succinate ER 25 mg (1/2 x 50 mg) PO BID 180 tabs 3RF I10 - Essential (primary) hypertension Refilled losartan 50 mg PO BID 60 tabs 5RF I10 - Essential (primary) hypertension Coding Level of Care Code Est Pt Level 4 (71251) Diagnoses Persistent atrial fibrillation I48.19 Coronary artery disease involving [place] coronary artery of [place] heart without angina pectoris I25.10 Coronary Disease-Associated Artery/Lesion type: [place] artery [place] vs. transplanted heart: [place] heart Associated angina: without angina
== END 2023-06-18 11:40 | disposition home or self-care (01) ==
PROVIDERS: PCP Internal Medicine; Visit Provider Internal Medicine Cardiovascular Disease
DX: I48.19 Other persistent atrial fibrillation (principal); I25.10 Atherosclerotic heart disease of native coronary artery without angina pectoris
CPT/HCPCS: 93010; 99214

== ENCOUNTER 2023-06-18 10:47 | Outpatient (REF) | payer MEDICARE, MEDICAID, SELFPAY ==
--- NOTE | ~2023-06-18 | XR_ITS ---
EXAMINATION: XR chest 2V CLINICAL INFORMATION: Reason for Exam I48.19 - Other persistent atrial fibrillation COMPARISON: Chest radiograph 02/23/2023 TECHNIQUE: 2 views of the chest FINDINGS: Clear lungs. No pneumothorax or pleural effusion. Unchanged cardiomediastinal silhouette. XR/XR chest 2V Impression: No acute cardiopulmonary findings.
[2023-06-18 12:15] LABS: MANUAL DIFF FLAG NO
[2023-06-18 12:49] LABS: Basophils Percent Auto 0.6 % (0-2); Eosinophils Absolute Auto 0.1 X10*3/uL (0.0-0.4); Eosinophils Percent Auto 0.9 % (0-4); Hematocrit 30.3 % (37.0-47.0); Hemoglobin 10.1 g/dl (12.0-16.0); Imm Gran Abs Auto 0.02 X10*3/uL (0.00-0.03); Imm Gran Pct Auto 0.3 % (0.0-0.4); Immature Retic Fraction 10.9 % (3.0-15.9); Lymphocytes Absolute Auto 2.5 X10*3/uL (1.2-4.9); Lymphocytes Percent Auto 39.8 % (20-40); Mean Corpuscular HGB Conc 33.3 g/dl (31.0-35.0); Mean Corpuscular Hemoglobin 30.9 pg (27.0-33.0); Mean Corpuscular Volume 92.7 fL (80.0-98.0); Mean Platelet Volume 11.8 fL (9.4-12.3); Monocytes Absolute Auto 0.4 X10*3/uL (0.1-1.2); Monocytes Percent Auto 5.5 % (2-11); Neutrophils Absolute Auto 3.4 x10*3/uL (2.0-8.3); Neutrophils Percent Auto 52.9 % (45-73); Platelet Count 197 X10*3/uL (160-400); Red Blood Count 3.27 X10*6/uL (4.20-5.50); Retic HGB Equivalent 34.2 pg (30.0-35.0); Reticulocyte Percent 2.2 % (0.5-1.8); Reticulocytes Absolute 0.072 X10*6/uL (0.026-0.095); White Blood Count 6.4 X10*3/uL (4.8-10.8)
[2023-06-18 13:23] LABS: B Type Natriuretic Peptide 552 pg/mL (<100)
[2023-06-18 13:30] LABS: Alanine Aminotransferase 12 U/L (0-31); Albumin Level 3.8 g/dL (3.5-5.0); Alkaline Phosphatase 81 U/L (39-117); Anion Gap 15 (12-20); Aspartate Amino Transferase 19 U/L (5-31); Bilirubin Direct 0.5 mg/dL (0.0-0.5); Bilirubin Total 1.4 mg/dL (0.0-1.0); Blood Urea Nitrogen 28 mg/dL (9-16); Calcium 9.6 mg/dL (8.4-10.2); Carbon Dioxide 18 mmol/L (22-29); Chloride 110 mmol/L (96-108); Cholesterol 113 mg/dL (<200); Estimated Glomerular Filt Rate 46; Glucose Random 105 mg/dL (60-115); HDL Cholesterol 26 mg/dL (>40); Iron 68 mcg/dL (30-160); LDL Cholesterol Calculated 54 mg/dL (<100); Percent Iron Saturation 23 % (15-50); Potassium 5.5 mmol/L (3.3-5.1); Sodium 137 mmol/L (135-145); Total Iron Binding Capacity 294 mcg/dL (228-428); Total Protein 7.5 g/dL (6.5-8.0); Triglycerides 168 mg/dL (<150); Unsaturated Iron Binding 226 ug/dL
[2023-06-18 13:40] LABS: Estimated Average Glucose 117 mg/dL; Hemoglobin A1c % 5.7 % (<6.0)
[2023-06-18 13:49] LABS: Ferritin 235 ng/mL (10-250); Free T4 (Free Thyroxine) 1.03 ng/dL (0.71-1.85); Thyroid Stimulating Hormone 1.38 uIU/mL (0.32-4.0); Vitamin D 25-OH Total 35.3 ng/mL (>30)
[2023-06-18 14:03] LABS: TSH reflex Free T4 1.44 uIU/mL (0.32-4.0)
[2023-06-18 14:15] LABS: Vitamin B12 554 pg/mL (200-900)
== END 2023-06-18 10:48 | disposition home or self-care (01) ==
LOC: HO.LAB 10:47
PROVIDERS: PCP Internal Medicine; Visit Provider Internal Medicine Cardiovascular Disease
DX: I48.0 Paroxysmal atrial fibrillation (principal); R73.01 Impaired fasting glucose; E78.00 Pure hypercholesterolemia, unspecified; I25.10 Atherosclerotic heart disease of native coronary artery without angina pectoris
CPT/HCPCS: 36415; 71046; 80053; 80061; 82248; 82306; 82607; 82728; 82746; 83036; 83540; 83880; 84439; 84443; 85025; 85045; 93005; 99212

== ENCOUNTER 2023-06-30 10:09 | Outpatient (REF) | payer MEDICARE, MEDICAID, SELFPAY ==
[2023-06-30 13:57] LABS: Anion Gap 19 (12-20); Blood Urea Nitrogen 44 mg/dL (9-16); Calcium 9.6 mg/dL (8.4-10.2); Carbon Dioxide 20 mmol/L (22-29); Chloride 107 mmol/L (96-108); Estimated Glomerular Filt Rate 24; Glucose Random 123 mg/dL (60-115); Potassium 4.5 mmol/L (3.3-5.1); Sodium 141 mmol/L (135-145)
[2023-06-30 14:14] LABS: B Type Natriuretic Peptide 458 pg/mL (<100)
== END 2023-06-30 10:10 | disposition home or self-care (01) ==
LOC: HO.HMGCLDS 10:09
PROVIDERS: PCP Internal Medicine; Visit Provider Internal Medicine Cardiovascular Disease
DX: I48.19 Other persistent atrial fibrillation (principal)
CPT/HCPCS: 36415; 80048; 83880

== ENCOUNTER 2023-07-01 11:44 | Day surgery (SDC) | payer MEDICARE, MEDICAID, SELFPAY ==
[2023-06-29 13:45] VITALS: BMI 28.3
--- NOTE | 2023-06-29 15:11 | HO.ANESPROP2 ---
Documented by User: Mara Staley NP 06/29/23 15:13 HPI - Anesthesia Eval Consult details Narrative: 83yo F for Cardioversion Xarelto for afib PMFSH Active Problems Active Problems: All Active Problems Persistent atrial fibrillation (Acute) Sebaceous cyst (Acute) Tinea cruris (Acute) COVID-19 (Acute) Paroxysmal atrial fibrillation (Acute) Osteoarthritis of shoulders, bilateral (Acute) Bilateral shoulder pain (Acute) Osteopenia (Acute) Glenohumeral arthritis (Acute) Encounter for subsequent annual wellness visit (AWV) in Medicare patient (Acute) Impaired fasting blood sugar (Acute) Bilateral hand numbness (Acute) Generalized anxiety disorder (Acute) Obesity (BMI 30-39.9) (Acute) History of total right knee replacement (TKR) (Acute) Constipation (Acute) Anemia (Acute) Coronary artery disease (Acute) Hypercholesterolemia (Acute) Peripheral vascular disease (Acute) Lumbar degenerative disc disease (Acute) GERD (gastroesophageal reflux disease) (Acute) Hypertension (Acute) Primary osteoarthritis of both shoulders (Acute) Past Medical History Medical History History of cardioversion Abscess of vagina Atrial fibrillation Abscess of right genital labia Obesity Anemia Muscle spasm of right leg Angina pectoris Medicare annual wellness visit, initial Overweight (BMI 25.0-29.9) Right leg swelling Gait instability Vitamin D deficiency TIA (transient ischemic attack) Chronic kidney disease (CKD) stage G3b/A1, moderately decreased glomerular filtration rate (GFR) between 30-44 mL/min/1.73 square meter and albuminuria creatinine ratio less than 30 mg/g Spinal stenosis Leukopenia Hypercholesterolemia Insomnia Peripheral vascular disease Peripheral neuropathy Esophageal dysmotility Carotid stenosis Pityriasis lichenoides chronica Lumbar degenerative disc disease GERD (gastroesophageal reflux disease) Hypertension Coronary artery disease Primary osteoarthritis of both shoulders Family History Family History Mother No problems noted. Father No problems noted. Family history of problems with anesthesia: No Surgical History Surgical History History of esophagogastroduodenoscopy (EGD) H/O colonoscopy Hx of total knee arthroplasty Hx of arthroscopic knee surgery Stented coronary artery Status post phlebectomy History of cataract surgery Basal cell carcinoma (BCC) History of tonsillectomy S/P JIMENEZ-BSO History of appendectomy History of cholecystectomy History of Problems with Anesthesia: No Social History Social History Household Members: None Housing: Apartment Do you presently have visiting nurse or other home services: Yes Alcohol intake: never Patient Tobacco Use Status: Never used Tobacco e-Cigarette/Vaping Use: Never Used Second Hand Smoke Exposure: No Advance Directives: No Advance Directives Information Provided: Yes Advance Directives Date on File: 07/11/20 service: No Current occupational status: retired Cognitive needs: Yes (walker ) Hearing needs: No Vision needs: No Meds Allergies Allergy/AdvReac Type Severity Reaction Status Date / Time asparagus Allergy Severe Hives Verified 07/01/23 12:54 rosuvastatin [Crestor] Allergy Unknown unknown Verified 07/01/23 12:54 famotidine [From PEPCID] AdvReac Severe NAUSEA Verified 07/01/23 12:54 oxycodone [From OXYCONTIN] AdvReac Intermediate NAUSEA & Verified 07/01/23 12:54 VOMITING FROM PERCOCET TOO tramadol AdvReac Intermediate could not Verified 07/01/23 12:54 concetrate chocolate cover cherries Allergy Severe Anaphylaxis Uncoded 07/01/23 12:54 Home Medications ?Medication ?Instructions ?Recorded ?Confirmed ?Last Taken ?Type multivitamin 1 tab PO DAILY 07/02/22 07/01/23 07/01/23 11:00 History melatonin 5 mg tablet 5 mg PO BEDTIME PRN Sleep 02/23/23 07/01/23 02/22/23 History Exam Height,Weight and Vital Signs: Height 5 ft 4 in Weight 74.843 kg Pertinent Lab Results Pertinent Lab Results: Laboratory Tests 06/18/23 12:13 WBC 6.4 Hgb 10.1 L Hct 30.3 L Plt Count 197 Assessment and Plan Assessment Anesthesia Assessment: Chart Reviewed Final Anesthetic Review Family History of Problems with Anesthesia: No History of Problems with Anesthesia: No Documented by User: Maya Ericskon MD 07/01/23 13:11 [facility] Past Medical History Medical History History of cardioversion Abscess of vagina Atrial fibrillation Abscess of right genital labia Obesity Anemia Muscle spasm of right leg Angina pectoris Medicare annual wellness visit, initial Overweight (BMI 25.0-29.9) Right leg swelling Gait instability Vitamin D deficiency TIA (transient ischemic attack) Chronic kidney disease (CKD) stage G3b/A1, moderately decreased glomerular filtration rate (GFR) between 30-44 mL/min/1.73 square meter and albuminuria creatinine ratio less than 30 mg/g Spinal stenosis Leukopenia Hypercholesterolemia Insomnia Peripheral vascular disease Peripheral neuropathy Esophageal dysmotility Carotid stenosis Pityriasis lichenoides chronica Lumbar degenerative disc disease GERD (gastroesophageal reflux disease) Hypertension Coronary artery disease Primary osteoarthritis of both shoulders Family History Family History Mother No problems noted. Father No problems noted. Surgical History Surgical History History of esophagogastroduodenoscopy (EGD) H/O colonoscopy Hx of total knee arthroplasty Hx of arthroscopic knee surgery Stented coronary artery Status post phlebectomy History of cataract surgery Basal cell carcinoma (BCC) History of tonsillectomy S/P JIMENEZ-BSO History of appendectomy History of cholecystectomy History of Problems with Anesthesia: No Social History Social History Household Members: None Housing: Apartment Do you presently have visiting nurse or other home services: Yes Alcohol intake: never Patient Tobacco Use Status: Never used Tobacco e-Cigarette/Vaping Use: Never Used Second Hand Smoke Exposure: No Advance Directives: No Advance Directives Information Provided: Yes Advance Directives Date on File: 07/11/20 service: No Current occupational status: retired Cognitive needs: Yes (walker ) Hearing needs: No Vision needs: No Meds Allergies Allergy/AdvReac Type Severity Reaction Status Date / Time asparagus Allergy Severe Hives Verified 07/01/23 12:54 rosuvastatin [Crestor] Allergy Unknown unknown Verified 07/01/23 12:54 famotidine [From PEPCID] AdvReac Severe NAUSEA Verified 07/01/23 12:54 oxycodone [From OXYCONTIN] AdvReac Intermediate NAUSEA & Verified 07/01/23 12:54 VOMITING FROM PERCOCET TOO tramadol AdvReac Intermediate could not Verified 07/01/23 12:54 concetrate chocolate cover cherries Allergy Severe Anaphylaxis Uncoded 07/01/23 12:54 Home Medications ?Medication ?Instructions ?Recorded ?Confirmed ?Last Taken ?Type multivitamin 1 tab PO DAILY 07/02/22 07/01/23 07/01/23 11:00 History melatonin 5 mg tablet 5 mg PO BEDTIME PRN Sleep 02/23/23 07/01/23 02/22/23 History Exam Airway Mallampati Class: II TM Dist: >3cm Neck ROM: Full Partial: Upper Heart: irreg Lungs: cta Assessment and Plan Assessment Anesthesia Assessment: Anesthesia Plan Discussed Final Anesthetic Review History of Problems with Anesthesia: No NPO: Yes ASA Class: III Final Preanesthetic Review: No Changes in Pt Med Stat, Meds/Allgs Chart Reviewed and Consent Obtained/Reviewed Patient Risk: Intermediate Procedure Risk: Intermediate Anesthetic Plan Anesthetic Plan: MAC: Disposition: Standard PACU
[2023-07-01] VITALS (8 sets, daily range): BP systolic 101–134; BP diastolic 18–63; PULSE 42–67; RESP 16–20; TEMP 36.2–37.1; O2SAT 95–100; BMI 28.7
--- NOTE | 2023-07-01 13:41 | ECG_ITS ---
Test Reason : cardioversion Blood Pressure : / mmHG Vent. Rate : 045 BPM Atrial Rate : 045 BPM P-R Int : 190 ms QRS Dur : 102 ms QT Int : 668 ms P-R-T Axes : 026 002 036 degrees QTc Int : 577 ms Sinus bradycardia Inferior infarct , age undetermined Abnormal ECG When compared with ECG of 23-FEB-2023 16:41, Vent. rate has decreased BY 28 BPM Nonspecific T wave abnormality now evident in Lateral leads QT has lengthened Referred By: Keo Bush Electronically Signed By:KEO BUSH MD
--- NOTE | 2023-07-01 13:41 | MHC.SHP ---
Pre-Procedural Eval Section A - 24 Hr Update-Section A only Date of Service: 07/01/23 The patient is an INPATIENT: No Changes since office visit: Yes New Medical Problems, Yes Changes in Medication and Yes Patient answered all questions; No Cold of Flu in the past 2 weeks The patient has been examined within 24 hours of the surgical procedure. The History & Physical has been completed within 30 days and I have reviewed it.: Yes Section B - Complete if H&P > 30 days Chief Complaint: Unspecified atrial fibrillation Allergies: Allergies Allergy/AdvReac Type Severity Reaction Status Date / Time asparagus Allergy Severe Hives Verified 07/01/23 12:54 rosuvastatin [Crestor] Allergy Unknown unknown Verified 07/01/23 12:54 famotidine [From PEPCID] AdvReac Severe NAUSEA Verified 07/01/23 12:54 oxycodone [From OXYCONTIN] AdvReac Intermediate NAUSEA & Verified 07/01/23 12:54 VOMITING FROM PERCOCET TOO tramadol AdvReac Intermediate could not Verified 07/01/23 12:54 concetrate chocolate cover cherries Allergy Severe Anaphylaxis Uncoded 07/01/23 12:54 Plan I have reviewed the history and physical and performed a pertinent physical examination on my patient. No changes have occurred unless specified. Time Spent With Patient Time: Total time managing care of this patient today ____ minutes.
[2023-07-01 13:48] LABS: Anion Gap 16 (12-20); Carbon Dioxide 21 mmol/L (22-29); Chloride 107 mmol/L (96-108); Potassium 4.5 mmol/L (3.3-5.1); Sodium 139 mmol/L (135-145)
--- NOTE | 2023-07-01 15:53 | HO.CARDIVERS ---
Cardioversion Procedure Note Cardioversion Date of Procedure: 07/01/2023 Ordering Provider: Dr. Bush Performing Provider: Dr. Bush Indication for Procedure: Symptomatic atrial fibrillation with heart failure syndrome Pre-Op Diagnosis: Same Performed with Transesophageal Echo: No History: See my office note Consent: Verbal and Written consent was obtained from the patient before starting and after confirming amiodarone and Xarelto use. The patient was made aware of the risk of synchronized cardioversion including benefits and alternatives Procedure: After consent obtained, cardioversion pads were attached in anteroposterior configuration and the patient was sedated by the anesthesia team. Once adequate sedation achieved, patient was delivered 200 joules of biphasic synchronized energy in anteroposterior configuration Complications: None Impression: Successful conversion to sinus rhythm Recommendations: 1. 12 lead EKG 2. Switch amiodarone to 200 mg daily 3. Continue Xarelto 4. Follow-up BMP and BNP in 2 days 5. Follow up in the office after Holter monitor
== END 2023-07-01 15:40 | disposition home or self-care (01) ==
PROVIDERS: Nurse Practitioner; PCP Internal Medicine; Visit Provider Internal Medicine Cardiovascular Disease
PROC: 5A2204Z Restoration of Cardiac Rhythm, Single (ICD-10-PCS; principal; 2023-07-01 14:10)
DX: I48.19 Other persistent atrial fibrillation (principal); I48.0 Paroxysmal atrial fibrillation; R06.02 Shortness of breath; I12.9 Hypertensive chronic kidney disease with stage 1 through stage 4 chronic kidney disease, or unspecified chronic kidney disease; N18.30 Chronic kidney disease, stage 3 unspecified; E78.00 Pure hypercholesterolemia, unspecified; K21.9 Gastro-esophageal reflux disease without esophagitis; D64.9 Anemia, unspecified; F41.1 Generalized anxiety disorder; Z79.02 Long term (current) use of antithrombotics/antiplatelets; I25.10 Atherosclerotic heart disease of native coronary artery without angina pectoris; Z90.49 Acquired absence of other specified parts of digestive tract; Z86.73 Personal history of transient ischemic attack (TIA), and cerebral infarction without residual deficits; Z79.01 Long term (current) use of anticoagulants; Z79.899 Other long term (current) drug therapy
CPT/HCPCS: 36415; 80051; 92960; 93005; J2704

== ENCOUNTER → 2023-07-01 11:44 | Outpatient (BNV) | payer MEDICARE, MEDICAID, SELFPAY | PROVIDERS: PCP Internal Medicine; Visit Provider Internal Medicine Cardiovascular Disease | DX: R00.1 Bradycardia, unspecified (principal); I45.81 Long QT syndrome | CPT/HCPCS: 92960; 93010 ==

== ENCOUNTER 2023-07-03 10:05 | Outpatient (REF) | payer MEDICARE, MEDICAID, SELFPAY ==
[2023-07-03 13:35] LABS: Anion Gap 15 (12-20); Blood Urea Nitrogen 45 mg/dL (9-16); Calcium 9.3 mg/dL (8.4-10.2); Carbon Dioxide 22 mmol/L (22-29); Chloride 107 mmol/L (96-108); Estimated Glomerular Filt Rate 20; Glucose Random 89 mg/dL (60-115); Potassium 4.9 mmol/L (3.3-5.1); Sodium 139 mmol/L (135-145)
[2023-07-03 13:42] LABS: B Type Natriuretic Peptide 569 pg/mL (<100)
== END 2023-07-03 10:06 | disposition home or self-care (01) ==
LOC: HO.HMGCLDS 10:05
PROVIDERS: PCP Internal Medicine; Visit Provider Internal Medicine Cardiovascular Disease
DX: I48.0 Paroxysmal atrial fibrillation (principal)
CPT/HCPCS: 36415; 80048; 83880

== ENCOUNTER 2023-09-08 14:51 | Outpatient (REF) | payer MEDICARE, MEDICAID, SELFPAY ==
[2023-09-08 15:44] LABS: MANUAL DIFF FLAG NO
[2023-09-08 17:41] LABS: Basophils Percent Auto 0.7 % (0-2); Eosinophils Absolute Auto 0.1 X10*3/uL (0.0-0.4); Eosinophils Percent Auto 2.3 % (0-4); Hematocrit 30.3 % (37.0-47.0); Hemoglobin 10.2 g/dl (12.0-16.0); Imm Gran Abs Auto 0.02 X10*3/uL (0.00-0.03); Imm Gran Pct Auto 0.4 % (0.0-0.4); Lymphocytes Absolute Auto 1.5 X10*3/uL (1.2-4.9); Lymphocytes Percent Auto 26.7 % (20-40); Mean Corpuscular HGB Conc 33.7 g/dl (31.0-35.0); Mean Corpuscular Hemoglobin 31.6 pg (27.0-33.0); Mean Corpuscular Volume 93.8 fL (80.0-98.0); Mean Platelet Volume 12.6 fL (9.4-12.3); Monocytes Absolute Auto 0.4 X10*3/uL (0.1-1.2); Monocytes Percent Auto 7.7 % (2-11); Neutrophils Absolute Auto 3.5 x10*3/uL (2.0-8.3); Neutrophils Percent Auto 62.2 % (45-73); Platelet Count 199 X10*3/uL (160-400); Red Blood Count 3.23 X10*6/uL (4.20-5.50); White Blood Count 5.7 X10*3/uL (4.8-10.8)
[2023-09-08 18:11] LABS: Anion Gap 15 (12-20); Blood Urea Nitrogen 45 mg/dL (9-16); Calcium 9.7 mg/dL (8.4-10.2); Carbon Dioxide 21 mmol/L (22-29); Chloride 108 mmol/L (96-108); Estimated Glomerular Filt Rate 21; Glucose Random 102 mg/dL (60-115); Potassium 5.4 mmol/L (3.3-5.1); Sodium 139 mmol/L (135-145)
[2023-09-08 18:15] LABS: B Type Natriuretic Peptide 402 pg/mL (<100)
== END 2023-09-08 14:52 | disposition home or self-care (01) ==
LOC: HO.LAB 14:51
PROVIDERS: Physician Assistant; PCP Internal Medicine; Visit Provider Internal Medicine Cardiovascular Disease
DX: D64.9 Anemia, unspecified (principal); I50.30 Unspecified diastolic (congestive) heart failure; I48.0 Paroxysmal atrial fibrillation; I25.10 Atherosclerotic heart disease of native coronary artery without angina pectoris
CPT/HCPCS: 36415; 80048; 83880; 85025; 93005; 99212

== ENCOUNTER 2023-09-08 14:51 | Outpatient (AMB) | payer MEDICARE, MEDICAID, SELFPAY ==
[2023-09-08 14:54] VITALS: BP 120/70; PULSE 51; BMI 26.9
--- NOTE | 2023-09-08 14:54 | MHC.OFFVIS ---
Vital Signs 09/08/23 14:54 Height 5 ft 4 in Weight 156 lb 8.451 oz BMI 26.9 BP 120/70 Blood Pressure Location Lt brachial Position Sitting Pulse 51 Intake Visit Reasons: 8 wk f/ip pt r/s Intake Note: 8 week follow-up with ekg c/o weakness Cae Engineer Required: No Allergies asparagus Allergy (Severe, Verified 07/01/23 12:54) Hives rosuvastatin [Crestor] Allergy (Unknown, Verified 07/01/23 12:54) unknown famotidine [From PEPCID] Adverse Reaction (Severe, Verified 07/01/23 12:54) NAUSEA oxycodone [From OXYCONTIN] Adverse Reaction (Intermediate, Verified 07/01/23 12:54) NAUSEA & VOMITING FROM PERCOCET TOO tramadol Adverse Reaction (Intermediate, Verified 07/01/23 12:54) could not concetrate chocolate cover cherries Allergy (Severe, Uncoded 07/01/23 12:54) Anaphylaxis Medication List - Last Reconciled 09/08/23 by Keo Bush MD amiodarone 200 mg PO DAILY atorvastatin 20 mg PO DAILY 90 days furosemide (Lasix) 20 mg PO DAILY Lactobacillus rhamnosus GG (Culturelle) 1 cap PO BID losartan 50 mg PO BID meclizine 12.5 mg PO TID melatonin 5 mg PO BEDTIME PRN metoprolol succinate ER 25 mg (1/2 x 50 mg) PO BID multivitamin 1 tab PO DAILY nitroglycerin 0.4 mg sublingual Q5M PRN rivaroxaban (Xarelto) 15 mg PO DAILY [Rollator As directed] [Shower chair w/back rest As directed] HPI Comments Details: Jaylin comes for follow-up. Since cardioversion she says she has been doing extremely well. Symptoms have improved significantly. She does not have much leg edema. She is taking all her medications. No prolonged palpitation irregular heartbeat. No orthopnea, PND. No bleeding issues or neurologic events. Comes for follow-up after cardioversion. [facility] Medical History Persistent atrial fibrillation (HFpEF) heart failure with preserved ejection fraction History of cardioversion Abscess of vagina Atrial fibrillation Abscess of right genital labia Obesity Anemia Muscle spasm of right leg Angina pectoris Medicare annual wellness visit, initial Overweight (BMI 25.0-29.9) Right leg swelling Gait instability Vitamin D deficiency TIA (transient ischemic attack) Chronic kidney disease (CKD) stage G3b/A1, moderately decreased glomerular filtration rate (GFR) between 30-44 mL/min/1.73 square meter and albuminuria creatinine ratio less than 30 mg/g Spinal stenosis Leukopenia Hypercholesterolemia Insomnia Peripheral vascular disease Peripheral neuropathy Esophageal dysmotility Carotid stenosis Pityriasis lichenoides chronica Lumbar degenerative disc disease GERD (gastroesophageal reflux disease) Hypertension Coronary artery disease Primary osteoarthritis of both shoulders Surgical History History of esophagogastroduodenoscopy (EGD) H/O colonoscopy Hx of total knee arthroplasty Hx of arthroscopic knee surgery Stented coronary artery Status post phlebectomy History of cataract surgery Basal cell carcinoma (BCC) History of tonsillectomy S/P JIMENEZ-BSO History of appendectomy History of cholecystectomy Family History Mother No problems noted. Father No problems noted. Social History Household Members: None Housing: Apartment Do you presently have visiting nurse or other home services: Yes Alcohol intake: never Patient Tobacco Use Status: Never used Tobacco e-Cigarette/Vaping Use: Never Used Second Hand Smoke Exposure: No Advance Directives Date on File: 07/11/20 service: No Current occupational status: retired Cognitive needs: Yes (walker ) Hearing needs: No Vision needs: No Female Reproductive History Menstrual Age of Menarche: 7 Review of Systems Const Denies chills, Denies fatigue, Denies fever(s), Denies frequent falls, Denies weakness, Denies weight gain and Denies weight loss ENT Denies dizziness Card Denies chest pain, Denies leg edema, Denies lightheadedness, Denies palpitations, Denies dyspnea, Denies dyspnea on exertion, Denies orthopnea and Denies other (loss of consciousness) Resp Denies cough, Denies dyspnea and Denies dyspnea on exertion GI Denies hematochezia and Denies change in stool character Musc Denies abnormal gait, Denies muscle weakness, Denies numbness, Denies radiating pain into limb and Denies tingling Neuro Denies abnormal gait, Denies dizziness, Denies frequent falls, Denies numbness, Denies tingling and Denies weakness Endo Denies fatigue and Denies palpitations Physical Exam Vital Signs: Last Vital Signs Pulse 51 09/08/23 14:54 BP 120/70 09/08/23 14:54 BMI result Body Mass Index 26.9 Const General: cooperative, healthy appearing, comfortable and no acute distress Orientation/consciousness: patient oriented x3 Neck Neck: Yes normal visual inspection Resp Effort & Inspection: normal respiratory effort Auscultation: clear to auscultation bilaterally, no crackles, no rales, no rhonchi and no wheezes Cardio Jugular venous distension: no JVD Rate: regular rate Rhythm: regular rhythm Heart sounds: S1 normal heart sound present, S2 normal heart sound present, no murmurs and no rubs Neuro General: patient oriented x3 and no focal motor deficits Extrem General: Yes normal to inspection and Yes no clubbing, cyanosis or edema Psych Appearance: grossly normal Mental Status: mental status grossly normal Speech and movement: Normal speech and movement present Office Procedures EKG Details: EKG shows sinus bradycardia 51 beats per minute with normal EKG [id number], Complete Assessment & Plan Assessment & Plan (1) (HFpEF) heart failure with preserved ejection fraction: Code(s): I50.30 - Unspecified diastolic (congestive) heart failure Category: Medical Plan: Patient with heart failure syndrome related to persistent atrial fibrillation which has now improved significantly. Currently not having any signs of heart failure. Advised to continue pursue aggressively rhythm control approach. Continue amiodarone therapy, see below. Clinically fluid status improved significantly. Follow-up BMP and BNP. Will reduce Lasix to 20 mg 3 times a week. Advised to call me in 2 weeks time to see if she has any further symptoms and/or signs of congestive heart failure at which point we can then switch her Lasix to p.r.n. basis. Continue aggressive blood pressure control. Signs and symptoms of heart failure as well as management of heart failure was discussed in details. She understands and agrees. (2) Paroxysmal atrial fibrillation: Code(s): I48.0 - Paroxysmal atrial fibrillation Category: Medical Plan: Paroxysmal atrial fibrillation with maintaining rhythm on amiodarone therapy. Has done extremely well with rhythm control approach and continue rhythm control approach. Continue avoid stimulants. Continue amiodarone therapy. Continue full oral anticoagulation, currently on renally adjusted dose of Xarelto. Will follow up renal function and see if we need to adjust his Xarelto dose. (3) Coronary artery disease: Comment: [place] in 1982, stent placement 2012 Code(s): I25.10 - Atherosclerotic heart disease of [place] coronary artery without angina pectoris Category: Medical Qualifiers: Associated angina: without angina Coronary Disease-Associated Artery/Lesion type: [place] artery [place] vs. transplanted heart: [place] heart Qualified Code(s): I25.10 - Atherosclerotic heart disease of [place] coronary artery without angina pectoris Plan: CAD without any symptoms of angina. Continue aggressive medical therapy. Continue metoprolol low-dose. Currently on full oral anticoagulation with Xarelto and will therefore avoid aspirin therapy to reduce bleeding risk. Continue statin therapy with target goal LDL less than 70 mg/dL. Blood pressure is currently well optimized. Continue current therapy. Will follow up in the clinic in 3 months time, sooner p.r.n.. Thank you for allowing me to partake in the care Orders: Orders Basic Metabolic Panel Today I50.30 - Unspecified diastolic (congestive) heart failure B Type Natriuretic Peptide Today I50.30 - Unspecified diastolic (congestive) heart failure Medications: Changed From furosemide (Lasix) 20 mg PO DAILY 30 tabs 5RF To furosemide (Lasix) 20 mg PO .three times a week 30 tabs 5RF Refilled amiodarone 200 mg PO DAILY 90 tabs 3RF Coding Level of Care Code Est Pt Level 4 (43889) Diagnoses (HFpEF) heart failure with preserved ejection fraction I50.30 Paroxysmal atrial fibrillation I48.0 Coronary artery disease involving [place] coronary artery of [place] heart without angina pectoris I25.10 Associated angina: without angina Coronary Disease-Associated Artery/Lesion type: [place] artery [place] vs. transplanted heart: [place] heart CPT Codes EKG - CPT: 55375-[id number], Complete ([id number])
== END 2023-09-08 15:17 | disposition home or self-care (01) ==
PROVIDERS: PCP Internal Medicine; Visit Provider Internal Medicine Cardiovascular Disease
DX: I50.30 Unspecified diastolic (congestive) heart failure (principal); I48.0 Paroxysmal atrial fibrillation; I25.10 Atherosclerotic heart disease of native coronary artery without angina pectoris
CPT/HCPCS: 93010; 99214

== ENCOUNTER 2023-09-26 09:08 | Outpatient (REF) | payer MEDICARE, MEDICAID, SELFPAY ==
[2023-09-26 11:04] LABS: MANUAL DIFF FLAG NO
[2023-09-26 11:13] LABS: Basophils Percent Auto 0.8 % (0-2); Eosinophils Absolute Auto 0.1 X10*3/uL (0.0-0.4); Eosinophils Percent Auto 1.9 % (0-4); Hematocrit 32.4 % (37.0-47.0); Hemoglobin 10.6 g/dl (12.0-16.0); Imm Gran Abs Auto 0.02 X10*3/uL (0.00-0.03); Imm Gran Pct Auto 0.4 % (0.0-0.4); Lymphocytes Absolute Auto 1.4 X10*3/uL (1.2-4.9); Lymphocytes Percent Auto 26.9 % (20-40); Mean Corpuscular HGB Conc 32.7 g/dl (31.0-35.0); Mean Corpuscular Hemoglobin 30.6 pg (27.0-33.0); Mean Corpuscular Volume 93.6 fL (80.0-98.0); Mean Platelet Volume 12.4 fL (9.4-12.3); Monocytes Absolute Auto 0.5 X10*3/uL (0.1-1.2); Monocytes Percent Auto 8.6 % (2-11); Neutrophils Absolute Auto 3.2 x10*3/uL (2.0-8.3); Neutrophils Percent Auto 61.4 % (45-73); Platelet Count 206 X10*3/uL (160-400); Red Blood Count 3.46 X10*6/uL (4.20-5.50); Red Cell Distribution Width 13.5 % (11.0-16.0); White Blood Count 5.3 X10*3/uL (4.8-10.8)
[2023-09-26 11:33] LABS: Cholesterol 123 mg/dL (<200); HDL Cholesterol 35 mg/dL (>40); LDL Cholesterol Calculated 66 mg/dL (<100); Magnesium 2.1 mg/dL (1.6-2.6); Triglycerides 111 mg/dL (<150)
[2023-09-26 11:41] LABS: B Type Natriuretic Peptide 308 pg/mL (<100)
[2023-09-26 11:42] LABS: Free T4 (Free Thyroxine) 1.05 ng/dL (0.71-1.85); Thyroid Stimulating Hormone 2.37 uIU/mL (0.32-4.0)
[2023-09-26 11:58] LABS: Vitamin B12 435 pg/mL (200-900)
== END 2023-09-26 09:09 | disposition home or self-care (01) ==
LOC: HO.HMGCLDS 09:08
PROVIDERS: PCP Internal Medicine; Visit Provider Internal Medicine
DX: E78.00 Pure hypercholesterolemia, unspecified (principal); I50.30 Unspecified diastolic (congestive) heart failure
CPT/HCPCS: 36415; 80061; 82607; 82746; 83735; 83880; 84439; 84443; 85025

== ENCOUNTER 2023-10-02 09:33 | Outpatient (AMB) | payer MEDICARE, MEDICAID, SELFPAY ==
[2023-10-02 09:50] VITALS: BP 124/60; PULSE 51; O2SAT 97; BMI 29.9
--- NOTE | 2023-10-02 09:50 | MHC.PC.OV ---
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 Accompanied by: Self / Same As Patient Allergies asparagus Allergy (Severe, Verified 10/02/23 09:51) Hives rosuvastatin [Crestor] Allergy (Unknown, Verified 10/02/23 09:51) unknown famotidine [From PEPCID] Adverse Reaction (Severe, Verified 10/02/23 09:51) NAUSEA oxycodone [From OXYCONTIN] Adverse Reaction (Intermediate, Verified 10/02/23 09:51) NAUSEA & VOMITING FROM PERCOCET TOO tramadol Adverse Reaction (Intermediate, Verified 10/02/23 09:51) could not concetrate chocolate cover cherries Allergy (Severe, Uncoded 10/02/23 09:51) Anaphylaxis Medication List - Last Reconciled 10/02/23 by Erika Jordan MD amiodarone 200 mg PO DAILY atorvastatin 20 mg PO DAILY 90 days furosemide (Lasix) 20 mg PO .three times a week Lactobacillus rhamnosus GG (Culturelle) 1 cap PO BID losartan 50 mg PO BID meclizine 12.5 mg PO TID melatonin 5 mg PO BEDTIME PRN metoprolol succinate ER 25 mg (1/2 x 50 mg) PO BID multivitamin 1 tab PO DAILY nitroglycerin 0.4 mg sublingual Q5M PRN rivaroxaban (Xarelto) 15 mg PO DAILY [Rollator As directed] [Shower chair w/back rest As directed] Tobacco use date assessed: 10/02/23 Fall risk assessment: 1 Fall in past year Last assessed Fall Risk: 10/02/23 Dental Screening Dental Screen Date: 10/02/23 Did you have a dental visit in the last 12 months?: Yes Did you have a dental problem in the last 6 months where you did not have access to dental care?: No Was dental information given to patient?: Patient has dentist HPI shaylee LOONEY fib HPI Details 83-year-old overweight female(18 lb weight gain) with atrial fibrillation coronary artery disease hypercholesterolemia hypertension GERD impaired glucose tolerance and generalized anxiety disorder last seen in May 2023. Patient is up-to-date with bone density. Review of the notes has seen Cardiology in September 07 had cardioversion on amiodarone Lasix decreased to 20 mg 3 times a week aggressive blood pressure management. [facility] Medical History Persistent atrial fibrillation (HFpEF) heart failure with preserved ejection fraction History of cardioversion Abscess of vagina Atrial fibrillation Abscess of right genital labia Obesity Anemia Muscle spasm of right leg Angina pectoris Medicare annual wellness visit, initial Overweight (BMI 25.0-29.9) Right leg swelling Gait instability Vitamin D deficiency TIA (transient ischemic attack) Chronic kidney disease (CKD) stage G3b/A1, moderately decreased glomerular filtration rate (GFR) between 30-44 mL/min/1.73 square meter and albuminuria creatinine ratio less than 30 mg/g Spinal stenosis Leukopenia Hypercholesterolemia Insomnia Peripheral vascular disease Peripheral neuropathy Esophageal dysmotility Carotid stenosis Pityriasis lichenoides chronica Lumbar degenerative disc disease GERD (gastroesophageal reflux disease) Hypertension Coronary artery disease Primary osteoarthritis of both shoulders Surgical History History of esophagogastroduodenoscopy (EGD) H/O colonoscopy Hx of total knee arthroplasty Hx of arthroscopic knee surgery Stented coronary artery Status post phlebectomy History of cataract surgery Basal cell carcinoma (BCC) History of tonsillectomy S/P JIMENEZ-BSO History of appendectomy History of cholecystectomy Family History Mother No problems noted. Father No problems noted. Social History Household Members: None Housing: Apartment Do you presently have visiting nurse or other home services: Yes Alcohol intake: never Patient Tobacco Use Status: Never used Tobacco e-Cigarette/Vaping Use: Never Used Second Hand Smoke Exposure: No Advance Directives Date on File: 07/11/20 service: No Current occupational status: retired Cognitive needs: Yes (walker ) Hearing needs: No Vision needs: No Female Reproductive History Menstrual Age of Menarche: 7 Questionnaire PHQ-9 Over the last 2 weeks, how often have you been bothered by any of the following problems? 1. Little interest or pleasure in doing things: not at all 2. Feeling down, depressed, or hopeless: several days 3. Trouble falling or staying asleep, or sleeping too much: several days 4. Feeling tired or having little energy: several days 5. Poor appetite or overeating: not at all 6. Feeling bad about yourself - or that you are a failure or have let yourself or your family down: not at all 7. Trouble concentrating on things, such as reading the newspaper or watching television: not at all 8. Moving or speaking so slowly that other people could have noticed. Or the opposite - being so fidgety or restless that you have been moving around a lot more than usual: not at all 9. Thoughts that you would be better off or of hurting yourself in some way: not at all Total score: 3 Source: Developed by Drs. Reinier Bernard, Kelly Wiggins, Sy Adames and colleagues, with an educational jody from [employer]. Thrive Questionnaire Date Thrive assessed: 10/02/23 I am a: Patient What is your living situation today?: I have a steady place to live Within the past 12 months, did the food you bought not last and you didn't have the money to get more?: Never true Within the past 12 months, did you worry whether your food would run out before you got money to buy more?: Never true Do you have trouble paying for medicines?: No Do you have trouble getting transportation to medical appointments?: No Do you have trouble paying your heating and electricity bill?: No Do you have trouble taking care of your child, family member or friend?: No Do you have trouble with day-to-day activities such as bathing, preparing meals, shopping, managing finances, etc.?: No Are you currently unemployed and looking for a job?: No Are you interested in more education?: No Please select the resources that you would like help with: None Currently or been in a relationship where the following occur: No concerns reported THRIVE Score: 0 AUDIT C Alcohol Use Questionnaire (AUDIT-C) 1. How often do you have a drink containing alcohol?: Never Total Score: 0 JEANMARIE-7 AMB Questionnaire JEANMARIE-7 Date JEANMARIE - 7 assessed: 10/02/23 Feeling nervous, anxious, or on edge: 0 = Not at all Not being able to stop or control worryin = Not at all Worrying too much about different things: 0 = Not at all Trouble relaxin = Not at all Being so restless that it is hard to sit still: 0 = Not at all Becoming easily annoyed or irritable: 0 = Not at all Feeling afraid as if something awful might happen: 0 = Not at all Total JEANMARIE-7 score (0-4 normal; 5-9 mild; 10-14 moderate; 15-21 severe): 0 Source: Developed by Drs. Reinier Bernard, Kelly Wiggins, Sy Adames and colleagues, with an educational jody from [employer]. Physical exam (Primary Care) Vital Signs: Last Vital Signs Pulse 51 10/02/23 09:50 BP 124/60 10/02/23 09:50 Pulse Ox 97 10/02/23 09:50 Oxygen Delivery Method Room Air 10/02/23 09:50 BMI result Body Mass Index 29.9 Tobacco/Smoking Status: Tobacco use Status Tobacco use date assessed 10/02/23 10/02/23 09:52 Patient Tobacco Use Status Never used Tobacco 10/02/23 09:52 e-Cigarette/Vaping Use Never Used 10/02/23 09:52 PHQ-9: PHQ-9 Score PHQ-9: Total score 3 10/02/23 09:52 Thrive Assessment: Date of Thrive Assessment Date Thrive assessed 10/02/23 10/02/23 09:52 Currently or been in a relationship where the following occur: No concerns reported Const General: alert; No acute distress Eyes Conjunctivae: conjunctivae normal Resp Auscultation: clear to auscultation bilaterally Cardio Rate: regular rate Rhythm: regular rhythm GI Inspection: Yes normal to inspection Extrem General: Yes normal to inspection and No edema Assessment and Plan Assessment & Plan (1) (HFpEF) heart failure with preserved ejection fraction: Code(s): I50.30 - Unspecified diastolic (congestive) heart failure Plan: Continue with diuretics and weigh daily and record on beta blockers metoprolol, losartan. (2) Paroxysmal atrial fibrillation: Comment: Status post cardioversion June 2023 Code(s): I48.0 - Paroxysmal atrial fibrillation Plan: Continue with amiodarone and Xarelto anticoagulation (3) Coronary artery disease: Comment: [place] in 1981, stent placement 2012 Code(s): I25.10 - Atherosclerotic heart disease of mohegan coronary artery without angina pectoris Qualifiers: Coronary Disease-Associated Artery/Lesion type: [place] artery [place] vs. transplanted heart: mohegan heart Associated angina: without angina Qualified Code(s): I25.10 - Atherosclerotic heart disease of mo[place] coronary artery without angina pectoris Plan: Control the cholesterol, weight, blood pressure, on anticoagulation (4) Hypercholesterolemia: Code(s): E78.00 - Pure hypercholesterolemia, unspecified Plan: Avoid fried foods, chicken skin, eggs, butter margarine, pastries and meat. Be it pork or beef they have a lot of cholesterol on atorvastatin 20 mg once a day LDL goal of less than 70 and triglyceride of less than 150 (5) Hypertension: Code(s): I10 - Essential (primary) hypertension Plan: Continue with blood pressure medication. Decrease salt intake and exercise on furosemide, losartan 50 mg twice a day metoprolol 25 mg twice a day (6) GERD (gastroesophageal reflux disease): Code(s): K21.9 - Gastro-esophageal reflux disease without esophagitis Plan: Avoid the foods that causes that usually spicy foods, tomato products, juices, coffee, soda and foods that your sensitive to. After eating do not lie down, allow 3-4 hours before in lie down. And keep the head of bed above 30 degrees to avoid the acid from going up. (7) CKD (chronic kidney disease): Code(s): N18.9 - Chronic kidney disease, unspecified Plan: Noted Elevated creatinine started in June. Advised to get Nephrology involved and will do an ultrasound of the kidneys. Orders: Referrals Nephrology Referral N18.9 - Chronic kidney disease, unspecified Coding Level of Care Code Est Pt Level 4 (72968) Complex EM visit Add On G2211 Diagnoses (HFpEF) heart failure with preserved ejection fraction I50.30 Paroxysmal atrial fibrillation I48.0 Coronary artery disease involving mohegan coronary artery of mo[place] heart without angina pectoris I25.10 Coronary Disease-Associated Artery/Lesion type: [place] artery [place] vs. transplanted heart: mohegan heart Associated angina: without angina Hypercholesterolemia E78.00 Essential hypertension I10 GERD (gastroesophageal reflux disease) K21.9 CKD (chronic kidney disease) N18.9
== END 2023-10-02 10:26 | disposition home or self-care (01) ==
PROVIDERS: PCP Internal Medicine; Visit Provider Internal Medicine
DX: I50.30 Unspecified diastolic (congestive) heart failure (principal); I48.0 Paroxysmal atrial fibrillation; I25.10 Atherosclerotic heart disease of native coronary artery without angina pectoris; E78.00 Pure hypercholesterolemia, unspecified; I12.9 Hypertensive chronic kidney disease with stage 1 through stage 4 chronic kidney disease, or unspecified chronic kidney disease; K21.9 Gastro-esophageal reflux disease without esophagitis; N18.9 Chronic kidney disease, unspecified
CPT/HCPCS: 99214; G2211

== ENCOUNTER 2023-10-09 09:03 | Outpatient (AMB) | payer MEDICARE, MEDICAID, SELFPAY ==
[2023-10-09 09:25] VITALS: BP 120/74; PULSE 49; BMI 30.7
--- NOTE | 2023-10-09 09:25 | HO.NEPHOV ---
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: No Allergies asparagus Allergy (Severe, Verified 10/02/23 09:51) Hives rosuvastatin [Crestor] Allergy (Unknown, Verified 10/02/23 09:51) unknown famotidine [From PEPCID] Adverse Reaction (Severe, Verified 10/02/23 09:51) NAUSEA oxycodone [From OXYCONTIN] Adverse Reaction (Intermediate, Verified 10/02/23 09:51) NAUSEA & VOMITING FROM PERCOCET TOO tramadol Adverse Reaction (Intermediate, Verified 10/02/23 09:51) could not concetrate chocolate cover cherries Allergy (Severe, Uncoded 10/02/23 09:51) Anaphylaxis Medication List - Last Reconciled 10/09/23 by Fausto Vogel MD amiodarone 200 mg PO DAILY atorvastatin 20 mg PO DAILY 90 days furosemide (Lasix) 20 mg PO .three times a week Lactobacillus rhamnosus GG (Culturelle) 1 cap PO BID losartan 50 mg PO BID meclizine 12.5 mg PO TID melatonin 5 mg PO BEDTIME PRN metoprolol succinate ER 50 mg PO BID multivitamin 1 tab PO DAILY nitroglycerin 0.4 mg sublingual Q5M PRN rivaroxaban (Xarelto) 15 mg PO DAILY [Rollator As directed] [Shower chair w/back rest As directed] HPI Comments Details: Jaylin is a pleasant woman with a history of longstanding hypertension and atrial fibrillation. Blood pressure was difficult to control on losartan was increased from 50 mg q.d. up to 50 mg b.i.d.. Baseline creatinine was around 1.2-1.2 mg/dL. In 06/29/2023 creatinine jumped up to 2.0 and since remained high. She had a cardioversion on 06/30 but Cr up on 06/29 LAsix decreased 2 weeks ago Repeat labs are not available. Today she has no shortness of breath. No nausea vomiting. She has fatigue. No urinary symptoms no hematuria. No edema no rash [facility] Medical History Persistent atrial fibrillation (HFpEF) heart failure with preserved ejection fraction History of cardioversion Abscess of vagina Atrial fibrillation Abscess of right genital labia Obesity Anemia Muscle spasm of right leg Angina pectoris Medicare annual wellness visit, initial Overweight (BMI 25.0-29.9) Right leg swelling Gait instability Vitamin D deficiency TIA (transient ischemic attack) Chronic kidney disease (CKD) stage G3b/A1, moderately decreased glomerular filtration rate (GFR) between 30-44 mL/min/1.73 square meter and albuminuria creatinine ratio less than 30 mg/g Spinal stenosis Leukopenia Hypercholesterolemia Insomnia Peripheral vascular disease Peripheral neuropathy Esophageal dysmotility Carotid stenosis Pityriasis lichenoides chronica Lumbar degenerative disc disease GERD (gastroesophageal reflux disease) Hypertension Coronary artery disease Primary osteoarthritis of both shoulders Surgical History History of esophagogastroduodenoscopy (EGD) H/O colonoscopy Hx of total knee arthroplasty Hx of arthroscopic knee surgery Stented coronary artery Status post phlebectomy History of cataract surgery Basal cell carcinoma (BCC) History of tonsillectomy S/P JIMENEZ-BSO History of appendectomy History of cholecystectomy Family History Mother No problems noted. Father No problems noted. Social History Household Members: None Housing: Apartment Do you presently have visiting nurse or other home services: Yes Alcohol intake: never Patient Tobacco Use Status: Never used Tobacco e-Cigarette/Vaping Use: Never Used Second Hand Smoke Exposure: No Advance Directives Date on File: 07/11/20 service: No Current occupational status: retired Cognitive needs: Yes (walker ) Hearing needs: No Vision needs: No Female Reproductive History Menstrual Age of Menarche: 7 Physical Exam Vital Signs: Last Vital Signs Pulse 49 L 10/09/23 09:25 BP 120/74 10/09/23 09:25 BMI result Body Mass Index 30.7 Const General: comfortable; No acute distress Orientation/consciousness: patient oriented x3 Eyes General: appearance normal, both eyes and all related structures Visual Broderick: normal visual broderick by confrontation Neck Neck: Yes supple and Yes no JVD Resp Effort & Inspection: normal respiratory effort and respiratory effort not decreased Auscultation: rhonchi Cardio Palpation: no palpable S3 and no palpable S4 Heart sounds: no rubs GI Inspection: Yes normal to inspection Palpation (GI): Soft to palpation Percussion: Yes normal to percussion Auscultation: normal bowel sounds General: Yes no CVA tenderness Back/Spine/Pelvis Back: no CVA tenderness Skin General skin exam: no petechiae and no purpura Neuro General: patient oriented x3 and no focal motor deficits Extrem General: No clubbing and No edema Results Reviewed Nephrology Results: Hgb 10.5 g/dl (12.0-16.0) L 10/09/23 WBC 6.7 X10*3/uL (4.8-10.8) 10/09/23 Plt Count 211 X10*3/uL (160-400) 10/09/23 Sodium 139 mmol/L (135-145) 09/08/23 Potassium 5.4 mmol/L (3.3-5.1) H 09/08/23 Chloride 108 mmol/L (96-108) 09/08/23 Carbon Dioxide 21 mmol/L (22-29) L 09/08/23 BUN 45 mg/dL (9-16) H 09/08/23 Creatinine 2.24 mg/dL (0.5-1.4) H 09/08/23 Calcium 9.7 mg/dL (8.4-10.2) 09/08/23 Urine Protein Negative mg/dL (Neg-Trace) 10/09/23 Urine Creatinine Pending 10/09/23 Assessment & Plan Assessment & Plan (1) (HFpEF) heart failure with preserved ejection fraction: Code(s): I50.30 - Unspecified diastolic (congestive) heart failure Category: Medical (2) CKD (chronic kidney disease): Code(s): N18.9 - Chronic kidney disease, unspecified Category: Medical (3) SARAH (acute kidney injury): Code(s): N17.9 - Acute kidney failure, unspecified Category: Medical Plan Elderly woman with hypertension and atrial fibrillation has sustained acute kidney injury. She has underlying chronic kidney disease stage 3 most likely due to age-related nephron loss and hypertensive nephrosclerosis. Superimposed SARAH is most likely due to hypoperfusion. Obstructive uropathy should be ruled out. Other glomerular nephritis or interstitial disease seem less likely nevertheless we will rule that out. Hypoperfusion was probably due to combination of high dose of losartan and diuretics. Diuretics have been lowered 2 weeks ago. I expect renal function to improve. Check renal panel today. Continue overt nephrotoxic agents Avoid hypotension. Obtain renal ultrasonogram to assess echogenicity and to rule out hydronephrosis. Basic urine studies ordered. I have reassured her and see her again in the next few weeks. I will keep you updated Orders: Orders Complete Blood Count Auto Diff Today Fausto Vogel MD I50.30 - Unspecified diastolic (congestive) heart failure, N17.9 - Acute kidney failure, unspecified, N18.9 - Chronic kidney disease, unspecified Total Protein Urine Random Today Fausto Vogel MD I50.30 - Unspecified diastolic (congestive) heart failure, N17.9 - Acute kidney failure, unspecified, N18.9 - Chronic kidney disease, unspecified Creatinine Urine Today Fausto Vogel MD I50.30 - Unspecified diastolic (congestive) heart failure, N17.9 - Acute kidney failure, unspecified, N18.9 - Chronic kidney disease, unspecified Neutrophil Cytoplasma Ab Today Fausto Vogel MD I50.30 - Unspecified diastolic (congestive) heart failure, N17.9 - Acute kidney failure, unspecified, N18.9 - Chronic kidney disease, unspecified Anti Glomerular Basement Memb Today Fausto Vogel MD I50.30 - Unspecified diastolic (congestive) heart failure, N17.9 - Acute kidney failure, unspecified, N18.9 - Chronic kidney disease, unspecified Complement C4 Today Fausto Vogel MD I50.30 - Unspecified diastolic (congestive) heart failure, N17.9 - Acute kidney failure, unspecified, N18.9 - Chronic kidney disease, unspecified Basic Metabolic Panel Today Fausto Vogel MD I50.30 - Unspecified diastolic (congestive) heart failure, N17.9 - Acute kidney failure, unspecified, N18.9 - Chronic kidney disease, unspecified Parathyroid Hormone Related Pr Today Fausto Vogel MD I50.30 - Unspecified diastolic (congestive) heart failure, N17.9 - Acute kidney failure, unspecified, N18.9 - Chronic kidney disease, unspecified UA and rflx microscopic Today Fausto Vogel MD I50.30 - Unspecified diastolic (congestive) heart failure, N17.9 - Acute kidney failure, unspecified, N18.9 - Chronic kidney disease, unspecified Complement C3 Today Fausto Vogel MD I50.30 - Unspecified diastolic (congestive) heart failure, N17.9 - Acute kidney failure, unspecified, N18.9 - Chronic kidney disease, unspecified Protein Electrophoresis, Serum Today Fausto Vogel MD I50.30 - Unspecified diastolic (congestive) heart failure, N17.9 - Acute kidney failure, unspecified, N18.9 - Chronic kidney disease, unspecified US renal BI Today Fausto Vogel MD N17.9 - Acute kidney failure, unspecified Medications: Changed From metoprolol succinate ER 25 mg (1/2 x 50 mg) PO BID 180 tabs 3RF I10 - Essential (primary) hypertension To metoprolol succinate ER 50 mg PO BID I10 - Essential (primary) hypertension Keo Bush MD Coding Level of Care Code New Pt Level 4 (61560) Diagnoses (HFpEF) heart failure with preserved ejection fraction I50.30 CKD (chronic kidney disease) N18.9 SARAH (acute kidney injury) N17.9
== END 2023-10-09 09:50 | disposition home or self-care (01) ==
PROVIDERS: PCP Internal Medicine; Referring Provider Internal Medicine; Visit Provider Internal Medicine Hypertension Specialist
DX: I50.30 Unspecified diastolic (congestive) heart failure (principal); N18.9 Chronic kidney disease, unspecified; N17.9 Acute kidney failure, unspecified
CPT/HCPCS: 99204

== ENCOUNTER → 2023-10-09 09:03 | Outpatient (BNVA) | payer MEDICARE, MEDICAID, SELFPAY | PROVIDERS: PCP Internal Medicine; Referring Provider Internal Medicine; Visit Provider Internal Medicine Hypertension Specialist | DX: Z13.89 Encounter for screening for other disorder (principal) | CPT/HCPCS: 99202 ==

== ENCOUNTER 2023-10-09 09:55 | Outpatient (REF) | payer MEDICARE, MEDICAID, SELFPAY ==
[2023-10-09 10:41] LABS: MANUAL DIFF FLAG NO
[2023-10-09 10:55] LABS: Basophils Percent Auto 0.6 % (0-2); Eosinophils Absolute Auto 0.1 X10*3/uL (0.0-0.4); Eosinophils Percent Auto 1.3 % (0-4); Hematocrit 31.9 % (37.0-47.0); Hemoglobin 10.5 g/dl (12.0-16.0); Imm Gran Abs Auto 0.02 X10*3/uL (0.00-0.03); Imm Gran Pct Auto 0.3 % (0.0-0.4); Lymphocytes Absolute Auto 1.2 X10*3/uL (1.2-4.9); Mean Corpuscular HGB Conc 32.9 g/dl (31.0-35.0); Mean Corpuscular Hemoglobin 30.5 pg (27.0-33.0); Mean Corpuscular Volume 92.7 fL (80.0-98.0); Mean Platelet Volume 11.9 fL (9.4-12.3); Monocytes Absolute Auto 0.6 X10*3/uL (0.1-1.2); Monocytes Percent Auto 8.4 % (2-11); Neutrophils Absolute Auto 4.8 x10*3/uL (2.0-8.3); Neutrophils Percent Auto 71.4 % (45-73); Platelet Count 211 X10*3/uL (160-400); Red Blood Count 3.44 X10*6/uL (4.20-5.50); Red Cell Distribution Width 13.3 % (11.0-16.0); White Blood Count 6.7 X10*3/uL (4.8-10.8)
[2023-10-09 11:08] LABS: Appearance Urine Clear; Color Urine Yellow; Glucose Urine UA Negative (Negative); Leukocyte Esterase Urine Small (1+) (Negative); Nitrite Urine Negative (Negative); UMIC TRIGGER UA YES; Urine Blood Negative (Negative); Urine Ketones Negative (Negative); Urine Protein Negative (Neg-Trace)
[2023-10-09 11:25] LABS: Bacteria Urine None Seen (None Seen); RBC Urine 0-2 /HPF (0-2); Squamous Epithelial Cell Urine 0-2 /HPF (0-2); WBC Urine 0-5 /HPF (0-5)
[2023-10-09 12:17] LABS: Creatinine Urine 19.59 mg/dL; Total Protein Urine Random < 7 mg/dL (<12)
[2023-10-09 12:26] LABS: Anion Gap 12 (12-20); Blood Urea Nitrogen 31 mg/dL (9-16); Calcium 9.4 mg/dL (8.4-10.2); Carbon Dioxide 22 mmol/L (22-29); Chloride 110 mmol/L (96-108); Estimated Glomerular Filt Rate 29; Glucose Random 106 mg/dL (60-115); Potassium 4.9 mmol/L (3.3-5.1); Sodium 139 mmol/L (135-145)
[2023-10-13 09:13] LABS: Complement C3 113 mg/dL
[2023-10-14 07:33] LABS: Anti Glomerular Basement Memb <1.0 AI
[2023-10-14 10:14] LABS: Neutrophil Cyto Ab Screen NEGATIVE (NEGATIVE)
[2023-10-15 09:03] LABS: Prot Elec - Albumin 3.6 g/dL (3.8-4.8); Prot Elec - Alpha1 0.4 g/dL (0.2-0.3); Prot Elec - Alpha2 0.9 g/dL (0.5-0.9); Prot Elec - Beta 1 0.4 g/dL (0.4-0.6); Prot Elec - Beta 2 0.4 g/dL (0.2-0.5); Prot Elec - Gamma 1.1 g/dL (0.8-1.7); Prot Elec - Total Protein 6.8 g/dL (6.1-8.1)
[2023-10-27 03:58] LABS: Parathyroid Hormone Related Pr 6 pg/mL (11-20)
== END 2023-10-09 09:56 | disposition home or self-care (01) ==
LOC: HO.10HDL 09:55
PROVIDERS: Visit Provider Internal Medicine Hypertension Specialist
DX: I12.9 Hypertensive chronic kidney disease with stage 1 through stage 4 chronic kidney disease, or unspecified chronic kidney disease (principal); N18.9 Chronic kidney disease, unspecified; I50.30 Unspecified diastolic (congestive) heart failure; N17.9 Acute kidney failure, unspecified
CPT/HCPCS: 36415; 80048; 81001; 81003; 82570; 83519; 83520; 84156; 84165; 85025; 86036; 86160; 99202

== ENCOUNTER 2023-10-19 13:37 | Outpatient (REF) | payer MEDICARE, MEDICAID, SELFPAY ==
--- NOTE | ~2023-10-19 | US_ITS ---
EXAMINATION: US RETROPERITONEAL LIMITED (RENAL ONLY) CLINICAL INFORMATION: Acute kidney failure, unspecified. COMPARISON: None available. TECHNIQUE: Real-time imaging of the kidneys. FINDINGS: RIGHT KIDNEY: 11.9 x 5.1 x 5.2 cm (SAG x AP x TRV). The kidney is of normal size but with cortical thinning and increased echogenicity suggestive of medical renal disease. No renal calculi or hydronephrosis. A benign lower pole 6.1 cm Bosniak class I renal cyst is noted which requires no additional imaging or follow up. No solid renal masses are seen. LEFT KIDNEY: 12.3 x 5.0 x 5.8 cm (SAG x AP x TRV). The kidney is of normal size but with cortical thinning and increased echogenicity suggestive of medical renal disease. No renal calculi or hydronephrosis. A benign lower pole 2.0 cm Bosniak class I renal cyst is noted which requires no additional imaging or follow up. No solid renal masses are seen. US/US renal BI IMPRESSION: Echogenic kidneys with cortical thinning consistent with medical renal disease. Electronically signed by: Fercho Keller MD 10/19/2023 11:56 PM EDT
== END 2023-10-19 13:38 | disposition home or self-care (01) ==
LOC: HO.US 13:37
PROVIDERS: PCP Internal Medicine; Visit Provider Internal Medicine Hypertension Specialist
DX: N17.9 Acute kidney failure, unspecified (principal)
CPT/HCPCS: 76775

== ENCOUNTER 2023-10-30 09:06 | Outpatient (AMB) | payer MEDICARE, MEDICAID, SELFPAY ==
[2023-10-30 09:21] VITALS: BP 140/62; PULSE 96; O2SAT 60; BMI 29.3
--- NOTE | 2023-10-30 09:21 | HO.NEPHOV ---
Vital Signs 10/30/23 09:21 10/30/23 09:34 Height 5 ft 4 in Weight 171 lb BMI 29.3 BP 140/62 H 110/60 Blood Pressure Location Lt brachial Lt brachial Position Sitting Sitting Pulse 96 Pulse Source Pulse Oximeter Pulse Oximetry (%) 60 L Oxygen Delivery Method Room Air Intake Visit Reasons: CKD/ Conf Instrument And Control Service Person Required: No Accompanied by: Self / Same As Patient Allergies asparagus Allergy (Severe, Verified 10/30/23 09:23) Hives rosuvastatin [Crestor] Allergy (Unknown, Verified 10/30/23 09:23) unknown famotidine [From PEPCID] Adverse Reaction (Severe, Verified 10/30/23 09:23) NAUSEA oxycodone [From OXYCONTIN] Adverse Reaction (Intermediate, Verified 10/30/23 09:23) NAUSEA & VOMITING FROM PERCOCET TOO tramadol Adverse Reaction (Intermediate, Verified 10/30/23 09:23) could not concetrate chocolate cover cherries Allergy (Severe, Uncoded 10/02/23 09:51) Anaphylaxis Medication List - Last Reconciled 10/30/23 by Fautso Vogel MD amiodarone 200 mg PO DAILY atorvastatin 20 mg PO DAILY 90 days furosemide (Lasix) 20 mg PO .three times a week Lactobacillus rhamnosus GG (Culturelle) 1 cap PO BID losartan 50 mg PO BID meclizine 12.5 mg PO TID melatonin 5 mg PO BEDTIME PRN metoprolol succinate ER 50 mg PO BID multivitamin 1 tab PO DAILY nitroglycerin 0.4 mg sublingual Q5M PRN rivaroxaban (Xarelto) 15 mg PO DAILY [Rollator As directed] [Shower chair w/back rest As directed] HPI Comments Details: Jaylin is a pleasant woman with a history of longstanding hypertension and atrial fibrillation. Blood pressure was difficult to control on losartan was increased from 50 mg q.d. up to 50 mg b.i.d.. Baseline creatinine was around 1.2-1.2 mg/dL. In 06/29/2023 creatinine jumped up to 2.0 and since remained high. She had a cardioversion on 06/30 but Cr up on 06/29 Lasix decreased 2 weeks ago Repeat labs are not available. she has no shortness of breath. No nausea vomiting. She has fatigue. No urinary symptoms no hematuria. No edema no rash PFSH Medical History Persistent atrial fibrillation (HFpEF) heart failure with preserved ejection fraction History of cardioversion Abscess of vagina Atrial fibrillation Abscess of right genital labia Obesity Anemia Muscle spasm of right leg Angina pectoris Medicare annual wellness visit, initial Overweight (BMI 25.0-29.9) Right leg swelling Gait instability Vitamin D deficiency TIA (transient ischemic attack) Chronic kidney disease (CKD) stage G3b/A1, moderately decreased glomerular filtration rate (GFR) between 30-44 mL/min/1.73 square meter and albuminuria creatinine ratio less than 30 mg/g Spinal stenosis Leukopenia Hypercholesterolemia Insomnia Peripheral vascular disease Peripheral neuropathy Esophageal dysmotility Carotid stenosis Pityriasis lichenoides chronica Lumbar degenerative disc disease GERD (gastroesophageal reflux disease) Hypertension Coronary artery disease Primary osteoarthritis of both shoulders Surgical History History of esophagogastroduodenoscopy (EGD) H/O colonoscopy Hx of total knee arthroplasty Hx of arthroscopic knee surgery Stented coronary artery Status post phlebectomy History of cataract surgery Basal cell carcinoma (BCC) History of tonsillectomy S/P JIMENEZ-BSO History of appendectomy History of cholecystectomy Family History Mother No problems noted. Father No problems noted. Social History Household Members: None Housing: Apartment Do you presently have visiting nurse or other home services: Yes Alcohol intake: never Patient Tobacco Use Status: Never used Tobacco e-Cigarette/Vaping Use: Never Used Second Hand Smoke Exposure: No Advance Directives Date on File: 07/11/20 service: No Current occupational status: retired Cognitive needs: Yes (walker ) Hearing needs: No Vision needs: No Female Reproductive History Menstrual Age of Menarche: 7 Physical Exam Vital Signs: Last Vital Signs Pulse 96 10/30/23 09:21 BP 110/60 10/30/23 09:34 Pulse Ox 60 L 10/30/23 09:21 Oxygen Delivery Method Room Air 10/30/23 09:21 BMI result Body Mass Index 29.3 Results Reviewed Nephrology Results: Hgb 10.5 g/dl (12.0-16.0) L 10/09/23 WBC 6.7 X10*3/uL (4.8-10.8) 10/09/23 Plt Count 211 X10*3/uL (160-400) 10/09/23 Sodium 139 mmol/L (135-145) 10/09/23 Potassium 4.9 mmol/L (3.3-5.1) 10/09/23 Chloride 110 mmol/L (96-108) H 10/09/23 Carbon Dioxide 22 mmol/L (22-29) 10/09/23 BUN 31 mg/dL (9-16) H 10/09/23 Creatinine 1.69 mg/dL (0.5-1.4) H 10/09/23 Calcium 9.4 mg/dL (8.4-10.2) 10/09/23 Urine Protein Negative mg/dL (Neg-Trace) 10/09/23 Urine Creatinine 19.59 mg/dL 10/09/23 Renal US 10/19/23 Assessment & Plan Assessment & Plan (1) (HFpEF) heart failure with preserved ejection fraction: Code(s): I50.30 - Unspecified diastolic (congestive) heart failure Category: Medical (2) SARAH (acute kidney injury): Code(s): N17.9 - Acute kidney failure, unspecified Category: Medical Plan Elderly woman with hypertension and atrial fibrillation has sustained acute kidney injury. She has underlying chronic kidney disease stage 3 most likely due to age-related nephron loss and hypertensive nephrosclerosis. Superimposed SARAH is most likely due to hypoperfusion. No evidence of Obstructive uropathy ,glomerular nephritis or interstitial disease Hypoperfusion was probably due to combination of high dose of losartan and diuretics. After lowerinf diuretics, creatinine HAS improved Continue to avoid nephrotoxic agents Avoid hypotension. Mild anemia Iron levels normal Most likely has EPO deficiency due to CKD No absolute indication for TORY BP is well controlled Clinically euvolemic Stay on Lasix 3 x week Low salt diet Orders: Orders Basic Metabolic Panel 3 Months N17.9 - Acute kidney failure, unspecified Complete Blood Count Auto Diff 3 Months N17.9 - Acute kidney failure, unspecified Parathyroid Hormone Intact 3 Months N17.9 - Acute kidney failure, unspecified Coding Level of Care Code Est Pt Level 4 (01822) Diagnoses (HFpEF) heart failure with preserved ejection fraction I50.30 SARAH (acute kidney injury) N17.9
[2023-10-30 09:34] VITALS: BP 110/60
== END 2023-10-30 09:43 | disposition home or self-care (01) ==
PROVIDERS: PCP Internal Medicine; Visit Provider Internal Medicine Hypertension Specialist
DX: N17.9 Acute kidney failure, unspecified (principal); I13.0 Hypertensive heart and chronic kidney disease with heart failure and stage 1 through stage 4 chronic kidney disease, or unspecified chronic kidney disease; I50.30 Unspecified diastolic (congestive) heart failure; N18.30 Chronic kidney disease, stage 3 unspecified
CPT/HCPCS: 99214

== ENCOUNTER → 2023-10-30 09:06 | Outpatient (BNVA) | payer MEDICARE, MEDICAID, SELFPAY | PROVIDERS: PCP Internal Medicine; Visit Provider Internal Medicine Hypertension Specialist | DX: N17.9 Acute kidney failure, unspecified (principal); I50.30 Unspecified diastolic (congestive) heart failure | CPT/HCPCS: 99212 ==

== ENCOUNTER 2023-12-21 14:02 | Outpatient (AMB) | payer MEDICARE, MEDICAID, SELFPAY ==
[2023-12-21 14:13] VITALS: BP 138/80; PULSE 48; BMI 29.3
--- NOTE | 2023-12-21 14:13 | MHC.OFFVIS ---
Vital Signs 12/21/23 14:13 Height 5 ft 4 in Weight 171 lb BMI 29.3 BMI Reason not done Patient refused/unable BP 138/80 Blood Pressure Location Lt brachial Position Sitting Pulse 48 L Pulse Source Monitor Intake Visit Reasons: 3 mth f/up Allergies asparagus Allergy (Severe, Verified 10/30/23 09:23) Hives rosuvastatin [Crestor] Allergy (Unknown, Verified 10/30/23 09:23) unknown famotidine [From PEPCID] Adverse Reaction (Severe, Verified 10/30/23 09:23) NAUSEA oxycodone [From OXYCONTIN] Adverse Reaction (Intermediate, Verified 10/30/23 09:23) NAUSEA & VOMITING FROM PERCOCET TOO tramadol Adverse Reaction (Intermediate, Verified 10/30/23 09:23) could not concetrate chocolate cover cherries Allergy (Severe, Uncoded 10/02/23 09:51) Anaphylaxis Medication List - Last Reconciled 12/21/23 by Keo Bush MD amiodarone 200 mg PO DAILY atorvastatin 20 mg PO DAILY 90 days furosemide 20 mg PO DAILY Lactobacillus rhamnosus GG (Culturelle) 1 cap PO BID losartan 50 mg PO BID meclizine 12.5 mg PO TID metoprolol succinate ER 50 mg PO BID multivitamin 1 tab PO DAILY nitroglycerin 0.4 mg sublingual Q5M PRN rivaroxaban (Xarelto) 15 mg PO DAILY [Rollator As directed] [Shower chair w/back rest As directed] HPI Comments Details: Jaylin comes for follow-up. She has done well from cardiac perspective. She denies any worsening heart failure symptoms. Denies prolonged palpitation irregular heartbeat. She is worried about her kidney functions. Currently on Lasix 20 mg 3 times a week. Has had no weight gain, which has remained stable. Denies any orthopnea, PND, leg edema, abdominal distension. No exertional chest pain. No lightheadedness, syncope. [facility] Medical History Persistent atrial fibrillation (HFpEF) heart failure with preserved ejection fraction History of cardioversion Abscess of vagina Atrial fibrillation Abscess of right genital labia Obesity Anemia Muscle spasm of right leg Angina pectoris Medicare annual wellness visit, initial Overweight (BMI 25.0-29.9) Right leg swelling Gait instability Vitamin D deficiency TIA (transient ischemic attack) Chronic kidney disease (CKD) stage G3b/A1, moderately decreased glomerular filtration rate (GFR) between 30-44 mL/min/1.73 square meter and albuminuria creatinine ratio less than 30 mg/g Spinal stenosis Leukopenia Hypercholesterolemia Insomnia Peripheral vascular disease Peripheral neuropathy Esophageal dysmotility Carotid stenosis Pityriasis lichenoides chronica Lumbar degenerative disc disease GERD (gastroesophageal reflux disease) Hypertension Coronary artery disease Primary osteoarthritis of both shoulders Surgical History History of esophagogastroduodenoscopy (EGD) H/O colonoscopy Hx of total knee arthroplasty Hx of arthroscopic knee surgery Stented coronary artery Status post phlebectomy History of cataract surgery Basal cell carcinoma (BCC) History of tonsillectomy S/P JIMENEZ-BSO History of appendectomy History of cholecystectomy Family History Mother No problems noted. Father No problems noted. Social History Household Members: None Housing: Apartment Do you presently have visiting nurse or other home services: Yes Alcohol intake: never Patient Tobacco Use Status: Never used Tobacco e-Cigarette/Vaping Use: Never Used Second Hand Smoke Exposure: No Advance Directives Date on File: 07/11/20 service: No Current occupational status: retired Cognitive needs: Yes (walker ) Hearing needs: No Vision needs: No Female Reproductive History Menstrual Age of Menarche: 7 Review of Systems Const Denies weakness ENT Denies dizziness Card Denies chest pain, Denies chest pain with activity, Denies syncope, Denies rapid heart rate, Denies pedal edema, Denies edema, Denies leg edema, Denies lightheadedness, Denies palpitations, Denies dyspnea, Denies dyspnea on exertion and Denies orthopnea Resp Denies cough, Denies dyspnea and Denies dyspnea on exertion GI Denies hematochezia and Denies change in stool character Musc Denies abnormal gait, Denies muscle cramps, Denies muscle weakness, Denies numbness, Denies radiating pain into limb and Denies tingling Neuro Denies abnormal gait, Denies dizziness, Denies syncope, Denies numbness, Denies tingling and Denies weakness Endo Denies palpitations Physical Exam Vital Signs: Last Vital Signs Pulse 48 L 12/21/23 14:13 BP 138/80 12/21/23 14:13 BMI result Body Mass Index 29.3 Const General: cooperative, healthy appearing, comfortable and no acute distress Orientation/consciousness: patient oriented x3 Neck Neck: Yes normal visual inspection Resp Effort & Inspection: normal respiratory effort Auscultation: clear to auscultation bilaterally, no crackles, no rales, no rhonchi and no wheezes Cardio Jugular venous distension: no JVD Rate: regular rate Rhythm: regular rhythm Heart sounds: S1 normal heart sound present, S2 normal heart sound present, no murmurs and no rubs Neuro General: patient oriented x3 and no focal motor deficits Extrem General: Yes normal to inspection and Yes no clubbing, cyanosis or edema Psych Appearance: grossly normal Mental Status: mental status grossly normal Speech and movement: Normal speech and movement present Office Procedures EKG Details: EKG shows sinus bradycardia with mild QT prolongation [id number], Complete Assessment & Plan Assessment & Plan (1) (HFpEF) heart failure with preserved ejection fraction: Code(s): I50.30 - Unspecified diastolic (congestive) heart failure Category: Medical Plan: Heart failure with preserved ejection fraction with resolved heart failure syndrome since maintaining rhythm. She is currently euvolemic and well compensated with elevated creatinine. At this point time I have advised her to use Lasix on a p.r.n. basis. Daily weight monitoring avoidance of salt loading was discussed. Follow-up renal function 2 weeks time. Continue aggressive rhythm control approach. Continue aggressive blood pressure control which is currently well optimized. (2) Paroxysmal atrial fibrillation: Comment: Status post cardioversion June 2023 Code(s): I48.0 - Paroxysmal atrial fibrillation Category: Medical Plan: Paroxysmal atrial fibrillation doing extremely well with rhythm control approach with significant improvement in his symptoms. Continue amiodarone therapy. Follow up in the clinic in 3 months time. Continue full oral anticoagulation, currently on renally adjusted dose of Xarelto. Follow-up basic metabolic profile in 2 weeks time. Will follow up in the clinic in 3 months time, sooner p.r.n.. Thank you for allowing me to partake in her care Medications: Changed From furosemide three times a week 20 mg PO DAILY 30 tabs 3RF To furosemide three times a week 20 mg PO DAILY PRN 30 tabs 3RF Heart failure symptoms Coding Level of Care Code Est Pt Level 4 (36376) Diagnoses (HFpEF) heart failure with preserved ejection fraction I50.30 Paroxysmal atrial fibrillation I48.0 CPT Codes EKG - CPT: 45414-[id number], Complete ([id number])
== END 2023-12-21 14:40 | disposition home or self-care (01) ==
PROVIDERS: PCP Internal Medicine; Visit Provider Internal Medicine Cardiovascular Disease
DX: I50.30 Unspecified diastolic (congestive) heart failure (principal); I48.0 Paroxysmal atrial fibrillation
CPT/HCPCS: 93010; 99214

== ENCOUNTER → 2023-12-21 14:02 | Outpatient (BNVA) | payer MEDICARE, MEDICAID, SELFPAY | PROVIDERS: PCP Internal Medicine; Visit Provider Internal Medicine Cardiovascular Disease | DX: I13.0 Hypertensive heart and chronic kidney disease with heart failure and stage 1 through stage 4 chronic kidney disease, or unspecified chronic kidney disease (principal); N18.32 Chronic kidney disease, stage 3b; I50.30 Unspecified diastolic (congestive) heart failure; I25.10 Atherosclerotic heart disease of native coronary artery without angina pectoris; I48.0 Paroxysmal atrial fibrillation | CPT/HCPCS: 93005; 99212 ==

== ENCOUNTER 2024-01-04 13:27 | Outpatient (REF) | payer MEDICARE, MEDICAID, SELFPAY ==
[2024-01-04 16:14] LABS: Anion Gap 13 (12-20); Blood Urea Nitrogen 34 mg/dL (9-16); Carbon Dioxide 21 mmol/L (22-29); Chloride 108 mmol/L (96-108); Estimated Glomerular Filt Rate 29; Glucose Random 97 mg/dL (60-115); Sodium 137 mmol/L (135-145)
== END 2024-01-04 13:28 | disposition home or self-care (01) ==
LOC: HO.HMGCLDS 13:27
PROVIDERS: PCP Internal Medicine; Visit Provider Internal Medicine Cardiovascular Disease
DX: I50.30 Unspecified diastolic (congestive) heart failure (principal)
CPT/HCPCS: 36415; 80048

== ENCOUNTER 2024-01-25 12:57 | Outpatient (AMB) | payer MEDICARE, MEDICAID, SELFPAY ==
[2024-01-25 13:13] VITALS: BP 164/68; PULSE 56; O2SAT 99; BMI 29.3
--- NOTE | 2024-01-25 13:13 | HO.NEPHOV ---
Vital Signs 01/25/24 13:13 Height 5 ft 4 in Weight 171 lb BMI 29.3 BP 164/68 H Blood Pressure Location Rt brachial Position Sitting Pulse 56 Pulse Source Pulse Oximeter Pulse Oximetry (%) 99 Oxygen Delivery Method Room Air Intake Visit Reasons: CKD Acquisition Specialist Required: No Accompanied by: Self / Same As Patient Allergies asparagus Allergy (Severe, Verified 01/25/24 13:15) Hives rosuvastatin [Crestor] Allergy (Unknown, Verified 01/25/24 13:15) unknown famotidine [From PEPCID] Adverse Reaction (Severe, Verified 01/25/24 13:15) NAUSEA oxycodone [From OXYCONTIN] Adverse Reaction (Intermediate, Verified 01/25/24 13:15) NAUSEA & VOMITING FROM PERCOCET TOO tramadol Adverse Reaction (Intermediate, Verified 01/25/24 13:15) could not concetrate chocolate cover cherries Allergy (Severe, Uncoded 10/02/23 09:51) Anaphylaxis Medication List - Last Reconciled 01/25/24 by Fausto Vogel MD amiodarone 200 mg PO DAILY atorvastatin 20 mg PO DAILY 90 days furosemide 20 mg PO DAILY PRN Lactobacillus rhamnosus GG (Culturelle) 1 cap PO BID losartan 50 mg PO BID meclizine 12.5 mg PO TID metoprolol succinate ER 50 mg PO BID multivitamin 1 tab PO DAILY nitroglycerin 0.4 mg sublingual Q5M PRN rivaroxaban (Xarelto) 15 mg PO DAILY [Rollator As directed] [Shower chair w/back rest As directed] HPI Comments Details: Jaylin is a pleasant woman with a history of longstanding hypertension and atrial fibrillation. Blood pressure was difficult to control on losartan was increased from 50 mg q.d. up to 50 mg b.i.d.. Baseline creatinine was around 1.2-1.2 mg/dL. In 06/29/2023 creatinine jumped up to 2.0 and since remained high. She had a cardioversion on 06/30 but Cr up on 06/29 Lasix decreased 2 weeks ago Repeat labs are not available. she has no shortness of breath. No nausea vomiting. She has fatigue. No urinary symptoms no hematuria. No edema no rash PFSH Medical History Persistent atrial fibrillation (HFpEF) heart failure with preserved ejection fraction History of cardioversion Abscess of vagina Atrial fibrillation Abscess of right genital labia Obesity Anemia Muscle spasm of right leg Angina pectoris Medicare annual wellness visit, initial Overweight (BMI 25.0-29.9) Right leg swelling Gait instability Vitamin D deficiency TIA (transient ischemic attack) Chronic kidney disease (CKD) stage G3b/A1, moderately decreased glomerular filtration rate (GFR) between 30-44 mL/min/1.73 square meter and albuminuria creatinine ratio less than 30 mg/g Spinal stenosis Leukopenia Hypercholesterolemia Insomnia Peripheral vascular disease Peripheral neuropathy Esophageal dysmotility Carotid stenosis Pityriasis lichenoides chronica Lumbar degenerative disc disease GERD (gastroesophageal reflux disease) Hypertension Coronary artery disease Primary osteoarthritis of both shoulders Surgical History History of esophagogastroduodenoscopy (EGD) H/O colonoscopy Hx of total knee arthroplasty Hx of arthroscopic knee surgery Stented coronary artery Status post phlebectomy History of cataract surgery Basal cell carcinoma (BCC) History of tonsillectomy S/P JIMENEZ-BSO History of appendectomy History of cholecystectomy Family History Mother No problems noted. Father No problems noted. Social History Household Members: None Housing: Apartment Do you presently have visiting nurse or other home services: Yes Alcohol intake: never Patient Tobacco Use Status: Never used Tobacco e-Cigarette/Vaping Use: Never Used Second Hand Smoke Exposure: No Advance Directives Date on File: 07/11/20 service: No Current occupational status: retired Cognitive needs: Yes (walker ) Hearing needs: No Vision needs: No Female Reproductive History Menstrual Age of Menarche: 7 Physical Exam Vital Signs: Last Vital Signs Pulse 56 01/25/24 13:13 BP 164/68 H 01/25/24 13:13 Pulse Ox 99 01/25/24 13:13 Oxygen Delivery Method Room Air 01/25/24 13:13 BMI result Body Mass Index 29.3 Const General: comfortable; No acute distress Orientation/consciousness: patient oriented x3 Eyes General: appearance normal, both eyes and all related structures Visual Broderick: normal visual broderick by confrontation Neck Neck: Yes supple and Yes no JVD Resp Effort & Inspection: normal respiratory effort and respiratory effort not decreased Auscultation: rhonchi Cardio Palpation: no palpable S3 and no palpable S4 Heart sounds: no rubs GI Inspection: Yes normal to inspection Palpation (GI): Soft to palpation Percussion: Yes normal to percussion Auscultation: normal bowel sounds General: Yes no CVA tenderness Back/Spine/Pelvis Back: no CVA tenderness Skin General skin exam: no petechiae and no purpura Neuro General: patient oriented x3 and no focal motor deficits Extrem General: No clubbing and No edema Results Reviewed Nephrology Results: Hgb 10.5 g/dl (12.0-16.0) L 10/09/23 WBC 6.7 X10*3/uL (4.8-10.8) 10/09/23 Plt Count 211 X10*3/uL (160-400) 10/09/23 Sodium 137 mmol/L (135-145) 01/04/24 Potassium 5.0 mmol/L (3.3-5.1) 01/04/24 Chloride 108 mmol/L (96-108) 01/04/24 Carbon Dioxide 21 mmol/L (22-29) L 01/04/24 BUN 34 mg/dL (9-16) H 01/04/24 Creatinine 1.68 mg/dL (0.5-1.4) H 01/04/24 Calcium 9.0 mg/dL (8.4-10.2) 01/04/24 Urine Protein Negative mg/dL (Neg-Trace) 10/09/23 Urine Creatinine 19.59 mg/dL 10/09/23 Renal US 10/19/23 Assessment & Plan Assessment & Plan (1) (HFpEF) heart failure with preserved ejection fraction: Code(s): I50.30 - Unspecified diastolic (congestive) heart failure Category: Medical (2) SARAH (acute kidney injury): Code(s): N17.9 - Acute kidney failure, unspecified Category: Medical (3) CKD (chronic kidney disease): Code(s): N18.9 - Chronic kidney disease, unspecified Category: Medical Plan Elderly woman with hypertension and atrial fibrillation has sustained acute kidney injury. She has underlying chronic kidney disease stage 3 most likely due to age-related nephron loss and hypertensive nephrosclerosis. Superimposed SARAH is most likely due to hypoperfusion. No evidence of Obstructive uropathy ,glomerular nephritis or interstitial disease Hypoperfusion was probably due to combination of high dose of losartan and diuretics. After lowerinf diuretics, creatinine HAS improved Continue to avoid nephrotoxic agents Avoid hypotension. Mild anemia Iron levels normal Most likely has EPO deficiency due to CKD No absolute indication for TORY BP is well controlled Clinically euvolemic Stay on Lasix 3 x week Low salt diet Orders: Orders Complete Blood Count no Diff 4 Months N18.9 - Chronic kidney disease, unspecified Basic Metabolic Panel 4 Months N18.9 - Chronic kidney disease, unspecified Coding Level of Care Code Est Pt Level 4 (39626) Diagnoses (HFpEF) heart failure with preserved ejection fraction I50.30 SARAH (acute kidney injury) N17.9 CKD (chronic kidney disease) N18.9
== END 2024-01-25 13:25 | disposition home or self-care (01) ==
PROVIDERS: PCP Internal Medicine; Visit Provider Internal Medicine Hypertension Specialist
DX: I50.30 Unspecified diastolic (congestive) heart failure (principal); N17.9 Acute kidney failure, unspecified; N18.30 Chronic kidney disease, stage 3 unspecified
CPT/HCPCS: 99214

== ENCOUNTER → 2024-01-25 12:57 | Outpatient (BNVA) | payer MEDICARE, MEDICAID, SELFPAY | PROVIDERS: PCP Internal Medicine; Visit Provider Internal Medicine Hypertension Specialist | DX: I13.0 Hypertensive heart and chronic kidney disease with heart failure and stage 1 through stage 4 chronic kidney disease, or unspecified chronic kidney disease (principal); I48.91 Unspecified atrial fibrillation; I50.30 Unspecified diastolic (congestive) heart failure; N17.9 Acute kidney failure, unspecified; N18.9 Chronic kidney disease, unspecified | CPT/HCPCS: 99212 ==

== ENCOUNTER 2024-03-15 13:58 | Outpatient (AMB) | payer MEDICARE, MEDICAID, SELFPAY ==
[2024-03-15 14:00] VITALS: BP 158/82; PULSE 49; O2SAT 96; BMI 29.9
--- NOTE | 2024-03-15 14:00 | MHC.PC.OV ---
Vital Signs 03/15/24 14:00 Height 5 ft 4 in Weight 174 lb BMI 29.9 BP 158/82 H Blood Pressure Location Lt brachial Position Sitting Pulse 49 L Pulse Source Pulse Oximeter Pulse Oximetry (%) 96 Oxygen Delivery Method Room Air Intake Visit Reasons: CKD, HTN Allergies asparagus Allergy (Severe, Verified 03/15/24 14:01) Hives rosuvastatin [Crestor] Allergy (Unknown, Verified 03/15/24 14:01) unknown famotidine [From PEPCID] Adverse Reaction (Severe, Verified 03/15/24 14:01) NAUSEA oxycodone [From OXYCONTIN] Adverse Reaction (Intermediate, Verified 03/15/24 14:01) NAUSEA & VOMITING FROM PERCOCET TOO tramadol Adverse Reaction (Intermediate, Verified 03/15/24 14:01) could not concetrate chocolate cover cherries Allergy (Severe, Uncoded 03/15/24 14:01) Anaphylaxis Tobacco use date assessed: 03/15/24 Fall risk assessment: 1 Fall in past year Last assessed Fall Risk: 03/15/24 Dental Screening Dental Screen Date: 03/15/24 Did you have a dental visit in the last 12 months?: Yes Did you have a dental problem in the last 6 months where you did not have access to dental care?: No Was dental information given to patient?: Patient has dentist HPI CKD, HTN HPI Details The patient is an 83-year-old female presenting for a follow-up regarding her chronic medical conditions. She has a history of essential hypertension, gastroesophageal reflux disease, hypercholesterolemia, coronary artery disease, generalized anxiety disorder, impaired glucose tolerance, atrial fibrillation, and congestive heart failure. The patient was last seen in September 2023. She follows up with nephrology and was seen in January for stage 3 chronic kidney disease, most likely secondary to hypertensive nephrosclerosis. There is no evidence of obstructive uropathy. The mate chief advised a decrease in diuretic use to avoid hypotension and recommended continuing with Lasix three times a week. The patient followed up with cardiology in December, where she was managed for congestive heart failure with diuretics and was advised to maintain daily weight monitoring. She has atrial fibrillation and is on amiodarone therapy, along with anticoagulation treatment. An ultrasound of the kidneys performed in October showed findings consistent with medical renal disease. Laboratory work indicated stable anemia with hemoglobin levels of 10.5 to 11.9, with good electrolytes and renal function parameters (34 and 1.68, respectively). Her last cholesterol measurement in September 2022 revealed an LDL level of 66. [facility] Medical History (Updated 03/15/24 @ 14:24 by Erika Jordan MD) Gait instability Persistent atrial fibrillation (HFpEF) heart failure with preserved ejection fraction History of cardioversion Abscess of vagina Atrial fibrillation Abscess of right genital labia Obesity Anemia Muscle spasm of right leg Angina pectoris Medicare annual wellness visit, initial Overweight (BMI 25.0-29.9) Right leg swelling Vitamin D deficiency TIA (transient ischemic attack) Chronic kidney disease (CKD) stage G3b/A1, moderately decreased glomerular filtration rate (GFR) between 30-44 mL/min/1.73 square meter and albuminuria creatinine ratio less than 30 mg/g Spinal stenosis Leukopenia Hypercholesterolemia Insomnia Peripheral vascular disease Peripheral neuropathy Esophageal dysmotility Carotid stenosis Pityriasis lichenoides chronica Lumbar degenerative disc disease GERD (gastroesophageal reflux disease) Hypertension Coronary artery disease Primary osteoarthritis of both shoulders Surgical History History of esophagogastroduodenoscopy (EGD) H/O colonoscopy Hx of total knee arthroplasty Hx of arthroscopic knee surgery Stented coronary artery Status post phlebectomy History of cataract surgery Basal cell carcinoma (BCC) History of tonsillectomy S/P [id number] History of appendectomy History of cholecystectomy Family History Mother No problems noted. Father No problems noted. Social History Household Members: None Housing: Apartment Do you presently have visiting nurse or other home services: Yes Alcohol intake: never Patient Tobacco Use Status: Never used Tobacco Tobacco use type: Cigarette e-Cigarette/Vaping Use: Never Used Second Hand Smoke Exposure: No Advance Directives Date on File: 07/11/20 service: No Current occupational status: retired Cognitive needs: Yes (walker ) Hearing needs: No Vision needs: No Female Reproductive History Menstrual Age of Menarche: 7 Questionnaire PHQ-9 Over the last 2 weeks, how often have you been bothered by any of the following problems? 1. Little interest or pleasure in doing things: not at all 2. Feeling down, depressed, or hopeless: several days 3. Trouble falling or staying asleep, or sleeping too much: several days 4. Feeling tired or having little energy: several days 5. Poor appetite or overeating: not at all 6. Feeling bad about yourself - or that you are a failure or have let yourself or your family down: not at all 7. Trouble concentrating on things, such as reading the newspaper or watching television: not at all 8. Moving or speaking so slowly that other people could have noticed. Or the opposite - being so fidgety or restless that you have been moving around a lot more than usual: not at all 9. Thoughts that you would be better off or of hurting yourself in some way: not at all Total score: 3 Depression Screening Interpretation: Positive Depression Screening Done: Yes 16525 - PHQ-9 Billing: Yes Source: Developed by Drs. Reinier Bernard, Kelly Wiggins, Sy Adames and colleagues, with an educational jody from [employer]. Thrive Questionnaire Date Thrive assessed: 03/15/24 I am a: Patient What is your living situation today?: I have a steady place to live Within the past 12 months, did the food you bought not last and you didn't have the money to get more?: Never true Within the past 12 months, did you worry whether your food would run out before you got money to buy more?: Never true Do you have trouble paying for medicines?: No Do you have trouble getting transportation to medical appointments?: No Do you have trouble paying your heating and electricity bill?: No Do you have trouble taking care of your child, family member or friend?: No Do you have trouble with day-to-day activities such as bathing, preparing meals, shopping, managing finances, etc.?: No Are you currently unemployed and looking for a job?: No Are you interested in more education?: No Currently or been in a relationship where the following occur: No concerns reported THRIVE Score: 0 AUDIT C Alcohol Use Questionnaire (AUDIT-C) 1. How often do you have a drink containing alcohol?: Never Total Score: 0 JEANMARIE-7 AMB Questionnaire JEANMARIE-7 Date JEANMARIE - 7 assessed: 03/15/24 Feeling nervous, anxious, or on edge: 0 = Not at all Not being able to stop or control worryin = Not at all Worrying too much about different things: 0 = Not at all Trouble relaxin = Not at all Being so restless that it is hard to sit still: 0 = Not at all Becoming easily annoyed or irritable: 0 = Not at all Feeling afraid as if something awful might happen: 0 = Not at all Total JEANMARIE-7 score (0-4 normal; 5-9 mild; 10-14 moderate; 15-21 severe): 0 Source: Developed by Drs. Reinier Bernard, Kelly Wiggins, Sy Adames and colleagues, with an educational jody from [employer]. Physical exam (Primary Care) Vital Signs: Last Vital Signs Pulse 49 L 03/15/24 14:00 BP 158/82 H 03/15/24 14:00 Pulse Ox 96 03/15/24 14:00 Oxygen Delivery Method Room Air 03/15/24 14:00 BMI result Body Mass Index 29.9 Tobacco/Smoking Status: Tobacco use Status Tobacco use date assessed 03/15/24 03/15/24 14:09 Patient Tobacco Use Status Never used Tobacco 03/15/24 14:09 Tobacco use type Cigarette 03/15/24 14:09 e-Cigarette/Vaping Use Never Used 03/15/24 14:09 PHQ-9: PHQ-9 Score PHQ-9: Total score 3 03/15/24 14:23 Depression Screening Interpretation: Positive Thrive Assessment: Date of Thrive Assessment Date Thrive assessed 03/15/24 03/15/24 14:09 Currently or been in a relationship where the following occur: No concerns reported Const General: alert; No acute distress Eyes Conjunctivae: conjunctivae normal Resp Auscultation: clear to auscultation bilaterally Cardio Rate: regular rate Rhythm: regular rhythm GI Inspection: Yes normal to inspection Extrem General: Yes normal to inspection and No edema Coding Level of Care Code Est Pt Level 4 (04420) Complex EM visit Add On G2211 Diagnoses CKD (chronic kidney disease) stage 4, GFR 15-29 ml/min N18.4 Paroxysmal atrial fibrillation I48.0 Essential hypertension I10 GERD (gastroesophageal reflux disease) K21.9 Hypercholesterolemia E78.00 Coronary artery disease involving [place] coronary artery of [place] heart without angina pectoris I25.10 Associated angina: without angina Coronary Disease-Associated Artery/Lesion type: [place] artery [place] vs. transplanted heart: [place] heart Anemia D64.9 Generalized anxiety disorder F41.1 Impaired fasting blood sugar R73.01 Additional Codes PHQ-9 - 47155 - PHQ-9 Billing: Yes ([id number]) Assessment & Plan Assessment & Plan (1) CKD (chronic kidney disease) stage 4, GFR 15-29 ml/min: Code(s): N18.4 - Chronic kidney disease, stage 4 (severe) Category: Medical (2) Paroxysmal atrial fibrillation: Comment: Status post cardioversion June 2023 Code(s): I48.0 - Paroxysmal atrial fibrillation Category: Medical (3) Hypertension: Code(s): I10 - Essential (primary) hypertension Category: Medical (4) GERD (gastroesophageal reflux disease): Code(s): K21.9 - Gastro-esophageal reflux disease without esophagitis Category: Medical (5) Hypercholesterolemia: Code(s): E78.00 - Pure hypercholesterolemia, unspecified Category: Medical (6) Coronary artery disease: Comment: [place] in 1981, stent placement 2012 Code(s): I25.10 - Atherosclerotic heart disease of [place] coronary artery without angina pectoris Category: Medical Qualifiers: Associated angina: without angina Coronary Disease-Associated Artery/Lesion type: [place] artery [place] vs. transplanted heart: [place] heart Qualified Code(s): I25.10 - Atherosclerotic heart disease of [place] coronary artery without angina pectoris (7) Anemia: Code(s): D64.9 - Anemia, unspecified Category: Medical (8) Generalized anxiety disorder: Code(s): F41.1 - Generalized anxiety disorder Category: Medical (9) Impaired fasting blood sugar: Code(s): R73.01 - Impaired fasting glucose Category: Medical Plan - Continue management of chronic kidney disease with reduced diuretics, maintaining a balance to prevent hypotension. Continue Lasix administration three times a week as advised. - Monitor congestive heart failure status closely. Maintain daily weight monitoring to detect any acute exacerbations. - Ensure adherence to amiodarone and anticoagulation therapy for atrial fibrillation to prevent thromboembolic events. - Regular follow-up appointments with both nephrology and cardiology to ensure optimal management of renal and cardiac health. Orders: Orders Complete Blood Count Auto Diff Today I10 - Essential (primary) hypertension B Type Natriuretic Peptide Today I10 - Essential (primary) hypertension Free T4 (Free Thyroxine) Today I10 - Essential (primary) hypertension Parathyroid Hormone Intact Today N17.9 - Acute kidney failure, unspecified Comprehensive Met. Panel Today I10 - Essential (primary) hypertension Thyroid Stimulating Hormone Today I10 - Essential (primary) hypertension UA and rflx microscopic Today I50.30 - Unspecified diastolic (congestive) heart failure, N17.9 - Acute kidney failure, unspecified, N18.9 - Chronic kidney disease, unspecified Medications: New amlodipine 2.5 mg PO DAILY 30 tabs 2RF I10 - Essential (primary) hypertension amlodipine 2.5 mg PO DAILY 90 tabs 2RF I10 - Essential (primary) hypertension
== END 2024-03-15 14:59 | disposition home or self-care (01) ==
PROVIDERS: PCP Internal Medicine; Visit Provider Internal Medicine
DX: I12.9 Hypertensive chronic kidney disease with stage 1 through stage 4 chronic kidney disease, or unspecified chronic kidney disease (principal); N18.4 Chronic kidney disease, stage 4 (severe); I48.0 Paroxysmal atrial fibrillation; K21.9 Gastro-esophageal reflux disease without esophagitis; E78.00 Pure hypercholesterolemia, unspecified; I25.10 Atherosclerotic heart disease of native coronary artery without angina pectoris; D64.9 Anemia, unspecified; F41.1 Generalized anxiety disorder; R73.01 Impaired fasting glucose

== ENCOUNTER → 2024-03-15 13:58 | Outpatient (BNVA) | payer MEDICARE, MEDICAID, SELFPAY | PROVIDERS: PCP Internal Medicine; Visit Provider Internal Medicine | DX: I12.9 Hypertensive chronic kidney disease with stage 1 through stage 4 chronic kidney disease, or unspecified chronic kidney disease (principal); N18.4 Chronic kidney disease, stage 4 (severe); I48.0 Paroxysmal atrial fibrillation; K21.9 Gastro-esophageal reflux disease without esophagitis; E78.00 Pure hypercholesterolemia, unspecified; I25.10 Atherosclerotic heart disease of native coronary artery without angina pectoris; D64.9 Anemia, unspecified; F41.1 Generalized anxiety disorder; R73.01 Impaired fasting glucose | CPT/HCPCS: 96127; 99212 ==

== ENCOUNTER 2024-03-16 12:39 | Outpatient (REF) | payer MEDICARE, MEDICAID, SELFPAY ==
[2024-03-16 16:25] LABS: MANUAL DIFF FLAG NO
[2024-03-16 16:35] LABS: Appearance Urine Clear; Color Urine Yellow; Glucose Urine UA Negative (Negative); Leukocyte Esterase Urine Moderate (2+) (Negative); Nitrite Urine Negative (Negative); UMIC TRIGGER UA YES; Urine Blood Negative (Negative); Urine Ketones Negative (Negative); Urine Protein Negative (Neg-Trace)
[2024-03-16 16:36] LABS: Basophils Percent Auto 0.9 % (0-2); Eosinophils Percent Auto 1.4 % (0-4); Hematocrit 31.8 % (37.0-47.0); Imm Gran Pct Auto 0.3 % (0.0-0.4); Lymphocytes Percent Auto 25.4 % (20-40); Mean Corpuscular HGB Conc 31.4 g/dl (31.0-35.0); Mean Corpuscular Hemoglobin 29.5 pg (27.0-33.0); Mean Corpuscular Volume 93.8 fL (80.0-98.0); Mean Platelet Volume 12.7 fL (9.4-12.3); Monocytes Percent Auto 7.8 % (2-11); Neutrophils Percent Auto 64.2 % (45-73); Platelet Count 248 X10*3/uL (160-400); Red Blood Count 3.39 X10*6/uL (4.20-5.50); Red Cell Distribution Width 13.4 % (11.0-16.0); White Blood Count 5.8 X10*3/uL (4.8-10.8)
[2024-03-16 16:37] LABS: Basophils Absolute Auto 0.1 X10*3/uL (0.0-0.2); Eosinophils Absolute Auto 0.1 X10*3/uL (0.0-0.4); Imm Gran Abs Auto 0.02 X10*3/uL (0.00-0.03); Lymphocytes Absolute Auto 1.5 X10*3/uL (1.2-4.9); Monocytes Absolute Auto 0.5 X10*3/uL (0.1-1.2); Neutrophils Absolute Auto 3.7 x10*3/uL (2.0-8.3)
[2024-03-16 16:40] LABS: Bacteria Urine None Seen (None Seen); RBC Urine 0-2 /HPF (0-2); WBC Urine 21-50 /HPF (0-5)
[2024-03-16 16:41] LABS: B Type Natriuretic Peptide 537 pg/mL (<100)
[2024-03-16 16:55] LABS: Alanine Aminotransferase 23 U/L (0-31); Albumin Level 3.6 g/dL (3.5-5.0); Anion Gap 12 (12-20); Aspartate Amino Transferase 30 U/L (5-31); Bilirubin Total 0.4 mg/dL (0.0-1.0); Blood Urea Nitrogen 39 mg/dL (9-16); Carbon Dioxide 21 mmol/L (22-29); Chloride 111 mmol/L (96-108); Estimated Glomerular Filt Rate 28; Glucose Random 124 mg/dL (60-115); Potassium 4.8 mmol/L (3.3-5.1); Sodium 139 mmol/L (135-145); Total Protein 7.5 g/dL (6.5-8.0)
[2024-03-16 17:09] LABS: Parathyroid Hormone Intact 241.3 pg/mL (8.7-77.1)
[2024-03-16 17:15] LABS: Alkaline Phosphatase 70 U/L (39-117); Free T4 (Free Thyroxine) 1.26 ng/dL (0.71-1.85); Thyroid Stimulating Hormone 1.98 uIU/mL (0.32-4.0)
== END 2024-03-16 12:40 | disposition home or self-care (01) ==
LOC: HO.HMGCLDS 12:39
PROVIDERS: PCP Internal Medicine; Visit Provider Internal Medicine
DX: I11.0 Hypertensive heart disease with heart failure (principal); N18.32 Chronic kidney disease, stage 3b; N17.9 Acute kidney failure, unspecified; R00.1 Bradycardia, unspecified; I48.0 Paroxysmal atrial fibrillation; I50.30 Unspecified diastolic (congestive) heart failure; Z79.899 Other long term (current) drug therapy
CPT/HCPCS: 36415; 80053; 81001; 83880; 83970; 84439; 84443; 85025; 93005; 99212

== ENCOUNTER → 2024-03-25 12:39 | Outpatient (REF) | payer MEDICARE, MEDICAID, SELFPAY ==
--- NOTE | 2024-03-25 12:43 | CA_ITS ---
Transthoracic Echocardiogram Patient (Last, First, Middle): Jaylin Palma M Gender: Female Date of : 1940 Age: 83 Procedure Date: 03/25/2024 Procedure Type: Transthoracic Echocardiogram Location: OP Height: 160.02 cm Weight: 77.11 kg BSA: 1.80 m2 Heart Rate: bpm BP: 116 / 70 mmHg [employer] Supervisor: Referring MD: Keo Bush MD Strategic Account Manager: Keo Bush MD Symptoms: I50.30 - Unspecified diastolic (congestive) heart failure Study Quality: Good ECG Rhythm: Sinus Conclusions: - 1. Normal LV ejection fraction of 65-70% with mild LVH with grade 3 diastolic dysfunction 2. Severely dilated left atrium 3. Mild aortic regurgitation 4. No gross pericardial effusion Findings Left Ventricle Normal left ventricular size and systolic function. There is mildly increased left ventricular wall thickness. The visually estimated ejection fraction is between 65-70%. Spectral Doppler is indicative of a restrictive filling pattern. E/E prime ratio is >15, consistent with elevated filling pressures. Evidence suggests grade III (severe) diastolic dysfunction. Right Ventricle Normal right ventricular cavity size and systolic function. Atria The left atrium is severely dilated. There is lipomatous hypertrophy of the interatrial septum. There is no evidence of interatrial shunt. The right atrium is likely dilated. Aortic Valve Normal aortic valve structure and function. There is no aortic valve stenosis. There is mild aortic valve regurgitation. Mitral Valve Normal mitral valve structure and function. There is mild mitral annular calcification. There is mild mitral valve regurgitation. There is no mitral valve stenosis. Pulmonic Valve The pulmonic valve was not well visualized. Tricuspid Valve Likely normal tricuspid valve structure and function. There is mild tricuspid valve regurgitation. Normal right atrial pressure. There is no evidence of pulmonary hypertension. Great Vessels All visible segments of the aorta are normal in size. The pulmonary artery was not well visualized. There is no dilatation of the ascending aorta measuring 3.30 cm. Venous The inferior vena cava is normal in size and collapses greater than 50% with inspiration. Pericardium/Pleural There is no evidence of pericardial effusion. Prior Study Comparison Changes noted compared to prior study dated: 05/09/2022. Diastolic dysfunction is grade 3. Mild aortic regurgitation is noted Measurements 2D Linear Measurements IVSd: 1.36 0.6-0.9/0.6-1.0 cm LVIDd: 4.86 3.9-5.3/4.2-5.9 cm LVIDd Index: 2.70 2.4-3.2/2.2-3.1 cm/m2 LVIDs: 3.04 2.0-3.6 cm LVPWd: 1.35 0.7-1.1 cm Ao Root: 3.20 2.1-3.5 cm LA Diam: 4.10 2.7-3.8/3.0-4.0 cm LAIDs Index: 2.28 1.5-2.3 cm/m2 LV Mass: 331.77 67-162/88-224 g LV Mass Index: 184.32 43-95/49-115 g/m2 LVOT Diam: 2.20 3.0+(-)1.3 cm 2D Systolic Function EF 4C: 66.70 >55% EF 2C: 69.30 >55% EF BiP: 68.60 >55% Mitral Valve MV Pk E: 1.01 MV PK A: 0.48 MV Decel Time: 226.00 E/A: 2.10 E'Lateral: 9.36 E'Medial: 3.26 E/E' Med: 31.00 E/E' Lat: 10.80 PHT: 66.00 MVA PHT: 3.33 Decel Izard: 4.48 Aortic Valve AoV Pk Abdiaziz: 1.56 AoV Mn Abdiaziz: 0.96 AoV VTI: 0.42 AoV Pk Grad: 10.00 Aov Mn Grad: 5.00 LISA Cont.VTI: 2.21 LVOT LVOT Pk Abdiaziz: 0.96 LVOT Mn Abdiaziz: 0.58 LVOT VTI: 0.24 LVOT Pk Grad: 4.00 LVOT Mn Grad: 2.00 LVOT Diam: 2.20 LVOT Area: 3.80 Diastolic Function MV Pk E: 1.01 MV Pk A: 0.48 E/A: 2.10 E'Medial: 3.26 E/E' Med: 31.00 E' Laterial: 9.36 E/E' Lat: 10.80 Right Ventricle TAPSE (mm): 18.00 TVS' Abdiaziz: 12.00 Tricuspid Valve TR Pk Abdiaziz: 3.02 TR Pk Grad: 36.00 RA Press: 3.00 RVSP: 39.00 Great Vessels Aorta Ao Root-2D: 3.20 2.0-3.7 cm Ao Asc: 3.30 2.1-3.4 cm Pulmonary Valve PV Pk Abdiaziz: 1.14 Peak PV Grad: 5.00 Updated in Other Vendor System with Status of Final Keo Bush MD electronically signed on 03/26/2024 12:43:34 PM with status of Final
== END ==
LOC: HO.CARD 12:39
PROVIDERS: PCP Internal Medicine; Visit Provider Internal Medicine Cardiovascular Disease
DX: R00.1 Bradycardia, unspecified (principal); I50.30 Unspecified diastolic (congestive) heart failure
CPT/HCPCS: 93225; 93306

== ENCOUNTER → 2024-03-25 12:43 | Outpatient (BNV) | payer MEDICARE, MEDICAID, SELFPAY | PROVIDERS: PCP Internal Medicine; Visit Provider Internal Medicine Cardiovascular Disease | DX: I50.30 Unspecified diastolic (congestive) heart failure (principal); I35.1 Nonrheumatic aortic (valve) insufficiency; I34.0 Nonrheumatic mitral (valve) insufficiency; I36.1 Nonrheumatic tricuspid (valve) insufficiency; I51.7 Cardiomegaly | CPT/HCPCS: 93306 ==

== ENCOUNTER 2024-04-06 13:44 | Outpatient (REF) | payer MEDICARE, MEDICAID, SELFPAY ==
[2024-04-06 16:33] LABS: Appearance Urine Cloudy; Color Urine Yellow; Glucose Urine UA Negative (Negative); Leukocyte Esterase Urine Moderate (2+) (Negative); Nitrite Urine Negative (Negative); UMIC TRIGGER UACC YES; Urine Blood Negative (Negative); Urine Ketones Trace mg/dL (Negative); Urine Protein Trace mg/dL (Neg-Trace)
[2024-04-06 16:49] LABS: Bacteria Urine None Seen (None Seen); Other Crystals Urine Present; RBC Urine 0-2 /HPF (0-2); UACC Culture Trigger YES; WBC Urine >50 /HPF (0-5)
== END 2024-04-06 13:45 | disposition home or self-care (01) ==
LOC: HO.HMGCLDS 13:44
PROVIDERS: PCP Internal Medicine; Visit Provider Internal Medicine
DX: R30.0 Dysuria (principal)
CPT/HCPCS: 81001; 87086

== ENCOUNTER 2024-04-12 09:49 | Outpatient (AMB) | payer MEDICARE, MEDICAID, SELFPAY ==
--- NOTE | 2024-04-12 10:25 | A.OFFVIS_ITS ---
Vital Signs 04/12/24 10:26 Height 5 ft 4 in Weight 170 lb BMI 29.2 BP 160/72 H Blood Pressure Location Lt brachial Position Sitting Pulse 48 L Pulse Source Monitor Intake Visit Reasons: 4 wk follow up/holter Yeast Maker Required: No Textile Broker: Textile Broker Present Allergies asparagus Allergy (Severe, Verified 04/12/24 10:29) Hives rosuvastatin [Crestor] Allergy (Unknown, Verified 04/12/24 10:29) unknown famotidine [From PEPCID] Adverse Reaction (Severe, Verified 04/12/24 10:29) NAUSEA oxycodone [From OXYCONTIN] Adverse Reaction (Intermediate, Verified 04/12/24 10:29) NAUSEA & VOMITING FROM PERCOCET TOO tramadol Adverse Reaction (Intermediate, Verified 04/12/24 10:29) could not concetrate chocolate cover cherries Allergy (Severe, Uncoded 04/12/24 10:29) Anaphylaxis Medication List - Last Reconciled 04/12/24 by Lynn Salgado NP-C amiodarone 200 mg PO DAILY amlodipine 2.5 mg PO DAILY atorvastatin 20 mg PO DAILY 90 days furosemide 20 mg PO DAILY PRN Lactobacillus rhamnosus GG (Culturelle) 1 cap PO BID losartan 50 mg PO BID meclizine 12.5 mg PO TID nitrofurantoin monohyd/m-cryst 100 mg (Macrobid) 100 mg PO Q12H 7 days nitroglycerin 0.4 mg sublingual Q5M PRN rivaroxaban (Xarelto) 15 mg PO DAILY [Rollator As directed] [Shower chair w/back rest As directed] HPI HPI 4 wk follow up/holter: Details: Sherin is an 84-year-old female with past medical history chronic kidney disease, hypertension, hyperlipidemia, coronary artery disease with remote stent, peripheral vascular disease, heart failure with preserved EF, paroxysmal atrial fibrillation, sinus bradycardia who presents for follow-up after recent Holter monitor. Today she reports that she has been having issues with headache after taking her antibiotic. She has had a recent UTI and is on treatment for this. She has some fatigue which she relates to her age. She has had no shortness of breath, PND, orthopnea or edema. No chest discomfort at rest or with activity. No lightheadedness, presyncope, syncope, falls. She reports good activity tolerance and rest when she needs to. Compliant with meds. She did not take metoprolol today however she took it yesterday. Daughter is present. [facility] Medical History Gait instability Persistent atrial fibrillation (HFpEF) heart failure with preserved ejection fraction History of cardioversion Abscess of vagina Atrial fibrillation Abscess of right genital labia Obesity Anemia Muscle spasm of right leg Angina pectoris Medicare annual wellness visit, initial Overweight (BMI 25.0-29.9) Right leg swelling Vitamin D deficiency TIA (transient ischemic attack) Chronic kidney disease (CKD) stage G3b/A1, moderately decreased glomerular filtration rate (GFR) between 30-44 mL/min/1.73 square meter and albuminuria creatinine ratio less than 30 mg/g Spinal stenosis Leukopenia Hypercholesterolemia Insomnia Peripheral vascular disease Peripheral neuropathy Esophageal dysmotility Carotid stenosis Pityriasis lichenoides chronica Lumbar degenerative disc disease GERD (gastroesophageal reflux disease) Hypertension Coronary artery disease Primary osteoarthritis of both shoulders Surgical History History of esophagogastroduodenoscopy (EGD) H/O colonoscopy Hx of total knee arthroplasty Hx of arthroscopic knee surgery Stented coronary artery Status post phlebectomy History of cataract surgery Basal cell carcinoma (BCC) History of tonsillectomy S/P JIMENEZ-BSO History of appendectomy History of cholecystectomy Family History Mother No problems noted. Father No problems noted. Social History Household Members: None Housing: Apartment Do you presently have visiting nurse or other home services: Yes Alcohol intake: never Patient Tobacco Use Status: Never used Tobacco Tobacco use type: Cigarette e-Cigarette/Vaping Use: Never Used Second Hand Smoke Exposure: No Advance Directives Date on File: 07/11/20 service: No Current occupational status: retired Cognitive needs: Yes (walker ) Hearing needs: No Vision needs: No Female Reproductive History Menstrual Age of Menarche: 7 Review of Systems Const Details: headaches All systems reviewed & are unremarkable except as noted in HPI and below Reports fatigue ENT Denies dizziness Card Denies chest pain, Denies chest pain at rest, Denies chest pain with activity, Denies rapid heart rate, Denies pedal edema, Denies edema, Denies leg edema, Denies lightheadedness, Denies palpitations, Denies dyspnea, Denies dyspnea on exertion and Denies orthopnea Resp Denies cough, Denies dyspnea and Denies dyspnea on exertion GI Denies hematochezia and Denies change in stool character Musc Details: bilateral shoulder pain from arthritis Denies abnormal gait, Reports limited range of motion, Denies muscle cramps, Denies muscle weakness, Denies numbness, Denies radiating pain into limb, Denies stiffness and Denies tingling Neuro Denies abnormal gait, Denies dizziness, Denies numbness and Denies tingling Endo Reports fatigue and Denies palpitations Physical Exam Vital Signs: Last Vital Signs Pulse 48 L 04/12/24 10:26 BP 160/72 H 04/12/24 10:26 BMI result Body Mass Index 29.2 Const General: cooperative, healthy appearing, comfortable and no acute distress Orientation/consciousness: patient oriented x3 Neck Neck: Yes normal visual inspection and Yes no JVD Resp Effort & Inspection: normal respiratory effort Auscultation: clear to auscultation bilaterally, no rales, no rhonchi and no wheezes Cardio Rate: bradycardic Rhythm: regular rhythm Heart sounds: S1 normal heart sound present, S2 normal heart sound present, no murmurs and no rubs Neuro General: patient oriented x3 Extrem General: Yes normal to inspection, No no pedal edema and No calf tenderness Psych Appearance: grossly normal Mental Status: mental status grossly normal Speech and movement: Normal speech and movement present Office Procedures EKG Details: Today, read by me, sinus bradycardia, can not exclude prior anterior infarct, rate 48, QTC 460 milliseconds [id number], Complete Assessment & Plan Assessment & Plan (1) Sinus bradycardia: Code(s): R00.1 - Bradycardia, unspecified Category: Medical Plan: History of paroxysmal atrial fibrillation and she has been on amiodarone and metoprolol. EKG last visit showing sinus bradycardia, rate 43. Her metoprolol dose was reduced and a Holter monitor was done on 03/25/2024 showing sinus bradycardia with average heart rate 49, 92% of the time less than 60. EKG done today showing sinus bradycardia, rate 48, asymptomatic. Metoprolol was stopped. She took a dose yesterday however none today. Continue amiodarone. Will plan f or a repeat Holter in 6 weeks. Cardiology follow-up 2 months, sooner if needed. (2) Paroxysmal atrial fibrillation: Comment: Status post cardioversion June 2023 Code(s): I48.0 - Paroxysmal atrial fibrillation Category: Medical Plan: History of paroxysmal atrial fibrillation. Currently suppressed with amiodarone. Metoprolol being stopped. She is on Xarelto for anticoagulation, renal dose. Labs 03/16/2024 show creatinine 1.71. (3) (HFpEF) heart failure with preserved ejection fraction: Code(s): I50.30 - Unspecified diastolic (congestive) heart failure Category: Medical Plan: History of heart failure with preserved EF. Last echo 03/25/2024 showed EF 65- 70%, mild LVH, grade 3 diastolic dysfunction, severely dilated left atrium. No signs of heart failure on examination. Continue losartan, p.r.n. Lasix. Signs and symptoms of heart failure reviewed with her. (4) Coronary artery disease: Comment: CA in 1981, stent placement 2012 Code(s): I25.10 - Atherosclerotic heart disease of marshall coronary artery without angina pectoris Category: Medical Qualifiers: Associated angina: without angina Coronary Disease-Associated Artery/Lesion type: marshall artery [place] vs. transplanted heart: marshall heart Qualified Code(s): I25.10 - Atherosclerotic heart disease of marshall coronary artery without angina pectoris Plan: History of CAD with remote coronary stent. Recent echo with normal EF and no regional wall motion abnormalities. EKG today without ischemic findings. She is not on aspirin as she is on Xarelto. Metoprolol being stopped. She is on atorvastatin. Labs 09/26/2023 showed LDL 66. (5) Hypertension: Code(s): I10 - Essential (primary) hypertension Category: Medical Plan: Blood pressure elevated today. Metoprolol dose had been recently reduced and being stopped now. Will increase her amlodipine from 2.5 up to 5 mg daily. She has a visit next month with Nephrology and Cardiology will be 2 months from now. (6) Hypercholesterolemia: Code(s): E78.00 - Pure hypercholesterolemia, unspecified Category: Medical Plan: Well controlled, as above Plan Time spent on chart review, documentation, interview and assessment Orders: Orders ECG 3 day holter monitor 05/30/24 R00.1 - Bradycardia, unspecified Medications: New amlodipine Dose increase 5 mg PO DAILY 90 tabs 1RF Discontinued amlodipine Discontinued Reason: Doctor's Order 2.5 mg PO DAILY 90 tabs 2RF I10 - Essential (primary) hypertension Coding Level of Care Code Est Pt Level 4 (07198) Complex EM visit Add On G2211 Diagnoses Sinus bradycardia R00.1 Paroxysmal atrial fibrillation I48.0 (HFpEF) heart failure with preserved ejection fraction I50.30 Coronary artery disease involving marshall coronary artery of marshall heart without angina pectoris I25.10 Associated angina: without angina Coronary Disease-Associated Artery/Lesion type: marshall artery [place] vs. transplanted heart: marshall heart Essential hypertension I10 Hypercholesterolemia E78.00 CPT Codes EKG - CPT: 77778-[id number], Complete ([id number]) Time Spent (min) 30
[2024-04-12 10:26] VITALS: BP 160/72; PULSE 48; BMI 29.2
== END 2024-04-12 11:00 | disposition home or self-care (01) ==
PROVIDERS: PCP Internal Medicine; Visit Provider Nurse Practitioner Family
DX: R00.1 Bradycardia, unspecified (principal); I48.0 Paroxysmal atrial fibrillation; I50.30 Unspecified diastolic (congestive) heart failure; I25.10 Atherosclerotic heart disease of native coronary artery without angina pectoris; I10 Essential (primary) hypertension; E78.00 Pure hypercholesterolemia, unspecified
CPT/HCPCS: 93010; 99214; G2211

== ENCOUNTER → 2024-04-12 09:49 | Outpatient (BNVA) | payer MEDICARE, MEDICAID, SELFPAY | PROVIDERS: PCP Internal Medicine; Visit Provider Nurse Practitioner Family | DX: R00.1 Bradycardia, unspecified (principal); I48.0 Paroxysmal atrial fibrillation; I11.0 Hypertensive heart disease with heart failure; I50.30 Unspecified diastolic (congestive) heart failure; I25.10 Atherosclerotic heart disease of native coronary artery without angina pectoris; E78.00 Pure hypercholesterolemia, unspecified; R94.31 Abnormal electrocardiogram [ECG] [EKG] | CPT/HCPCS: 93005; 99212 ==

== ENCOUNTER 2024-05-17 09:29 | Outpatient (REF) | payer MEDICARE, MEDICAID, SELFPAY ==
[2024-05-17 13:35] LABS: Hematocrit 31.2 % (37.0-47.0); Hemoglobin 9.7 g/dl (12.0-16.0); Mean Corpuscular HGB Conc 31.1 g/dl (31.0-35.0); Mean Corpuscular Hemoglobin 27.9 pg (27.0-33.0); Mean Corpuscular Volume 89.7 fL (80.0-98.0); Mean Platelet Volume 12.1 fL (9.4-12.3); Platelet Count 262 X10*3/uL (160-400); Red Blood Count 3.48 X10*6/uL (4.20-5.50); Red Cell Distribution Width 15.7 % (11.0-16.0); White Blood Count 5.2 X10*3/uL (4.8-10.8)
[2024-05-17 14:13] LABS: Anion Gap 17 (12-20); Blood Urea Nitrogen 33 mg/dL (9-16); Calcium 9.5 mg/dL (8.4-10.2); Carbon Dioxide 20 mmol/L (22-29); Chloride 108 mmol/L (96-108); Estimated Glomerular Filt Rate 33; Glucose Random 99 mg/dL (60-115); Potassium 4.5 mmol/L (3.3-5.1); Sodium 140 mmol/L (135-145)
== END 2024-05-17 09:30 | disposition home or self-care (01) ==
LOC: HO.HMGCLDS 09:29
PROVIDERS: PCP Internal Medicine; Visit Provider Internal Medicine Hypertension Specialist
DX: N18.9 Chronic kidney disease, unspecified (principal)
CPT/HCPCS: 36415; 80048; 85027

== ENCOUNTER 2024-05-24 10:30 | Outpatient (AMB) | payer MEDICARE, MEDICAID, SELFPAY ==
[2024-05-24 10:29] VITALS: BP 114/62; PULSE 84; O2SAT 98; BMI 29.3
--- NOTE | 2024-05-24 10:29 | HO.NEPHOV_ITS ---
Vital Signs 05/24/24 10:29 Height 5 ft 4 in Weight 171 lb BMI 29.3 BP 114/62 Blood Pressure Location Rt brachial Position Sitting Pulse 84 Pulse Source Pulse Oximeter Pulse Oximetry (%) 98 Oxygen Delivery Method Room Air Intake Visit Reasons: CKD/ Conf Allergies asparagus Allergy (Severe, Verified 05/24/24 10:29) Hives rosuvastatin [Crestor] Allergy (Unknown, Verified 05/24/24 10:29) unknown famotidine [From PEPCID] Adverse Reaction (Severe, Verified 05/24/24 10:29) NAUSEA oxycodone [From OXYCONTIN] Adverse Reaction (Intermediate, Verified 05/24/24 10:29) NAUSEA & VOMITING FROM PERCOCET TOO tramadol Adverse Reaction (Intermediate, Verified 05/24/24 10:29) could not concetrate chocolate cover cherries Allergy (Severe, Uncoded 05/24/24 10:29) Anaphylaxis Medication List - Last Reconciled 05/24/24 by Fausto Vogel MD amiodarone 200 mg PO DAILY amlodipine 5 mg PO DAILY atorvastatin 20 mg PO DAILY 90 days furosemide 20 mg PO 3XW Lactobacillus rhamnosus GG (Culturelle) 1 cap PO BID losartan 50 mg PO BID meclizine 12.5 mg PO TID nitroglycerin 0.4 mg sublingual Q5M PRN rivaroxaban (Xarelto) 15 mg PO DAILY [Rollator As directed] [Shower chair w/back rest As directed] HPI Comments Details: Jaylin is a pleasant woman with a history of longstanding hypertension and atrial fibrillation. Blood pressure was difficult to control on losartan was increased from 50 mg q.d. up to 50 mg b.i.d.. Baseline creatinine was around 1.2-1.2 mg/dL. In 06/29/2023 creatinine jumped up to 2.0 and since remained high. She had a cardioversion on 06/30 but Cr up on 06/29 Lasix decreased 2 weeks ago Repeat labs are not available. she has no shortness of breath. No nausea vomiting. She has fatigue. No urinary symptoms no hematuria. No edema no rash 05/24/24 HAd bradycardia Metoprolol was stopped last week Now HR is 84 Feels better [facility] Medical History Gait instability Persistent atrial fibrillation (HFpEF) heart failure with preserved ejection fraction History of cardioversion Abscess of vagina Atrial fibrillation Abscess of right genital labia Obesity Anemia Muscle spasm of right leg Angina pectoris Medicare annual wellness visit, initial Overweight (BMI 25.0-29.9) Right leg swelling Vitamin D deficiency TIA (transient ischemic attack) Chronic kidney disease (CKD) stage G3b/A1, moderately decreased glomerular filtration rate (GFR) between 30-44 mL/min/1.73 square meter and albuminuria creatinine ratio less than 30 mg/g Spinal stenosis Leukopenia Hypercholesterolemia Insomnia Peripheral vascular disease Peripheral neuropathy Esophageal dysmotility Carotid stenosis Pityriasis lichenoides chronica Lumbar degenerative disc disease GERD (gastroesophageal reflux disease) Hypertension Coronary artery disease Primary osteoarthritis of both shoulders Surgical History History of esophagogastroduodenoscopy (EGD) H/O colonoscopy Hx of total knee arthroplasty Hx of arthroscopic knee surgery Stented coronary artery Status post phlebectomy History of cataract surgery Basal cell carcinoma (BCC) History of tonsillectomy S/P JIMENEZ-BSO History of appendectomy History of cholecystectomy Family History Mother No problems noted. Father No problems noted. Social History Household Members: None Housing: Apartment Do you presently have visiting nurse or other home services: Yes Alcohol intake: never Patient Tobacco Use Status: Never used Tobacco Tobacco use type: Cigarette e-Cigarette/Vaping Use: Never Used Second Hand Smoke Exposure: No Advance Directives Date on File: 07/11/20 service: No Current occupational status: retired Cognitive needs: Yes (walker ) Hearing needs: No Vision needs: No Female Reproductive History Menstrual Age of Menarche: 7 Physical Exam Vital Signs: Last Vital Signs Pulse 84 05/24/24 10:29 BP 114/62 05/24/24 10:29 Pulse Ox 98 05/24/24 10:29 Oxygen Delivery Method Room Air 05/24/24 10:29 BMI result Body Mass Index 29.3 Const General: comfortable; No acute distress Orientation/consciousness: patient oriented x3 Eyes General: appearance normal, both eyes and all related structures Visual Broderick: normal visual broderick by confrontation Neck Neck: Yes supple and Yes no JVD Resp Effort & Inspection: normal respiratory effort and respiratory effort not decreased Auscultation: rhonchi Cardio Palpation: no palpable S3 and no palpable S4 Heart sounds: no rubs GI Inspection: Yes normal to inspection Palpation (GI): Soft to palpation Percussion: Yes normal to percussion Auscultation: normal bowel sounds General: Yes no CVA tenderness Back/Spine/Pelvis Back: no CVA tenderness Skin General skin exam: no petechiae and no purpura Neuro General: patient oriented x3 and no focal motor deficits Extrem General: No clubbing and No edema Results Reviewed Nephrology Results: Hgb 9.7 g/dl (12.0-16.0) L 05/17/24 WBC 5.2 X10*3/uL (4.8-10.8) 05/17/24 Plt Count 262 X10*3/uL (160-400) 05/17/24 Sodium 140 mmol/L (135-145) 05/17/24 Potassium 4.5 mmol/L (3.3-5.1) 05/17/24 Chloride 108 mmol/L (96-108) 05/17/24 Carbon Dioxide 20 mmol/L (22-29) L 05/17/24 BUN 33 mg/dL (9-16) H 05/17/24 Creatinine 1.49 mg/dL (0.5-1.4) H 05/17/24 Calcium 9.5 mg/dL (8.4-10.2) 05/17/24 PTH Intact 241.3 pg/mL (8.7-77.1) H 03/16/24 Urine Protein Trace mg/dL (Neg-Trace) 04/06/24 Assessment & Plan Assessment & Plan (1) (HFpEF) heart failure with preserved ejection fraction: Code(s): I50.30 - Unspecified diastolic (congestive) heart failure Category: Medical (2) SARAH (acute kidney injury): Code(s): N17.9 - Acute kidney failure, unspecified Category: Medical (3) CKD (chronic kidney disease): Code(s): N18.9 - Chronic kidney disease, unspecified Category: Medical Plan Elderly woman with hypertension and atrial fibrillation has sustained acute kidney injury. She has underlying chronic kidney disease stage 3 most likely due to age-related nephron loss and hypertensive nephrosclerosis. Superimposed SARAH is most likely due to hypoperfusion. No evidence of Obstructive uropathy ,glomerular nephritis or interstitial disease Hypoperfusion was probably due to combination of high dose of losartan and diuretics. After lowering diuretics, creatinine HAS improved Continue to avoid nephrotoxic agents Avoid hypotension. 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
== END 2024-05-24 10:56 | disposition home or self-care (01) ==
LOC: HO.HKA 10:30
PROVIDERS: PCP Internal Medicine; Visit Provider Internal Medicine Hypertension Specialist
DX: I50.30 Unspecified diastolic (congestive) heart failure (principal); N17.9 Acute kidney failure, unspecified; N18.9 Chronic kidney disease, unspecified
CPT/HCPCS: 99214

== ENCOUNTER → 2024-05-24 10:30 | Outpatient (BNVA) | payer MEDICARE, MEDICAID, SELFPAY | PROVIDERS: PCP Internal Medicine; Visit Provider Internal Medicine Hypertension Specialist | DX: N18.9 Chronic kidney disease, unspecified (principal); N17.9 Acute kidney failure, unspecified; I50.30 Unspecified diastolic (congestive) heart failure | CPT/HCPCS: 99212 ==

== ENCOUNTER → 2024-05-31 11:08 | Outpatient (REF) | payer MEDICARE, MEDICAID, SELFPAY | LOC: HO.CARD 11:08 | PROVIDERS: PCP Internal Medicine; Visit Provider Nurse Practitioner Family | DX: R00.1 Bradycardia, unspecified (principal) | CPT/HCPCS: 93242 ==

== ENCOUNTER → 2024-05-31 11:11 | Outpatient (BNV) | payer MEDICARE, MEDICAID, SELFPAY | PROVIDERS: PCP Internal Medicine; Visit Provider Internal Medicine | DX: I47.10 Supraventricular tachycardia, unspecified (principal) | CPT/HCPCS: 93244 ==

== ENCOUNTER 2024-06-16 09:52 | Outpatient (AMB) | payer MEDICARE, MEDICAID, SELFPAY ==
--- NOTE | 2024-06-16 10:24 | A.OFFVIS_ITS ---
Vital Signs 06/16/24 10:25 Height 5 ft 4 in Weight 172 lb BMI 29.5 BP 140/80 H Blood Pressure Location Lt brachial Position Sitting Pulse 65 Intake Visit Reasons: 2 mth f/up Intake Note: 2 month follow-up with ekg c/o dizziness starting after having coffee in the AM lasting most of the day Sorting Grapple Operator Required: No Allergies asparagus Allergy (Severe, Verified 05/24/24 10:29) Hives rosuvastatin [Crestor] Allergy (Unknown, Verified 05/24/24 10:29) unknown famotidine [From PEPCID] Adverse Reaction (Severe, Verified 05/24/24 10:29) NAUSEA oxycodone [From OXYCONTIN] Adverse Reaction (Intermediate, Verified 05/24/24 10:29) NAUSEA & VOMITING FROM PERCOCET TOO tramadol Adverse Reaction (Intermediate, Verified 05/24/24 10:29) could not concetrate chocolate cover cherries Allergy (Severe, Uncoded 05/24/24 10:29) Anaphylaxis Medication List - Last Reconciled 06/16/24 by Keo Bush MD amiodarone 200 mg PO DAILY amlodipine 5 mg PO ONCE atorvastatin 20 mg PO DAILY 90 days furosemide 20 mg PO 3XW Lactobacillus rhamnosus GG (Culturelle) 1 cap PO BID losartan 50 mg PO BID meclizine 12.5 mg PO TID nitroglycerin 0.4 mg sublingual Q5M PRN rivaroxaban (Xarelto) 15 mg PO DAILY [Rollator As directed] [Shower chair w/back rest As directed] HPI Comments Details: Jaylin comes for follow-up. She says over the last month she has been having symptoms of exertional shortness of breath. Denies any orthopnea, PND, leg edema. Thinks that she is back in AFib. Also complains of lightheadedness, symptoms are not similar to her vertigo but says she takes meclizine for it and it helps. No syncopal episodes. Noted about a month ago her hemoglobin had dropped to 9.3. He denies any overt bleeding. Denied any change in his stool color. Takes all her medications. Last Holter monitor shows persistent sinus bradycardia with average heart of 50 beats per minute. No episodes of atrial fibrillation noted. FORMERLY [facility] Medical History Gait instability Persistent atrial fibrillation (HFpEF) heart failure with preserved ejection fraction History of cardioversion Abscess of vagina Atrial fibrillation Abscess of right genital labia Obesity Anemia Muscle spasm of right leg Angina pectoris Medicare annual wellness visit, initial Overweight (BMI 25.0-29.9) Right leg swelling Vitamin D deficiency TIA (transient ischemic attack) Chronic kidney disease (CKD) stage G3b/A1, moderately decreased glomerular filtration rate (GFR) between 30-44 mL/min/1.73 square meter and albuminuria creatinine ratio less than 30 mg/g Spinal stenosis Leukopenia Hypercholesterolemia Insomnia Peripheral vascular disease Peripheral neuropathy Esophageal dysmotility Carotid stenosis Pityriasis lichenoides chronica Lumbar degenerative disc disease GERD (gastroesophageal reflux disease) Hypertension Coronary artery disease Primary osteoarthritis of both shoulders Surgical History History of esophagogastroduodenoscopy (EGD) H/O colonoscopy Hx of total knee arthroplasty Hx of arthroscopic knee surgery Stented coronary artery Status post phlebectomy History of cataract surgery Basal cell carcinoma (BCC) History of tonsillectomy S/P JIMENEZ-BSO History of appendectomy History of cholecystectomy Family History Mother No problems noted. Father No problems noted. Social History Household Members: None Housing: Apartment Do you presently have visiting nurse or other home services: Yes Alcohol intake: never Patient Tobacco Use Status: Never used Tobacco Tobacco use type: Cigarette e-Cigarette/Vaping Use: Never Used Second Hand Smoke Exposure: No Advance Directives Date on File: 07/11/20 service: No Current occupational status: retired Cognitive needs: Yes (walker ) Hearing needs: No Vision needs: No Female Reproductive History Menstrual Age of Menarche: 7 Review of Systems Const Denies chills, Denies fatigue, Denies fever(s), Denies frequent falls, Denies weakness, Denies weight gain and Denies weight loss ENT Denies dizziness Card Denies chest pain, Denies leg edema, Denies lightheadedness, Denies palpitations, Denies dyspnea, Denies dyspnea on exertion, Denies orthopnea and Denies other (loss of consciousness) Resp Denies cough, Denies dyspnea and Denies dyspnea on exertion GI Denies hematochezia and Denies change in stool character Musc Denies abnormal gait, Denies muscle weakness, Denies numbness, Denies radiating pain into limb and Denies tingling Neuro Denies abnormal gait, Denies dizziness, Denies frequent falls, Denies numbness, Denies tingling and Denies weakness Endo Denies fatigue and Denies palpitations Physical Exam Vital Signs: Last Vital Signs Pulse 65 06/16/24 10:25 BP 140/80 H 06/16/24 10:25 BMI result Body Mass Index 29.5 Const General: cooperative, comfortable, alert and awake; No acute distress Nutritional Appearance: average body habitus and other (Frail appearing) Orientation/consciousness: patient oriented x3 Limitations: ambulation with walker Eyes General: appearance normal, both eyes and all related structures Visual Arauz: normal visual arauz by confrontation Neck Neck: Yes supple and Yes no JVD Resp Effort & Inspection: normal respiratory effort and respiratory effort not decreased Auscultation: rhonchi Cardio Palpation: no palpable S3 and no palpable S4 Heart sounds: no rubs GI Inspection: Yes normal to inspection Palpation (GI): Soft to palpation Percussion: Yes normal to percussion Auscultation: normal bowel sounds General: Yes no CVA tenderness Back/Spine/Pelvis Back: no CVA tenderness Skin General skin exam: no petechiae and no purpura Neuro General: patient oriented x3 and no focal motor deficits Extrem General: No clubbing and No edema Office Procedures EKG Details: EKG shows normal sinus rhythm with poor R-wave progression [id number], Complete Assessment & Plan Assessment & Plan (1) (HFpEF) heart failure with preserved ejection fraction: Code(s): I50.30 - Unspecified diastolic (congestive) heart failure Category: Medical Plan: Heart failure preserved ejection fraction, clinically euvolemic well compensated has done well with rhythm control approach. No signs of fluid overload. Her symptoms of shortness of breath and dizziness/lightheadedness could be related to worsening anemia. Advise urgent CBC test today. If there is further worsening in her hemoglobin she will need to come to the emergency room and consider for workup for anemia which could most likely be related to chronic blood loss related to oral anticoagulation therapy. No change in therapy. Continue rhythm control approach and continue current amiodarone therapy. There was no evidence sinus bradycardia by today's exam to explain her symptoms of lightheadedness. Continue current diuretic regimen. Blood pressures today slightly elevated although she says that she has been under stress and she walked a whole long distance and a blood pressure is borderline elevated. For now would not make any changes to medications (2) Paroxysmal atrial fibrillation: Comment: Status post cardioversion June 2023 Code(s): I48.0 - Paroxysmal atrial fibrillation Category: Medical Plan: Atrial fibrillation has remained suppressed on amiodarone therapy. Has derived significant clinical benefit with no worsening heart failure syndrome. Although she is not having probably worsening anemia and symptoms related to it. Check CBC today. For now continue Xarelto therapy but if that is further worsening of her CBC this may need to be reconsidered and may need further workup from GI perspective as well hematologic perspective. Currently not having any significant sinus bradycardia. No indication for pacemaker therapy. Will follow with her Orders: Orders Complete Blood Count no Diff Today Keo Bush MD I50.30 - Unspecified diastolic (congestive) heart failure Basic Metabolic Panel Today Keo Bush MD I50.30 - Unspecified diastolic (congestive) heart failure Medications: Changed From amlodipine Dose increase 5 mg PO DAILY 90 tabs 1RF To amlodipine Dose increase 5 mg PO ONCE Lynn M IVIS Salgado-C Coding Level of Care Code Est Pt Level 4 (21522) Complex EM visit Add On G2211 Diagnoses (HFpEF) heart failure with preserved ejection fraction I50.30 Paroxysmal atrial fibrillation I48.0 CPT Codes EKG - CPT: 63407-[id number], Complete ([id number])
[2024-06-16 10:25] VITALS: BP 140/80; PULSE 65; BMI 29.5
== END 2024-06-16 10:47 | disposition home or self-care (01) ==
LOC: HO.HCS 09:53
PROVIDERS: PCP Internal Medicine; Visit Provider Internal Medicine Cardiovascular Disease
DX: I50.30 Unspecified diastolic (congestive) heart failure (principal); I48.0 Paroxysmal atrial fibrillation
CPT/HCPCS: 93010; 99214; G2211

== ENCOUNTER 2024-06-16 09:52 | Outpatient (REF) | payer MEDICARE, MEDICAID, SELFPAY ==
[2024-06-16 11:56] LABS: Hematocrit 31.8 % (37.0-47.0); Hemoglobin 10.2 g/dl (12.0-16.0); Mean Corpuscular HGB Conc 32.1 g/dl (31.0-35.0); Mean Corpuscular Hemoglobin 27.7 pg (27.0-33.0); Mean Corpuscular Volume 86.4 fL (80.0-98.0); Mean Platelet Volume 11.9 fL (9.4-12.3); Platelet Count 266 X10*3/uL (160-400); Red Blood Count 3.68 X10*6/uL (4.20-5.50); Red Cell Distribution Width 15.5 % (11.0-16.0); White Blood Count 5.4 X10*3/uL (4.8-10.8)
[2024-06-16 12:29] LABS: Anion Gap 15 (12-20); Blood Urea Nitrogen 35 mg/dL (9-16); Calcium 9.4 mg/dL (8.4-10.2); Carbon Dioxide 20 mmol/L (22-29); Chloride 109 mmol/L (96-108); Estimated Glomerular Filt Rate 27; Glucose Random 81 mg/dL (60-115); Potassium 4.6 mmol/L (3.3-5.1); Sodium 139 mmol/L (135-145)
[2024-06-16 12:31] LABS: B Type Natriuretic Peptide 197 pg/mL (<100)
== END 2024-06-16 09:53 | disposition home or self-care (01) ==
LOC: HO.LAB 09:52
PROVIDERS: PCP Internal Medicine; Visit Provider Internal Medicine Cardiovascular Disease
DX: I11.0 Hypertensive heart disease with heart failure (principal); I50.30 Unspecified diastolic (congestive) heart failure; I48.0 Paroxysmal atrial fibrillation
CPT/HCPCS: 36415; 80048; 83880; 85027; 93005; 99212

== ENCOUNTER 2024-06-17 09:33 | Outpatient (REF) | payer MEDICARE, MEDICAID, SELFPAY ==
[2024-06-17 11:12] LABS: Appearance Urine Clear; Color Urine Dark Yellow; Glucose Urine UA Negative (Negative); Leukocyte Esterase Urine Small (1+) (Negative); Nitrite Urine Negative (Negative); UMIC TRIGGER UACC YES; Urine Blood Negative (Negative); Urine Ketones Trace mg/dL (Negative); Urine Protein Trace mg/dL (Neg-Trace)
[2024-06-17 12:02] LABS: RBC Urine 0-2 /HPF (0-2); UACC Culture Trigger YES; WBC Urine 0-5 /HPF (0-5)
[2024-06-17 12:03] LABS: Bacteria Urine Trace (None Seen); Hyaline Casts Urine 0-2 /LPF (0-2); Squamous Epithelial Cell Urine 0-2 /HPF (0-2); Transitional Epi Cells Urine Present
== END 2024-06-17 09:34 | disposition home or self-care (01) ==
LOC: HO.LAB 09:33
PROVIDERS: PCP Internal Medicine; Visit Provider Internal Medicine
DX: I13.0 Hypertensive heart and chronic kidney disease with heart failure and stage 1 through stage 4 chronic kidney disease, or unspecified chronic kidney disease (principal); I50.30 Unspecified diastolic (congestive) heart failure; N18.9 Chronic kidney disease, unspecified; I48.0 Paroxysmal atrial fibrillation; F41.1 Generalized anxiety disorder; I25.10 Atherosclerotic heart disease of native coronary artery without angina pectoris; E78.00 Pure hypercholesterolemia, unspecified; K21.9 Gastro-esophageal reflux disease without esophagitis; K59.00 Constipation, unspecified; D64.9 Anemia, unspecified; I25.2 Old myocardial infarction; Z79.899 Other long term (current) drug therapy
CPT/HCPCS: 81001; 87086; 99212

== ENCOUNTER 2024-06-17 09:33 | Outpatient (AMB) | payer MEDICARE, MEDICAID, SELFPAY ==
[2024-06-17 09:36] VITALS: BP 122/62; PULSE 64; O2SAT 97
--- NOTE | 2024-06-17 09:36 | MHC.PC.OV ---
Vital Signs 06/17/24 09:36 Height 5 ft 4 in Weight 175 lb BMI 30.0 BP 122/62 Blood Pressure Location Lt brachial Position Sitting Pulse 64 Pulse Source Pulse Oximeter Pulse Oximetry (%) 97 Oxygen Delivery Method Room Air Intake Visit Reasons: Hypertension Allergies asparagus Allergy (Severe, Verified 06/17/24 09:36) Hives rosuvastatin [Crestor] Allergy (Unknown, Verified 06/17/24 09:36) unknown famotidine [From PEPCID] Adverse Reaction (Severe, Verified 06/17/24 09:36) NAUSEA oxycodone [From OXYCONTIN] Adverse Reaction (Intermediate, Verified 06/17/24 09:36) NAUSEA & VOMITING FROM PERCOCET TOO tramadol Adverse Reaction (Intermediate, Verified 06/17/24 09:36) could not concetrate chocolate cover cherries Allergy (Severe, Uncoded 06/17/24 09:36) Anaphylaxis Tobacco use date assessed: 03/15/24 Fall risk assessment: No Falls in past year Last assessed Fall Risk: 06/17/24 Dental Screening Dental Screen Date: 03/15/24 [facility] Medical History Gait instability Persistent atrial fibrillation (HFpEF) heart failure with preserved ejection fraction History of cardioversion Abscess of vagina Atrial fibrillation Abscess of right genital labia Obesity Anemia Muscle spasm of right leg Angina pectoris Medicare annual wellness visit, initial Overweight (BMI 25.0-29.9) Right leg swelling Vitamin D deficiency TIA (transient ischemic attack) Chronic kidney disease (CKD) stage G3b/A1, moderately decreased glomerular filtration rate (GFR) between 30-44 mL/min/1.73 square meter and albuminuria creatinine ratio less than 30 mg/g Spinal stenosis Leukopenia Hypercholesterolemia Insomnia Peripheral vascular disease Peripheral neuropathy Esophageal dysmotility Carotid stenosis Pityriasis lichenoides chronica Lumbar degenerative disc disease GERD (gastroesophageal reflux disease) Hypertension Coronary artery disease Primary osteoarthritis of both shoulders Surgical History History of esophagogastroduodenoscopy (EGD) H/O colonoscopy Hx of total knee arthroplasty Hx of arthroscopic knee surgery Stented coronary artery Status post phlebectomy History of cataract surgery Basal cell carcinoma (BCC) History of tonsillectomy S/P JIMENEZ-BSO History of appendectomy History of cholecystectomy Family History Mother No problems noted. Father No problems noted. Social History Household Members: None Housing: Apartment Do you presently have visiting nurse or other home services: Yes Alcohol intake: never Patient Tobacco Use Status: Never used Tobacco Tobacco use type: Cigarette e-Cigarette/Vaping Use: Never Used Second Hand Smoke Exposure: No Advance Directives Date on File: 07/11/20 service: No Current occupational status: retired Cognitive needs: Yes (walker ) Hearing needs: No Vision needs: No Female Reproductive History Menstrual Age of Menarche: 7 Questionnaire Thrive Questionnaire Date Thrive assessed: 03/15/24 JEANMARIE-7 AMB Questionnaire JEANMARIE-7 Date JEANMARIE - 7 assessed: 03/15/24 Source: Developed by Drs. Reinier Bernard, Kelly Wiggins, Sy Adames and colleagues, with an educational jody from [employer]. Physical exam (Primary Care) Vital Signs: Last Vital Signs Pulse 64 06/17/24 09:36 BP 122/62 06/17/24 09:36 Pulse Ox 97 06/17/24 09:36 Oxygen Delivery Method Room Air 06/17/24 09:36 BMI result Body Mass Index 30.0 Tobacco/Smoking Status: Tobacco use Status Tobacco use date assessed 03/15/24 06/17/24 09:42 Patient Tobacco Use Status Never used Tobacco 06/17/24 09:42 Tobacco use type Cigarette 06/17/24 09:42 e-Cigarette/Vaping Use Never Used 06/17/24 09:42 Thrive Assessment: Date of Thrive Assessment Date Thrive assessed 03/15/24 06/17/24 09:42 Const General: alert; No acute distress Eyes Conjunctivae: conjunctivae normal Resp Auscultation: clear to auscultation bilaterally Cardio Rate: regular rate Rhythm: regular rhythm GI Inspection: Yes normal to inspection Extrem General: Yes normal to inspection and No edema Coding Level of Care Code Est Pt Level 4 (13779) Complex EM visit Add On G2211 Diagnoses CKD (chronic kidney disease) N18.9 (HFpEF) heart failure with preserved ejection fraction I50.30 Paroxysmal atrial fibrillation I48.0 Generalized anxiety disorder F41.1 Coronary artery disease involving [place] coronary artery of [place] heart without angina pectoris I25.10 Associated angina: without angina Coronary Disease-Associated Artery/Lesion type: [place] artery [place] vs. transplanted heart: [place] heart Hypercholesterolemia E78.00 Essential hypertension I10 GERD (gastroesophageal reflux disease) K21.9 Constipation K59.00 Anemia D64.9 Assessment & Plan Assessment & Plan (1) CKD (chronic kidney disease): Code(s): N18.9 - Chronic kidney disease, unspecified Category: Medical Plan: Patient is being followed up by Nephrology. Avoid dehydration avoid NSAIDs noted increasing creatinine. (2) (HFpEF) heart failure with preserved ejection fraction: Code(s): I50.30 - Unspecified diastolic (congestive) heart failure Category: Medical Plan: Continuing with diuretics 3 times a week of furosemide. Weigh daily (3) Paroxysmal atrial fibrillation: Comment: Status post cardioversion June 2023 Code(s): I48.0 - Paroxysmal atrial fibrillation Category: Medical Plan: Continue with anticoagulation quarterly blood work patient on amiodarone (4) Generalized anxiety disorder: Code(s): F41.1 - Generalized anxiety disorder Category: Medical Plan: Stable (5) Coronary artery disease: Comment: CA in 1981, stent placement 2012 Code(s): I25.10 - Atherosclerotic heart disease of [place] coronary artery without angina pectoris Category: Medical Qualifiers: Associated angina: without angina Coronary Disease-Associated Artery/Lesion type: [place] artery [place] vs. transplanted heart: [place] heart Qualified Code(s): I25.10 - Atherosclerotic heart disease of [place] coronary artery without angina pectoris Plan: Control the cholesterol, weight, blood pressure, continue with anticoagulation (6) Hypercholesterolemia: Code(s): E78.00 - Pure hypercholesterolemia, unspecified Category: Medical Plan: Avoid fried foods, chicken skin, eggs, butter margarine, pastries and meat. Be it pork or beef they have a lot of cholesterol patient is on atorvastatin 20 mg once a day LDL goal of less than 70. September 2023 last blood work (7) Hypertension: Code(s): I10 - Essential (primary) hypertension Category: Medical Plan: Continue with blood pressure medication. Decrease salt intake and exercise amlodipine 5 mg once a day losartan 50 mg twice a day (8) GERD (gastroesophageal reflux disease): Code(s): K21.9 - Gastro-esophageal reflux disease without esophagitis Category: Medical Plan: Avoid the foods that causes that usually spicy foods, tomato products, juices, coffee, soda and foods that your sensitive to. After eating do not lie down, allow 3-4 hours before in lie down. And keep the head of bed above 30 degrees to avoid the acid from going up. (9) Constipation: Code(s): K59.00 - Constipation, unspecified Category: Medical Plan: Three rules for constipation 1. Diet need to have a high fiber diet less of meat 2. Increase oral fluids 3. Exercise (10) Anemia: Code(s): D64.9 - Anemia, unspecified Category: Medical Plan: Discussed with the patient that I do not think the anemia is the cause of the dizziness as the patient has been anemic since 2019 in the blood count is stable. Plan History of Present Illness The patient is an 84-year-old female presenting with dizziness and lightheadedness observed in the context of fluid management related to her extensive cardiovascular history. She has a significant medical history of congestive heart failure, currently euvolemic, and experienced persistent dizziness since before her last cardiology follow-up on June 16. The patient has undergone cardioversion for atrial fibrillation in June 2023 and recently had normal Holter monitoring results. The patient has essential hypertension treated with amlodipine and losartan, hypercholesterolemia managed with atorvastatin, and coronary artery disease. She has chronic kidney disease stage 3 due to hypertensive nephrosclerosis and a previous acute kidney injury episode. Recent lab results show stable anemia and general well-controlled electrolyte levels. She follows nephrology recommendations, including diuretic therapy with furosemide thrice weekly. Despite management strategies, she continues to experience dizziness, sometimes linked to fluid shifts. Her daily activities are impacted by dyspnea on exertion and incidental constipation, without signs of an acute urinary issue. Anemia remains stable, reducing the immediate need for transfusion. Health Maintenance - Avoid NSAIDs to protect renal function. - Maintain adequate hydration to prevent dizziness related to dehydration. - Monitor blood pressure regularly; a stable reading of approximately 130/60 was noted. - Continue anticoagulation therapy. - Maintain LDL goal <70 mg/dL with atorvastatin. - Follow a low-sodium diet recommended for chronic heart failure. - Encourage moderate physical activity to improve cardiovascular fitness. Social History - The patient has limited physical activity, predominantly staying at home and frequently seated, with advised encouragement for mild exercise. - The patient's diet is inconsistent, with some days of reduced caloric intake. - Experiences difficulties with ambulation, exacerbated by knee replacement history and recent exertional dyspnea. Review of Systems - Cardiovascular: Reports dizziness and lightheadedness. Denies chest pain. - Respiratory: Reports dyspnea on exertion, with some days better than others. - Gastrointestinal: Reports constipation. Denies abdominal pain. - Genitourinary: Denies dysuria or hematuria. - Musculoskeletal: Reports difficulty with ambulation post-knee replacement. - Neurological: Reports dizziness, tiredness. Denies vision changes. - Ears: Reports a constant noise at night, uses cotton in ears. Denies ear pain. - General: Reports fatigue. Physical Exam - General- Patient appears tired. - Neurological- Good mold capper helper strength bilaterally; shoulder and leg movements intact. - Respiratory- Regular breathing observed, no signs of respiratory distress. Results - Labs: Hemoglobin 10.2 g/dL, Hematocrit 31.8%, Stable renal function with creatinine clearance of 35 mL/min, Serum creatinine 1.79 mg/dL, BNP 197 pg/mL, LDL read was 66 mg/dL in September 2023. - EKG: Normal sinus rhythm, poor R wave progression observed. - Echocardiography: Ejection fraction 65-70%, grade 3 diastolic dysfunction, severely dilated left atrium, mild aortic regurgitation. - Holter Monitor: No recurrence of atrial fibrillation. Plan The management of the patient's dizziness involves careful fluid balance, continued use of her current medications including diuretics, and avoidance of dehydration. I have recommended MiraLAX for her constipation. Her cardiovascular and renal conditions remain stable under current management negating the current need for additional intervention beyond ongoing monitoring and medication adherence. Blood pressure and cholesterol levels are well-controlled with current therapy. Routine laboratory evaluations, including renal function tests, are scheduled in three months. No hematologic transfusion is required at present due to the stable state of anemia. I emphasized no use of NSAIDs to protect renal function. Due to the patient's mobility issues, encouragement of regular paced walking within her scope of comfort is suggested. Follow-up assessments will complement the continued monitoring of conditions such as her stable atrial rhythm post-cardioversion. Patient was informed and verbally consented to the use of an ambient scribe for clinic note documentation during this visit. Discussion Notes I discussed with the patient the importance of maintaining hydration to manage her dizziness effectively, explaining the relation to fluid shifts potentially due to diuretic use and heart failure management. The plan includes continued electrolyte and renal function monitoring, emphasizing the avoidance of NSAIDs. For constipation, I prescribed MiraLAX and stressed a careful balance to prevent diarrhea. The necessity of routine blood pressure checks was highlighted, and her stable cholesterol levels were noted. We reiterated amiodarone and anticoagulation continue as scheduled for atrial fibrillation management. Follow-up in three months with plan to reassess labs, while new symptoms warranting earlier return were explained. The importance of routine annual vision assessment was also reviewed. Patient Instructions - Take prescribed MiraLAX as needed to relieve constipation. - Maintain adequate hydration, especially due to diuretic use. - Avoid NSAIDs to protect kidney function. - Monitor blood pressure at home, aiming for consistency around 130/60. - Continue taking all prescribed medications as directed. - Follow up on lab work in three months. - Return to the office sooner if symptoms worsen or new symptoms develop. - Engage in light activity as tolerated to maintain mobility. Orders: Orders B Type Natriuretic Peptide 3 Months I50.30 - Unspecified diastolic (congestive) heart failure Thyroid Stimulating Hormone Today I50.30 - Unspecified diastolic (congestive) heart failure Complete Blood Count Auto Diff Today I50.30 - Unspecified diastolic (congestive) heart failure Comprehensive Met. Panel Today I50.30 - Unspecified diastolic (congestive) heart failure Lipid Panel Today E78.00 - Pure hypercholesterolemia, unspecified, I50.30 - Unspecified diastolic (congestive) heart failure Ferritin Today I50.30 - Unspecified diastolic (congestive) heart failure Free T4 (Free Thyroxine) Today I50.30 - Unspecified diastolic (congestive) heart failure Hemoglobin A1c Today I50.30 - Unspecified diastolic (congestive) heart failure Reticulocyte Count Today I50.30 - Unspecified diastolic (congestive) heart failure IRON PROFILE Today I50.30 - Unspecified diastolic (congestive) heart failure Vitamin B12 and Folate Today I50.30 - Unspecified diastolic (congestive) heart failure Vitamin D 25-OH Total Today I50.30 - Unspecified diastolic (congestive) heart failure Magnesium Today I50.30 - Unspecified diastolic (congestive) heart failure UA CC w/rflx Micro + Cult Today K59.00 - Constipation, unspecified, R30.0 - Dysuria Medications: New polyethylene glycol 3350 (Miralax) 17 grams PO DAILY 30 ea 3RF K59.00 - Constipation, unspecified Discontinued meclizine Discontinued Reason: Doctor's Order 12.5 mg PO TID 30 tabs 1RF
== END 2024-06-17 10:08 | disposition home or self-care (01) ==
LOC: HO.HMCH 09:34
PROVIDERS: PCP Internal Medicine; Visit Provider Internal Medicine
DX: I12.9 Hypertensive chronic kidney disease with stage 1 through stage 4 chronic kidney disease, or unspecified chronic kidney disease (principal); I50.30 Unspecified diastolic (congestive) heart failure; I48.0 Paroxysmal atrial fibrillation; N18.9 Chronic kidney disease, unspecified; F41.1 Generalized anxiety disorder; I25.10 Atherosclerotic heart disease of native coronary artery without angina pectoris; E78.00 Pure hypercholesterolemia, unspecified; K21.9 Gastro-esophageal reflux disease without esophagitis; K59.00 Constipation, unspecified; D64.9 Anemia, unspecified

== ENCOUNTER 2024-09-20 11:08 | Outpatient (AMB) | payer MEDICARE, MEDICAID, SELFPAY ==
[2024-09-20 11:18] VITALS: BP 122/80; PULSE 71; BMI 29.5
--- NOTE | 2024-09-20 11:18 | MHC.OFFVIS ---
Vital Signs 09/20/24 11:18 Height 5 ft 4 in Weight 172 lb BMI 29.5 BP 122/80 Blood Pressure Location Lt brachial Position Sitting Pulse 71 Intake Visit Reasons: 3m follow up Intake Note: 3 month follow-up with ekg c/o headache x8 days low heart rate high bp Stream Control Officer Required: No Allergies asparagus Allergy (Severe, Verified 06/17/24 09:36) Hives rosuvastatin (Crestor) Allergy (Unknown, Verified 06/17/24 09:36) unknown famotidine (From PEPCID) Adverse Reaction (Severe, Verified 06/17/24 09:36) NAUSEA oxycodone (From OXYCONTIN) Adverse Reaction (Intermediate, Verified 06/17/24 09:36) NAUSEA & VOMITING FROM PERCOCET TOO tramadol Adverse Reaction (Intermediate, Verified 06/17/24 09:36) could not concetrate chocolate cover cherries Allergy (Severe, Uncoded 06/17/24 09:36) Anaphylaxis Medication List - Last Reconciled 09/20/24 by Keo Bush MD amiodarone 200 mg PO DAILY amlodipine 5 mg PO ONCE atorvastatin 20 mg PO DAILY 90 days furosemide 20 mg PO 3XW Lactobacillus rhamnosus GG (Culturelle) 1 cap PO BID losartan 50 mg PO BID meclizine 12.5 mg PO TID nitroglycerin 0.4 mg sublingual Q5M PRN polyethylene glycol 3350 (Miralax) 17 grams PO DAILY rivaroxaban (Xarelto) 15 mg PO DAILY [Rollator As directed] [Shower chair w/back rest As directed] HPI Comments Details: Jaylin comes for follow-up. She has not had any significant cardiac complaints. Said couple of weeks ago she had constant headache for 8 days 24 hours a day. She measure her blood pressure throughout that time and she had couple of episodes of high blood pressure but mostly the blood pressure in the normal range. The headache was constant and pressure-like. She is taking Tylenol which was making slight different. She is very concerned about this thinking that this might be related to her elevated blood pressure. She denies any shortness of breath, orthopnea, PND. Denies any prolonged irregular heartbeat or palpitations. Takes all her medications. She denies any bleeding issues or neurologic events. Walks with a walker. Denies any exertional chest pain. [facility] Medical History Gait instability Persistent atrial fibrillation (HFpEF) heart failure with preserved ejection fraction History of cardioversion Abscess of vagina Atrial fibrillation Abscess of right genital labia Obesity Anemia Muscle spasm of right leg Angina pectoris Medicare annual wellness visit, initial Overweight (BMI 25.0-29.9) Right leg swelling Vitamin D deficiency TIA (transient ischemic attack) Chronic kidney disease (CKD) stage G3b/A1, moderately decreased glomerular filtration rate (GFR) between 30-44 mL/min/1.73 square meter and albuminuria creatinine ratio less than 30 mg/g Spinal stenosis Leukopenia Hypercholesterolemia Insomnia Peripheral vascular disease Peripheral neuropathy Esophageal dysmotility Carotid stenosis Pityriasis lichenoides chronica Lumbar degenerative disc disease GERD (gastroesophageal reflux disease) Hypertension Coronary artery disease Primary osteoarthritis of both shoulders Surgical History History of esophagogastroduodenoscopy (EGD) H/O colonoscopy Hx of total knee arthroplasty Hx of arthroscopic knee surgery Stented coronary artery Status post phlebectomy History of cataract surgery Basal cell carcinoma (BCC) History of tonsillectomy S/P JIMENEZ-BSO History of appendectomy History of cholecystectomy Family History Mother No problems noted. Father No problems noted. Social History Household Members: None Housing: Apartment Do you presently have visiting nurse or other home services: Yes Alcohol intake: never Patient Tobacco Use Status: Never used Tobacco Tobacco use type: Cigarette e-Cigarette/Vaping Use: Never Used Second Hand Smoke Exposure: No Advance Directives Date on File: 07/11/20 service: No Current occupational status: retired Cognitive needs: Yes (walker ) Hearing needs: No Vision needs: No Female Reproductive History Menstrual Age of Menarche: 7 Review of Systems Const Denies chills, Denies fatigue, Denies fever(s), Denies frequent falls, Denies weakness, Denies weight gain and Denies weight loss ENT Denies dizziness Card Denies chest pain, Denies leg edema, Denies lightheadedness, Denies palpitations, Denies dyspnea, Denies dyspnea on exertion, Denies orthopnea and Denies other (loss of consciousness) Resp Denies cough, Denies dyspnea and Denies dyspnea on exertion GI Denies hematochezia and Denies change in stool character Musc Denies abnormal gait, Denies muscle weakness, Denies numbness, Denies radiating pain into limb and Denies tingling Neuro Denies abnormal gait, Denies dizziness, Denies frequent falls, Denies numbness, Denies tingling and Denies weakness Endo Denies fatigue and Denies palpitations Physical Exam Vital Signs: Last Vital Signs Pulse 71 09/20/24 11:18 BP 122/80 09/20/24 11:18 BMI result Body Mass Index 29.5 Const General: cooperative, comfortable, alert and awake; No acute distress Nutritional Appearance: average body habitus and other (Frail appearing) Orientation/consciousness: patient oriented x3 Limitations: ambulation with walker Eyes General: appearance normal, both eyes and all related structures Visual Arauz: normal visual arauz by confrontation Neck Neck: Yes supple and Yes no JVD Resp Effort & Inspection: normal respiratory effort and respiratory effort not decreased Auscultation: rhonchi Cardio Palpation: no palpable S3 and no palpable S4 Heart sounds: no rubs GI Inspection: Yes normal to inspection Palpation (GI): Soft to palpation Percussion: Yes normal to percussion Auscultation: normal bowel sounds General: Yes no CVA tenderness Back/Spine/Pelvis Back: no CVA tenderness Skin General skin exam: no petechiae and no purpura Neuro General: patient oriented x3 and no focal motor deficits Extrem General: No clubbing and No edema Office Procedures EKG Details: EKG shows normal sinus rhythm with inferior Q-waves in lead 3 as well as poor R-wave progression with Q-waves in lead V3 suggestive of anterior infarct [id number], Complete Assessment & Plan Assessment & Plan (1) (HFpEF) heart failure with preserved ejection fraction: Code(s): I50.30 - Unspecified diastolic (congestive) heart failure Category: Medical Plan: Heart failure with preserved ejection fraction predominantly related to atrial fibrillation and persistent atrial fibrillation. Has done well with rhythm control approach. Continue current rhythm control approach. Continue current diuretic regimen which she takes 3 times a week given her kidney function. Continue monitor renal function every 3 months. Continue aggressive blood pressure control. Blood pressure is not significantly elevated to need additional therapy and this was discussed with her. Continue current losartan as well as amlodipine therapy. Stress mitigation strategies were discussed. Daily weight monitoring avoidance salt loading was discussed. (2) Paroxysmal atrial fibrillation: Comment: Status post cardioversion June 2023 Code(s): I48.0 - Paroxysmal atrial fibrillation Category: Medical Plan: Paroxysmal atrial fibrillation has done very well with rhythm control approach will continue pursue control approach. Has been on 200 mg amiodarone will reduce to 100 mg daily. Advised to report me with new symptoms. Continue full oral anticoagulation, currently on renally adjusted dose of Xarelto. Continue monitor renal function every 3 months. (3) Coronary artery disease: Comment: [place] in 1981, stent placement 2012 Code(s): I25.10 - Atherosclerotic heart disease of [place] coronary artery without angina pectoris Category: Medical Qualifiers: Coronary Disease-Associated Artery/Lesion type: [place] artery [place] vs. transplanted heart: [place] heart Associated angina: without angina Qualified Code(s): I25.10 - Atherosclerotic heart disease of [place] coronary artery without angina pectoris Plan: CAD with prior myocardial infarction stent placement. Currently with no symptoms of angina. Continue statin therapy with target goal LDL less than 70 mg/dL. Blood pressure is optimized. Currently on full oral anticoagulation therefore would avoid antiplatelet therapy to reduce bleeding risk can anemia risk. Will follow up in the clinic in 3 months time, sooner p.r.n.. Thank you for allowing me to partake in her care Orders: Orders Basic Metabolic Panel Today I50.30 - Unspecified diastolic (congestive) heart failure Complete Blood Count no Diff Today I50.30 - Unspecified diastolic (congestive) heart failure Medications: Changed From amiodarone 200 mg PO DAILY 90 tabs 3RF To amiodarone 100 mg (1/2 x 200 mg) PO DAILY 90 tabs 3RF Refilled nitroglycerin do not exceed 3 doses per episode 0.4 mg sublingual Q5M PRN 20 tabs 1RF chest pain Coding Level of Care Code Est Pt Level 4 (39943) Complex EM visit Add On G2211 Diagnoses (HFpEF) heart failure with preserved ejection fraction I50.30 Paroxysmal atrial fibrillation I48.0 Coronary artery disease involving [place] coronary artery of [place] heart without angina pectoris I25.10 Coronary Disease-Associated Artery/Lesion type: [place] artery [place] vs. transplanted heart: [place] heart Associated angina: without angina CPT Codes EKG - CPT: 26501-[id number], Complete ([id number])
--- OUTSIDE RECORDS SUMMARY | 2024-09-20 12:15 | XMS_ITS | Patient Health Record ---
Author Organization [facility] Address [address] [place] [address] Care Team Providers Care Lime Boiler Name Role Phone Erika Jordan MD Primary Care Provider Reinier Bender [phone] Allergies Allergen (clinical drug ingredient) Drug/Non Drug Allergy documented on EMR Reaction Allergy Type Onset Date Status acetaminophen / oxycodone Percocet Unknown Drug Allergy Active oxycodone Oxycodone HCl Unknown Drug Allergy Act [place] Reason For Referral No Information Medications Medication SIG (Take, Route, Frequency, Duration) Notes Start Date End Date Status Vitamin D 1000 UNIT 1 tablet Orally Once a day Active Omeprazole 20 MG 1 capsule Orally Onc e a day Active Meclizine HCl 12.5 MG 1 tablet as needed Orally Once a day Active Omeprazole 20 MG 1 capsule Orally Onc e a day for 30 day(s) 09/30/2016 Active Zetia 10 MG 1 tablet Orally Once a day Active Aspirin Adult Low Dose 81 MG 1 tablet Orally Once a day Active Metoprolol Succinate ER 50 MG TAKE ONE TABLET BY MOUTH EVERY DAY Oral for 90 Active Atorvastatin Calcium 20 MG TAKE ONE TABL ET(S) DAILY Oral for 90 Active Immunizations Vaccine Route Administration Date Status Comme nts Influenza Unknown 10/11/2015 Administered Social History Tobacco Use: Social History Observation Description Date Details (start date - stop date) Never Smoker NA - NA Tobacco Use/Smoking Question Answer Notes Patient is a nonsmoker Alcohol Screen Question Answer Notes Did you have a drink containing alcohol in the p ast year? No Points 0 Interpretation Negative Section Notes: Nonsmoker; no sig. alcohol Problems Problem Type SNOMED Code ICD Code Onset Dates Problem Status W/U Status Risk Notes Problem [id number] Gastroesophageal reflux disease, esophagitis presence not specified (K21.9) Active confirmed Problem [id number] Abnormal barium swallow (R93.3) Active confirmed Plan Of Treatment No Information Insurance Providers Payer Name Payer Address Payer Phone Subscriber Number Group Number Insured Name Patient Relationship to Insured Coverage Start Date Coverage End Date MEDICARE OF [place] [address] MARCIA CHAUDHARY [id number] NORIS PALMA Self - patient is the insured MEDICAID OF [facility] [address] [place] [phone] [id number] NORIS PALMA Self - patient is the insured Medical (General) History Medical History History ICD Code Osteoarthritis GERD--EGD in 2005 described mild changes of reflux Hypertension Dyslipidemia DVT of the left lower extremity in 2001 Heart attack year 1981-mild; 1 stent kiki man in 2011 Skin disorderwith leukemia/l ymphomia - currently on radiation treatments once a week with Dr. Lee(cathode washer) Denies DM,CVA,Lung disease,renal disease Negative colonoscopy in 2005 Surgical History Surgery Date(Month/Year) Cholecystectomy Tonsillectomy JIMENEZ Appendectomy Bilateral cataract extraction Knee surgery Squamous cell skin cancer
== END 2024-09-20 11:49 | disposition home or self-care (01) ==
LOC: HO.HCS 11:09
PROVIDERS: PCP Internal Medicine; Visit Provider Internal Medicine Cardiovascular Disease
DX: I50.30 Unspecified diastolic (congestive) heart failure (principal); I48.0 Paroxysmal atrial fibrillation; I25.10 Atherosclerotic heart disease of native coronary artery without angina pectoris
CPT/HCPCS: 93010; 99214; G2211

== ENCOUNTER 2024-09-20 11:08 | Outpatient (REF) | payer MEDICARE, MEDICAID, SELFPAY ==
[2024-09-20 12:43] LABS: Hematocrit 29.6 % (37.0-47.0); Hemoglobin 9.5 g/dl (12.0-16.0); Mean Corpuscular HGB Conc 32.1 g/dl (31.0-35.0); Mean Corpuscular Hemoglobin 27.4 pg (27.0-33.0); Mean Corpuscular Volume 85.3 fL (80.0-98.0); NRBC Abs Auto 0.000 X10*3/uL (0.0-0.012); NRBC Pct Auto 0.0 /100WBC (0.0-0.2); Platelet Count 204 X10*3/uL (160-400); Red Blood Count 3.47 X10*6/uL (4.20-5.50); White Blood Count 6.2 X10*3/uL (4.8-10.8)
[2024-09-20 12:58] LABS: Anion Gap 15 (12-20); Blood Urea Nitrogen 37 mg/dL (9-16); Calcium 9.1 mg/dL (8.4-10.2); Carbon Dioxide 20 mmol/L (22-29); Chloride 110 mmol/L (96-108); Estimated Glomerular Filt Rate 28; Potassium 5.0 mmol/L (3.3-5.1); Sodium 140 mmol/L (135-145)
== END 2024-09-20 11:09 | disposition home or self-care (01) ==
LOC: HO.LAB 11:08
PROVIDERS: PCP Internal Medicine; Visit Provider Internal Medicine Cardiovascular Disease
DX: I50.30 Unspecified diastolic (congestive) heart failure (principal); I48.19 Other persistent atrial fibrillation; I25.10 Atherosclerotic heart disease of native coronary artery without angina pectoris; Z79.01 Long term (current) use of anticoagulants; Z79.899 Other long term (current) drug therapy
CPT/HCPCS: 36415; 80048; 85027; 93005; 99212

== ENCOUNTER 2024-10-21 09:48 | Outpatient (REF) | payer MEDICARE, MEDICAID, SELFPAY ==
--- OUTSIDE RECORDS SUMMARY | 2024-10-21 11:01 | XMS_ITS | Patient Health Record ---
Author Organization [facility] Address [address] [place] [address] Care Team Providers Care Concrete Batching Plant Operator Name Role Phone Erika Jordan MD Primary Care Provider Reinier Bender [phone] Allergies Allergen (clinical drug ingredient) Drug/Non Drug [...] Problem Status W/U Status Risk Notes Problem [id number] Gastroesophageal reflux disease, esophagitis presence not specified (K21.9) Active confirmed Problem 211075121 Abnormal barium swallow (R93.3) Active confirmed Plan Of Treatment No Information Insurance Providers Payer Name Payer Address Payer Phone Subscriber Number Group Number Insured Name Patient Relationship to Insured Coverage Start Date Coverage End Date MEDICARE OF [place] [address] MARCIA CHAUDHARY [id number] NORIS PALMA Self - patient is the insured MEDICAID OF [facility] [address] [place] [facility] [phone] [id number] NORIS PALMA Self - patient is the insured Medical (General) History Medical History History ICD Code Osteoarthritis GERD--EGD in 2005 described mild changes of reflux Hypertension Dyslipidemia DVT of the left lower extremity in 2001 Heart attack year 1981-mild; 1 stent kiki man in 2011 Skin disorderwith leukemia/l ymphomia - currently on radiation treatments once a week with Dr. Lee(janitorial tech) Denies DM,CVA,Lung disease,renal disease Negative colonoscopy in 2005 Surgical History Surgery Date(Month/Year) Cholecystectomy Tonsillectomy JIMENEZ Appendectomy Bilateral cataract extraction Knee surgery Squamous cell skin cancer
[2024-10-21 13:23] LABS: MANUAL DIFF FLAG NO
[2024-10-21 13:33] LABS: Hematocrit 27.8 % (37.0-47.0); Hemoglobin 8.7 g/dl (12.0-16.0); Imm Gran Abs Auto 0.01 X10*3/uL (0.00-0.03); Imm Gran Pct Auto 0.2 % (0.0-0.4); Lymphocytes Absolute Auto 1.3 X10*3/uL (1.2-4.9); Mean Corpuscular HGB Conc 31.3 g/dl (31.0-35.0); Mean Corpuscular Hemoglobin 28.0 pg (27.0-33.0); Mean Corpuscular Volume 89.4 fL (80.0-98.0); NRBC Abs Auto 0.000 X10*3/uL (0.0-0.012); NRBC Pct Auto 0.0 /100WBC (0.0-0.2); Red Blood Count 3.11 X10*6/uL (4.20-5.50); Reticulocytes Absolute 0.070 X10*6/uL (0.026-0.095); White Blood Count 4.4 X10*3/uL (4.8-10.8)
[2024-10-21 13:43] LABS: Platelet Count 149 X10*3/uL (160-400)
[2024-10-21 13:47] LABS: Hemoglobin A1C 87.7480 umol/L; Total Hemoglobin (HGBA1C) 2333.3891 umol/L
[2024-10-21 13:55] LABS: Appearance Urine Clear; Glucose Urine UA Negative (Negative); PH 6.0 (5.0-9.0); Specific Gravity - Urine 1.025 (1.005-1.025); UMIC TRIGGER UACC YES
[2024-10-21 14:08] LABS: UACC Culture Trigger YES
[2024-10-21 14:18] LABS: Alanine Aminotransferase 18 U/L (0-31); Albumin Level 3.8 g/dL (3.5-5.0); Alkaline Phosphatase 91 U/L (39-117); Anion Gap 13 (12-20); Aspartate Amino Transferase 37 U/L (5-31); Blood Urea Nitrogen 31 mg/dL (9-16); Calcium 8.9 mg/dL (8.4-10.2); Carbon Dioxide 20 mmol/L (22-29); Chloride 113 mmol/L (96-108); Cholesterol 85 mg/dL (<200); Estimated Glomerular Filt Rate 27; HDL Cholesterol 11 mg/dL (>40); Iron 74 mcg/dL (30-160); Magnesium 2.2 mg/dL (1.6-2.6); Percent Iron Saturation 25 % (15-50); Potassium 5.2 mmol/L (3.3-5.1); Sodium 141 mmol/L (135-145); Total Iron Binding Capacity 296 mcg/dL (228-428); Total Protein 7.0 g/dL (6.5-8.0); Triglycerides 156 mg/dL (<150); Unsaturated Iron Binding 222 ug/dL
[2024-10-21 14:19] LABS: Ferritin 123 ng/mL (10-250); Free T4 (Free Thyroxine) 1.26 ng/dL (0.71-1.85); Thyroid Stimulating Hormone 2.13 uIU/mL (0.32-4.0)
[2024-10-21 14:35] LABS: Folate 8.4 ng/mL (> or = 4.0); Vitamin B12 432 pg/mL (200-900)
[2024-10-21 14:37] LABS: B Type Natriuretic Peptide 367 pg/mL (<100)
== END 2024-10-21 09:49 | disposition home or self-care (01) ==
LOC: HO.HMGCLDS 09:48
PROVIDERS: PCP Internal Medicine; Visit Provider Internal Medicine
DX: Z13.1 Encounter for screening for diabetes mellitus (principal); I50.30 Unspecified diastolic (congestive) heart failure; E78.00 Pure hypercholesterolemia, unspecified
CPT/HCPCS: 36415; 80053; 80061; 81001; 82306; 82607; 82728; 82746; 83036; 83540; 83735; 83880; 84439; 84443; 85025; 85045; 87086

== ENCOUNTER 2024-10-25 10:04 | Outpatient (AMB) | payer MEDICARE, MEDICAID, SELFPAY ==
[2024-10-25 10:07] VITALS: BP 130/62; PULSE 90; O2SAT 97; BMI 29.5
--- NOTE | 2024-10-25 10:07 | HO.NEPHOV ---
Vital Signs 10/25/24 10:07 Height 5 ft 4 in Weight 172 lb BMI 29.5 BP 130/62 Blood Pressure Location Rt brachial Position Sitting Pulse 90 Pulse Source Pulse Oximeter Pulse Oximetry (%) 97 Oxygen Delivery Method Room Air Intake Visit Reasons: F/U - LM Filler Picker Required: No Accompanied by: Self / Same As Patient Allergies asparagus Allergy (Severe, Verified 10/25/24 10:10) Hives rosuvastatin (Crestor) Allergy (Unknown, Verified 10/25/24 10:10) unknown famotidine (From PEPCID) Adverse Reaction (Severe, Verified 10/25/24 10:10) NAUSEA oxycodone (From OXYCONTIN) Adverse Reaction (Intermediate, Verified 10/25/24 10:10) NAUSEA & VOMITING FROM PERCOCET TOO tramadol Adverse Reaction (Intermediate, Verified 10/25/24 10:10) could not concetrate chocolate cover cherries Allergy (Severe, Uncoded 06/17/24 09:36) Anaphylaxis Medication List - Last Reconciled 10/25/24 by Fausto Vogel MD amiodarone 100 mg (1/2 x 200 mg) PO DAILY amlodipine 5 mg PO ONCE atorvastatin 20 mg PO DAILY 90 days furosemide 20 mg PO 3XW Lactobacillus rhamnosus GG (Culturelle) 1 cap PO BID losartan 50 mg PO BID meclizine 12.5 mg PO TID nitroglycerin 0.4 mg sublingual Q5M PRN polyethylene glycol 3350 (Miralax) 17 grams PO DAILY rivaroxaban (Xarelto) 15 mg PO DAILY [Rollator As directed] [Shower chair w/back rest As directed] HPI Comments Details: Jaylin is a pleasant woman with a history of longstanding hypertension and atrial fibrillation. Blood pressure was difficult to control on losartan was increased from 50 mg q.d. up to 50 mg b.i.d.. Baseline creatinine was around 1.2-1.2 mg/dL. In 06/29/2023 creatinine jumped up to 2.0 and since remained high. She had a cardioversion on 06/30 but Cr up on 06/29 Lasix decreased 2 weeks ago Repeat labs are not available. she has no shortness of breath. No nausea vomiting. She has fatigue. No urinary symptoms no hematuria. No edema no rash 05/24/24 : bradycardia ; Metoprolol was stopped last week ;Now HR is 84 ;Feels better 10/25/24 The patient is an 84-year-old female presenting with a follow-up for chronic conditions, including atrial fibrillation and chronic kidney disease. Atrial fibrillation is managed with amiodarone, reduced to 100 mg. No new medications reported. Chronic kidney disease is stable. Arm pain managed with patches and Tylenol. NSAIDs avoided. Anemia worsened, hemoglobin at 8.7. Recheck blood work in three weeks. Medical History: - Atrial fibrillation - Chronic kidney disease - Anemia Medications: - Amiodarone 100 mg for atrial fibrillation - Tylenol for arm pain - Losartan - Meclizine - Xarelto Social History: - The patient consumes a lot of ice and drinks water, avoiding high-potassium foods. - The patient does not drive and requires transportation for appointments. Diagnostic Results: - Labs: Potassium level at 5.2, hemoglobin decreased to 8.7 - Ultrasound: No blockage detected last year [facility] Medical History Gait instability Persistent atrial fibrillation (HFpEF) heart failure with preserved ejection fraction History of cardioversion Abscess of vagina Atrial fibrillation Abscess of right genital labia Obesity Anemia Muscle spasm of right leg Angina pectoris Medicare annual wellness visit, initial Overweight (BMI 25.0-29.9) Right leg swelling Vitamin D deficiency TIA (transient ischemic attack) Chronic kidney disease (CKD) stage G3b/A1, moderately decreased glomerular filtration rate (GFR) between 30-44 mL/min/1.73 square meter and albuminuria creatinine ratio less than 30 mg/g Spinal stenosis Leukopenia Hypercholesterolemia Insomnia Peripheral vascular disease Peripheral neuropathy Esophageal dysmotility Carotid stenosis Pityriasis lichenoides chronica Lumbar degenerative disc disease GERD (gastroesophageal reflux disease) Hypertension Coronary artery disease Primary osteoarthritis of both shoulders Surgical History History of esophagogastroduodenoscopy (EGD) H/O colonoscopy Hx of total knee arthroplasty Hx of arthroscopic knee surgery Stented coronary artery Status post phlebectomy History of cataract surgery Basal cell carcinoma (BCC) History of tonsillectomy S/P JIMENEZ-BSO History of appendectomy History of cholecystectomy Family History Mother No problems noted. Father No problems noted. Social History Household Members: None Housing: Apartment Do you presently have visiting nurse or other home services: Yes Alcohol intake: never Patient Tobacco Use Status: Never used Tobacco Tobacco use type: Cigarette e-Cigarette/Vaping Use: Never Used Second Hand Smoke Exposure: No Advance Directives Date on File: 07/11/20 service: No Current occupational status: retired Cognitive needs: Yes (walker ) Hearing needs: No Vision needs: No Female Reproductive History Menstrual Age of Menarche: 7 Physical Exam Vital Signs: Last Vital Signs Pulse 90 10/25/24 10:07 BP 130/62 10/25/24 10:07 Pulse Ox 97 10/25/24 10:07 Oxygen Delivery Method Room Air 10/25/24 10:07 BMI result Body Mass Index 29.5 Const General: comfortable; No acute distress Orientation/consciousness: patient oriented x3 Eyes General: appearance normal, both eyes and all related structures Visual Broderick: normal visual broderick by confrontation Neck Neck: Yes supple and Yes no JVD Resp Effort & Inspection: normal respiratory effort and respiratory effort not decreased Auscultation: rhonchi Cardio Palpation: no palpable S3 and no palpable S4 Heart sounds: no rubs GI Inspection: Yes normal to inspection Palpation (GI): Soft to palpation Percussion: Yes normal to percussion Auscultation: normal bowel sounds General: Yes no CVA tenderness Back/Spine/Pelvis Back: no CVA tenderness Skin General skin exam: no petechiae and no purpura Neuro General: patient oriented x3 and no focal motor deficits Extrem General: No clubbing and No edema Results Reviewed Nephrology Results: Hgb, (12.0-16.0) 8.7 g/dl L 10/21/24 WBC, (4.8-10.8) 4.4 X10*3/uL L 10/21/24 Plt Count, (160-400) 149 X10*3/uL L Δ 10/21/24 Sodium, (135-145) 141 mmol/L 10/21/24 Potassium, (3.3-5.1) 5.2 mmol/L H 10/21/24 Chloride, (96-108) 113 mmol/L H 10/21/24 Carbon Dioxide, (22-29) 20 mmol/L L 10/21/24 BUN, (9-16) 31 mg/dL H 10/21/24 Creatinine, (0.5-1.4) 1.76 mg/dL H 10/21/24 Calcium, (8.4-10.2) 8.9 mg/dL 10/21/24 Urine Protein, (Neg-Trace) Negative mg/dL 10/21/24 Renal US 10/19/23 Assessment & Plan Assessment & Plan (1) (HFpEF) heart failure with preserved ejection fraction: Code(s): I50.30 - Unspecified diastolic (congestive) heart failure Category: Medical (2) SARAH (acute kidney injury): Code(s): N17.9 - Acute kidney failure, unspecified Category: Medical (3) CKD (chronic kidney disease): Code(s): N18.9 - Chronic kidney disease, unspecified Category: Medical Plan Elderly woman with hypertension and atrial fibrillation has sustained acute kidney injury. She has underlying chronic kidney disease stage 3 most likely due to age-related nephron loss and hypertensive nephrosclerosis. Superimposed SARAH is most likely due to hypoperfusion. No evidence of Obstructive uropathy ,glomerular nephritis or interstitial disease Hypoperfusion was probably due to combination of high dose of losartan and diuretics. After lowering diuretics, creatinine HAS improved Continue to avoid nephrotoxic agents Avoid hypotension. Mild anemia Iron levels normal Most likely has EPO deficiency due to CKD No absolute indication for TORY BP is well controlled Clinically euvolemic Stay on Lasix 3 x week Low salt diet 10/25/24 1. Chronic Kidney Disease Renal fx close to baseline Avoid nephrotoxins May need repeat sonogram Last sono was in Oct 2023- unremarkable - Maintain hydration. 2. Anemia Mild decrease in WBC and Platelets - ? Pancytopenia No new meds noted - Recheck hemoglobin in three weeks. - Consider iron deficiency and EPO def 4. HTN BP acceptable.No changes 4. Hyperkalemia - Avoid high-potassium foods. - Recheck potassium in three weeks. Orders: Orders Complete Blood Count no Diff 3 Weeks D64.9 - Anemia, unspecified, N18.9 - Chronic kidney disease, unspecified IRON PROFILE 3 Weeks D64.9 - Anemia, unspecified, N18.9 - Chronic kidney disease, unspecified Total Protein Urine Random 3 Weeks D64.9 - Anemia, unspecified, N18.9 - Chronic kidney disease, unspecified Creatinine Urine 3 Weeks D64.9 - Anemia, unspecified, N18.9 - Chronic kidney disease, unspecified Basic Metabolic Panel 3 Weeks D64.9 - Anemia, unspecified, N18.9 - Chronic kidney disease, unspecified Ferritin 3 Weeks D64.9 - Anemia, unspecified, N18.9 - Chronic kidney disease, unspecified Coding Level of Care Code Est Pt Level 4 (13028) Diagnoses (HFpEF) heart failure with preserved ejection fraction I50.30 SARAH (acute kidney injury) N17.9 CKD (chronic kidney disease) N18.9
--- OUTSIDE RECORDS SUMMARY | 2024-10-25 13:10 | XMS_ITS | Patient Health Record ---
Author Organization [facility] Address [address] [place] [address] Care Team Providers Care Instrumentation Chemist Name Role Phone Erika Jordan MD Primary Care Provider Reinier Bender [phone] Allergies Allergen (clinical drug ingredient) Drug/Non Drug [...] Problem Status W/U Status Risk Notes Problem [id number] Gastroesophageal reflux disease, esophagitis presence not specified (K21.9) Active confirmed Problem [id number] Abnormal barium swallow (R93.3) Active confirmed Plan Of Treatment No Information Insurance Providers Payer Name Payer Address Payer Phone Subscriber Number Group Number Insured Name Patient Relationship to Insured Coverage Start Date Coverage End Date MEDICARE OF [place] [address] [place] [id number] NORIS PALMA Self - patient is the insured MEDICAID OF [facility] [address] [place] [place] [address] [phone] [id number] NORIS PALMA Self - patient is the insured Medical (General) History Medical History History ICD Code Osteoarthritis GERD--EGD in 2005 described mild changes of reflux Hypertension Dyslipidemia DVT of the left lower extremity in 2001 Heart attack year 1981-mild; 1 stent kiki man in 2011 Skin disorderwith leukemia/l ymphomia - currently on radiation treatments once a week with Dr. Lee(grid trimmer) Denies DM,CVA,Lung disease,renal disease Negative colonoscopy in 2005 Surgical History Surgery Date(Month/Year) Cholecystectomy Tonsillectomy JIMENEZ Appendectomy Bilateral cataract extraction Knee surgery Squamous cell skin cancer
== END 2024-10-25 10:27 | disposition home or self-care (01) ==
LOC: HO.HKA 10:04
PROVIDERS: PCP Internal Medicine; Visit Provider Internal Medicine Hypertension Specialist
DX: I50.30 Unspecified diastolic (congestive) heart failure (principal); N17.9 Acute kidney failure, unspecified; N18.9 Chronic kidney disease, unspecified
CPT/HCPCS: 99214

== ENCOUNTER → 2024-10-25 10:04 | Outpatient (BNVA) | payer MEDICARE, MEDICAID, SELFPAY | PROVIDERS: PCP Internal Medicine; Visit Provider Internal Medicine Hypertension Specialist | DX: I13.0 Hypertensive heart and chronic kidney disease with heart failure and stage 1 through stage 4 chronic kidney disease, or unspecified chronic kidney disease (principal); I50.30 Unspecified diastolic (congestive) heart failure; D63.1 Anemia in chronic kidney disease; N18.9 Chronic kidney disease, unspecified; N17.9 Acute kidney failure, unspecified; E87.5 Hyperkalemia; Z79.899 Other long term (current) drug therapy | CPT/HCPCS: 99212 ==

== ENCOUNTER 2024-10-26 09:37 | Outpatient (AMB) | payer MEDICARE, MEDICAID, SELFPAY ==
[2024-10-26 09:41] VITALS: BP 142/88; PULSE 62; TEMP 36.1; O2SAT 97; BMI 30.2
--- NOTE | 2024-10-26 09:41 | A.OFFPC_ITS ---
Vital Signs 10/26/24 09:41 Height 5 ft 4 in Weight 176 lb BMI 30.2 BP 142/88 H Blood Pressure Location Lt brachial Position Sitting Pulse 62 Pulse Source Pulse Oximeter Temp 97.0 F Temp Source Temporal Artery Scan Pulse Oximetry (%) 97 Oxygen Delivery Method Room Air Intake Visit Reasons: CHF, A trial fib, constipation Accompanied by: Daughter Allergies asparagus Allergy (Severe, Verified 10/26/24 09:45) Hives rosuvastatin (Crestor) Allergy (Unknown, Verified 10/26/24 09:45) unknown famotidine (From PEPCID) Adverse Reaction (Severe, Verified 10/26/24 09:45) NAUSEA oxycodone (From OXYCONTIN) Adverse Reaction (Intermediate, Verified 10/26/24 09:45) NAUSEA & VOMITING FROM PERCOCET TOO tramadol Adverse Reaction (Intermediate, Verified 10/26/24 09:45) could not concetrate chocolate cover cherries Allergy (Severe, Uncoded 10/26/24 09:45) Anaphylaxis Tobacco use date assessed: 10/26/24 Fall risk assessment: No Falls in past year Last assessed Fall Risk: 10/26/24 Dental Screening Dental Screen Date: 10/26/24 Did you have a dental visit in the last 12 months?: Yes Did you have a dental problem in the last 6 months where you did not have access to dental care?: No Was dental information given to patient?: Patient has dentist [facility] Medical History (Updated 10/26/24 @ 10:25 by Erika Jordan MD) SARAH (acute kidney injury) Gait instability Persistent atrial fibrillation (HFpEF) heart failure with preserved ejection fraction History of cardioversion Abscess of vagina Atrial fibrillation Abscess of right genital labia Obesity Anemia Muscle spasm of right leg Angina pectoris Medicare annual wellness visit, initial Overweight (BMI 25.0-29.9) Right leg swelling Vitamin D deficiency TIA (transient ischemic attack) Chronic kidney disease (CKD) stage G3b/A1, moderately decreased glomerular filtration rate (GFR) between 30-44 mL/min/1.73 square meter and albuminuria creatinine ratio less than 30 mg/g Spinal stenosis Leukopenia Hypercholesterolemia Insomnia Peripheral vascular disease Peripheral neuropathy Esophageal dysmotility Carotid stenosis Pityriasis lichenoides chronica Lumbar degenerative disc disease GERD (gastroesophageal reflux disease) Hypertension Coronary artery disease Primary osteoarthritis of both shoulders Surgical History History of esophagogastroduodenoscopy (EGD) H/O colonoscopy Hx of total knee arthroplasty Hx of arthroscopic knee surgery Stented coronary artery Status post phlebectomy History of cataract surgery Basal cell carcinoma (BCC) History of tonsillectomy S/P JIMENEZ-BSO History of appendectomy History of cholecystectomy Family History Mother No problems noted. Father No problems noted. Social History Household Members: None Housing: Apartment Do you presently have visiting nurse or other home services: Yes Alcohol intake: never Patient Tobacco Use Status: Never used Tobacco Tobacco use type: Cigarette e-Cigarette/Vaping Use: Never Used Second Hand Smoke Exposure: No Advance Directives Date on File: 07/11/20 service: No Current occupational status: retired Cognitive needs: Yes (walker ) Hearing needs: No Vision needs: No Female Reproductive History Menstrual Age of Menarche: 7 Questionnaire PHQ-9 Over the last 2 weeks, how often have you been bothered by any of the following problems? 1. Little interest or pleasure in doing things: not at all 2. Feeling down, depressed, or hopeless: several days 3. Trouble falling or staying asleep, or sleeping too much: several days 4. Feeling tired or having little energy: nearly every day 5. Poor appetite or overeating: several days 6. Feeling bad about yourself - or that you are a failure or have let yourself or your family down: several days 7. Trouble concentrating on things, such as reading the newspaper or watching television: nearly every day 8. Moving or speaking so slowly that other people could have noticed. Or the opposite - being so fidgety or restless that you have been moving around a lot more than usual: several days 9. Thoughts that you would be better off or of hurting yourself in some way: several days Total score: 12 Source: Developed by Drs. Reinier Bernard, Kelly Wiggins, Sy Adames and colleagues, with an educational jody from [employer]. Thrive Questionnaire Date Thrive assessed: 03/15/24 I am a: Parent/Caregiver What is your living situation today?: I choose not to answer this question Within the past 12 months, did the food you bought not last and you didn't have the money to get more?: I choose not to answer this question Within the past 12 months, did you worry whether your food would run out before you got money to buy more?: I choose not to answer this question Do you have trouble paying for medicines?: No Do you have trouble getting transportation to medical appointments?: No Do you have trouble paying your heating and electricity bill?: No Do you have trouble taking care of your child, family member or friend?: I choose not to answer this question Do you have trouble with day-to-day activities such as bathing, preparing meals, shopping, managing finances, etc.?: I choose not to answer this question Are you currently unemployed and looking for a job?: No Are you interested in more education?: No Please select the resources that you would like help with: Care for elder or disabled Currently or been in a relationship where the following occur: I choose not to answer THRIVE Score: 0 AUDIT C Alcohol Use Questionnaire (AUDIT-C) 1. How often do you have a drink containing alcohol?: Never 3. How often do you have six or more drinks on one occasion?: Never Total Score: 0 JEANMARIE-7 AMB Questionnaire JEANMARIE-7 Date JEANMARIE - 7 assessed: 03/15/24 Feeling nervous, anxious, or on edge: 1 = Several days Not being able to stop or control worryin = Nearly every day Worrying too much about different things: 3 = Nearly every day Trouble relaxin = More than half the days Being so restless that it is hard to sit still: 1 = Several days Becoming easily annoyed or irritable: 1 = Several days Feeling afraid as if something awful might happen: 1 = Several days Total JEANMARIE-7 score (0-4 normal; 5-9 mild; 10-14 moderate; 15-21 severe): 12 Source: Developed by Drs. Reinier Bernard, Kelly Wiggins, Sy Adames and colleagues, with an educational jody from [employer]. Physical exam (Primary Care) Vital Signs: Last Vital Signs Temp 97.0 F 10/26/24 09:41 Pulse 62 10/26/24 09:41 BP 142/88 H 10/26/24 09:41 Pulse Ox 97 10/26/24 09:41 Oxygen Delivery Method Room Air 10/26/24 09:41 BMI result Body Mass Index 30.2 Tobacco/Smoking Status: Tobacco use Status Tobacco use date assessed 10/26/24 10/26/24 09:48 Patient Tobacco Use Status Never used Tobacco 10/26/24 09:48 Tobacco use type Cigarette 10/26/24 09:48 e-Cigarette/Vaping Use Never Used 10/26/24 09:48 PHQ-9: PHQ-9 Score PHQ-9: Total score 12 10/26/24 10:11 Thrive Assessment: Date of Thrive Assessment Date Thrive assessed 03/15/24 10/26/24 09:48 Currently or been in a relationship where the following occur: I choose not to answer Const General: alert; No acute distress Eyes Conjunctivae: conjunctivae normal Resp Auscultation: clear to auscultation bilaterally Cardio Rate: regular rate Rhythm: regular rhythm GI Inspection: Yes normal to inspection Extrem General: Yes normal to inspection and No edema Coding Level of Care Code Est Pt Level 4 (69136) Complex EM visit Add On G2211 Diagnoses Essential hypertension I10 (HFpEF) heart failure with preserved ejection fraction I50.30 Coronary artery disease involving [place] coronary artery of [place] heart without angina pectoris I25.10 Associated angina: without angina Coronary Disease-Associated Artery/Lesion type: [place] artery [place] vs. transplanted heart: [place] heart Paroxysmal atrial fibrillation I48.0 Hypercholesterolemia E78.00 Impaired fasting blood sugar R73.01 Obesity (BMI 30-39.9) E66.9 GERD (gastroesophageal reflux disease) K21.9 CKD (chronic kidney disease) N18.9 Anemia D64.9 Onychomycosis B35.1 Assessment & Plan Assessment & Plan (1) Hypertension: Code(s): I10 - Essential (primary) hypertension Category: Medical Plan: Continue with blood pressure medication. Decrease salt intake and exercise on amlodipine 5 mg once a day losartan 50 mg twice a day (2) (HFpEF) heart failure with preserved ejection fraction: Code(s): I50.30 - Unspecified diastolic (congestive) heart failure Category: Medical Plan: Continue with monitoring continue with diuretics weigh daily. (3) Coronary artery disease: Comment: [place] in 1981, stent placement 2012 Code(s): I25.10 - Atherosclerotic heart disease of [place] coronary artery without angina pectoris Category: Medical Qualifiers: Associated angina: without angina Coronary Disease-Associated Artery/Lesion type: [place] artery [place] vs. transplanted heart: [place] heart Qualified Code(s): I25.10 - Atherosclerotic heart disease of [place] coronary artery without angina pectoris Plan: Control the cholesterol, weight, blood pressure,patient is on Xarelto (4) Paroxysmal atrial fibrillation: Comment: Status post cardioversion June 2023 Code(s): I48.0 - Paroxysmal atrial fibrillation Category: Medical Plan: Continue with Xarelto amiodarone decrease to 100 mg once a day (5) Hypercholesterolemia: Code(s): E78.00 - Pure hypercholesterolemia, unspecified Category: Medical Plan: Avoid fried foods, chicken skin, eggs, butter margarine, pastries and meat. Be it pork or beef they have a lot of cholesterol patient is on atorvastatin 20 mg once a day (6) Impaired fasting blood sugar: Code(s): R73.01 - Impaired fasting glucose Category: Medical Plan: Decrease the amount of carbohydrate intake, pasta, bread, rice and potatoes are all sugar and that is aside from all the sweet stuff, remember that fruits are good but they are Sweet also. (7) Obesity (BMI 30-39.9): Code(s): E66.9 - Obesity, unspecified Category: Medical Plan: Diet and exercise (8) GERD (gastroesophageal reflux disease): Code(s): K21.9 - Gastro-esophageal reflux disease without esophagitis Category: Medical Plan: Avoid the foods that causes that usually spicy foods, tomato products, juices, coffee, soda and foods that your sensitive to. After eating do not lie down, allow 3-4 hours before in lie down. And keep the head of bed above 30 degrees to avoid the acid from going up. (9) CKD (chronic kidney disease): Code(s): N18.9 - Chronic kidney disease, unspecified Category: Medical (10) Anemia: Code(s): D64.9 - Anemia, unspecified Category: Medical (11) Onychomycosis: Code(s): B35.1 - Tinea unguium Category: Medical Plan History of Present Illness The patient is an 84-year-old female presenting for a follow-up visit. She has a history of hypertension, gastroesophageal reflux disease, lumbar degenerative disc disease, hypercholesterolemia, coronary artery disease, generalized anxiety disorder, and prednisone tolerance. Her atrial fibrillation and congestive heart failure with preserved ejection fraction are managed with medications including amiodarone and Xarelto. 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 Her diuretics were decreased due to hypoperfusion concerns related to losartan and diuretics. Recent blood work showed anemia with a hemoglobin of 8.7 and mild thrombocytopenia. Electrolytes were stable, though potassium was slightly elevated at 5.2, and creatinine was 1.76. Inaika Maintenance Social History Review of Systems - Neurological: Reports headaches. Physical Exam Results - Labs: Hemoglobin 8.7, mild thrombocytopenia, potassium 5.2, creatinine 1.76, LDL 43, A1c 5.6. Plan Patient was informed and verbally consented to the use of an ambient scribe for clinic note documentation during this visit. 1. Hypertension The patient is on amlodipine 5 mg once a day and losartan 50 mg twice a day for hypertension management. 2. Atrial Fibrillation The patient is on oral anticoagulation with Xarelto and amiodarone, which was decreased to 100 mg once a day. 3. Chronic Kidney Disease Stage 3 The patient is advised to monitor renal function every three months and continue with adjusted diuretics. 4. Coronary Artery Disease The patient is on atorvastatin 20 mg once a day for cholesterol management. Discussion Notes Patient Instructions Medications: Refilled polyethylene glycol 3350 (Miralax) 17 grams PO DAILY 90 ea 3RF K59.00 - Constipation, unspecified meclizine 12.5 mg PO TID 30 tabs 1RF
--- OUTSIDE RECORDS SUMMARY | 2024-10-26 11:24 | XMS_ITS | Patient Health Record ---
Author Organization [facility] Address [address] [place] [address] Care Team Providers Care Hay Stacker Name Role Phone Erika Jordan MD Primary Care Provider Reinier Bender [phone] Allergies Allergen (clinical drug ingredient) Drug/Non Drug [...] Problem Status W/U Status Risk Notes Problem [id number] Gastroesophageal reflux disease, esophagitis presence not specified (K21.9) Active confirmed Problem [id number] Abnormal barium swallow (R93.3) Active confirmed Plan Of Treatment No Information Insurance Providers Payer Name Payer Address Payer Phone Subscriber Number Group Number Insured Name Patient Relationship to Insured Coverage Start Date Coverage End Date MEDICARE OF [place] [address] [place] [id number] NORIS PALMA Self - patient is the insured MEDICAID OF [facility] [address] [place] [phone] [id number] NORIS PALMA Self - patient is the insured Medical (General) History Medical History History ICD Code Osteoarthritis GERD--EGD in 2005 described mild changes of reflux Hypertension Dyslipidemia DVT of the left lower extremity in 2001 Heart attack year 1981-mild; 1 stent kiki man in 2011 Skin disorderwith leukemia/l ymphomia - currently on radiation treatments once a week with 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
== END 2024-10-26 10:33 | disposition home or self-care (01) ==
LOC: HO.HMCH 09:37
PROVIDERS: PCP Internal Medicine; Visit Provider Internal Medicine
DX: I12.9 Hypertensive chronic kidney disease with stage 1 through stage 4 chronic kidney disease, or unspecified chronic kidney disease (principal); I50.30 Unspecified diastolic (congestive) heart failure; I48.0 Paroxysmal atrial fibrillation; I25.10 Atherosclerotic heart disease of native coronary artery without angina pectoris; E78.00 Pure hypercholesterolemia, unspecified; R73.01 Impaired fasting glucose; E66.9 Obesity, unspecified; Z68.30 Body mass index [BMI] 30.0-30.9, adult; K21.9 Gastro-esophageal reflux disease without esophagitis; N18.9 Chronic kidney disease, unspecified; D64.9 Anemia, unspecified; B35.1 Tinea unguium

== ENCOUNTER → 2024-10-26 09:37 | Outpatient (BNVA) | payer MEDICARE, MEDICAID, SELFPAY | PROVIDERS: PCP Internal Medicine; Visit Provider Internal Medicine | DX: I13.0 Hypertensive heart and chronic kidney disease with heart failure and stage 1 through stage 4 chronic kidney disease, or unspecified chronic kidney disease (principal); N18.9 Chronic kidney disease, unspecified; I50.30 Unspecified diastolic (congestive) heart failure; I25.10 Atherosclerotic heart disease of native coronary artery without angina pectoris; I48.0 Paroxysmal atrial fibrillation; E78.00 Pure hypercholesterolemia, unspecified; R73.01 Impaired fasting glucose; K21.9 Gastro-esophageal reflux disease without esophagitis; D64.9 Anemia, unspecified; B35.1 Tinea unguium; E66.9 Obesity, unspecified; Z68.30 Body mass index [BMI] 30.0-30.9, adult; Z71.3 Dietary counseling and surveillance | CPT/HCPCS: 99212 ==

== ENCOUNTER 2024-12-20 10:29 | Outpatient (REF) | payer MEDICARE, MEDICAID, SELFPAY ==
--- OUTSIDE RECORDS SUMMARY | 2024-12-20 12:07 | XMS_ITS | Patient Health Record ---
Author Organization [facility] Address [address] [place] [address] Care Team Providers Care Technical Stenographer Name Role Phone Erika Jordan MD Primary Care Provider Reinier Bender [phone] Allergies Allergen (clinical drug ingredient) Drug/Non Drug [...] MG 1 capsule Orally Onc e a day; Duration: 30 day(s) 09/30/2016 Active Zetia 10 MG 1 tablet Orally Once a day Active Aspirin Adult Low Dose 81 MG 1 tablet Orally Once a day Active Metoprolol Succinate ER 50 MG TAKE ONE TABLET BY MOUTH EVERY DAY Oral; Duration: 90 Active Atorvastatin Calcium 20 MG TAKE ONE TABL ET(S) DAILY Oral; Duration: 90 Active Immunizations Vaccine Route Administration Date [...] Problem Status W/U Status Risk Notes Problem Gastroesophageal reflux disease ([id number]) Gastroesophageal reflux disease, esophagitis presence not specified (K21.9) Active confirmed Problem Barium swallow abnormal (163004300) Abnormal barium swallow (R93.3) Active confirmed Plan Of Treatment No Information Insurance Providers Payer Name Payer Address Payer Phone Subscriber Number Group Number Insured Name Patient Relationship to Insured Coverage Start Date Coverage End Date MEDICARE OF [place] [address] [place] [id number] NORIS PALMA Self - patient is the insured MEDICAID OF [facility] [address] [place] [address] [id number] NORIS PALMA Self - patient is the insured Medical (General) History Medical History History ICD Code Osteoarthritis GERD--EGD in 2005 described mild changes of reflux Hypertension Dyslipidemia DVT of the left lower extremity in 2001 Heart attack year 1981-mild; 1 stent kiki man in 2011 Skin disorderwith leukemia/l ymphomia - currently on radiation treatments once a week with Dr. 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
[2024-12-20 13:51] LABS: Hematocrit 34.6 % (37.0-47.0); Hemoglobin 10.9 g/dl (12.0-16.0); Mean Corpuscular HGB Conc 31.5 g/dl (31.0-35.0); Mean Corpuscular Hemoglobin 28.8 pg (27.0-33.0); Mean Corpuscular Volume 91.5 fL (80.0-98.0); NRBC Abs Auto 0.000 X10*3/uL (0.0-0.012); NRBC Pct Auto 0.0 /100WBC (0.0-0.2); Platelet Count 220 X10*3/uL (160-400); Red Blood Count 3.78 X10*6/uL (4.20-5.50); White Blood Count 5.8 X10*3/uL (4.8-10.8)
[2024-12-20 14:05] LABS: Anion Gap 14 (12-20); Blood Urea Nitrogen 23 mg/dL (9-16); Calcium 9.3 mg/dL (8.4-10.2); Carbon Dioxide 22 mmol/L (22-29); Chloride 107 mmol/L (96-108); Estimated Glomerular Filt Rate 33; Iron 49 mcg/dL (30-160); Percent Iron Saturation 15 % (15-50); Potassium 4.5 mmol/L (3.3-5.1); Sodium 138 mmol/L (135-145); Total Iron Binding Capacity 319 mcg/dL (228-428); Unsaturated Iron Binding 270 ug/dL
[2024-12-20 14:26] LABS: Ferritin 44 ng/mL (10-250)
[2024-12-20 14:29] LABS: Total Protein Urine Random 27 mg/dL (<12)
== END 2024-12-20 10:30 | disposition home or self-care (01) ==
LOC: HO.HMGCLDS 10:29
PROVIDERS: PCP Internal Medicine; Visit Provider Internal Medicine Hypertension Specialist
DX: N18.9 Chronic kidney disease, unspecified (principal); D63.1 Anemia in chronic kidney disease
CPT/HCPCS: 36415; 80048; 82570; 82728; 83540; 84156; 85027

== ENCOUNTER 2024-12-27 09:43 | Outpatient (AMB) | payer MEDICARE, MEDICAID, SELFPAY ==
[2024-12-27 09:46] VITALS: BP 144/80; PULSE 103; O2SAT 99; BMI 29.5
--- NOTE | 2024-12-27 09:46 | HO.NEPHOV ---
Vital Signs 12/27/24 09:46 12/27/24 09:59 Height 5 ft 4 in Weight 172 lb BMI 29.5 BP 144/80 H 120/70 Blood Pressure Location Lt brachial Lt brachial Position Sitting Sitting Pulse 103 H Pulse Source Pulse Oximeter Pulse Oximetry (%) 99 Oxygen Delivery Method Room Air Intake Visit Reasons: Nov f/u w/labs Print Line Operator Required: No Accompanied by: Self / Same As Patient Allergies asparagus Allergy (Severe, Verified 12/27/24 09:48) Hives rosuvastatin (Crestor) Allergy (Unknown, Verified 12/27/24 09:48) unknown famotidine (From PEPCID) Adverse Reaction (Severe, Verified 12/27/24 09:48) NAUSEA oxycodone (From OXYCONTIN) Adverse Reaction (Intermediate, Verified 12/27/24 09:48) NAUSEA & VOMITING FROM PERCOCET TOO tramadol Adverse Reaction (Intermediate, Verified 12/27/24 09:48) could not concetrate chocolate cover cherries Allergy (Severe, Uncoded 10/26/24 09:45) Anaphylaxis Medication List - Last Reconciled 12/27/24 by Fausto Vogel MD amiodarone 100 mg (1/2 x 200 mg) PO DAILY amlodipine 5 mg PO ONCE atorvastatin 20 mg PO DAILY 90 days furosemide 20 mg PO 3XW Lactobacillus rhamnosus GG (Culturelle) 1 cap PO BID losartan 50 mg PO BID meclizine 12.5 mg PO TID nitroglycerin 0.4 mg sublingual Q5M PRN polyethylene glycol 3350 (Miralax) 17 grams PO DAILY rivaroxaban (Xarelto) 15 mg PO DAILY [Rollator As directed] [Shower chair w/back rest As directed] HPI Comments Details: Jaylin is a pleasant woman with a history of longstanding hypertension and atrial fibrillation. Blood pressure was difficult to control on losartan was increased from 50 mg q.d. up to 50 mg b.i.d.. Baseline creatinine was around 1.2-1.2 mg/dL. In 06/29/2023 creatinine jumped up to 2.0 and since remained high. She had a cardioversion on 06/30 but Cr up on 06/29 Lasix decreased 2 weeks ago Repeat labs are not available. she has no shortness of breath. No nausea vomiting. She has fatigue. No urinary symptoms no hematuria. No edema no rash 05/24/24 : bradycardia ; Metoprolol was stopped last week ;Now HR is 84 ;Feels better 10/25/24 ;The patient is an 84-year-old female presenting with a follow-up for chronic conditions, including atrial fibrillation and chronic kidney disease. Atrial fibrillation is managed with amiodarone, reduced to 100 mg. No new medications reported. Chronic kidney disease is stable. Arm pain managed with patches and Tylenol. NSAIDs avoided. Anemia worsened, hemoglobin at 8.7. Recheck blood work in three weeks. 12/27/24 The patient is an 84-year-old female presenting for a follow-up visit for management of chronic kidney disease, hypertension, and anemia. She has a history of long-standing hypertension and atrial fibrillation. The patient's chronic kidney disease has shown improvement, with her kidney function increasing from 27% in October to 33% in December. Earlier in 2023, her kidney function was at 20-21%. She has a history of anemia, with her hemoglobin improving from 8.7 to 10.9. The patient associates white discoloration on her fingernails and toenails with her anemia. She reports that iron pills cause constipation and her diet consists mainly of salad, soup, and sandwiches. Her potassium level is now controlled at 4.5. Her current medications include amiodarone, amlodipine, furosemide three times a week, and losartan twice a day, with no recent changes. Symptomatically, she denies any trouble breathing or swelling in her legs. She reports nocturia, urinating two to three times a night. For hydration, she chews ice all day as she has difficulty swallowing water. [facility] Medical History (Updated 10/26/24 @ 10:25 by Erika Jordan MD) SARAH (acute kidney injury) Gait instability Persistent atrial fibrillation (HFpEF) heart failure with preserved ejection fraction History of cardioversion Abscess of vagina Atrial fibrillation Abscess of right genital labia Obesity Anemia Muscle spasm of right leg Angina pectoris Medicare annual wellness visit, initial Overweight (BMI 25.0-29.9) Right leg swelling Vitamin D deficiency TIA (transient ischemic attack) Chronic kidney disease (CKD) stage G3b/A1, moderately decreased glomerular filtration rate (GFR) between 30-44 mL/min/1.73 square meter and albuminuria creatinine ratio less than 30 mg/g Spinal stenosis Leukopenia Hypercholesterolemia Insomnia Peripheral vascular disease Peripheral neuropathy Esophageal dysmotility Carotid stenosis Pityriasis lichenoides chronica Lumbar degenerative disc disease GERD (gastroesophageal reflux disease) Hypertension Coronary artery disease Primary osteoarthritis of both shoulders Surgical History History of esophagogastroduodenoscopy (EGD) H/O colonoscopy Hx of total knee arthroplasty Hx of arthroscopic knee surgery Stented coronary artery Status post phlebectomy History of cataract surgery Basal cell carcinoma (BCC) History of tonsillectomy S/P [id number] History of appendectomy History of cholecystectomy Family History Mother No problems noted. Father No problems noted. Social History Household Members: None Housing: Apartment Do you presently have visiting nurse or other home services: Yes Alcohol intake: never Patient Tobacco Use Status: Never used Tobacco Tobacco use type: Cigarette e-Cigarette/Vaping Use: Never Used Second Hand Smoke Exposure: No Advance Directives Date on File: 07/11/20 service: No Current occupational status: retired Cognitive needs: Yes (walker ) Hearing needs: No Vision needs: No Female Reproductive History Menstrual Age of Menarche: 7 Physical Exam Vital Signs: Last Vital Signs Pulse 103 H 12/27/24 09:46 BP 144/80 H 12/27/24 09:46 Pulse Ox 99 12/27/24 09:46 Oxygen Delivery Method Room Air 12/27/24 09:46 BMI result Body Mass Index 29.5 Comfortable Neck supple no JVD. Lungs entry equal no rales. Heart S1-S2 heard no gallop or rub. Abdomen soft nontender. Neuro alert awake oriented. No asterixis. Extremities no edema. Results Reviewed Nephrology Results: Hgb, (12.0-16.0) 10.9 g/dl L Δ 12/20/24 WBC, (4.8-10.8) 5.8 X10*3/uL 12/20/24 Plt Count, (160-400) 220 X10*3/uL Δ 12/20/24 Sodium, (135-145) 138 mmol/L 12/20/24 Potassium, (3.3-5.1) 4.5 mmol/L 12/20/24 Chloride, (96-108) 107 mmol/L 12/20/24 Carbon Dioxide, (22-29) 22 mmol/L 12/20/24 BUN, (9-16) 23 mg/dL H 12/20/24 Creatinine, (0.5-1.4) 1.50 mg/dL H 12/20/24 Calcium, (8.4-10.2) 9.3 mg/dL 12/20/24 Urine Protein, (Neg-Trace) Negative mg/dL 10/21/24 Urine Creatinine 150.52 mg/dL 12/20/24 Renal US 10/19/23 Assessment & Plan Assessment & Plan (1) (HFpEF) heart failure with preserved ejection fraction: Code(s): I50.30 - Unspecified diastolic (congestive) heart failure Category: Medical (2) SARAH (acute kidney injury): Code(s): N17.9 - Acute kidney failure, unspecified Category: Medical (3) CKD (chronic kidney disease): Code(s): N18.9 - Chronic kidney disease, unspecified Category: Medical Plan Elderly woman with hypertension and atrial fibrillation has sustained acute kidney injury. She has underlying chronic kidney disease stage 3 most likely due to age-related nephron loss and hypertensive nephrosclerosis. Superimposed SARAH is most likely due to hypoperfusion. No evidence of Obstructive uropathy ,glomerular nephritis or interstitial disease Hypoperfusion was probably due to combination of high dose of losartan and diuretics. After lowering diuretics, creatinine HAS improved Continue to avoid nephrotoxic agents Avoid hypotension. Creatinine is down to 1.5 and eGFR is up to 33 2. Anemia Mild decrease in WBC and Platelets - ? Pancytopenia No new meds noted Repeat hemoglobin is better at 10.9 3. HTN BP acceptable.No changes 4. s/p Hyperkalemia - Avoid high-potassium foods. REcent K is 4.5 Orders: Orders Basic Metabolic Panel 4 Months N18.9 - Chronic kidney disease, unspecified Complete Blood Count no Diff 4 Months N18.9 - Chronic kidney disease, unspecified Coding Level of Care Code Est Pt Level 4 (10019) Diagnoses (HFpEF) heart failure with preserved ejection fraction I50.30 SARAH (acute kidney injury) N17.9 CKD (chronic kidney disease) N18.9
[2024-12-27 09:59] VITALS: BP 120/70
== END 2024-12-27 10:03 | disposition home or self-care (01) ==
LOC: HO.HKA 09:44
PROVIDERS: PCP Internal Medicine; Visit Provider Internal Medicine Hypertension Specialist
DX: I50.30 Unspecified diastolic (congestive) heart failure (principal); N17.9 Acute kidney failure, unspecified; N18.9 Chronic kidney disease, unspecified
CPT/HCPCS: 99214

== ENCOUNTER → 2024-12-27 09:43 | Outpatient (BNVA) | payer MEDICARE, MEDICAID, SELFPAY | PROVIDERS: PCP Internal Medicine; Visit Provider Internal Medicine Hypertension Specialist | DX: I11.0 Hypertensive heart disease with heart failure (principal); I50.30 Unspecified diastolic (congestive) heart failure; N17.9 Acute kidney failure, unspecified; N18.9 Chronic kidney disease, unspecified; I48.91 Unspecified atrial fibrillation; D64.9 Anemia, unspecified | CPT/HCPCS: 99212 ==